=== PATIENT | male | born 1950 | race Caucasian/White ===

== ENCOUNTER 2025-01-17 07:38 | Outpatient (RCR) | payer OTHER, SELFPAY ==
[2025-01-17 07:50] VITALS: BP 145/84
[2025-01-17] MEDS: NSS 500 IV (08:06)
== END 2025-01-19 23:59 | disposition home or self-care (01) ==
LOC: OID 07:38
PROVIDERS: ATTENDING PHYSICIAN Nurse Practitioner Adult Health; FAMILY PHYSICIAN Family Medicine
DX: I35.0 Nonrheumatic aortic (valve) stenosis (principal); I48.21 Permanent atrial fibrillation; I25.10 Atherosclerotic heart disease of native coronary artery without angina pectoris; D64.9 Anemia, unspecified
CPT/HCPCS: 96360; 96361

== ENCOUNTER → 2025-01-17 08:32 | Outpatient (REF) | payer OTHER, SELFPAY ==
--- NOTE | 2025-01-02 13:29 | TAVREVAL ---
TAVR Evaluation
Frailty
MMSE ____/30: n/a
Physician Visits
Date of Visit Interventionalist:Simon/Vivi/Angus/Abraham: 01/01/25 (Jose Luis Bell)
Primary Collator Operator Name: Ruel Araujo
PCP Name: Munir Mcdaniel
Dentist Name: Dr. Boles- [phone]
Plan
Plan:
01/01/2025: Consult received from Dr. Bell for TAVR evaluation.
01/02/2025: Called and spoke to patient. He has CKD based on review of his BUN/Creat/GFR over past year. [place] safest option was to split CT TAVR and give IV hydration. Reviewed labs and plan with the patient. Agrees with plan. Will email all
instrcutions to patient.
1: CT TAVR chest only 01/17/2025, arrive at [facility] at 0745.
2: Follow up BMP on 01/23/2025, script emailed and transmitted to [employer].
3: Pending blood work on 01/23 will set up second part of CT scan and try and coordinate his CT surgery consult at same time.
Allowed for and answered all questions. Gets regular dental care- Dr. Boles [phone]. Office closed today, will try again tomorrow.
01/17/2025: Patient seen in outpatient infusion. Provided with with TAVR education booklet and prescription for follow up BMP on 01/23. Will call once results obtained to schedule CT scan Abd/Pelvis.
== END ==
LOC: RAD 08:32
PROVIDERS: ATTENDING PHYSICIAN Student in an Organized Health Care Education/Training Program
DX: I35.0 Nonrheumatic aortic (valve) stenosis (principal)
CPT/HCPCS: 75572; Q9967

== ENCOUNTER → 2025-02-13 09:07 | Outpatient (REF) | payer OTHER, SELFPAY | LOC: RAD 09:07 | PROVIDERS: ATTENDING PHYSICIAN Nurse Practitioner Adult Health; FAMILY PHYSICIAN Family Medicine | DX: I35.0 Nonrheumatic aortic (valve) stenosis (principal) | CPT/HCPCS: 74174; Q9967 ==

== ENCOUNTER 2025-03-05 05:12 | Inpatient (IN) | payer OTHER, SELFPAY ==
[2025-02-23 12:07] VITALS: BMI 32.8
[2025-02-23 12:56] LABS: % Basophils 1.2 % (0-2); % Eosinophils 6.7 % (0-6); % Immature Granulocytes 0.3 % (0-0.5); % Lymphocytes 20.3 % (20.5-51.1); % Monocytes 10.3 % (1.7-9.3); % Neutrophils 61.2 % (42.2-75.2); Absolute Basophils 0.1 10^3/uL (0-0.2); Absolute Eosinophils 0.5 10^3/uL (0-0.7); Absolute Lymphocytes 1.5 10^3/uL (1.2-3.4); Absolute Monocytes 0.8 10^3/uL (0.1-0.6); Absolute Neutrophils 4.6 10^3/uL (1.4-6.5); Hematocrit 34.4 % (39.0-52.0); Hemoglobin 11.1 g/dL (13.0-18.0); Mean Corp Hgb Conc. 32.3 g/dL (33.0-37.0); Mean Corpuscular Hgb 28.7 pg (27.0-31.0); Mean Corpuscular Volume 88.9 fL (80.0-94.0); Mean Platelet Volume 10.9 fL (7.4-10.4); Nucleated Red Blood Cells % 0 % (-); Platelet Count 141 10^3/uL (130-400); Red Blood Cell Count 3.87 10^6/uL (4.70-6.10); Red Cell Dist. Width 13.8 % (11.5-14.5); White Blood Cell Count 7.4 10^3/uL (4.8-10.8)
[2025-02-23 13:05] LABS: INR 1.96; PT 22.5 Sec (11.4-14.6)
[2025-02-23 13:06] LABS: APTT 46.5 Sec (23.4-35.0)
[2025-02-23 13:27] LABS: Urine Albumin 3+ (Neg - Trace); Urine Bilirubin Negative (Negative); Urine Character Clear (Clear); Urine Color Yellow; Urine Glucose 4+ (Negative); Urine Ketone Negative (Negative); Urine Leukocyte Negative (Negative); Urine Nitrite Negative (Negative); Urine Occult Blood Negative (Negative); Urine Specific Gravity 1.015 (<1.030); Urine Urobilinogen Negative (Neg - 1+)
[2025-02-23 13:30] LABS: ALT (SGPT) 20 U/L (0-50); AST (SGOT) 26 U/L (17-59); Alkaline Phosphatase 113 U/L (38-126); Blood Urea Nitrogen 29 mg/dl (9-20); Calcium 9.4 mg/dl (8.4-10.2); Carbon Dioxide 23 mmol/L (22-30); Chloride 108 mmol/L (98-107); Direct Bilirubin 0.3 mg/dl (0.0-0.4); Estimated Creatinine Clearance 50 ml/min; Glucose 75 mg/dl (70-99); Potassium 4.3 mmol/L (3.5-5.1); Sodium 143 mmol/L (135-145); Total Bilirubin 0.7 mg/dl (0.2-1.3); Total Protein 7.2 g/dl (6.3-8.2); eGFR 44.65
[2025-02-23 14:30] LABS: Urine Red Blood Cell 0-2 /HPF (0-2); Urine White Cell 0-2 /HPF (0-5)
--- NOTE | 2025-02-23 15:00 | CM ---
Met hans Whiteside and Mrs. Matthews in [facility]. He states prior to admission he resides with his spouse in a three story home with no steps to enter. He states he has two stair glides to get to each level. He states he has a full flight of steps to get
to bedroom/full bathroom. He has a powder room on the first floor. He states prior to admission he ambulates with a single point cane. He states he has single point cane. two stair glides, easy lift chair and semi electric bed. He states he does
not have a prescription plan and uses [facility] for his medications. He states he has been in [facility]. If he needs rehab he will consider [place] at [place] or [facility]. He will need pre-cert for SNF. If he can
go directly home his spouse will be home to assist in his carre if needed. If the Transitional Care Nurse is out of her catchment area , they have selected [facility]. He has had them in the past. Medical work-up in progress. The
discharge plan is to return home with his spouse and a home visit by Transitional Care Nurse verses some level of rehab. if indicated.
We reviewed pre-op and post-op routines. We reviewed the shower instructions. He has the soap, written instructions and the Cardiothoracic Surgery Educational Booklet. We reviewed restrictions including sternal precautions and driving
restrictions. We also discussed a home visit by the Transitional Care Nurse. He is agreeable to a home visit. The plan is for AVR on Wednesday03/05/25.
[2025-02-24 09:00] LABS: Glycohemoglobin (HgbA1c) 6.1 % (4.0-5.6)
[2025-03-05] VITALS (12 sets, daily range): BP systolic 88–147; BP diastolic 57–96; BMI 29.1
[2025-03-05] MEDS: PROTONIX 40 MG PO (06:08)
[2025-03-05] MEDS: MAGNESIUM OXIDE 500 MG PO (06:09)
[2025-03-05] MEDS: LOPRESSOR 25 MG PO (06:09)
[2025-03-05] MEDS: BACTROBAN 2% OINTMENT 1 APPLIC NASAL ×2 (06:16→20:54)
--- NOTE | 2025-03-05 06:18 | PTCARENOTE ---
admitted patient into 2265. pt admitted to 2 showers and NPO since midnight. pt clipped, prepped , washed with CHG. all questions answered. awaiting CVOR.
[2025-03-05 08:06] LABS: Urine Albumin 3+ (Neg - Trace); Urine Bilirubin Negative (Negative); Urine Character Clear (Clear); Urine Color Yellow; Urine Glucose 4+ (Negative); Urine Ketone Negative (Negative); Urine Leukocyte Negative (Negative); Urine Nitrite Negative (Negative); Urine Occult Blood 1+ (Negative); Urine Specific Gravity 1.015 (<1.030); Urine Urobilinogen Negative (Neg - 1+)
[2025-03-05 08:20] LABS: Urine Squamous Cell 0-2 /LPF (Few)
[2025-03-05 08:21] LABS: Urine Red Blood Cell 0-2 /HPF (0-2)
[2025-03-05 08:22] LABS: Urine Bacteria Few (Negative)
[2025-03-05 08:24] LABS: ACT+ - POC 118 Seconds (82-134)
[2025-03-05 09:55] LABS: ACT+ - POC 478 Seconds (82-134)
[2025-03-05 10:17] LABS: B.E. - POC -3.3 mmol/L; Glucose - POC 84 mg/dl (70-99); HCO3 - POC 21 mmol/L (21-28); Hematocrit - POC 31 % PCV (42-52); Hemodilution- POC No; Hemoglobin Calculated - POC 10.6; Ionized Calcium - POC 1.17 mmol/L (1.15-1.33); Lactate - POC 0.44 mmol/L (0.36-0.75); O2 Saturation %Calculated-POC 99.5 % (94-98); PCO2 - POC 35 mmHg (35-48); PO2 - POC 168 mmHg (83-108); Potassium - POC 3.2 mmol/L (3.5-5.1); Sodium - POC 147 mmol/L (136-145); Specimen Type - POC Arterial; pH - POC 7.39 (7.35-7.45)
[2025-03-05 10:28] LABS: ACT+ - POC 516 Seconds (82-134)
[2025-03-05 10:56] LABS: ACT+ - POC 551 Seconds (82-134)
[2025-03-05 11:14] LABS: B.E. - POC 1.4 mmol/L; Glucose - POC 150 mg/dl (70-99); HCO3 - POC 27 mmol/L (21-28); Hematocrit - POC 29 % PCV (42-52); Hemodilution- POC Yes; Hemoglobin Calculated - POC 9.8; Ionized Calcium - POC 1.17 mmol/L (1.15-1.33); Lactate - POC 0.33 mmol/L (0.36-0.75); O2 Saturation %Calculated-POC 99.9 % (94-98); PCO2 - POC 45 mmHg (35-48); PO2 - POC 276 mmHg (83-108); Potassium - POC 4.3 mmol/L (3.5-5.1); Sodium - POC 143 mmol/L (136-145); Specimen Type - POC Arterial; pH - POC 7.38 (7.35-7.45)
[2025-03-05 11:26] LABS: ACT+ - POC 507 Seconds (82-134)
[2025-03-05 11:55] LABS: ACT+ - POC 482 Seconds (82-134)
[2025-03-05 12:57] LABS: ACT+ - POC 145 Seconds (82-134)
[2025-03-05] MEDS: NOVOLOG FLEXPEN SC ×2 (13:09→19:39)
[2025-03-05 13:12] LABS: ACT+ - POC 131 Seconds (82-134)
--- NOTE | 2025-03-05 13:26 | W.CVOR.SURPR ---
CVOR Surgeon Immed Pre Op
-
I have examined this patient prior to performance of the scheduled procedure.
The patient's condition is unchanged from the time of the dictated/written History and
Physical and the patient is able to undergo the scheduled procedure.
--- NOTE | 2025-03-05 13:26 | W.IMMPOSTOP ---
Addendum entered and electronically signed by Alexis Boyer MD 03/05/25 14:55:
[id number]
Original Note:
Surgical Immed Post Op Note
-
CARDIAC SURGERY OPERATIVE NOTE:
Preoperative Dx:
Severe aortic stenosis w/ significant subvalvular calcifications onto aortomitral curtain precluding TAVR (P/M: 53.5/36.8, [place] > 4m/s)
Moderate MR and Moderate TR
Long-standing AF
Mild CAD
Postoperative Dx:
Same
Procedures:
1) Upper mini-'J-type'-hemisternotomy out R 3rd ICS
2) Open exposure of R CFV
3) ELAA (2 clips placed)
4) Extensive debridement of AV annulus and anterior leaflet of MV
5) AVR w/ placement of #27 Inspiris Resilia
Surgeon:
Alexis Boyer M.D.
Assistants:
Mireille Munoz P.A.-C.; open exposure of R CFV, optometric assistant throughout, closure of R CFV exposure
Shilpi Collins P.A.-C. - [id number]-[id number] mini-sternotomy closure
Anesthesia:
Lucio Mcmullen M.D. and Denise JonesR.N.A.
Perfusion:
Isabell Lima C.C.P.; CPB: 137min, XC: 102min
Findings:
R CFV was healthy appearing vessel, but was located almost directly under the R ACADEMIC INTERN
The R ACADEMIC INTERN was profoundly calcified
The AV was trileaflet w/ profound leaflet and annular calcifications, there was a pronounced bar of calcium extending from the aortic annulus onto the ventricular surface of the anterior MV leaflet
The RM and LM coronaries were healthy appearing and well removed from the aortic annulus
#27 Inspiris valve secured w/ 18 interrupted, pledgetted valve sutures and CorKnots
Pt w/ bradycardic AF/junction rhythm in 40s-50s requiring V-pacing @ 70; no profound change in hemodynamics with pacing
Post-LUIS FELIPE: LVEF 55-60%, no RWMA, well-seated AVR w/o PVL/AI, mean gradient 7mmHg, MV and TV function unchanged, BIBI no longer visible w/ abscence of flow confirmed w/ doppler
Implants:
Atriclip x 2 ([id number]; Lot [id number]; ACHV45; Lot [id number]
Epicardial bipolar V-wire x 1 - sutures to epicardium
CT x 2 (mediastinal, R-pleural)
Sternal wires x 3
Sternal 'square' plate w/ 2 - 16mm and 2 - 18mm screws
Sternal 'butterfly' plate w/ 4 - 16mm
Complications:
New bradycardic AF/junctional requiring pacing
Transfusions:
None
Condition:
70 V-paced; 104/57; 40/17; CVP 9, 100%, CO/CI: 4.7/2.0
GTTS: insulin 1, levophed 5, precedex 0.5
Stable/guarded to CVICU
--- NOTE | 2025-03-05 13:42 | CON.INTV ---
Consultation
Consultation Request
Date/Time Consultation Requested: 03/05/2025 - 130
Date/Time Consultation Performed: 03/05/2025 - 1333
Requesting Provider: Shilpi Collins PA-C
Performing Provider: Dr. Brandt
Reason for Consultation: SAVR + ELAA
Medical History
-
Chief Complaint: Elective AVR
History of Present Illness:
74-year-old male non-smoker with a past medical history of A-fib on Xarelto, severe aortic stenosis, valvular heart disease, hypertension, DM type II, hypercholesterolemia, CAD, CKD, anemia, prostate cancer s/p XRT (2004) and [place] who presents with
elective aortic valve replacement. Patient known to the cardiothoracic surgery service, with last visit on 02/13/[address] Boyer. His most recent echo in November 2024 showed moderate�severe aortic stenosis with peak/mean gradients of 54/37
mmHg, respectively. Also has moderate MR + moderate TR. LHC showed mild LAD disease with moderate pulmonary hypertension and moderately elevated right and left heart filling pressures with preserved CO/CI. He was consented for surgical
intervention which he agreed to. Today he underwent upper mini J type hemisternotomy with extensive debridement of AV annulus and anterior leaflet of the mitral valve with aortic valve replacement with placement of a #27 Inspiris Resilia with left
atrial appendage exclusion with 2 clips placed. Patient had a junctional rhythm/bradycardic A-fib into the 40s�50s requiring V pacing at 70. He was transferred to the CVICU with automotive parts counter person services consulted for additional
management/recommendations.
When I saw the patient, he was intubated, in no acute distress. Heart rate 62, SpO2 100%, BP via A-line: 112/53, PAP 25/10 and CO/CI: 3.75/1.64, respectively. Currently on insulin drip at 1.3 units/hr.
PMHx: Hypertension, DM type II, hypercholesterolemia, A-fib on Xarelto, severe aortic stenosis, valvular heart disease with MR + TR, CAD, CKD, anemia, neuropathy, colonic polyps, prostate cancer s/p XRT (2004), left shoulder arthritis, [place]
PShx: Bilateral knee replacement, lower back surgery, appendectomy, pilonidal analysis
Past Medical History
Past Medical History: Other (Above as per HPI)
Past Surgical History: Other (Above as per HPI)
Social History
Tobacco: Non-smoker
Alcohol: Occasional
Drug: None
Employment: Retired ([employer])
Family History
Family History: CAD (Father), Cancer (Mother: Bladder cancer) and Other (Father: Parkinson disease; brother: ALS; Sister: from alcohol/drugs at age 62)
Allergies / Home Medications
Allergies
Allergy/AdvReac Type Severity Reaction Status Date / Time
No Known Allergies Allergy Unverified 02/21/25 14:43
Home Medications
�Medication �Instructions �Recorded �Confirmed �Last Taken �Type
diltiazem HCl 240 mg 120 mg PO BID Heart 01/17/25 03/05/25 03/04/25 20:00 History
capsule,extended release 24 hr, Disease/Condition
controlled
empagliflozin 25 mg tablet 25 mg PO DAILY Heart 01/17/25 03/05/25 03/01/25 08:00 History
Disease/Condition
glipizide 10 mg tablet 10 mg PO BID Diabetes 01/17/25 03/05/25 03/04/25 08:00 History
metformin 500 mg tablet 50 mg PO DAILY Diabetes 01/17/25 03/05/25 03/04/25 08:00 History
rivaroxaban 20 mg tablet 20 mg PO DAILY Blood Clot 01/17/25 03/05/25 03/01/25 08:00 History
Prevention/Tx
rosuvastatin 40 mg tablet 40 mg PO DAILY High Cholesterol 01/17/25 03/05/25 03/04/25 08:00 History
ferrous sulfate 325 mg (65 mg 325 mg PO DAILY Supplement 02/21/25 03/05/25 02/20/25 08:00 History
iron) tablet
metoprolol tartrate 50 mg tablet 50 mg PO BID Heart 02/21/25 03/05/25 03/04/25 08:00 History
Disease/Condition
multivitamin 1 tab PO DAILY Supplement 02/21/25 03/05/25 03/01/25 08:00 History
Review of Systems
-
Unable to Obtain full review of systems at this time due to: Patient Intubation
Vitals / Labs / Diagnostic Testing
Vital Signs
Temp Pulse Resp BP Pulse Ox
98.8 F 51 16 109/78 98
03/05/25 16:51 03/05/25 17:05 03/05/25 17:05 03/05/25 16:17 03/05/25 17:05
Lab Data
03/05/25 13:59
Laboratory Results
03/05/25
13:59
PT 19.8 H
INR 1.65
APTT 34.5
pH 7.35
pCO2 40
pO2 130 H
HCO3 22.1
O2 Delivery Level
Diagnostic Testing:
Physical Exam
-
HEENT: Normocephalic, Anicteric and Other (ETT in place)
Cardiovascular: S1/S2 and Peripheral Edema (n)
Respiratory: Wheeze (n), Rales (n), Rhonchi (n), Non-Labored Respirations and Other (Mechanical breath sounds heard bilaterally)
GI: Soft, Non Distended and Non Tender
Neurology: Tremors (n) and Other (Sedated)
Skin: Warm and Dry
General: Respiratory Distress (n), Comfortable, Fever (n) and Chills (n)
Assessment
-
Assessment: 74-year-old male non-smoker with a past medical history of A-fib on Xarelto, severe aortic stenosis, valvular heart disease, hypertension, DM type II, hypercholesterolemia, CAD, CKD, anemia, prostate cancer s/p XRT (2004) and [place] who
presents with elective aortic valve replacement. Patient known to the cardiothoracic surgery service, with last visit on 02/13/[address] Boyer. His most recent echo in November 2024 showed moderate�severe aortic stenosis with peak/mean
gradients of 54/37 mmHg, respectively. Also has moderate MR + moderate TR. LHC showed mild LAD disease with moderate pulmonary hypertension and moderately elevated right and left heart filling pressures with preserved CO/CI. He was consented for
surgical intervention which he agreed to. On 03/05/2025, he underwent upper mini J type hemisternotomy with extensive debridement of AV annulus and anterior leaflet of the mitral valve with aortic valve replacement with placement of a #27 Inspiris
Resilia with left atrial appendage exclusion with 2 clips placed. Patient had a junctional rhythm/bradycardic A-fib into the 40s�50s requiring V pacing at 70. He was transferred to the CVICU with automotive parts counter person services consulted for additional
management/recommendations.
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
arthritis, [place]
Impression:
#Severe aortic stenosis with significant subvalvular calcification on 2 aorto mitral curtain precluding TAVR s/p SAVR with placement of #27 Inspiris Resilia (#0)
#Moderate MR + moderate TR with extensive debridement of AV annulus and anterior leaflet of MV (POD #0)
#Intraoperative cardiac A-fib/junctional rhythm in 40�50s requiring V pacing at 70, now s/p left atrial appendage exclusion with 2 clips placed (POD #0)
#Anemia
#Thrombocytopenia
#Hyperglycemia (mild)
#DM type II
#A-fib on Xarelto
#History of colonic polyps
#History of prostate cancer s/p XRT (2004)
Plan:
Ventilator settings reviewed
FiO2 will be weaned to maintain SpO2 >90-94%
Minute ventilation will be adjusted
Arterial blood gases will be monitored
Spontaneous breathing trial will be attempted with hopeful extubation after anesthesia/sedation wear off
prn nebulized bronchodilators - not currently bronchospastic
Pulmonary artery catheter parameters will be followed
Pressors/antihypertensive/inotropes/diuretics will be provided as needed
Maintain MAP>65
Replete electrolytes with K>4, Mg>2
Monitor chest tube output (mediastinal/right pleural chest tube)
Monitor hemoglobin
Monitor platelet count and coags
Transfuse blood products as needed to maintain Hb>7g/dL, plt>50k (given post-operative status)
CT surgery managing chest tubes
Monitor blood sugar to maintain euglycemia with goal BG 110-140
Insulin drip per protocol
Aspiration precautions
VAP prevention protocol
DVT prophylaxis
Early nutrition
Early mobilization
Critical care statement: A total of 46 minutes of critical care time was provided for this patient today. This includes management of ventilator, spontaneous breathing trial, arterial blood gases, pressors, of unstable vital signs, evaluation of the
patient at bedside, reviewing the patient's pertinent medical records including radiographs, microbiology, laboratory evaluations, and discussion with primary team and critical care nursing.
[2025-03-05 13:50] LABS: Glucose - POC 160 mg/dl (70-99); HCO3 - POC 24 mmol/L (21-28); Hematocrit - POC 30 % PCV (42-52); Hemodilution- POC Yes; Hemoglobin Calculated - POC 10.2; Ionized Calcium - POC 1.37 mmol/L (1.15-1.33); Lactate - POC 0.84 mmol/L (0.36-0.75); O2 Saturation %Calculated-POC 99.9 % (94-98); PCO2 - POC 46 mmHg (35-48); PO2 - POC 291 mmHg (83-108); POC Comment POST; Potassium - POC 4.1 mmol/L (3.5-5.1); Sodium - POC 144 mmol/L (136-145); Specimen Type - POC Arterial; pH - POC 7.33 (7.35-7.45)
[2025-03-05 13:59] LABS: Glucose - Point of Care 145 mg/dl (70-99)
[2025-03-05 14:14] LABS: Hematocrit 29.2 % (39.0-52.0); Hemoglobin 9.4 g/dL (13.0-18.0); Platelet Count 132 10^3/uL (130-400)
[2025-03-05 14:16] LABS: B.E. -3.3 mmol/L; HCO3 22.1 mmol/L (21-28); Ionized Calcium 1.27 mMOL/L (1.15-1.33); PCO2 40 mmHg (35-48); PO2 130 mmHg (83-108); Potassium 4.1 mMOL/L (3.5-5.1); Sodium 137 mMOL/L (136-145); pH 7.35 (7.35-7.45)
[2025-03-05 14:20] LABS: Mixed Venous O2 Saturation 70.7 %
[2025-03-05 14:25] LABS: INR 1.65; PT 19.8 Sec (11.4-14.6)
[2025-03-05 14:26] LABS: APTT 34.5 Sec (23.4-35.0)
[2025-03-05 14:41] LABS: B.E. - POC -0.2 mmol/L; Glucose - POC 161 mg/dl (70-99); HCO3 - POC 25 mmol/L (21-28); Hematocrit - POC 28 % PCV (42-52); Hemodilution- POC Yes; Hemoglobin Calculated - POC 9.7; Ionized Calcium - POC 1.17 mmol/L (1.15-1.33); Lactate - POC < 0.30 mmol/L (0.36-0.75); PCO2 - POC 42 mmHg (35-48); PO2 - POC 400 mmHg (83-108); Sodium - POC 143 mmol/L (136-145); Specimen Type - POC Arterial; pH - POC 7.39 (7.35-7.45)
[2025-03-05 14:41] LABS: B.E. - POC 0.3 mmol/L; Glucose - POC 167 mg/dl (70-99); HCO3 - POC 27 mmol/L (21-28); Hematocrit - POC 29 % PCV (42-52); Hemodilution- POC Yes; Hemoglobin Calculated - POC 9.9; Ionized Calcium - POC 1.19 mmol/L (1.15-1.33); Lactate - POC < 0.30 mmol/L (0.36-0.75); O2 Saturation %Calculated-POC 99.9 % (94-98); PCO2 - POC 49 mmHg (35-48); PO2 - POC 308 mmHg (83-108); Sodium - POC 143 mmol/L (136-145); Specimen Type - POC Arterial; pH - POC 7.34 (7.35-7.45)
[2025-03-05 14:41] LABS: B.E. - POC 0.4 mmol/L; Glucose - POC 136 mg/dl (70-99); HCO3 - POC 26 mmol/L (21-28); Hematocrit - POC 28 % PCV (42-52); Hemodilution- POC Yes; Hemoglobin Calculated - POC 9.6; Ionized Calcium - POC 1.16 mmol/L (1.15-1.33); Lactate - POC < 0.30 mmol/L (0.36-0.75); PCO2 - POC 42 mmHg (35-48); PO2 - POC 389 mmHg (83-108); Potassium - POC 3.7 mmol/L (3.5-5.1); Sodium - POC 143 mmol/L (136-145); Specimen Type - POC Arterial; pH - POC 7.39 (7.35-7.45)
[2025-03-05 14:49] LABS: Blood Urea Nitrogen 27 mg/dl (9-20); Estimated Creatinine Clearance 53 ml/min; Glucose 155 mg/dl (70-99); Magnesium 2.6 mg/dl (1.6-2.3)
--- NOTE | 2025-03-05 14:50 | W.PN.CD ---
Addendum entered and electronically signed by Troy Laurent MD 03/05/25 17:34:
I saw and examined the patient.
The UNDERWATER PHOTOGRAPHER's note was reviewed and I agree with the note.
Comment:
74-year-old man with aortic stenosis, atrial fibrillation, hypertension, diabetes, and CKD who underwent AVR/ELAA with placement of #[address] Boyer on 03/05/2025. At the time of my assessment he is still sedated but opens eyes to
voice and can nod in response to questions. He is off of all vasoactive infusions. Physical exam reveals regular rate and rhythm, no murmurs, trace lower extremity edema, and clear lungs anteriorly. Postop ECG sinus bradycardia with first-degree
AV block and PACs. Postoperative LUIS FELIPE with well-seated bioprosthetic aortic valve, mean gradient 7 mmHg and no paravalvular leak. Continue routine postoperative care per CT surgery. Resume anticoagulation when safe from a surgical standpoint.
Restart metoprolol and diltiazem as tolerated. We will continue to follow along.
Original Note:
Today's Communication / Plan
-
-close post-op monitoring and care with weaning of drips and vent as tolerated per CT surgery/CVICU protocol
Impression / Plan
-
74 y/o male (patient of Dr. Araujo, has seen Dr. Bell as OP) with aortic stenosis, permanent AFIB on Xarelto, hypertension, DM, CKD, NEFTALI is now s/p AVR.
Aortic stenosis:
-s/p AVR w/ placement of #27 Inspiris Fea, Dr. Boyer 03/05/25, also had ELAA
-bradycardia noted intra-op requiring pacing per op note
-intra-op LUIS FELIPE with EF 55-60%
-post-op EKG SB with 1st degree AVB, PAC's
-currently on Levophed
-CT's, Webb, pacer wire in place
AFIB:
-previously considered permanent per chart
-however, post-op SB as above
-follow tele
-Resume OAC when safe post-op
HTN:
-monitor post-op
CKD:
-follow renal function
Data:
TTE 12/18/2024 demonstrates severe aortic stenosis with reported valve area 0.7, peak gradient 53.5, mean gradient 36.8, DVI 0.209, normal LVEF, moderate MR, PASP 47.�
Physical Exam
Vital Signs/Labs
Vital Signs
Temp Pulse Resp BP Pulse Ox
97.2 F 50 16 92/63 99
03/05/25 14:45 03/05/25 14:40 03/05/25 14:45 03/05/25 14:05 03/05/25 14:40
03/04/25 03/05/25 03/06/25
06:59 06:59 06:59
Actual Weight 102.7 kg
03/05/25 13:59
PT 19.8 Sec (11.4-14.6) H 03/05/25 13:59
INR 1.65 03/05/25 13:59
APTT 34.5 Sec (23.4-35.0) 03/05/25 13:59
Magnesium 2.6 mg/dl (1.6-2.3) H 03/05/25 13:59
Physical Exam
Constitutional: No acute distress
Cardiovascular: Rhythm & rate is regular (SB) and Pedal edema is absent
Respiratory: Other (intubated/ventilated)
Neuro/Psych: Other (sedated)
Other: Skin (chest incision dressing CDI)
Data Reviewed
-
Date of Service: March 05, 2025
EKG: Tracing Personally Visualized and interpreted (SB with 1st degree AVB) and Other (SB)
Labs: Labs Reviewed by me
--- NOTE | 2025-03-05 14:54 | CM ---
Chart reviewed. Patient is in the OR today. Patient is independent of ADLS, lives with his in a 3 STH, 0 MARGARETH, ambulates with a SPC, and has 2 stair glides, easy lift chair, and a semi electric bed. Plan is for the patient to return home
with CT Transitional RN. CM to follow
--- NOTE | 2025-03-05 15:00 | PTCARENOTE ---
Pt received from CVOR 1255 ;Sedated and intubated; Pupils round, reactive, and equal; afib & NSR rhythm on monitor; VSS; Epicardial pacemaker present? with pacer settings VVI 30/18; DP and radial pulses present; Lungs clear/diminished/crackles; ETT
size 8 positioned and secured at ? cm right/left lip; Ventilator settings SIMV 16/550/5 FiO2 40; CTx2 to -20 cm wall suction draining bloody drainage - no air leak, tidaling, or crepitus noted; Hypoactive BS; Webb catheter in place draining yellow
clear urine; Groin incisions site CDI/Sternal Midline Incision CD A-line in left brachial artery line zeroed and level; Dav present in right Cordis; PIVx1; Levo/insulin/precedex infusing; See nursing flowsheets for further details.
[2025-03-05 15:08] LABS: Glucose - Point of Care 124 mg/dl (70-99)
[2025-03-05] MEDS: NSS 500 IV (15:51)
[2025-03-05 16:17] LABS: Glucose - Point of Care 109 mg/dl (70-99)
[2025-03-05 17:00] LABS: Glucose - Point of Care 101 mg/dl (70-99)
[2025-03-05 18:10] LABS: Glucose - Point of Care 110 mg/dl (70-99)
[2025-03-05 18:24] LABS: B.E. - POC -2.1 mmol/L; Blood Urea Nitrogen - POC 29 mg/dl (3-120); Chloride - POC 109 mmol/L (96-111); Creatinine - POC 1.69 mg/dl (0.3-1.0); Glucose - POC 115 mg/dl (70-99); HCO3 - POC 23 mmol/L (21-28); Hematocrit - POC 29 % PCV (42-52); Hemodilution- POC Yes; Hemoglobin Calculated - POC 9.9; Ionized Calcium - POC 1.26 mmol/L (1.15-1.33); Lactate - POC 0.77 mmol/L (0.36-0.75); O2 Saturation %Calculated-POC 98.5 % (94-98); PCO2 - POC 39 mmHg (35-48); PO2 - POC 118 mmHg (83-108); Potassium - POC 4.1 mmol/L (3.5-5.1); Sodium - POC 144 mmol/L (136-145); Specimen Type - POC Arterial; pH - POC 7.38 (7.35-7.45)
[2025-03-05 18:40] LABS: Hemoglobin 8.7 g/dL (13.0-18.0); Platelet Count 117 10^3/uL (130-400)
[2025-03-05] MEDS: PACERONE PO ×2 (19:38→22:10)
[2025-03-05] MEDS: NEURONTIN PO (19:38)
[2025-03-05] MEDS: TYLENOL PO ×2 (19:38→21:29)
[2025-03-05] MEDS: ANCEF 5 IV (19:39)
[2025-03-05] MEDS: SODIUM BICARBONATE 50 MEQ IV (19:39)
[2025-03-05] MEDS: OFIRMEV 100 IV (19:39)
--- NOTE | 2025-03-05 20:00 | PTCARENOTE ---
assumed care of pt from previous RN. pt A&Ox4, bedrest s/p CVOR. R IJ cordis w/ swan floated to 45cm. L brachial a-line. all lines leveled, zeroed, flushed. SR w/ 1st degree AVB on tele-monitor, occasional PACs. temp epicardial v-wires w/ back up
settings VVI 30/18/2. CTx2 (R pleural & mediastinal x1) to -20cm wall suction, draining sanguineous drainage. POX 100% on 6 L NC. abd s/n, hypoactive BS. tolerating sips of water w/ PO meds. parra catheter draining clear, yellow urine. all surgical
sites stable, CDI. PIV intact. see worklist for complete nursing assessment, interventions, VS, and I&Os.
[2025-03-05 20:01] LABS: Glucose - Point of Care 98 mg/dl (70-99)
[2025-03-05] MEDS: LOW STRENGTH ASPIRIN 81 MG PO (20:54)
[2025-03-05] MEDS: SENOKOT-S PO (20:54)
[2025-03-05 22:08] LABS: Glucose - Point of Care 95 mg/dl (70-99)
[2025-03-05] MEDS: NEURONTIN 100 MG PO (22:10)
[2025-03-05] MEDS: NSS 250 IV (22:13)
[2025-03-05] MEDS: ROXICODONE 5 MG PO (23:32)
[2025-03-06] VITALS (33 sets, daily range): BP systolic 78–130; BP diastolic 28–92; PULSE 69–71; O2SAT 96–100; BMI 29.8
--- NOTE | 2025-03-06 | PTCARENOTE ---
assessment remains unchanged. VSS. CT drainage WNL. U/O <0.5ml/kg/h, CT PA aware.
[2025-03-06 00:09] LABS: Glucose - Point of Care 102 mg/dl (70-99)
--- NOTE | 2025-03-06 00:48 | W.PN.CT ---
Today's Communication / Plan
-
Plan:
-No major issues overnight. Hemodynamically and neurologically intact
-Successfully extubated last night @ 1830
-Weaned off Levophed overnight, remains on insulin gtt per protocol
-Last CI 2.53, MVO2 73.5%, U/O since OR 650 mL
-Monitor chest tube output: Med + Rpl 70/160
-Amiodarone and BB on hold given postop bradycardia
-Currently NSR @ 66 bpm, did require intermittent pacing with pacer @ backup @ 40 bpm
-Cont. current meds (ASA, Crestor, Prozac; Amiodarone and BB on hold given postop bradycardia, eventual Xarelto for hx a-fib)
-Placed mag oxide on hold, mg 2.4
-D/C'd swan @ 0445
-Will D/C brachial a-line
-Will keep parra another day to avoid complications of urinary retention given hx of CKD
-Telemetry phase when off insulin gtt tomorrow
-Maintain cordis
-Will eventually cut temporary v-wire
-Encourage use of IS
-Wean off of O2 as tolerated
-OOB into chair/Ambulate
Assessment / Plan
-
Assessment:
-S/p Upper mini-'J-type'-hemisternotomy out R 3rd ICS/Open exposure of R CFV/AVR w/ placement of #27 Inspiris Resilia/Extensive debridement of AV annulus and anterior leaflet of MV/ELAA (2 clips placed), by Dr. Boyer, 03/05/25, pod#1
-Severe aortic stenosis w/ significant subvalvular calcifications onto aortomitral curtain precluding TAVR (P/M: 53.5/36.8, Brand Attendant > 4m/s)
-Moderate MR
-Mild to mod TR
-LVEF 55-60%
-Chronic A-Fib (on Xarelto)
-Mild CAD
-HTN
-HLD
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
-Class 1 obesity (BMI 30)
-Probable YOLANDA
-CKD3a/b (cr 1.4-1.6)
-KOOTENAI
-Arthritis/DJD
-Prostate ca S/p XRT
-S/P B/L knee replacement
-S/P Appendectomy
-Acute postop blood loss/Anemia (stable without blood transfusion)
-Acute postop thrombocytopenia (no active bleed)
-Acute postop atelectasis
-Acute postop hypovolemia with subsequent hypervolemia
-Acute postop bradycardia
Discussed patient care with: Cardiology, Nursing, Respiratory Therapy, Pharmacy and Care Team
Subjective
Procedure
S/p Upper mini-'J-type'-hemisternotomy out R 3rd ICS/Open exposure of R CFV/AVR w/ placement of #27 Inspiris Resilia/Extensive debridement of AV annulus and anterior leaflet of MV/ELAA (2 clips placed), by Dr. Boyer, 03/05/25
-
Date of Service: March 06, 2025
Pt c/o mild incisional pain, otherwise feels well
Objective Data
-
PT 19.8 Sec (11.4-14.6) H 03/05/25 13:59
INR 1.65 03/05/25 13:59
APTT 34.5 Sec (23.4-35.0) 03/05/25 13:59
Vital Signs
Vital Signs
Temp Pulse Resp BP Pulse Ox
97.5 F 62 10 114/65 100
03/06/25 00:00 03/06/25 00:15 03/06/25 00:15 03/06/25 00:00 03/06/25 00:15
CT Intake/Output/Weight
03/05/25 03/05/25 03/06/25
06:59 18:59 06:59
Intake Total 40 / 566.2 526.2 / 566.2
Output Total 415 / 600 185 / 600
Balance -375 / -33.8 341.2 / -33.8
SaO2: 100 (2L)
Physical Exam
-
General: Awake, Oriented and AOx3
Cardiovascular: Regular rate & rhythm, No Murmurs, No Rub and No Gallop
Respiratory: Decreased Breath Sounds (at bases, otherwise clear)
Sternum: Stable
Incision: Clean, Dry, Intact and Dressing Intact
Extremities: Other (+trace edema)
Data Reviewed
-
Lab Results: Results Reviewed
Medications: Active Meds Reviewed
Chest X-Ray: Report Reviewed and Image Reviewed
ECG: Report Reviewed and Image Reviewed
[2025-03-06 01:02] LABS: Glucose - Point of Care 112 mg/dl (70-99)
[2025-03-06 02:11] LABS: Glucose - Point of Care 107 mg/dl (70-99)
[2025-03-06] MEDS: DILAUDID 0.25 MG IV ×2 (02:16→10:38)
[2025-03-06 03:14] LABS: Glucose - Point of Care 103 mg/dl (70-99)
[2025-03-06 03:29] LABS: Mixed Venous O2 Saturation 73.5 %
[2025-03-06 03:38] LABS: Hematocrit 26.1 % (39.0-52.0); Hemoglobin 8.3 g/dL (13.0-18.0); Mean Corp Hgb Conc. 31.8 g/dL (33.0-37.0); Mean Corpuscular Hgb 27.9 pg (27.0-31.0); Mean Corpuscular Volume 87.6 fL (80.0-94.0); Platelet Count 113 10^3/uL (130-400); Red Blood Cell Count 2.98 10^6/uL (4.70-6.10); Red Cell Dist. Width 13.6 % (11.5-14.5); White Blood Cell Count 13.2 10^3/uL (4.8-10.8)
[2025-03-06 03:59] LABS: Blood Urea Nitrogen 33 mg/dl (9-20); Calcium 8.7 mg/dl (8.4-10.2); Carbon Dioxide 19 mmol/L (22-30); Chloride 110 mmol/L (98-107); Estimated Creatinine Clearance 44 ml/min; Glucose 102 mg/dl (70-99); Magnesium 2.4 mg/dl (1.6-2.3); Potassium 4.2 mmol/L (3.5-5.1); Sodium 142 mmol/L (135-145); eGFR 41.52
--- NOTE | 2025-03-06 04:00 | PTCARENOTE ---
no acute changes. VSS. CT drainage WNL. U/O <0.5ml/kg/h, CT PA aware. AM labs collected and sent. EKG completed.
[2025-03-06 04:12] LABS: Glucose - Point of Care 100 mg/dl (70-99)
[2025-03-06] MEDS: ANCEF 5 IV ×2 (04:12→12:31)
[2025-03-06] MEDS: FLEXERIL 5 MG PO (05:58)
[2025-03-06] MEDS: TYLENOL 1000 MG PO ×3 (05:58→20:56)
[2025-03-06 06:03] LABS: Glucose - Point of Care 110 mg/dl (70-99)
--- NOTE | 2025-03-06 08:00 | PTCARENOTE ---
pt received from previous RN, oriented, in bed. SR on the monitor, HR 60-70s. V wire in place, VVI 40/18. SBP 100-120s. palpable pulses, trace UE and +1 LE edema. pt on 2LNC, 100% POX. lungs diminished. IS encouraged. CTx2, no air leak or crepitus
noted. pt abdomen s/n, denies n/v. clears tolerated. Webb in place, clear yellow urine. sternal Aquacel intact. chest tube dressing c/d/i. R groin puncture LIVAN. RIJ cordis maintained. PIV. insulin gtt running per protocol. Clare Alicea dc'd by
KEILY Collins, dressing c/d/i. see worklist for VS, I&O, and assessment.
[2025-03-06 08:20] LABS: Glucose - Point of Care 87 mg/dl (70-99)
--- NOTE | 2025-03-06 08:26 | W.PN.INTV ---
Today's Communication / Plan
Recommendations
Up OOB as tolerated
Wean down insulin drip as per protocol with goal BG 110�140
Pain control
Encouraged incentive spirometer
Cardiac rehab consult
Cholesterol-lowering diet
Ways Operator services will continue to follow along while he remains in the CVICU. Once downgraded to CVICU�telemetry status, then we will sign off at that time. Please call back with any questions or concerns.
Assessment
-
Assessment: 74-year-old male non-smoker with a past medical history of A-fib on Xarelto, severe aortic stenosis, valvular heart disease, hypertension, DM type II, hypercholesterolemia, CAD, CKD, anemia, prostate cancer s/p XRT (2004) and MASHPEE who
presents with elective aortic valve replacement. Patient known to the cardiothoracic surgery service, with last visit on 02/13/[address] Boyer. His most recent echo in November 2024 showed moderate�severe aortic stenosis with peak/mean
gradients of 54/37 mmHg, respectively. Also has moderate MR + moderate TR. LHC showed mild LAD disease with moderate pulmonary hypertension and moderately elevated right and left heart filling pressures with preserved CO/CI. He was consented for
surgical intervention which he agreed to. On 03/05/2025, he underwent upper mini J type hemisternotomy with extensive debridement of AV annulus and anterior leaflet of the mitral valve with aortic valve replacement with placement of a #27 Inspiris
Resilia with left atrial appendage exclusion with 2 clips placed. Patient had a junctional rhythm/bradycardic A-fib into the 40s�50s requiring V pacing at 70. He was transferred to the CVICU with merchandising internship services consulted for additional
management/recommendations.
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
arthritis, MASHPEE
Impression:
#Severe aortic stenosis with significant subvalvular calcification on 2 aorto mitral curtain precluding TAVR s/p SAVR with placement of #27 Inspiris Resilia (#1)
#Moderate MR + moderate TR with extensive debridement of AV annulus and anterior leaflet of MV (POD #1)
#Intraoperative cardiac A-fib/junctional rhythm in 40�50s requiring V pacing at 70, now s/p left atrial appendage exclusion with 2 clips placed (POD #1)
#Anemia
#Thrombocytopenia
#Hyperglycemia (mild)
#DM type II
#A-fib on Xarelto
#History of colonic polyps
#History of prostate cancer s/p XRT (2004)
Plan:
Successfully extubated on 03/05/2025 to nasal cannula, and he is currently on room air breathing comfortably and saturating 98%
Maintain SpO2 >90-94%
prn nebulized bronchodilators - not currently bronchospastic
Encourage incentive spirometer q1hr while awake
Removal of R-IJ cordis per CT surgery team
Pressors/antihypertensive/inotropes/diuretics will be provided as needed
Maintain MAP>65
Replete electrolytes with K>4, Mg>2
Monitor chest tube output (mediastinal/right pleural chest tube)
Monitor hemoglobin
Monitor platelet count and coags
Transfuse blood products as needed to maintain Hb>7g/dL, plt>50k (given post-operative status)
CT surgery managing chest tubes
Monitor blood sugar to maintain euglycemia with goal BG 110-140
Insulin drip per protocol
Aspiration precautions
DVT prophylaxis
Early nutrition
Early mobilization
Ways Operator services will continue to follow along while he remains in the CVICU. Once weaned off insulin drip and downgraded to CVICU�telemetry status, then we will sign off at that time. Please call back with any questions or concerns.
Critical care statement: A total of 41 minutes of critical care time was provided for this patient today. This includes management of ventilator, spontaneous breathing trial, arterial blood gases, pressors, of unstable vital signs, evaluation of the
patient at bedside, reviewing the patient's pertinent medical records including radiographs, microbiology, laboratory evaluations, and discussion with primary team and critical care nursing.
Subjective Dataa
Subjective Data
Date of Service:
Date of Service: March 06, 2025
Chief Complaint: Ways Operator Follow Up
Subjective:
Patient seen and evaluated today at bedside. He feels well, sitting in chair no acute distress. Currently on insulin drip at 0.7 units/hr. On room air breathing comfortably, saturating 98% with heart rate 66 and BP 96/51. His , Gris, and
daughter, Nieves, both at bedside and all questions were answered.
Review of Systems
General: Other (Negative unless mentioned above)
Objective Data
Data Reviewed
Vital Signs / I&O / Oxygen:
Vital Signs
Temp Pulse Resp BP Pulse Ox
97.5 F 70 18 97/75 97
03/06/25 08:00 03/06/25 09:00 03/06/25 09:00 03/06/25 09:00 03/06/25 09:21
Intake and Output
03/05/25 03/06/25 03/07/25
06:59 06:59 06:59
Intake Total 671.7 / 682.9 32.7 / 32.7
Output Total 810 / 850 85 / 85
Balance -138.3 / -167.1 -52.3 / -52.3
SaO2 97
Nasal Cannula flow liters per 2
minute
Physical Exam
General: Respiratory Distress (negative), Comfortable, Chills (negative) and Sweats (negative)
HEENT: Normocephalic and Anicteric
Cardiovascular: S1-S2 and Peripheral Edema (negative)
Respiratory: Clear, Wheeze (negative), Crackles (negative), Rhonchi (negative) and Non-Labored Respirations
GI: Soft, Non Distended, Non Tender and Normal Bowel Sounds
Neurology: AO x 3 and Tremors (negative)
Skin: Warm, Dry, Cyanosis (negative) and Jaundice (negative)
Labs/Micro/Reports
Lab Data
03/06/25 03:09
03/06/25 03:09
Laboratory Results
03/05/25
13:59
PT 19.8 H
INR 1.65
APTT 34.5
pH 7.35
pCO2 40
pO2 130 H
HCO3 22.1
O2 Delivery Level
[2025-03-06] MEDS: NOVOLOG FLEXPEN SC (08:49)
[2025-03-06] MEDS: THERAGRAN 1 TABLET PO (08:56)
[2025-03-06] MEDS: LIDOCAINE 4% PATCH 1 PATCH TOPICAL (08:56)
[2025-03-06] MEDS: LOW STRENGTH ASPIRIN 81 MG PO (08:56)
[2025-03-06] MEDS: ROXICODONE 5 MG PO ×2 (08:57→21:30)
[2025-03-06] MEDS: FEOSOL 325 MG PO (08:57)
[2025-03-06] MEDS: PROTONIX 40 MG PO (08:57)
[2025-03-06] MEDS: CRESTOR 40 MG PO (08:57)
[2025-03-06] MEDS: SENOKOT-S 1 TABLET PO ×2 (08:58→20:56)
[2025-03-06] MEDS: BACTROBAN 2% OINTMENT 1 APPLIC NASAL ×2 (08:58→20:56)
[2025-03-06] MEDS: NEURONTIN 100 MG PO ×3 (08:58→20:56)
--- NOTE | 2025-03-06 09:15 | PTCARENOTE ---
pt OOB to chair x2 assist w/ 4-point cane, unsteady on feet. pt placed in chair. pt c/o lightheadedness, SBP 90s, improved to 120s when reclined in chair, MEDICAL SERVICES MANAGER aware. pt c/o incisional site pain, PRN Roxicodone 5mg PO given.
[2025-03-06 10:13] LABS: Glucose - Point of Care 101 mg/dl (70-99)
[2025-03-06] MEDS: NSS IV (11:59)
[2025-03-06 12:10] LABS: Glucose - Point of Care 139 mg/dl (70-99)
--- NOTE | 2025-03-06 12:30 | PTCARENOTE ---
pt VSS, no changes in assessment. pt OOB in chair for lunch. IS encouraged. COMMUNICATIONS ATTENDANT aware of UO.
[2025-03-06] MEDS: NOVOLOG FLEXPEN 2 UNITS SC ×2 (13:12→17:07)
[2025-03-06] MEDS: LR 250 ML IV ×2 (13:30→18:13)
[2025-03-06 14:17] LABS: Glucose - Point of Care 106 mg/dl (70-99)
[2025-03-06] MEDS: NSS 500 IV (14:17)
--- NOTE | 2025-03-06 15:49 | CM ---
Chart reviewed. Patient is independent of ADLS, lives with his in a 3 [address], 0 [address]AR[address], ambulates with a SPC, has a easy lift chair, semi electric bed. PT evaluation recommending Acute Rehab. Patient is interested in going to [facility] [place]
[place]. Referral sent. Physiatry consult requested. Plan is for the patient to go to Acute Rehab when medically stable. CM to follow
[2025-03-06 16:08] LABS: Glucose - Point of Care 156 mg/dl (70-99)
--- NOTE | 2025-03-06 16:30 | PTCARENOTE ---
pt VSS, resting between care. OOB to chair for dinner using LLE brace w/ RW and 2 person assist. GUARD MUSEUM aware of UO, LR bolus given per GUARD MUSEUM. RIJ cordis dressing and chest tube dressing changed.
--- NOTE | 2025-03-06 17:09 | W.PN.CD ---
Addendum entered and electronically signed by Peter Gunderson MD 03/06/25 17:24:
I saw and examined the patient.
The ROTATIONAL MOULDING OPERATOR's note was reviewed and I agree with the note.
s/p AVR w/ placement of #27 Dr. Merlin Lara 03/05/25
Awake alert comfortable. Hemodynamically stable. Creatinine trending up from 1.4-1.7.
Patient was with some lower blood pressures. Now improved. Optimize hemodynamics monitor renal function.
Original Note:
Today's Communication / Plan
-
Follow telemetry
Impression / Plan
-
I/P: 74M with aortic stenosis, permanent AFIB on Xarelto, hypertension, DM, CKD, NEFTALI is now s/p AVR
Primary outpatient jute bag clipper: Dr. Araujo
Severe aortic stenosis s/p AVR w/ placement of #27 Sumeet Collazo, Dr. Boyer 03/05/25, also had ELAA
- Bradycardia noted intra-op requiring pacing
- Intra-op LUIS FELIPE with EF 55-60%
- Prolonged QTc, follow
Sinus bradycardia, beta-peyton and amiodarone are on hold
Atrial fibrillation, paroxysmal
- Previously considered permanent per chart
- Oral anticoagulation: Rivaroxaban on hold, resumption per surgery
HTN, chronic and stable
CKD, stage III, slight increase of renal function but stable
Type 2 diabetes mellitus, HgbA1c 6.1%
Data:
TTE 12/18/2024:
Severe aortic stenosis with reported valve area 0.7, peak gradient 53.5, mean gradient 36.8, DVI 0.209, normal LVEF, moderate MR, PASP 47.�
Physical Exam
Vital Signs/Labs
Vital Signs
Temp Pulse Resp BP Pulse Ox
97.8 F 61 18 105/49 98
03/06/25 12:00 03/06/25 17:00 03/06/25 17:00 03/06/25 17:00 03/06/25 17:00
03/05/25 03/06/25 03/07/25
06:59 06:59 06:59
Actual Weight 102.7 kg 105.2 kg
03/06/25 03:09
03/06/25 03:09
PT 19.8 Sec (11.4-14.6) H 03/05/25 13:59
INR 1.65 03/05/25 13:59
APTT 34.5 Sec (23.4-35.0) 03/05/25 13:59
Magnesium 2.4 mg/dl (1.6-2.3) H 03/06/25 03:09
Physical Exam
Constitutional: No acute distress and Comfortable
EENT: Anicteric and Moist mucous membranes
Cardiovascular: Rhythm & rate is regular, Pedal edema is absent and S1S2 is normal
Respiratory: Respiratory effort normal and Lungs clear to auscul.
GI: Soft, Distention absent, Flat and Non tender
Neuro/Psych: AO x 3
Other: Skin (Warm and dry)
Data Reviewed
-
Date of Service: March 06, 2025
--- NOTE | 2025-03-06 17:56 | W.PN.ANS.POP ---
Anesthesia Post Operative
- Anesthesia Post Op Note
Vital Signs Stable-See Nursing Note: Yes
Airway Patent: Yes
Adequate Pain Control: Yes
Change in Mental Status: No
Current Postoperative Nausea & Vomiting: No
Anesthesia Complications: No
General Anesthetic Recall: No
Unplanned Admission: No
Post Op Hydration Adequate: Yes
[2025-03-06 18:17] LABS: Glucose - Point of Care 185 mg/dl (70-99)
--- NOTE | 2025-03-06 18:20 | PTCARENOTE ---
LR 250ml bolus given per [employer]TER [employer]ASS [employer] INSTRUMENTS.
[2025-03-06 19:23] LABS: Glucose - Point of Care 183 mg/dl (70-99)
--- NOTE | 2025-03-06 20:00 | PTCARENOTE ---
assumed care of pt from previous RN. pt A&Ox4, resting in chair at time of assessment. SR w/ 1st degree AVB, occasional PACs on tele-monitor. temp epicardial v-wires w/ backup settings 40/18/2. POX 96% on RA. CT x2 (R pleural and mediastinal x1) to
-20cm wall suction, draining serosanguineous drainage. abd s/n, +BS. parra catheter draining clear, yellow urine. U/O <0.5ml/kg/h, CT PA aware. all surgical sites stable, CDI. R IJ cordis w/ KVO. PIV intact. see worklist for complete nursing
assessment, interventions, VS, and I&Os.
[2025-03-06 21:27] LABS: Glucose - Point of Care 146 mg/dl (70-99)
[2025-03-06 22:52] LABS: Glucose - Point of Care 186 mg/dl (70-99)
[2025-03-07] VITALS (36 sets, daily range): BP systolic 65–136; BP diastolic 40–89; PULSE 99–150; O2SAT 97; BMI 30.1
--- NOTE | 2025-03-07 | PTCARENOTE ---
assessment remains unchanged. VSS. CT drainage WNL.
[2025-03-07 00:11] LABS: Glucose - Point of Care 147 mg/dl (70-99)
[2025-03-07 00:57] LABS: Glucose - Point of Care 145 mg/dl (70-99)
[2025-03-07 02:08] LABS: Glucose - Point of Care 147 mg/dl (70-99)
[2025-03-07 03:11] LABS: Glucose - Point of Care 121 mg/dl (70-99)
[2025-03-07] MEDS: NOVOLIN R INSULIN INFUSION 100 IV (03:18)
--- NOTE | 2025-03-07 03:30 | PTCARENOTE ---
no acute changes. VSS. AM labs collected and sent.
[2025-03-07 03:44] LABS: Blood Urea Nitrogen 52 mg/dl (9-20); Calcium 8.2 mg/dl (8.4-10.2); Carbon Dioxide 20 mmol/L (22-30); Chloride 105 mmol/L (98-107); Estimated Creatinine Clearance 32 ml/min; Glucose 115 mg/dl (70-99); Magnesium 2.5 mg/dl (1.6-2.3); Potassium 3.8 mmol/L (3.5-5.1); Sodium 137 mmol/L (135-145); eGFR 28.71
[2025-03-07 03:46] LABS: Hematocrit 24.9 % (39.0-52.0); Hemoglobin 8.1 g/dL (13.0-18.0); Mean Corp Hgb Conc. 32.5 g/dL (33.0-37.0); Mean Corpuscular Hgb 28.5 pg (27.0-31.0); Mean Corpuscular Volume 87.7 fL (80.0-94.0); Mean Platelet Volume 11.6 fL (7.4-10.4); Platelet Count 100 10^3/uL (130-400); Red Blood Cell Count 2.84 10^6/uL (4.70-6.10); Red Cell Dist. Width 13.6 % (11.5-14.5); White Blood Cell Count 13.7 10^3/uL (4.8-10.8)
[2025-03-07 04:15] LABS: Glucose - Point of Care 114 mg/dl (70-99)
[2025-03-07] MEDS: CALCIUM GLUCONATE 290 MG IV (04:58)
[2025-03-07] MEDS: TYLENOL 1000 MG PO ×3 (05:46→21:10)
[2025-03-07] MEDS: KCL 40 MEQ PO (05:46)
[2025-03-07 05:50] LABS: Glucose - Point of Care 102 mg/dl (70-99)
--- NOTE | 2025-03-07 06:50 | W.PN.CT ---
Today's Communication / Plan
-
Plan:
-No major issues overnight. Hemodynamically and neurologically intact
-Remains on insulin gtt per protocol
-D/C chest tubes: Med + Rpl 30/140
-Amiodarone and BB on hold given postop bradycardia
-Currently NSR @ 70 bpm, pacer @ backup @ 40 bpm
-Cont. current meds (ASA, Crestor, Prozac; Amiodarone and BB on hold given postop bradycardia, eventual Xarelto for hx a-fib)
-Placed mag oxide on hold, mg 2.5
-K is 3.8 will replete
-Monitor creatinine 2.3, up from 1.7 yesterday, baseline 1.4-1.7
-Will keep parra another day to avoid complications of urinary retention given hx of CKD
-Telemetry phase when off insulin
-Maintain cordis another day
-Will eventually cut temporary v-wire
-Encourage use of IS
-Wean off of O2 as tolerated
-OOB into chair/Ambulate
Assessment / Plan
-
Assessment:
-S/p Upper mini-'J-type'-hemisternotomy out R 3rd ICS/Open exposure of R CFV/AVR w/ placement of #27 Inspiris Resilia/Extensive debridement of AV annulus and anterior leaflet of MV/ELAA (2 clips placed), by Dr. Boyer, 03/05/25, pod#2
-Severe aortic stenosis w/ significant subvalvular calcifications onto aortomitral curtain precluding TAVR (P/M: 53.5/36.8, Form Setter [employer] Forms > 4m/s)
-Moderate MR
-Mild to mod TR
-LVEF 55-60%
-Chronic A-Fib (on Xarelto)
-Mild CAD
-HTN
-HLD
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
-Class 1 obesity (BMI 30)
-Probable YOLANDA
-CKD3a/b (cr 1.4-1.6)
-MENOMINEE
-Arthritis/DJD
-Prostate ca S/p XRT
-S/P B/L knee replacement
-S/P Appendectomy
-Acute postop blood loss/Anemia (stable without blood transfusion)
-Acute postop thrombocytopenia (no active bleed)
-Acute postop atelectasis
-Acute postop hypovolemia with subsequent hypervolemia
-Acute postop bradycardia
Discussed patient care with: Cardiology, Nursing, Respiratory Therapy, Pharmacy and Care Team
Subjective
Procedure
S/p Upper mini-'J-type'-hemisternotomy out R 3rd ICS/Open exposure of R CFV/AVR w/ placement of #27 Inspiris Resilia/Extensive debridement of AV annulus and anterior leaflet of MV/ELAA (2 clips placed), by Dr. Boyer, 03/05/25
-
Date of Service: March 07, 2025
Pt c/o incisional pain, otherwise feels well
Objective Data
-
Lab Results
03/07/25 03:09
03/07/25 03:09
PT 19.8 Sec (11.4-14.6) H 03/05/25 13:59
INR 1.65 03/05/25 13:59
APTT 34.5 Sec (23.4-35.0) 03/05/25 13:59
Vital Signs
Vital Signs
Temp Pulse Resp BP Pulse Ox
98.5 F 78 16 136/81 97
03/07/25 05:00 03/07/25 06:03 03/07/25 04:00 03/07/25 06:03 03/07/25 05:00
CT Intake/Output/Weight
03/06/25 03/06/25 03/07/25
06:59 18:59 06:59
Intake Total 631.7 / 682.9 632.8 / 783.9 151.1 / 783.9
Output Total 395 / 850 350 / 750 400 / 750
Balance 236.7 / -167.1 282.8 / 33.9 -248.9 / 33.9
SaO2: 97 (RA)
Physical Exam
-
General: Awake, Oriented and AOx3
Cardiovascular: Regular rate & rhythm, No Murmurs, No Rub and No Gallop
Respiratory: Decreased Breath Sounds (at bases, otherwise clear)
Sternum: Stable
Incision: Clean, Dry and Intact
Extremities: Other (+trace edema)
Data Reviewed
-
Lab Results: Results Reviewed
Medications: Active Meds Reviewed
Chest X-Ray: Report Reviewed and Image Reviewed
ECG: Report Reviewed and Image Reviewed
[2025-03-07 08:07] LABS: Glucose - Point of Care 94 mg/dl (70-99)
[2025-03-07] MEDS: ROXICODONE 5 MG PO (08:07)
--- NOTE | 2025-03-07 08:20 | W.PN.INTV ---
Today's Communication / Plan
Recommendations
Up OOB as tolerated
Goal BG 110�140
Continue amio gtt for rapid a-fib
Pain control
Encouraged incentive spirometer
Cardiac rehab consult
Cholesterol-lowering diet
Canvas Shrinker services will continue to follow along while he remains in the CVICU. Once downgraded to CVICU�telemetry status, then we will sign off at that time. Please call back with any questions or concerns.
Assessment
-
Assessment: 74-year-old male non-smoker with a past medical history of A-fib on Xarelto, severe aortic stenosis, valvular heart disease, hypertension, DM type II, hypercholesterolemia, CAD, CKD, anemia, prostate cancer s/p XRT (2004) and ALLAKAKET who
presents with elective aortic valve replacement. Patient known to the cardiothoracic surgery service, with last visit on 02/13/[address] Boyer. His most recent echo in November 2024 showed moderate�severe aortic stenosis with peak/mean
gradients of 54/37 mmHg, respectively. Also has moderate MR + moderate TR. LHC showed mild LAD disease with moderate pulmonary hypertension and moderately elevated right and left heart filling pressures with preserved CO/CI. He was consented for
surgical intervention which he agreed to. On 03/05/2025, he underwent upper mini J type hemisternotomy with extensive debridement of AV annulus and anterior leaflet of the mitral valve with aortic valve replacement with placement of a #27 Inspiris
Resilia with left atrial appendage exclusion with 2 clips placed. Patient had a junctional rhythm/bradycardic A-fib into the 40s�50s requiring V pacing at 70. He was transferred to the CVICU with manager valuation services consulted for additional
management/recommendations.
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
arthritis, ALLAKAKET
Impression:
#Severe aortic stenosis with significant subvalvular calcification on 2 aorto mitral curtain precluding TAVR s/p SAVR with placement of #27 Inspiris Resilia (#2)
#Moderate MR + moderate TR with extensive debridement of AV annulus and anterior leaflet of MV (POD #2)
#Intraoperative cardiac A-fib/junctional rhythm in 40�50s requiring V pacing at 70, now s/p left atrial appendage exclusion with 2 clips placed (POD #2)
#Anemia
#Thrombocytopenia
#Hyperglycemia (mild)
#DM type II
#A-fib on Xarelto --> now in rapid A-fib requiring amiodarone gtt as of 03/07/2025
#History of colonic polyps
#History of prostate cancer s/p XRT (2004)
Plan:
Successfully extubated on 03/05/2025 to nasal cannula, and he is currently on room air breathing comfortably and saturating 96-97%
Maintain SpO2 >90-94%
prn nebulized bronchodilators - not currently bronchospastic
Encourage incentive spirometer q1hr while awake
Removal of R-IJ cordis per CT surgery team
Pressors/antihypertensive/inotropes/diuretics will be provided as needed
Maintain MAP>65
HR control with goal <110 - continue amiodarone gtt; PO amio currently on hold
Replete electrolytes with K>4, Mg>2
Chest tubes removed today
Monitor hemoglobin
Monitor platelet count and coags
Transfuse blood products as needed to maintain Hb>7g/dL, plt>50k (given post-operative status)
Monitor blood sugar to maintain euglycemia with goal BG 110-140
Insulin drip now DC'd --> recommend to use ISS to maintain BG at goal as above
Aspiration precautions
DVT prophylaxis
Early nutrition
Early mobilization
Canvas Shrinker services will continue to follow along while he remains in the CVICU. Once downgraded to CVICU�telemetry status, we will sign off at that time. Please call back with any questions or concerns.
Critical care statement: A total of 37 minutes of critical care time was provided for this patient today. This includes management of ventilator, spontaneous breathing trial, arterial blood gases, pressors, of unstable vital signs, evaluation of the
patient at bedside, reviewing the patient's pertinent medical records including radiographs, microbiology, laboratory evaluations, and discussion with primary team and critical care nursing.
Subjective Dataa
Subjective Data
Date of Service:
Date of Service: March 07, 2025
Chief Complaint: Canvas Shrinker Follow Up
Subjective:
Patient seen and evaluated today at bedside. On room air breathing comfortably, saturating 96%. Went into rapid A-fib today, currently on amiodarone at 1 mg/min. Heart rate 117 and BP 94/70. Currently denies chest pain or shortness of breath.
Patient's and daughter both at bedside, all questions answered.
Review of Systems
General: Other (Negative unless mentioned above)
Objective Data
Data Reviewed
Vital Signs / I&O / Oxygen:
Vital Signs
Temp Pulse Resp BP Pulse Ox
98.5 F 66 16 108/89 97
03/07/25 05:00 03/07/25 07:00 03/07/25 04:00 03/07/25 07:00 03/07/25 07:00
Intake and Output
03/06/25 03/07/25 03/08/25
06:59 06:59 06:59
Intake Total 671.7 / 682.9 783.9 / 795.2 11.3 / 11.3
Output Total 810 / 850 750 / 800 50 / 50
Balance -138.3 / -167.1 33.9 / -4.8 -38.7 / -38.7
SaO2 97
Nasal Cannula flow liters per 2
minute
Physical Exam
General: Respiratory Distress (negative), Comfortable, Chills (negative) and Sweats (negative)
HEENT: Normocephalic and Anicteric
Cardiovascular: Irregular Rhythm (Irregularly irregular), Peripheral Edema (negative) and Other (Tachycardic)
Respiratory: Clear, Wheeze (negative), Crackles (negative), Rhonchi (negative) and Non-Labored Respirations
GI: Soft, Non Distended, Non Tender and Normal Bowel Sounds
Neurology: AO x 3 and Tremors (negative)
Skin: Warm, Dry, Cyanosis (negative) and Jaundice (negative)
Labs/Micro/Reports
Lab Data
03/07/25 03:09
03/07/25 03:09
[2025-03-07] MEDS: NOVOLOG FLEXPEN 4 UNITS SC (08:47)
--- NOTE | 2025-03-07 09:15 | PTCARENOTE ---
Assumed care of patient. Walking rounds completed with previous RN. Pt assessed while he was sitting in the chair. Pt alert and oriented x4. Rates sternal pain 1/10. Denies nausea and shortness of breath. Brace to left foot for foot drop. 2 assist
with rolling walker. NSR on tele with rates in the 60s-90s, frequent PACs. BP 94/61. Heart tones audible. Bilateral radial pulses palpable, bilateral DP pulses weakly palpable. Generalized +1 edema. Epicardial v-wire to back up, no pacing noted set
to 40/18/2. POX 96% on RA. Lungs diminished in the bases. No cough noted. IS encouraged-1500mL achieved. Mediastinal and Right pleural chest tube y-sited to 1 atrium to -20cm suction draining serosanguineous fluid. No air leaks, tidaling, crepitus.
Abdomen soft, nontender. Hypoactive BS. Tolerating diet. Webb draining adequate amounts of clear yellow urine. Sternal incision covered with Aquacel-CDI. CT dressing CDI. Right groin incision approximated and LIVAN. Right IJ cordis intact. Right AC
18g PIV intact infusing insulin gtt per Critical Care glycemic protocol. See MAR for medication administration. See worklist for complete nursing assessment. Plan of care reviewed and patient in agreement.
[2025-03-07] MEDS: BACTROBAN 2% OINTMENT 1 APPLIC NASAL ×2 (09:34→20:03)
[2025-03-07] MEDS: THERAGRAN 1 TABLET PO (09:34)
[2025-03-07] MEDS: NEURONTIN 100 MG PO ×3 (09:34→21:10)
[2025-03-07] MEDS: FEOSOL 325 MG PO (09:34)
[2025-03-07] MEDS: LOW STRENGTH ASPIRIN 81 MG PO (09:34)
[2025-03-07] MEDS: LIDOCAINE 4% PATCH 1 PATCH TOPICAL (09:34)
[2025-03-07] MEDS: PROTONIX 40 MG PO (09:34)
[2025-03-07] MEDS: SENOKOT-S 1 TABLET PO ×2 (09:35→20:03)
[2025-03-07] MEDS: CRESTOR 40 MG PO (09:35)
--- NOTE | 2025-03-07 09:41 | W.PN.CD ---
Today's Communication / Plan
-
Patient with creatinine up to 2.3. Webb remains in place. Continue to monitor closely and optimize hemodynamics.
Patient just went into A-fib today. He has a history of A-fib and was in A-fib preoperatively. Heart rate 100 to 107 bpm
Can reinitiate anticoagulation when safe from a postoperative standpoint. Note patient was previously on Xarelto but would not use Xarelto currently with CORNELIUS. Use of Eliquis could be considered.
Monitor postop anemia.
.
Of note is the patient's birthday today
Impression / Plan
-
I/P: 74M with aortic stenosis, permanent AFIB on Xarelto, hypertension, DM, CKD, NEFTALI is now s/p AVR
Primary outpatient payment specialist: Dr. Araujo
Severe aortic stenosis s/p AVR w/ placement of #27 Inspiris Resilia, Dr. Boyer 03/05/25, also had ELAA
- Intra-op LUIS FELIPE with EF 55-60%
Sinus bradycardia, beta-peyton and amiodarone are on hold
Atrial fibrillation, paroxysmal
- Previously considered permanent per chart. Patient was in sinus rhythm postoperatively and just went back into A-fib on 03/07/2025
- Oral anticoagulation: Resume anticoagulation when okay by CT surgery. Note patient was on Xarelto 20 mg a day. Currently has CORNELIUS which would limit use of Xarelto at this time. Could consider use of Eliquis.
.
CORNELIUS. Creatinine up to 2.3.
-Monitor closely.
-Optimize hemodynamics
- Patient with Webb in place
.
Post op anemia - monitor
HTN, chronic and stable
CKD, stage III, slight increase of renal function but stable
Type 2 diabetes mellitus, HgbA1c 6.1%
Data:
TTE 12/18/2024:
Severe aortic stenosis with reported valve area 0.7, peak gradient 53.5, mean gradient 36.8, DVI 0.209, normal LVEF, moderate MR, PASP 47.�
Physical Exam
Vital Signs/Labs
Vital Signs
Temp Pulse Resp BP Pulse Ox
98.5 F 66 16 108/89 97
03/07/25 05:00 03/07/25 07:00 03/07/25 04:00 03/07/25 07:00 03/07/25 07:00
03/06/25 03/07/25 03/08/25
06:59 06:59 06:59
Actual Weight 105.2 kg 106.4 kg
03/07/25 03:09
03/07/25 03:09
PT 19.8 Sec (11.4-14.6) H 03/05/25 13:59
INR 1.65 03/05/25 13:59
APTT 34.5 Sec (23.4-35.0) 03/05/25 13:59
Magnesium 2.5 mg/dl (1.6-2.3) H 03/07/25 03:09
Physical Exam
Constitutional: No acute distress
Cardiovascular: Rhythm & rate is regular
Respiratory: Wheeze Absent and Rhonchi Absent
GI: Soft
Neuro/Psych: Alert
Data Reviewed
-
Date of Service: March 07, 2025
Medical Decision Making: Reviewed Test Results
EKG: Report Reviewed by me
X-Ray/CT/US/MRI/NUC/PET: Report Reviewed by me
Medical Tests (PFT, Pathology etc): Image Personally Visualized and interpreted
Labs: Labs Reviewed by me
[2025-03-07 09:43] LABS: Glucose - Point of Care 140 mg/dl (70-99)
--- NOTE | 2025-03-07 10:00 | PTCARENOTE ---
Addendum entered by Melissa Glynn RN 03/07/25 11:37:
Right IJ cordis dressing changed.
Original Note:
Afib noted to be on tele, EKG obtained, confirmed Afib. CT WEB DEVELOPMENT INTERN notified. No orders at this time. Chest tubes x2 d/c per orders. Due to afib, v-wire remains connected to box and on back up. Insulin gtt d/c per orders.
[2025-03-07] MEDS: LASIX 40 MG IV (10:08)
[2025-03-07] MEDS: NSS IV (10:16)
--- NOTE | 2025-03-07 11:06 | CM ---
Chart reviewed. Patient is independent of ADLS, lives with his in a 3 STH, 0 MARGARTEH, ambulates with a RW and also uses a quad cane, L foot drop wear a AFO, also has a easy lift chair, 2 stair glides and an electric bed. PT evaluation
recommending Acute Rehab. Referral sent to [facility]. Patient prefers [facility], closer to his home. Physiatry consult placed. Plan is for the patient to go to Acute Rehab when medically stable. CM to follow
[2025-03-07] MEDS: CORDARONE 103 MG IV (11:52)
[2025-03-07] MEDS: CORDARONE 518 MG IV (11:58)
--- NOTE | 2025-03-07 12:00 | PTCARENOTE ---
Pt reassessed. Ambulated with rolling walker with PT in room. Assisted back to chair. Afib on tele with rates in the 100s. BP 94/70. POX 97% on RA. Surgical sites stable. Webb continues to drain adequate amounts of clear yellow urine. Family at
bedside.
[2025-03-07 13:19] LABS: Glucose - Point of Care 217 mg/dl (70-99)
[2025-03-07] MEDS: NOVOLOG FLEXPEN-MODERATE RESISTANCE 3 UNITS SC ×2 (13:31→17:49)
[2025-03-07] MEDS: LR 250 IV (14:25)
--- NOTE | 2025-03-07 15:59 | PTCARENOTE ---
Pt reassessed. Afib on tele with rates in the 90s-100s. Amio gtt infusing. BP 85/75. Denies lightheadedness/dizziness. POX 96% on RA. Surgical sites stable. Webb draining adequate amounts of clear yellow urine. Pt sitting up in the chair. Denies
pain at this time.
[2025-03-07 17:50] LABS: Glucose - Point of Care 224 mg/dl (70-99)
--- NOTE | 2025-03-07 20:00 | PTCARENOTE ---
report received from previous RN, walking rounds done, assumed care of pt. pt in chair, AAOx4. pt denies any pain. AFIB on monitor, HR 100s. epicardial V.wires set to back up VVI. Amio gtt infusing per protocol via RIJ cordis. POX 96% on room air.
IS encouraged. bowel sounds present. parra catheter intact, draining CYU, UO adequate. all surgical sites stable. see worklist for full assessment, VS, and interventions. pt resting comfortably w call light in reach.
[2025-03-08] VITALS (26 sets, daily range): BP systolic 85–144; BP diastolic 47–98; PULSE 87–135; O2SAT 97–98
--- NOTE | 2025-03-08 | PTCARENOTE ---
no acute changes, VSS. AFIB on monitor, HR 100s. Amio gtt maintained per protocol. POX 96% on room air. parra catheter maintained. pt sleeping between care.
[2025-03-08 03:19] LABS: Hematocrit 25.4 % (39.0-52.0); Hemoglobin 8.2 g/dL (13.0-18.0); Mean Corp Hgb Conc. 32.3 g/dL (33.0-37.0); Mean Corpuscular Hgb 28.1 pg (27.0-31.0); Mean Platelet Volume 11.5 fL (7.4-10.4); Platelet Count 102 10^3/uL (130-400); Red Blood Cell Count 2.92 10^6/uL (4.70-6.10); Red Cell Dist. Width 13.4 % (11.5-14.5); White Blood Cell Count 9.6 10^3/uL (4.8-10.8)
[2025-03-08 03:38] LABS: Blood Urea Nitrogen 50 mg/dl (9-20); Calcium 8.4 mg/dl (8.4-10.2); Carbon Dioxide 24 mmol/L (22-30); Chloride 104 mmol/L (98-107); Estimated Creatinine Clearance 35 ml/min; Glucose 246 mg/dl (70-99); Magnesium 2.2 mg/dl (1.6-2.3); Potassium 3.8 mmol/L (3.5-5.1); Sodium 135 mmol/L (135-145); eGFR 32.02
--- NOTE | 2025-03-08 04:00 | PTCARENOTE ---
no changes in assessment, VSS. AFIB 90s. Amio gtt maintained. POX 96% on room air. parra cather maintained, adequate UOP. all surgical sites stable. AM labs drawn and sent. pt sleeping between care.
--- NOTE | 2025-03-08 04:30 | PTCARENOTE ---
AM labs reviewed with REBECCA Quiroz, no new orders.
[2025-03-08] MEDS: TYLENOL 1000 MG PO ×3 (06:47→21:45)
[2025-03-08] MEDS: NOVOLOG FLEXPEN-MODERATE RESISTANCE 3 UNITS SC ×2 (07:37→12:11)
[2025-03-08 07:39] LABS: Glucose - Point of Care 230 mg/dl (70-99)
--- NOTE | 2025-03-08 07:42 | W.PN.CT ---
Today's Communication / Plan
-
-pod #3
-no issues overnight, no complaints
-drips: Amio 0.5
-remains in a-fib 90s-110s
-weaned off O2 - pOx 96% on RA
-diuresed with iv Lasix
-Cr improving - 2.1 today (2.3 on 03/07, 1.6 preop)
-encourage IS, OOB
Assessment / Plan
-
Assessment:
-S/p Upper mini-'J-type'-hemisternotomy out R 3rd ICS/Open exposure of R CFV/AVR w/ placement of #27 Inspiris Resilia/Extensive debridement of AV annulus and anterior leaflet of MV/ELAA (2 clips placed), by Dr. Boyer, 03/05/25, pod#3
-Severe aortic stenosis w/ significant subvalvular calcifications onto aortomitral curtain precluding TAVR (P/M: 53.5/36.8, Field Logistics Coordinator > 4m/s)
-Moderate MR
-Mild to mod TR
-LVEF 55-60%
-Chronic A-Fib (on Xarelto)
-Mild CAD
-HTN
-HLD
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
-Class 1 obesity (BMI 30)
-Probable YOLANDA
-CKD3a/b (cr 1.4-1.6)
-ELIM IRA
-Arthritis/DJD
-Prostate ca S/p XRT
-S/P B/L knee replacement
-S/P Appendectomy
-Acute postop blood loss/Anemia (stable without blood transfusion)
-Acute postop thrombocytopenia (no active bleed)
-Acute postop atelectasis
-Acute postop hypovolemia with subsequent hypervolemia
-Acute postop bradycardia
Discussed patient care with: Nursing and Care Team
Subjective
Procedure
S/p Upper mini-'J-type'-hemisternotomy out R 3rd ICS/Open exposure of R CFV/AVR w/ placement of #27 Inspiris Resilia/Extensive debridement of AV annulus and anterior leaflet of MV/ELAA (2 clips placed), by Dr. Boyer, 03/05/25
-
Date of Service: March 08, 2025
Objective Data
-
Lab Results
03/08/25 02:50
03/08/25 02:50
PT 19.8 Sec (11.4-14.6) H 03/05/25 13:59
INR 1.65 03/05/25 13:59
APTT 34.5 Sec (23.4-35.0) 03/05/25 13:59
Vital Signs
Vital Signs
Temp Pulse Resp BP Pulse Ox
97.9 F 94 16 112/93 96
03/08/25 04:00 03/08/25 06:00 03/08/25 04:00 03/08/25 06:00 03/08/25 04:00
CT Intake/Output/Weight
03/07/25 03/08/25 03/08/25
18:59 06:59 18:59
Intake Total 1152.3 / 1492.53 340.23 / 1492.53
Output Total 1145 / 2675 1530 / 2675
Balance 7.3 / -1182.47 -1189.77 / -1182.47
SaO2: 96
Physical Exam
-
General: Awake and AOx3
Cardiovascular: Irregular rate & rhythm, No Murmurs and No Rub
Respiratory: Decreased Breath Sounds
Sternum: Stable
Incision: Clean, Dry and Intact
Extremities: Edema +1
Abdomen: soft, nontender, nondistended, + bowel sounds
Data Reviewed
-
Lab Results: Results Reviewed
Medications: Active Meds Reviewed
Chest X-Ray: Report Reviewed and Image Reviewed
ECG: Report Reviewed and Image Reviewed
[2025-03-08] MEDS: BACTROBAN 2% OINTMENT 1 APPLIC NASAL ×2 (08:13→20:33)
[2025-03-08] MEDS: LIDOCAINE 4% PATCH 1 PATCH TOPICAL (08:13)
--- NOTE | 2025-03-08 08:13 | W.PN.INTV ---
Today's Communication / Plan
Recommendations
Up OOB as tolerated
Goal BG 110�140
Now off amio gtt and being TRX to PO amio for his a-fib
Pain control
Encouraged incentive spirometer
Cardiac rehab consult
Cholesterol-lowering diet
Patient is being downgraded to CVICU�telemetry status. No additional recommendations at this time. Chief Relay Tester/Pulmonary service will now sign off. Please reconsult if there are any additional questions/concerns, or if patient's respiratory
status deteriorates.
Assessment
-
Assessment: 74-year-old male non-smoker with a past medical history of A-fib on Xarelto, severe aortic stenosis, valvular heart disease, hypertension, DM type II, hypercholesterolemia, CAD, CKD, anemia, prostate cancer s/p XRT (2004) and UNALAKLEET who
presents with elective aortic valve replacement. Patient known to the cardiothoracic surgery service, with last visit on 02/13/[address] Boyer. His most recent echo in November 2024 showed moderate�severe aortic stenosis with peak/mean
gradients of 54/37 mmHg, respectively. Also has moderate MR + moderate TR. LHC showed mild LAD disease with moderate pulmonary hypertension and moderately elevated right and left heart filling pressures with preserved CO/CI. He was consented for
surgical intervention which he agreed to. On 03/05/2025, he underwent upper mini J type hemisternotomy with extensive debridement of AV annulus and anterior leaflet of the mitral valve with aortic valve replacement with placement of a #27 Inspiris
Resilia with left atrial appendage exclusion with 2 clips placed. Patient had a junctional rhythm/bradycardic A-fib into the 40s�50s requiring V pacing at 70. He was transferred to the CVICU with lockstitch tunnel elastic operator services consulted for additional
management/recommendations.
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
arthritis, UNALAKLEET
Impression:
#Severe aortic stenosis with significant subvalvular calcification on 2 aorto mitral curtain precluding TAVR s/p SAVR with placement of #27 Inspiris Resilia (#3)
#Moderate MR + moderate TR with extensive debridement of AV annulus and anterior leaflet of MV (POD #3)
#Intraoperative cardiac A-fib/junctional rhythm in 40�50s requiring V pacing at 70, now s/p left atrial appendage exclusion with 2 clips placed (POD #3)
#Anemia
#Thrombocytopenia
#DM type II c/b hyperglycemia (HbA1c: 6.1 on 02/23/2025)
#A-fib on Xarelto --> was in rapid A-fib requiring amiodarone gtt on 03/07/2025, now rate controlled and off amiodarone infusion
#History of colonic polyps
#History of prostate cancer s/p XRT (2004)
Plan:
Successfully extubated on 03/05/2025 to nasal cannula, and he is currently on room air breathing comfortably and saturating 96-97%
Maintain SpO2 >90-94%
prn nebulized bronchodilators - not currently bronchospastic
Encourage incentive spirometer q1hr while awake
Removal of R-IJ cordis per CT surgery team - to be removed later today
Pressors/antihypertensive/inotropes/diuretics will be provided as needed
Maintain MAP>65
HR control with goal <110 - amiodarone gtt stopped this AM; PO amio to be resumed this afternoon
Replete electrolytes with K>4, Mg>2
Chest tubes removed yesterday
Monitor hemoglobin
Monitor platelet count and coags
Transfuse blood products as needed to maintain Hb>7g/dL, plt>50k (given post-operative status)
Monitor blood sugar to maintain euglycemia with goal BG 110-140
Insulin drip now DC'd --> recommend to use ISS to maintain BG at goal as above
Aspiration precautions
DVT prophylaxis
Early nutrition
Early mobilization
Patient is being downgraded to CVICU�telemetry status. No additional recommendations at this time. Chief Relay Tester/Pulmonary service will now sign off. Thank you for allowing us to be involved in the care of this patient. Please reconsult if there
are any additional questions/concerns, or if patient's respiratory status deteriorates.
Total time spent today was 58 minutes for this encounter. Time includes reviewing laboratory test/imaging results, reviewing pertinent medical records, obtaining and reviewing medical history, performing an appropriate exam, ordering medications,
tests and procedures. Time also includes documentation of this encounter, coordinating patient care and communicating with other healthcare professionals. Total time does not include separately billed tests performed on this date of service.
Subjective Dataa
Subjective Data
Date of Service:
Date of Service: March 08, 2025
Chief Complaint: Chief Relay Tester Follow Up
Subjective:
Patient was seen and evaluated today at bedside. Currently on room air saturating 90% with heart rate 94 and BP 116/76. He has no complaints. Denies SNIDER, SOB, abdominal pain, nausea, fevers or chills.
Review of Systems
General: Other (Negative unless mentioned above)
Objective Data
Data Reviewed
Vital Signs / I&O / Oxygen:
Vital Signs
Temp Pulse Resp BP Pulse Ox
98.4 F 116 16 101/69 97
03/08/25 07:58 03/08/25 08:15 03/08/25 07:58 03/08/25 08:15 03/08/25 07:58
Intake and Output
03/07/25 03/08/25 03/09/25
06:59 06:59 06:59
Intake Total 783.9 / 795.2 1492.53 / 1519.23 53.4 / 53.4
Output Total 750 / 800 2675 / 2675 45 / 45
Balance 33.9 / -4.8 -1182.47 / -1155.77 8.4 / 8.4
SaO2 97
Nasal Cannula flow liters per 2
minute
Physical Exam
General: Respiratory Distress (negative), Comfortable, Chills (negative) and Sweats (negative)
HEENT: Normocephalic and Anicteric
Cardiovascular: Irregular Rhythm (Irregularly irregular), Peripheral Edema (negative) and Other (Tachycardic)
Respiratory: Clear, Wheeze (negative), Crackles (negative), Rhonchi (negative) and Non-Labored Respirations
GI: Soft, Non Distended, Non Tender and Normal Bowel Sounds
Neurology: AO x 3 and Tremors (negative)
Skin: Warm, Dry, Cyanosis (negative) and Jaundice (negative)
Labs/Micro/Reports
Lab Data
03/08/25 02:50
03/08/25 02:50
[2025-03-08] MEDS: FEOSOL 325 MG PO (08:14)
[2025-03-08] MEDS: LOW STRENGTH ASPIRIN 81 MG PO (08:14)
[2025-03-08] MEDS: PROTONIX 40 MG PO (08:14)
[2025-03-08] MEDS: THERAGRAN 1 TABLET PO (08:14)
[2025-03-08] MEDS: CRESTOR 40 MG PO (08:14)
[2025-03-08] MEDS: SENOKOT-S 1 TABLET PO ×2 (08:14→20:32)
[2025-03-08] MEDS: NEURONTIN 100 MG PO ×3 (08:14→21:45)
[2025-03-08] MEDS: LOPRESSOR 12.5 MG PO (08:17)
--- NOTE | 2025-03-08 08:30 | PTCARENOTE ---
Resumed care of patient. Walking rounds completed with previous RN. Pt denies pain, shortness of breath, and nausea. Left foot with foot drop, brace intact. Stands up with 2 assist and rolling walker. Alert and oriented x4. Afib on tele with rates
90s-100s. BP 101/69. Heart tones audible. Bilateral radial pulses palpable. Bilateral DP pulses weakly palpable. Generalized +1 edema. Epicardial v-wire to back up 40/18/2. No pacing noted. POX 97% on RA. Lungs diminished in the bases. No cough
noted. IS encouraged-2000mL achieved. Abdomen soft, nontender. +BS. Pt reports passing gas. Tolerating diet. Webb catheter draining clear yellow urine. Sternal incision covered with antibacterial dressing, CDI. Old chest tube sites covered, CDI.
Right groin incision approximated with skin glue, LIVAN. Right IJ cordis, new dressing applied. Right AC 18g PIV intact. See MAR for medication administration. See worklist for complete nursing assessment. Plan of care reviewed and patient in
agreement. Webb catheter d/c per orders.
[2025-03-08] MEDS: FARXIGA 10 MG PO (08:43)
[2025-03-08] MEDS: LASIX 40 MG IV (08:43)
--- NOTE | 2025-03-08 08:45 | W.PN.CD ---
Today's Communication / Plan
-
Resume anticoagulation when safe from a CT surgery standpoint
note patient was on Xarelto 20 mg a day. Creatinine still above his baseline although it is improving creatinine 2.1. If restarted on Xarelto would use 15 mg a day until creatinine clearance greater than 51. To avoid issues with fluctuating renal
function I would recommend changing to Eliquis 5 mg twice daily
Impression / Plan
-
I/P: 74M with aortic stenosis, permanent AFIB on Xarelto, hypertension, DM, CKD, NEFTALI is now s/p AVR
Primary outpatient dozer operator: Dr. Araujo
Severe aortic stenosis s/p AVR w/ placement of #27 Inspiris Resilia, Dr. Boyer 03/05/25, also had ELAA
- Intra-op LUIS FELIPE with EF 55-60%
Sinus bradycardia, beta-peyton and amiodarone are on hold
Atrial fibrillation, paroxysmal
- Previously considered permanent per chart. Patient was in sinus rhythm postoperatively and just went back into A-fib on 03/07/2025
- Low-dose beta-peyton rates reasonably controlled continue current therapy
- Oral anticoagulation: Resume anticoagulation when okay by CT surgery. Note patient was on Xarelto 20 mg a day. Creatinine still above his baseline although it is improving creatinine 2.1. If restarted on Xarelto would use 15 mg a day until
creatinine clearance greater than 51. To avoid issues with fluctuating renal function will change to Eliquis 5 mg twice daily
.
CORNELIUS. Creatinine up to 2.3. Now improving 2.1
-Monitor closely.
-Optimize hemodynamics
.
Post op anemia -
Stable
monitor
HTN, chronic and stable
Type 2 diabetes mellitus, HgbA1c 6.1%
Data:
TTE 12/18/2024:
Severe aortic stenosis with reported valve area 0.7, peak gradient 53.5, mean gradient 36.8, DVI 0.209, normal LVEF, moderate MR, PASP 47.�
Physical Exam
Vital Signs/Labs
Vital Signs
Temp Pulse Resp BP Pulse Ox
98.4 F 116 16 101/69 97
03/08/25 07:58 03/08/25 08:15 03/08/25 07:58 03/08/25 08:15 03/08/25 07:58
03/07/25 03/08/25 03/09/25
06:59 06:59 06:59
Actual Weight 106.4 kg 106 kg
03/08/25 02:50
03/08/25 02:50
PT 19.8 Sec (11.4-14.6) H 03/05/25 13:59
INR 1.65 03/05/25 13:59
APTT 34.5 Sec (23.4-35.0) 03/05/25 13:59
Magnesium 2.2 mg/dl (1.6-2.3) 03/08/25 02:50
Physical Exam
Constitutional: No acute distress
Cardiovascular: Rhythm/rate is irregular
Respiratory: Respiratory effort normal
GI: Soft and Non tender
Neuro/Psych: Alert and Oriented
Data Reviewed
-
Date of Service: March 08, 2025
Medical Decision Making: Reviewed Test Results
X-Ray/CT/US/MRI/NUC/PET: Report Reviewed by me
Medical Tests (PFT, Pathology etc): Report Reviewed by me
[2025-03-08] MEDS: NSS IV (10:38)
--- NOTE | 2025-03-08 12:00 | PTCARENOTE ---
Addendum entered by Melissa Glynn RN 03/08/25 12:07:
V-wire insulated as per CTNP
Original Note:
Pt reassessed. Afib on tele with rates in the 90s-100s. BP112/84. POX 97% on RA. Surgical sites stable. Due to void post parra removal. Assisted to commode, pt had small formed BM. No other acute changes from previous assessment.
[2025-03-08 12:11] LABS: Glucose - Point of Care 219 mg/dl (70-99)
--- NOTE | 2025-03-08 12:12 | CM ---
Chart reviewed. Patient is independent of ADLS, lives with his in a 3 STH, 0 MARGARETH, ambulates with RW and also has a SPC, easy lift chair, 2 stair glides, semi electric bed and L foot drop wears AFO. PT evaluation recommending Acute Rehab.
[facility]erral [facility]. Waiting on Physiatry consult and then will need insurance authorization. Plan is for the patient to go to Acute Rehab. CM to follow
[2025-03-08] MEDS: ROXICODONE 5 MG PO (14:19)
--- NOTE | 2025-03-08 15:00 | PTCARENOTE ---
Received from Melissa RN; AAOx3, responds to RN and follows commands; [place]; Lungs diminished at bases; VSS; Afib on monitor; Epicardial V wire present; +1 generalized anasarca; +1 DP and radial pulses; Patient unable to urinate. Bladder scanned for
>1099 ml and straight cathed for 1075 ml of clear, yellow urine - CVNP Shayla C. notified and aware and PO Flomax ordered; Surgical incisions intact; RIJ Cordis removed by RN - no complications noted and VSS throughout; PIV x1 - #18 RAC; See nursing
flowsheets for further information
[2025-03-08] MEDS: PACERONE 200 MG PO ×2 (15:25→21:45)
[2025-03-08] MEDS: FLOMAX 0.8 MG PO (15:25)
--- NOTE | 2025-03-08 15:41 | CON.MR ---
Consultation
Consultation Request
Date/Time Consultation Performed: 03/08/25 1500
Performing Provider: Dr. Perdue
Reason for Consultation: Weakness, deconditioning
Medical History
-
Chief Complaint: Chest pain
History of Present Illness:
I had the opportunity to see Rene Warren in rehabilitation consultation today. This is a 75 year old male with history of severe aortic stenosis and was planned for TAVR on 03/05/25. Was admitted for procedure, but converted to upper mini J
type hemisternotomy with extensive debridement of AV annulus and anterior leaflet of the mitral valve with aortic valve replacement with placement of a #27 Inspiris Resilia with left atrial appendage exclusion with 2 clips placed. Patient had a
junctional rhythm/bradycardic A-fib into the 40s�50s requiring V pacing at 70. He was transferred to the CVICU post-operatively. Post op course also notable for CORNELIUS with Cr recently 2.1. Was initially in sinus rhythm postoperatively but on 03/07
again noted in Atrial fibrillation. Was on Xarelto previously at home, and current recommendations with Eliquis 5mg BID. Has had some urinary retention - today needing straight catheterization.
Patient seen and examined this afternoon in room. Was requiring straight cath. Patient states he feels pretty good - and overall improving. Denies any dizziness or lightheadedness. Denies SOB when up ambulatory in his room. Mild
sternal/incisional pain only. Denies any radiation into the UE or an paresthesias. Denies any GI complaints.
Past medical history of A-fib on Xarelto, severe aortic stenosis, valvular heart disease, hypertension, chronic L foot drop with AFO, DM type II, hypercholesterolemia, CAD, CKD, anemia, prostate cancer s/p XRT (2004) and [place]
Family History
Family History: Reviewed & Not Pertinent
Social History
Functional Level Premorbidity:
Independent for all activities. Would use a quad cane most of the time prior - a walker when long distances. Has AFO in LLE.
Current Funct Level: Ambulation, Transfer, UE/LE Dressing:
Mod A transfers, Mod A ambulation 15'
Personal:
Living: With Spouse
Number of Floors: 3
# Steps to Second Floor: full flight to bedroom - has stair glide
Potential First Floor Set Up: No
Allergies / Home Medications
Allergy/AdvReac Type Severity Reaction Status Date / Time
No Known Allergies Allergy Unverified 02/21/25 14:43
�Medication �Instructions �Recorded �Confirmed �Last Taken �Type
diltiazem HCl 240 mg 120 mg PO BID Heart 01/17/25 03/05/25 03/04/25 20:00 History
capsule,extended release 24 hr, Disease/Condition
controlled
empagliflozin 25 mg tablet 25 mg PO DAILY Heart 01/17/25 03/05/25 03/01/25 08:00 History
Disease/Condition
glipizide 10 mg tablet 10 mg PO BID Diabetes 01/17/25 03/05/25 03/04/25 08:00 History
metformin 500 mg tablet 50 mg PO DAILY Diabetes 01/17/25 03/05/25 03/04/25 08:00 History
rivaroxaban 20 mg tablet 20 mg PO DAILY Blood Clot 01/17/25 03/05/25 03/01/25 08:00 History
Prevention/Tx
rosuvastatin 40 mg tablet 40 mg PO DAILY High Cholesterol 01/17/25 03/05/25 03/04/25 08:00 History
ferrous sulfate 325 mg (65 mg 325 mg PO DAILY Supplement 02/21/25 03/05/25 02/20/25 08:00 History
iron) tablet
metoprolol tartrate 50 mg tablet 50 mg PO BID Heart 02/21/25 03/05/25 03/04/25 08:00 History
Disease/Condition
multivitamin 1 tab PO DAILY Supplement 02/21/25 03/05/25 03/01/25 08:00 History
Review Of Systems
-
History Source: Patient
All other systems: Negative unless noted
Constitutional: Reports Fatigue
Eye: Reports No Symptoms
EENT: Reports No Symptoms
Respiratory: Reports No Symptoms
Cardiac: Reports Chest Pain
Abdomen/GI: Reports No Symptoms
: Reports Difficulty Voiding
Musculoskeletal: Reports No Symptoms
Integumentary: Reports No Symptoms
Neurological: Reports Weakness
Psych: Reports No Symptoms
Endocrine: Reports No Symptoms
Hematologic/Lymphatic: Reports No Symptoms
Immunology: Reports No Symptoms
Physical Exam
Active Medications
Generic Name Dose Route Start Last Admin
Trade Name Freq PRN Reason Stop Dose Admin
Acetaminophen 650 mg 03/05/25 13:09
Acetaminophen 325 Mg Tablet PO 04/02/25 13:08
Q4HPRN PRN
mild pain,headache,temp >101F
Acetaminophen 1,000 mg 03/05/25 14:00 03/08/25 14:19
Acetaminophen 500 Mg Tablet PO 04/02/25 13:59 1,000 mg
TID@0600,1400,2200 [place] Administration
Albuterol 2 puff 03/05/25 13:09
Albuterol Hfa [90 Mcg/Dose] Inhaler INH
R Q4HPRN PRN
wheezing/shortness of breath
Protocol
Albuterol Sulfate 2.5 mg 03/05/25 13:09
Albuterol Nebs 2.5 Mg/3 Ml Ampul INH
R Q4HPRN PRN
wheezing/shortness of breath
Protocol
Amiodarone HCl 200 mg 03/05/25 16:00 03/08/25 15:25
Amiodarone 200 Mg Tablet PO 04/02/25 15:59 200 mg
TID [place] Administration
Aspirin 300 mg 03/06/25 08:00
Aspirin 300 Mg Rectal Suppository RECTAL 04/03/25 07:59
DAILYPRN PRN
pt not taking PO aspirin
Aspirin 81 mg 03/06/25 08:00 03/08/25 08:14
Aspirin 81 Mg Chewable Tablet PO 04/03/25 07:59 81 mg
DAILY [place] Administration
Bisacodyl 10 mg 03/05/25 13:09
Bisacodyl 10 Mg Rectal Suppository RECTAL 04/02/25 13:08
DAILYPRN PRN
constipation
Cyclobenzaprine HCl 5 mg 03/05/25 13:09 03/06/25 05:58
Cyclobenzaprine 10 Mg Tablet PO 04/02/25 13:08 5 mg
Q8HPRN PRN Administration
muscle spasm
Dapagliflozin 10 mg 03/08/25 08:30 03/08/25 08:43
Dapagliflozin (Farxiga) 10 Mg Tablet PO 04/05/25 08:29 10 mg
DAILY [place] Administration
Dextrose 12.5 grams 03/07/25 09:31
Dextrose 50% (0.5 Grams/Ml) 50 Ml Syringe IV 04/04/25 09:30
[id number] PRN
hypoglycemia
Protocol
Ferrous Sulfate 325 mg 03/06/25 08:00 03/08/25 08:14
Ferrous Sulfate 325 Mg Tablet PO 04/03/25 07:59 325 mg
DAILY [place] Administration
Gabapentin 100 mg 03/05/25 16:00 03/08/25 15:25
Gabapentin 100 Mg Capsule PO 04/02/25 15:59 100 mg
TID [place] Administration
Glipizide 10 mg 03/07/25 17:00
Glipizide 10 Mg Regular Release Tablet PO 04/04/25 16:59
BID@0800,1700 [place]
Glucagon 1 mg 03/07/25 09:31
Glucagon 1 Mg Vial IM 04/04/25 09:30
PRN PRN
hypoglycemia
Protocol
Sodium Chloride 500 mls @ 10 mls/hr 03/05/25 13:09 03/08/25 10:38
Nss IV 04/02/25 08:25 Not Given
CORDIS [place]
Insulin Aspart 0 units 03/07/25 11:30 03/08/25 12:11
Insulin Aspart Moderate Resistance 300 Units/3 Ml Pen.Injctr SC 04/04/25 11:29 3 units
AC [place] Administration
Protocol
Lidocaine 1 patch 03/06/25 08:00 03/08/25 08:13
Lidocaine 4% Topical Patch TOPICAL 04/03/25 07:59 1 patch
DAILY [place] Administration
Protocol
Magnesium Hydroxide 30 ml 03/05/25 13:09
Milk Of Magnesia 30 Ml Cup PO 04/02/25 13:08
BIDPRN PRN
if no BM in three days
Magnesium Oxide 500 mg 03/06/25 08:00
Magnesium Oxide 500 Mg Tablet PO 04/03/25 07:59
BID [place]
Metformin HCl 500 mg 03/08/25 08:00
Metformin 500 Mg Regular Release Tablet PO 04/05/25 07:59
DAILY [place]
Metoprolol Tartrate 12.5 mg 03/06/25 08:00 03/08/25 08:17
Metoprolol 12.5 Mg Regular Release Dose (1/2 Of 25 Mg Tablet) PO 04/03/25 07:59 12.5 mg
Q12 [place] Administration
Multivitamins Therapeutic 1 tablet 03/06/25 08:00 03/08/25 08:14
Multivitamin Tablet PO 04/03/25 07:59 1 tablet
DAILY [place] Administration
Mupirocin 0 applic 03/05/25 20:00 03/08/25 08:13
Mupirocin 2% (Ointment) 22 Gram Tube NASAL 03/09/25 08:01 1 applic
Q12 [place] Administration
Ondansetron HCl 4 mg 03/05/25 13:09
Ondansetron 4 Mg/2 Ml Vial IV 04/02/25 13:08
Q8HPRN PRN
nausea/vomiting
Oxycodone HCl 5 mg 03/05/25 13:09 03/08/25 14:19
Oxycodone 5 Mg Regular Release Tablet PO 03/19/25 13:08 5 mg
Q4HPRN PRN Administration
moderate pain
Oxycodone HCl 2.5 mg 03/05/25 13:09
Oxycodone 5 Mg Regular Release Tablet PO 03/19/25 13:08
Q4HPRN PRN
mild pain
Pantoprazole Sodium 40 mg 03/06/25 08:00 03/08/25 08:14
Pantoprazole 40 Mg Delayed Release Tablet PO 04/03/25 07:59 40 mg
DAILY [place] Administration
Patch Removal 1 patch 03/06/25 20:00 03/07/25 20:03
Remove Lidocaine Patch REMOVE 04/03/25 19:59 1 patch
DAILY@2000 [place] Administration
Rosuvastatin Calcium 40 mg 03/06/25 08:00 03/08/25 08:14
Rosuvastatin (Crestor) 40 Mg Tablet PO 04/03/25 07:59 40 mg
DAILY [place] Administration
Senna/Docusate Sodium 1 tablet 03/05/25 20:00 03/08/25 08:14
Docusate W/Senna (Sally-Colace) Tablet PO 04/02/25 19:59 1 tablet
Q12 [place] Administration
Sodium Chloride 0 flush 03/05/25 14:00
Sodium Chloride 0.9% (Flush) Syringe IV 04/02/25 13:59
PER PROTOCOL [place]
Tamsulosin HCl 0.8 mg 03/08/25 15:00 03/08/25 15:25
Tamsulosin 0.4 Mg Capsule PO 04/05/25 14:59 0.8 mg
DAILY [place] Administration
Vital Signs
Temp Pulse Resp BP Pulse Ox
98.8 F 100 16 114/81 97
03/08/25 15:27 03/08/25 15:18 03/08/25 15:27 03/08/25 15:18 03/08/25 15:27
Height 6 ft 2 in
Actual Weight 106 kg
Body Mass Index (BMI) 30.0
Physical Exam
Physical Exam:
General Appearance/Observation: Well-developed, well-nourished individual in no apparent distress. in recliner chair at bedside.
Pain/Comfort Assessment: Denies currently
Mood/Affect: Appropriate
Eyes: Conjunctiva/Lids: normal Pupils: pupils equal round and reactive to light and Accommodation. normal tracking
Ears/Nose/Throat: oral mucosa moist, throat clear. Lips/Teeth/Gums: normal
Neck: No muscle spasm or tenderness
Cardiovascular: Heart: regular, no murmur
Pulses: dorsalis pedis 2+ bilaterally
Respiratory: Respiratory Effort/Chest Expansion: normal Auscultation: Clear to auscultation bilaterally
Gastrointestinal: abdomen not tender, no distension, normal abdominal bowel sounds
Genitourinary: No Webb
Extremities: Edema: None Cyanosis: None Trophic changes: None
Neurology Exam:
Orientation: Alert, Oriented to self, Time, Place
Speech: Intact
Comprehension: Intact
Cranial Nerves: - Intact and symmetric
Sensory:
Light touch: Intact in bilateral upper extremities denies any asymmtry. Stocking distribution loss in bilateral LE to mid leg.
Reflexes:
Patellar: absent bilaterally
Achilles: absent bilaterally
Arturo: Negative bilaterally
Cerebellar: Dysmetria/Ataxia: None
Musculoskeletal:
Motor: (Manual muscle scale 0-5)
Muscle SA EF WE EE FF FA HF KE DF EHL PF
Right 4 5 5 5 5 5 4 5 4 4 4
Left 4 5 5 5 5 5 4 5 3 3 4
Tone: Normal in all extremities
Range of Motion: Passively within normal limits in all extremities
Lab Results
03/08/25 02:50
03/08/25 02:50
WBC 9.6 10^3/uL (4.8-10.8) 03/08/25 02:50
Hgb 8.2 g/dL (13.0-18.0) L 03/08/25 02:50
Hct 25.4 % (39.0-52.0) L 03/08/25 02:50
MCV 87.0 fL (80.0-94.0) 03/08/25 02:50
Plt Count 102 10^3/uL (130-400) L 03/08/25 02:50
PT 19.8 Sec (11.4-14.6) H 03/05/25 13:59
INR 1.65 03/05/25 13:59
Sodium 135 mmol/L (135-145) 03/08/25 02:50
Potassium 3.8 mmol/L (3.5-5.1) 03/08/25 02:50
Chloride 104 mmol/L (98-107) 03/08/25 02:50
Carbon Dioxide 24 mmol/L (22-30) 03/08/25 02:50
BUN 50 mg/dl (9-20) H 03/08/25 02:50
Creatinine 2.1 mg/dL (0.7-1.3) H 03/08/25 02:50
eGFR 32.02 03/08/25 02:50
Glucose 246 mg/dl (70-99) H 03/08/25 02:50
Hemoglobin A1c 6.1 % (4.0-5.6) H 02/23/25 12:21
Calcium 8.4 mg/dl (8.4-10.2) 03/08/25 02:50
Magnesium 2.2 mg/dl (1.6-2.3) 03/08/25 02:50
Total Bilirubin 0.7 mg/dl (0.2-1.3) 02/23/25 12:21
Direct Bilirubin 0.3 mg/dl (0.0-0.4) 02/23/25 12:21
AST 26 U/L (17-59) 02/23/25 12:21
ALT 20 U/L (0-50) 02/23/25 12:21
Alkaline Phosphatase 113 U/L (38-126) 02/23/25 12:21
Total Protein 7.2 g/dl (6.3-8.2) 02/23/25 12:21
Albumin 4.0 g/dl (3.5-5.0) 02/23/25 12:21
Diagnostic Results
As per HPI.
Comorbidities / Impairment Group
Comorbidities:
Heart failure, renal failure, peripheral neuropathy, left foot drop
Impairment Group:
Cardiac
Assessment / Plan
Plan
Assessment:
75 year old male wtih symptomatic aortic stenosis, now s/p mini J type hemisternotomy with extensive debridement of AV annulus and anterior leaflet of the mitral valve with aortic valve replacement with placement of a #27 Inspiris Resilia with left
atrial appendage exclusion with 2 clips placed
PM&R PT/OT to increase independence with ADLs, improve balance, coordination, endurance, strength, mobility, community reintegration, decreased burden of care on others and family education.
Peripheral polyneuropathy: Patient with a stocking and glove polyneuropathy distribution pattern. And has left foot drop chronically requiring AFO, but also with some mild weakness in R foot too. Wonder if due to lumbar radiculopathy vs. peripheral
polyneuropathy.
-Gabapentin
HTN: Is on metoprolol 12.5mg, monitor closely
HLD: Statin
CHF: now s/p aortic valve replacement.
A-fib: Was on Xarelto previously at home - chart notes state plan to change to Eliquis 5mg BID.
- On amiodarone
DM II: Accu-Cheks, insulin sliding scale, Farxiga
Anemia: Likely multifactorial. Continue to monitor.
BPH: On tamsulosin
Skin: monitor for pressure sores/rashes/lesions.
Pain: acetaminophen or oxycodone as needed.
Bowel: Colace and Senna, PRN bisacodyl.
Bladder: Time void, PVRs, PRN straight cath. Patient required straight cath today. Continue to monitor voids.
GI Prophylaxis: Pantoprazole
DVT Prophylaxis: Planning for Eliquis 5mg BID
Pulmonary: Incentive spirometry
Safety: Continue to reinforce assistance with all transfers.
Code Status: Full code
Dispo (date/plan/equipment needs): Home with family care. Social history reviewed.
Functional and Medical Goals: Modified Independent with ADL�s, ambulation, transfers
Summary
-
Things that must be addressed in Hospital prior to discharge:
1. Please Continue bedside PT/OT.
2. Please give blood pressure parameters if needed for therapy participation
3. Please comment on ROM, or any other precautions post-operatively for therapy participation
Discharge Destination: to be determined after continue mobility trials with bedside PT. May be able to discharge to outpatient cardiac rehab if able to be supervision for mobility and ADLs in the next couple of days.
Summary of recommendations:
- Discharge Destination: Home with cardiac rehab, vs. inpatient rehab - will see how things progress with bedside therapies.
Will continue to follow patient.
Thank you for allowing me to care for your patient. Please contact me with any questions or concerns.
Data Reviewed
-
Labs: Labs Reviewed by me
Comments
-
This note was dictated using a voice recognition system. Please excuse any typographical errors from regional agronomist. If you believe there are any discrepancies, please notify our office.
[2025-03-08 17:16] LABS: Glucose - Point of Care 185 mg/dl (70-99)
[2025-03-08] MEDS: GLUCOTROL 10 MG PO (17:36)
[2025-03-08] MEDS: NOVOLOG FLEXPEN-MODERATE RESISTANCE 1 UNITS SC (17:36)
[2025-03-08] MEDS: DULCOLAX 10 MG PO (17:36)
[2025-03-08] MEDS: TOPROL XL 12.5 MG PO (17:38)
--- NOTE | 2025-03-08 17:59 | PTCARENOTE ---
Patient ambulating with RN in room; Afib with RVR on monitor, HR 130's-140's; Patient denies dizziness, lightheadedness, chest pain, or SOB; VSS; PO Metoprolol Xl ordered by REBECCA Walker; HR now 100's-110's
--- NOTE | 2025-03-08 20:10 | PTCARENOTE ---
Received pt at shift change OOB to chair; AAOx3, able to make needs known. Afib on the monitor, HR 100-110's. Temporary epicardial v-wires insulated. Lungs clear, diminished at the bases, +IS encouraged. +bowel sounds, abd soft/round/nontender. Pt
DTV ~ 2130. Pt requesting to return to bed, brace in place to LLE for L foot drop. Assisted x2 with RW to bedside commode for large, formed/hard BM, and back to bed. VSS. Surgical dressings C/D/I. Remainder of assessment as documented. Pt resting
comfortably in bed, call pa within reach.
[2025-03-08] MEDS: TOPROL XL 25 MG PO (20:32)
[2025-03-08 21:49] LABS: Glucose - Point of Care 234 mg/dl (70-99)
--- NOTE | 2025-03-08 23:33 | PTCARENOTE ---
Assessment unchanged, pt continues to deny pain. VSS, remains Afib on the monitor. Pt was DTV ~2130, denies the urge to void, has not urinated since last straight cath. Bladder scanned for 1186mL, straight cath successful after one attempt for
1150mL of yellow urine.
[2025-03-09] VITALS (8 sets, daily range): BP systolic 92–120; BP diastolic 61–84
[2025-03-09] MEDS: TYLENOL 1000 MG PO ×2 (05:21→13:18)
--- NOTE | 2025-03-09 05:37 | PTCARENOTE ---
Assessment unchanged, VSS, Afib on the monitor, pt offers no complaints. Pt was DTV ~ 0430, no urge to urinate and no output since last catheterization. Bladder scan revealed 557mL of urine. D/w covering provider Rafael MICHAUD, pt with two
intermittent catheterizations since d/c of parra catheter yesterday AM, failed voiding trial, new order obtained to place parra catheter for acute urinary retention. 16Fr parra catheter placed in one attempt, pt tolerated the procedure well, 375mL
of yellow urine with sediment immediately drained to bag. Pt offers no complaints, resting comfortably in bed with call pa within reach.
[2025-03-09 06:04] LABS: Blood Urea Nitrogen 52 mg/dl (9-20); Calcium 8.2 mg/dl (8.4-10.2); Carbon Dioxide 23 mmol/L (22-30); Chloride 104 mmol/L (98-107); Estimated Creatinine Clearance 35 ml/min; Glucose 123 mg/dl (70-99); Potassium 3.8 mmol/L (3.5-5.1); Sodium 136 mmol/L (135-145); eGFR 32.02
[2025-03-09 06:12] LABS: Hemoglobin 8.3 g/dL (13.0-18.0); Mean Corp Hgb Conc. 33.2 g/dL (33.0-37.0); Mean Corpuscular Hgb 28.2 pg (27.0-31.0); Mean Platelet Volume 10.8 fL (7.4-10.4); Platelet Count 125 10^3/uL (130-400); Red Blood Cell Count 2.94 10^6/uL (4.70-6.10); Red Cell Dist. Width 13.2 % (11.5-14.5); White Blood Cell Count 9.4 10^3/uL (4.8-10.8)
[2025-03-09 07:57] LABS: Glucose - Point of Care 109 mg/dl (70-99)
--- NOTE | 2025-03-09 08:00 | PTCARENOTE ---
Received from [place] rug setter RN; AAOx3, responds to RN and follows commands; LOWER BRULE; Lungs diminished at bases; IS 2000 ml; VSS; Afib on monitor; Epicardial V wire present; +1 generalized anasarca; +1 DP and radial pulses; Webb catheter draining clear,
yellow urine; Surgical incisions intact; PIV x1 - #18 RAC; See nursing flowsheets for further information
--- NOTE | 2025-03-09 08:18 | W.PN.CT ---
Today's Communication / Plan
-
-pod #4
-difficulty urinating, straight cathed x2 and Webb re-inserted on 03/09
-remains in a-fib 90s-110s
-weaned off O2 - pOx 96% on RA
-follow 2v-CXR
-Cr 2.1 today (2.3 on 03/07, 1.6 preop)
-encourage IS, OOB
Assessment / Plan
-
Assessment:
-S/p Upper mini-'J-type'-hemisternotomy out R 3rd ICS/Open exposure of R CFV/AVR w/ placement of #27 Inspiris Resilia/Extensive debridement of AV annulus and anterior leaflet of MV/ELAA (2 clips placed), by Dr. Boyer, 03/05/25, pod#4
-Severe aortic stenosis w/ significant subvalvular calcifications onto aortomitral curtain precluding TAVR (P/M: 53.5/36.8, Electromechanical Inspector > 4m/s)
-Moderate MR
-Mild to mod TR
-LVEF 55-60%
-Chronic A-Fib (on Xarelto)
-Mild CAD
-HTN
-HLD
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
-Class 1 obesity (BMI 30)
-Probable Y[place]ANDA
-CKD3a/b (cr 1.4-1.6)
-[place]
-Arthritis/DJD
-Prostate ca S/p XRT
-S/P B/L knee replacement
-S/P Appendectomy
-Acute postop blood loss/Anemia (stable without blood transfusion)
-Acute postop thrombocytopenia (no active bleed)
-Acute postop atelectasis
-Acute postop hypovolemia with subsequent hypervolemia
-Acute postop bradycardia
-Acute postop urinary retention- Webb re-inserted on 03/09
Discussed patient care with: Nursing and Care Team
Subjective
Procedure
S/p Upper mini-'J-type'-hemisternotomy out R 3rd ICS/Open exposure of R CFV/AVR w/ placement of #27 Inspiris Resilia/Extensive debridement of AV annulus and anterior leaflet of MV/ELAA (2 clips placed), by Dr. Boyer, 03/05/25
-
Date of Service: March 09, 2025
Objective Data
-
Lab Results
03/09/25 05:03
03/09/25 05:03
PT 19.8 Sec (11.4-14.6) H 03/05/25 13:59
INR 1.65 03/05/25 13:59
APTT 34.5 Sec (23.4-35.0) 03/05/25 13:59
Vital Signs
Vital Signs
Temp Pulse Resp BP Pulse Ox
97.6 F 76 16 95/68 96
03/09/25 07:57 03/09/25 08:00 03/09/25 07:57 03/09/25 08:00 03/09/25 07:57
CT Intake/Output/Weight
03/08/25 03/09/25 03/09/25
18:59 06:59 18:59
Intake Total 450.1 / 930.1 480 / 930.1
Output Total 45 / 1570 1525 / 1570
Balance 405.1 / -639.9 -1045 / -639.9
SaO2: 96
Physical Exam
-
General: Awake and AOx3
Cardiovascular: Irregular rate & rhythm, No Murmurs and No Rub
Respiratory: Decreased Breath Sounds
Sternum: Stable
Incision: Clean, Dry and Intact
Abdomen: soft, nontender, nondistended, + bowel sounds
Extremities: Edema +1
Data Reviewed
-
Lab Results: Results Reviewed
Medications: Active Meds Reviewed
Chest X-Ray: Report Reviewed and Image Reviewed
ECG: Report Reviewed and Image Reviewed
[2025-03-09] MEDS: SENOKOT-S 1 TABLET PO (09:00)
[2025-03-09] MEDS: GLUCOTROL 10 MG PO (09:00)
[2025-03-09] MEDS: FEOSOL 325 MG PO (09:00)
[2025-03-09] MEDS: LOW STRENGTH ASPIRIN 81 MG PO (09:00)
[2025-03-09] MEDS: CRESTOR 40 MG PO (09:00)
[2025-03-09] MEDS: FLOMAX 0.4 MG PO (09:00)
[2025-03-09] MEDS: LIDOCAINE 4% PATCH 1 PATCH TOPICAL (09:00)
[2025-03-09] MEDS: NEURONTIN 100 MG PO (09:00)
[2025-03-09] MEDS: THERAGRAN 1 TABLET PO (09:00)
[2025-03-09] MEDS: FARXIGA 10 MG PO (09:00)
[2025-03-09] MEDS: PROTONIX 40 MG PO (09:00)
[2025-03-09] MEDS: PACERONE 200 MG PO (09:00)
[2025-03-09] MEDS: NOVOLOG FLEXPEN-MODERATE RESISTANCE SC (09:00)
[2025-03-09] MEDS: GLUCOPHAGE 500 MG PO (09:00)
[2025-03-09] MEDS: BACTROBAN 2% OINTMENT 1 APPLIC NASAL (09:01)
[2025-03-09] MEDS: TOPROL XL PO (09:07)
[2025-03-09] MEDS: ELIQUIS 5 MG PO (11:04)
[2025-03-09 12:12] LABS: Glucose - Point of Care 225 mg/dl (70-99)
[2025-03-09] MEDS: NOVOLOG FLEXPEN-MODERATE RESISTANCE 3 UNITS SC (12:14)
--- NOTE | 2025-03-09 12:30 | PTCARENOTE ---
Epicardial V-wire cut at bedside by REBECCA Higuera VSS; No complications noted throughout
[2025-03-09] MEDS: NSS IV (12:33)
--- NOTE | 2025-03-09 14:12 | PTCARENOTE ---
Patient discharged to [facility] - report given to Jess MARQUEZ and has no further questions at this time; Taken by ambulance stretcher - report given to Maurisio; IV and telemetry pack removed; Webb remains in place; Patient belongings taken with
patient
--- NOTE | 2025-03-09 15:02 | CM ---
Acute Rehab Auth # [id number] approved 7 days 03/09-03/15, call clinicals to [phone] #[phone].
== END 2025-03-09 14:15 | DRG 220 ==
LOC: CVICU 05:12
PROVIDERS: Anesthesiology; Physician Assistant Medical; ADMITTING PHYSICIAN Thoracic Surgery (Cardiothoracic Vascular Surgery); CONSULT PHYSICIAN Student in an Organized Health Care Education/Training Program; FAMILY PHYSICIAN Family Medicine; OTHER PHYSICIAN Internal Medicine Critical Care Medicine; OTHER PHYSICIAN Physical Medicine & Rehabilitation
PROC: 02RF08Z Replacement of Aortic Valve with Zooplastic Tissue, Open Approach (ICD-10-PCS; 2025-03-05)
PROC: B24BZZ4 Ultrasonography of Heart with Aorta, Transesophageal (ICD-10-PCS; 2025-03-05)
PROC: 5A1221Z Performance of Cardiac Output, Continuous (ICD-10-PCS; 2025-03-05)
PROC: 02BG0ZZ Excision of Mitral Valve, Open Approach (ICD-10-PCS; 2025-03-05)
PROC: 02L70CK Occlusion of Left Atrial Appendage with Extraluminal Device, Open Approach (ICD-10-PCS; 2025-03-05)
DX: I35.0 Nonrheumatic aortic (valve) stenosis (principal); D62 Acute posthemorrhagic anemia; N17.9 Acute kidney failure, unspecified; J98.11 Atelectasis; R00.1 Bradycardia, unspecified; D69.59 Other secondary thrombocytopenia; R33.8 Other retention of urine; E86.1 Hypovolemia; E87.70 Fluid overload, unspecified; I34.0 Nonrheumatic mitral (valve) insufficiency; I07.1 Rheumatic tricuspid insufficiency; I48.0 Paroxysmal atrial fibrillation; I25.10 Atherosclerotic heart disease of native coronary artery without angina pectoris; I12.9 Hypertensive chronic kidney disease with stage 1 through stage 4 chronic kidney disease, or unspecified chronic kidney disease; N18.32 Chronic kidney disease, stage 3b; E11.65 Type 2 diabetes mellitus with hyperglycemia; E11.22 Type 2 diabetes mellitus with diabetic chronic kidney disease; E11.40 Type 2 diabetes mellitus with diabetic neuropathy, unspecified; E78.00 Pure hypercholesterolemia, unspecified; D63.1 Anemia in chronic kidney disease; N40.1 Benign prostatic hyperplasia with lower urinary tract symptoms; E66.811 Obesity, class 1; G47.33 Obstructive sleep apnea (adult) (pediatric); I27.20 Pulmonary hypertension, unspecified; M21.372 Foot drop, left foot; Z68.30 Body mass index [BMI] 30.0-30.9, adult; Z85.46 Personal history of malignant neoplasm of prostate; Z92.3 Personal history of irradiation; Z82.49 Family history of ischemic heart disease and other diseases of the circulatory system; Z79.84 Long term (current) use of oral hypoglycemic drugs; Z79.01 Long term (current) use of anticoagulants
CPT/HCPCS: 88305; 88311; 36415; 71045; 71046; 80048; 80053; 81003; 81015; 82248; 82330; 82565; 82805; 82810; 82947; 82962; 83036; 83735; 84132; 84302; 84520; 85014; 85018; 85025; 85027; 85049; 85610; 85730; 86850; 86900; 86901; 86920; 87070; 93005; 93312; 93320; 93325; 93880; 97110; 97116; 97163; 97167; 97530; 97535; P9047

== ENCOUNTER 2025-04-22 19:30 | Inpatient (IN) | payer OTHER, SELFPAY ==
[2025-04-22 15:11] VITALS: BP 100/57
[2025-04-22 15:51] LABS: % Basophils 0.3 % (0-2); % Eosinophils 0.1 % (0-6); % Immature Granulocytes 1.1 % (0-0.5); % Lymphocytes 8.4 % (20.5-51.1); % Monocytes 7.8 % (1.7-9.3); % Neutrophils 82.3 % (42.2-75.2); Absolute Basophils 0.1 10^3/uL (0-0.2); Absolute Immature Granulocytes 0.2 10^3/uL (0-0.05); Absolute Lymphocytes 1.6 10^3/uL (1.2-3.4); Absolute Monocytes 1.4 10^3/uL (0.1-0.6); Absolute Neutrophils 15.1 10^3/uL (1.4-6.5); Hematocrit 28.4 % (39.0-52.0); Hemoglobin 8.9 g/dL (13.0-18.0); Mean Corp Hgb Conc. 31.3 g/dL (33.0-37.0); Mean Corpuscular Hgb 26.1 pg (27.0-31.0); Mean Corpuscular Volume 83.3 fL (80.0-94.0); Mean Platelet Volume 10.1 fL (7.4-10.4); Nucleated Red Blood Cells % 0 % (-); Platelet Count 163 10^3/uL (130-400); Red Blood Cell Count 3.41 10^6/uL (4.70-6.10); Red Cell Dist. Width 14.2 % (11.5-14.5); White Blood Cell Count 18.4 10^3/uL (4.8-10.8)
[2025-04-22 15:55] LABS: Lactic Acid 0.9 mmol/L (0.7-2.0)
[2025-04-22 15:56] LABS: ALT (SGPT) 18 U/L (0-50); AST (SGOT) 27 U/L (17-59); Albumin 3.4 g/dl (3.5-5.0); Alkaline Phosphatase 113 U/L (38-126); Blood Urea Nitrogen 51 mg/dl (9-20); Calcium 8.6 mg/dl (8.4-10.2); Carbon Dioxide 22 mmol/L (22-30); Chloride 105 mmol/L (98-107); Glucose 79 mg/dl (70-99); Potassium 3.8 mmol/L (3.5-5.1); Sodium 133 mmol/L (135-145); Total Bilirubin 0.8 mg/dl (0.2-1.3); Total Protein 7.1 g/dl (6.3-8.2); eGFR 24.78
[2025-04-22 17:11] VITALS: BP 104/65
--- NOTE | 2025-04-22 17:19 | ED.GENMED ---
History of Present Illness
General
Chief Complaint: Skin Problem
Source: patient, records and family
Exam Limitations: none
Time Seen by Provider: 04/22/25 17:07
Nursing documentation reviewed up to this point in time: agreed with
History of Present Illness
History of Present Illness:
75-year-old male with a past medical history of hypertension, hyperlipidemia, atrial fibrillation on Eliquis, aortic stenosis status post TAVR, diabetes who presents to the emergency department with his daughters for evaluation of draining left foot
wound. Patient had TAVR with Dr. Boyer on 03/05/2025; he was discharged to rehab and was at SNF for rehab until the beginning of March. He has been home with home physical therapy and visiting nurse since then. Daughter reports that when he left
rehab there was no wound on his foot and he has not had any trauma to the foot. Over the past few days patient began to experience fever/chills and malaise and when daughter visited him she noted foul odor and checked his feet and noted significant
wound on the left foot with swelling and redness, drainage. Brought to the emergency room for evaluation.
Review of Systems
Review of Systems
All Other Systems: ROS reviewed and negative except as documented in HPI and ROS
Constitutional: Reports fever, fatigue and chills
Respiratory: Denies trouble breathing
Cardiac: Denies chest pain
ABD/GI: Denies abdominal pain
: Denies flank pain
Skin: Reports other (Draining wound on the left foot)
Neurological: Denies headache
Phy Exam
Physical Exam
Physical Exam:
General: Awake, alert, oriented x3; no acute distress
Head: Normocephalic, atraumatic
Eyes: Conjunctiva normal
Throat: Airway intact, handling secretions
Neck: Trachea midline, no JVD
Lungs: Clear to auscultation bilaterally, no wheezing, rales, rhonchi
Heart: Regular rate and rhythm, systolic murmur
Abd: Soft, non distended, nontender
Skin: Patient has a necrotic wound begins between the 1st and 2nd toes on the left foot with extension to the plantar surface of foot just beneath the first toe; purulent drainage noted between the toes; patient has erythema of the dorsum of the
foot and plantar aspect of the foot with some slight streaking up the lower leg
Extremities: Patient has +1 edema in the left lower extremity with wound as described above; palpable pulse in the left lower extremity DP
Scores
Heart Failure Risk
Heart Failure Risk Score: Not Applicable
Heart Score for Chest Pain Patients
STEMI patient?: Not applicable
Withdrawal Assessment of Alcohol
Withdrawal Assessment Completed?: Not applicable
Course
Orders/Labs/Results
Orders:
Orders
04/22/25 15:28
Complete Blood Count/With Diff Urgent
Comprehensive Metabolic Panel Urgent
Lactic Acid Urgent
04/22/25 17:09
Lactate Level [Lactic Acid] Urgent
04/22/25 17:15
Blood Culture Q30M
SHANTE Source: Blood/Venous
Specimen Description:
04/22/25 17:19
*Vancomycin 2,000 mg Loading Dose (consider for >/= 70 kg) Vancomycin [Vancocin] 2,000 mg 0.9% Sodium Chloride 500 ml [Nss] 500 ml IV NOW
Zosyn 3.375 grams IVPB NOW Piperacillin/Tazo 3.375 Gram [Zosyn] 3.375 gram in 50 ml IV NOW
CR Foot - Left Min 3 Views Urgent
Comment:
Reason For Exam: foot wound infection
04/22/25 17:20
Wound Culture [Wound/Abscess/Other Culture] Urgent
SHANTE Source: Foot
Specimen Description: Left
04/22/25 17:45
Blood Culture Q30M
SHANTE Source: Blood/Venous
Specimen Description:
Abnormal Lab Results
04/22/25
15:28
WBC 18.4 H 10^3/uL
(4.8-10.8)
RBC 3.41 L 10^6/uL
(4.70-6.10)
Hgb 8.9 L g/dL
(13.0-18.0)
Hct 28.4 L %
(39.0-52.0)
MCH 26.1 L pg
(27.0-31.0)
MCHC 31.3 L g/dL
(33.0-37.0)
Abs Immat Gran (auto) 0.2 H 10^3/uL
(0-0.05)
Absolute Neuts (auto) 15.1 H 10^3/uL
(1.4-6.5)
Absolute Monos (auto) 1.4 H 10^3/uL
(0.1-0.6)
Immature Gran % 1.1 H %
(0-0.5)
Neutrophils % 82.3 H %
(42.2-75.2)
Lymphocytes % 8.4 L %
(20.5-51.1)
Sodium 133 L mmol/L
(135-145)
BUN 51 H mg/dl
(9-20)
Creatinine 2.6 H mg/dL
(0.7-1.3)
Albumin 3.4 L g/dl
(3.5-5.0)
04/22/25 15:28
04/22/25 15:28
Vital Signs
Initial and Last Documented VS:
Initial Vital Signs
Temp Pulse Resp BP Pulse Ox
36.9 C 79 16 100/57 96
04/22/25 15:11 04/22/25 15:11 04/22/25 15:11 04/22/25 15:11 04/22/25 15:11
Last Documented Vital Signs
Temp Pulse Resp BP Pulse Ox
36.9 C 79 16 104/65 96
04/22/25 15:11 04/22/25 15:11 04/22/25 15:11 04/22/25 17:11 04/22/25 15:11
MDM/Problems Addressed
Differential Diagnosis Includes:
Infected foot wound/cellulitis
MDM/Problems Addressed:
75-year-old male presents for evaluation of redness and drainage around a new wound on his left foot�wound developed at some point over the past month but patient did not notice it until daughter examined his foot today. Vitals and exam as above.
Labs were sent off including a CBC which shows a leukocytosis to 18.4. He has stable anemia with a hemoglobin of 8.9. His CMP shows essentially stable CKD with a creatinine of 2.6. Glucose 79. Lactate less than 2. Blood culture sent off. Wound
culture sent off. Check x-ray of the foot. Will cover with antibiotics and admit for continued management of infected diabetic foot wound and cellulitis. Although there is some asymmetric swelling of the leg I suspect this is due to acute
infection; he is maintained on Eliquis and compliant very low suspicion for DVT, hold off on emergent ultrasound at this point. Case was discussed with the hospitalist for admission.
Chronic conditions affecting care:
Diabetes
*Radiology
Radiology exam reviewed: radiology read reviewed
*Pulse Oximetry
Patient hypoxic: no
*Critical Care Note
Total Time (30-74mins, 75-104mins- exclusive of procedures): Not Applicable
Data Reviewed
Review of Other/Old Records Reveals: Labs, Records and Discharge Summary
Source: patient, records and family
Further Testing Considered But Not Given:
Considered venous ultrasound of the left leg
Patient Management
Discussion with other providers: Hospitalist (Discussed with hospitalist)
Escalation/DeEscalation of care consider admission/obs:
Admission indicated
ED Attending Note
-
Portions of this chart may have been created with voice recognition software.� Occasional wrong word or��sound alike� substitutions may have occurred due to the inherent limitations of voice recognition software.
Discharge Plan
Departure
Patient Disposition: Admit
Date of Disposition: 04/22/25
Time of Disposition: 17:21
Admit to doctor: Elli
Presentation/result/management discussed w/ accepting MD/DO: Hospitalist
Discharge Problem:
Cellulitis of left foot, Open wound of left foot
Prescriptions:
No Action
metformin 500 mg Tablet
50 mg PO DAILY
glipizide 10 mg Tablet
10 mg PO BID
rosuvastatin 40 mg Tablet
40 mg PO DAILY
empagliflozin 25 mg Tablet
25 mg PO DAILY
ferrous sulfate 325 mg (65 mg iron) Tablet
325 mg PO DAILY
multivitamin Tablet
1 tab PO DAILY
acetaminophen 325 mg Tablet
650 mg PO Q4HPRN PRN (Reason: mild pain,headache,temp >101F ) Qty: 0 0RF
metoprolol succinate 25 mg Tablet Extended Release 24 Hr
25 mg PO DAILY Qty: 0 0RF
aspirin 81 mg Tablet,Chewable
81 mg PO DAILY Qty: 0 0RF
pantoprazole 40 mg Tablet,Delayed Release (Dr/Ec)
40 mg PO DAILY Qty: 0 0RF
midodrine 5 mg Tablet
5 mg PO Q4HPRN PRN (Reason: SBp <100) Qty: 0 0RF
tamsulosin 0.4 mg Capsule
0.4 mg PO DAILY Qty: 0 0RF
Eliquis 5 mg Tablet
5 mg PO BID Qty: 0 0RF
gabapentin 100 mg Capsule
100 mg PO TID Qty: 0 0RF
oxycodone 5 mg Tablet
5 mg PO Q4HPRN PRN (Reason: severe pain) Qty: 0 0RF
Interventions
Interventions:
*Risk Screen - Suicide Last Done: 04/22/25 15:11
*General Assessment Last Done: 04/22/25 17:17
*Neglect/Abuse Screening Last Done: 04/22/25 15:11
Discharge Date and Time
Print Language: JAPANESE
[2025-04-22 17:25] VITALS: BMI 29.4
[2025-04-22] MEDS: ZOSYN 50 IV ×2 (17:34→23:33)
[2025-04-22 17:56] LABS: Lactic Acid 1.4 mmol/L (0.7-2.0)
--- NOTE | 2025-04-22 18:36 | HPS.HSE ---
Family Physician
-
Family Physician: Munir Mcdaniel
Chief Complaint
-
L plantar wound
History of Present Illness
75yo M with PMHx of b/l TKA, Afib, prostate CA, HTN, HLD, s/p transthoracic valve replacement with bioprosthetic janey fraire on brought by daughters after they found LLE swelling mith malodorous wound. Patient started not to feel
well 3 days ago, then had a travel to [place] with his daughters but upon return started to experience sweats and weakness to the point that he could not raise from the toilet. Also experienced some thirst today
No chest pain or sternal wound discharge reported.
Medical History
Past Medical History
Past Medical History: Reports Other
Additional Past Medical History:
See above
Past Surgical History: Reports Other
Additional Past Surgical History:
see above
Social History
Alcohol: None
Drug: None
Family History
Family History: Not pertinent
Allergies / Home Medications
Allergies reflects when Allergies were last updated in [employer].
Home Medications with original date entered in [employer]
Allergy/Medication List:
Allergies
Allergy/AdvReac Type Severity Reaction Status Date / Time
No Known Allergies Allergy Verified 04/22/25 15:17
Home Medications
empagliflozin 25 mg tablet 25 mg PO DAILY Heart Disease/Condition 01/17/25
glipizide 10 mg tablet 10 mg PO BID Diabetes 01/17/25
metformin 500 mg tablet 50 mg PO DAILY Diabetes 01/17/25
rosuvastatin 40 mg tablet 40 mg PO DAILY High Cholesterol 01/17/25
ferrous sulfate 325 mg (65 mg iron) tablet 325 mg PO DAILY Supplement 02/21/25
multivitamin 1 tab PO DAILY Supplement 02/21/25
acetaminophen 325 mg tablet 650 mg (2 x 325 mg) PO Q4HPRN PRN mild pain,headache,temp >101F #0 tabs 03/09/25
apixaban 5 mg tablet (Eliquis) 5 mg PO BID Blood clot prevention/tx #0 tabs 03/09/25
aspirin 81 mg chewable tablet 81 mg PO DAILY Blood clot prevention/tx #0 tabs 03/09/25
gabapentin 100 mg capsule 100 mg PO TID post-op nerve pain x 10 days #0 caps 03/09/25
metoprolol succinate 25 mg tablet,extended release 24 hr 25 mg PO DAILY Heart disease/condition #0 tabs 03/09/25
midodrine 5 mg tablet 5 mg PO Q4HPRN PRN SBp <100 #0 tabs 03/09/25
oxycodone 5 mg tablet 5 mg PO Q4HPRN PRN severe pain #0 tabs 03/09/25
pantoprazole 40 mg tablet,delayed release 40 mg PO DAILY GI prophylaxis while on AC #0 tabs 03/09/25
tamsulosin 0.4 mg capsule 0.4 mg PO DAILY Urinary issue #0 [facility] 03/09/25
Review of Systems
-
A 12 point ROS was completed and negative except as noted: Yes
Constitutional: Reports See HPI
Physical Exam
Vital Signs
Vital Signs
Temp Pulse Resp BP Pulse Ox
98.5 F 79 16 104/65 96
04/22/25 15:11 04/22/25 15:11 04/22/25 15:11 04/22/25 17:11 04/22/25 15:11
Physical Exam
General: Well Nourished, No Apparent Distress and Comfortable
HEENT: NormoCephalic, Anicteric and Moist mucous membranes
Respiratory: Clear; No Wheezes or Rhonchi
Cardiac: S1/S2 and Regular Rhythm; No Tachycardia
GI: Soft, Non Tender and Non Distended
Rectal: Brown
Musculoskeletal: No Clubbing, No Cyanosis and Edema, Left Lower Extremity
Skin: Other (Black eschar on plantar area of LLE, redness over the calf)
Neuro: Awake, Alert, Oriented and AO x 3
Psych: Calm
Laboratory Results
-
04/22/25 15:28
04/22/25 15:28
Laboratory Results
Lactic Acid 1.4 mmol/L (0.7-2.0) 04/22/25 17:30
Total Bilirubin 0.8 mg/dl (0.2-1.3) 04/22/25 15:28
AST 27 U/L (17-59) 04/22/25 15:28
ALT 18 U/L (0-50) 04/22/25 15:
Alkaline Phosphatase 113 U/L (38-126) 04/22/25 15:28
Data Reviewed
-
Lab Data: Labs Reviewed by me
Impression/Plan
-
A/P:
#LLE diabetic wound with cellulitis and sepsis on admission (CORNELIUS, infection,leukocytosis)
Vanco/Zosyn
Bcx
XR L foot
Podiatry consult for I&D
ESR/CRP
US to exclude DVT
#CORNELIUS on CKD stage 3
#BPH
serial bladder scan and watch for retention
IVF
follow Cr
Urine studies including UA (patient reported dirty urine)
#NEFTALI
chronic
follow CBC
might need anemia w/u
# s/p bioprosthetic valve
well healing wound
#Afib, unspecified
Heparin while in [facility]
cont rate control
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
Insulin SS, accuchecks, DM diet
#Essential HTN
#HLD
#GERD
cont home meds
DVT ppx Heparin drip
Full code
I have spent at least 77min reviewing chart, test results, communication with consultants, family and providing direct patient care
[2025-04-22] MEDS: TYLENOL 650 MG PO (18:41)
[2025-04-22] MEDS: VANCOCIN 540 MG IV (19:38)
[2025-04-22 20:00] LABS: INR 2.24; PT 24.8 Sec (11.4-14.6)
[2025-04-22 20:34] VITALS: BP 99/61; BMI 28.1
--- NOTE | 2025-04-22 21:00 | PTCARENOTE ---
Addendum entered by Atiya Heredia RN 04/23/25 04:12:
2116 PTT 47.4 heparin gtt started at 10ml/hr per MD order. Next PTT entered 399.
Original Note:
Pt received from ED via stretcher w/ daughters at bedside; pt unable to ambulate d/t DFU/pain. Telemetry orders- afib on the monitor (strip placed in chart) VSS, c/o pain 05/01 left foot. AAOx3 confused and forgetful at times-bed/chair alarm placed.
YUHAAVIATAM. IV Vanco infusing through RFA IV. IV team TT to place 2nd line; Heparin gtt ordered. CBC and baseline PTT drawn.
Skin assessment
LEFT FOOT:
GT TOE wound extended to planter aspect of FIRST MTP> odor present, necrotic and open, draining small sanguinous drainage. warm, red, boggy.
BETWEEN GT TOE AND 2nd TOE> black/hinojosa necrotic wound bed w/depth.
2ND TOE> purple bruise. Between remainder toes> wet and macerated.
LATERAL FOOT> w/ small intact scab.
RIGHT FOOT> Great toe w/ intact scab.
SACRUM> Stage 2 cluster, foam applied.
B/L heels intact, protective heel foams applied.
GROIN- MASD, Antifungal powder.
SCROTUM (right side)> soft palpable area that opened after hygiene, draining scant sanguinous drainage, ABD applied for protection.
CHEST- x2 scabs/pink small wound bed to old incision from 02/2025 TAVR (per pt) cleansed w/nss and foams applied.
Both feet cleansed and dressings applied. Feet offloaded w/pillows. Air overlay applied.
PLAN of care discussed by this RN and patient. call pa within reach.
[2025-04-22 21:29] LABS: Hematocrit 26.5 % (39.0-52.0); Hemoglobin 8.4 g/dL (13.0-18.0); Mean Corp Hgb Conc. 31.7 g/dL (33.0-37.0); Mean Corpuscular Hgb 26.6 pg (27.0-31.0); Mean Corpuscular Volume 83.9 fL (80.0-94.0); Mean Platelet Volume 10.4 fL (7.4-10.4); Platelet Count 146 10^3/uL (130-400); Red Blood Cell Count 3.16 10^6/uL (4.70-6.10); White Blood Cell Count 19.3 10^3/uL (4.8-10.8)
[2025-04-22 21:35] LABS: APTT 47.4 Sec (23.4-35.0)
[2025-04-22 21:42] VITALS: BMI 28.1
[2025-04-22 21:54] LABS: Erythrocyte Sed Rate 84 mm/hour (0-20)
[2025-04-22] MEDS: HEPARIN 25000 UNITS/250 ML IV (21:56)
[2025-04-22] MEDS: NSS 1000 IV (22:01)
[2025-04-22 22:06] LABS: Glucose - Point of Care 57 mg/dl (70-99)
[2025-04-22 22:24] LABS: Glucose - Point of Care 72 mg/dl (70-99)
[2025-04-22] MEDS: NEURONTIN 100 MG PO (22:29)
--- NOTE | 2025-04-22 23:02 | PHA.VAN.IN ---
Assessment
- Assessment
Renal Function: Appears elevated from baseline (Scr 1.4-2.1 during admission in February 2025)
Concomitant Antimicrobials: Piperacillin/tazobactam
Plan
- Plan
Initial / Loading Dose: Vancomycin 2000mg given 04/22 at 1938
Will dose by level due to CORNELIUS.
Random vancomycin level for 04/23 with AM labs.
Pharmacokinetics Vancomycin I
- -
Patient Age: 75
Patient Sex: Male
Vancomycin Day #: 1
Indication: Skin And Soft Tissue
Requesting Provider: Dr. Walker
Pertinent Antimicrobial Allergies:
NKA
Height / Weight:
Height 6 ft 2 in
Actual Weight 99.155 kg
Pertinent Past Medical History: CKD stage 3, DM
- Vital Signs / Lab Results
Temp Pulse Resp BP Pulse Ox
99.8 F 76 18 99/61 97
04/22/25 20:34 04/22/25 20:34 04/22/25 20:34 04/22/25 20:34 04/22/25 20:34
Lab Results - Hematology
04/22/25 04/22/25
15:28 21:17
WBC 18.4 H 19.3 H
Lab Results - Chemistry
04/22/25
15:28
BUN 51 H
Creatinine 2.6 H
Albumin 3.4 L
04/22/25 04/22/25
15:28 17:30
Lactic Acid 0.9 1.4
[2025-04-22 23:08] VITALS: BP 120/68
[2025-04-22 23:27] LABS: Urine Albumin 3+ (Neg - Trace); Urine Bilirubin Negative (Negative); Urine Color Yellow; Urine Glucose 4+ (Negative); Urine Ketone Negative (Negative); Urine Leukocyte 3+ (Negative); Urine Nitrite Negative (Negative); Urine Occult Blood 3+ (Negative); Urine Urobilinogen Negative (Neg - 1+)
[2025-04-22 23:33] LABS: Urine Character Cloudy (Clear)
[2025-04-22 23:36] LABS: Osmolality Urine 476 mOsm/kg (300-900)
[2025-04-23] VITALS (7 sets, daily range): BP systolic 99–135; BP diastolic 57–71
[2025-04-23 00:22] LABS: Glucose - Point of Care 68 mg/dl (70-99)
[2025-04-23 00:23] LABS: Urine Sodium 25 mmol/L (30-90)
[2025-04-23 00:47] LABS: Glucose - Point of Care 82 mg/dl (70-99)
[2025-04-23 01:47] LABS: Urine Squamous Cell SEEN /LPF (Few)
[2025-04-23 01:48] LABS: Urine Amorphous Seen; Urine Bacteria Many (Negative); Urine White Cell >100 /HPF (0-5)
[2025-04-23 02:56] LABS: Glucose - Point of Care 72 mg/dl (70-99)
[2025-04-23] MEDS: TYLENOL 650 MG PO ×3 (03:17→20:30)
[2025-04-23] MEDS: ROXICODONE 5 MG PO ×2 (04:37→15:01)
[2025-04-23 04:55] LABS: APTT 49.4 Sec (23.4-35.0)
[2025-04-23] MEDS: ZOSYN 50 IV ×5 (06:03→23:27)
[2025-04-23 06:23] LABS: % Basophils 0.3 % (0-2); % Eosinophils 0.3 % (0-6); % Immature Granulocytes 0.9 % (0-0.5); % Monocytes 7.8 % (1.7-9.3); % Neutrophils 78.7 % (42.2-75.2); Absolute Eosinophils 0.1 10^3/uL (0-0.7); Absolute Immature Granulocytes 0.1 10^3/uL (0-0.05); Absolute Lymphocytes 1.7 10^3/uL (1.2-3.4); Absolute Monocytes 1.1 10^3/uL (0.1-0.6); Absolute Neutrophils 11.5 10^3/uL (1.4-6.5); Hemoglobin 8.1 g/dL (13.0-18.0); Mean Corp Hgb Conc. 31.2 g/dL (33.0-37.0); Mean Corpuscular Hgb 25.9 pg (27.0-31.0); Mean Corpuscular Volume 83.1 fL (80.0-94.0); Mean Platelet Volume 10.2 fL (7.4-10.4); Nucleated Red Blood Cells % 0 % (-); Platelet Count 142 10^3/uL (130-400); Red Blood Cell Count 3.13 10^6/uL (4.70-6.10); Red Cell Dist. Width 14.3 % (11.5-14.5); White Blood Cell Count 14.6 10^3/uL (4.8-10.8)
[2025-04-23 06:26] LABS: Glucose - Point of Care 54 mg/dl (70-99)
--- NOTE | 2025-04-23 06:32 | PTCARENOTE ---
Addendum entered by Atiya Heredia RN 04/23/25 06:34:
IVFs switched to D5/9NSS
Original Note:
[employer]IL[employer] INS[employer]OR notified of patient's hypoglycemia
[2025-04-23 06:38] LABS: Vancomycin Random 13.6 ug/ml
[2025-04-23 06:46] LABS: Glucose - Point of Care 74 mg/dl (70-99)
[2025-04-23 07:18] LABS: ALT (SGPT) 18 U/L (0-50); AST (SGOT) 37 U/L (17-59); Alkaline Phosphatase 133 U/L (38-126); Blood Urea Nitrogen 46 mg/dl (9-20); Calcium 8.1 mg/dl (8.4-10.2); Carbon Dioxide 21 mmol/L (22-30); Chloride 107 mmol/L (98-107); Estimated Creatinine Clearance 32 ml/min; Glucose 42 mg/dl (70-99); Potassium 3.7 mmol/L (3.5-5.1); Sodium 134 mmol/L (135-145); Total Bilirubin 0.7 mg/dl (0.2-1.3); Total Protein 6.2 g/dl (6.3-8.2); eGFR 28.71
--- NOTE | 2025-04-23 07:50 | PHA.VAN.FU ---
Vancomycin Assessment / Plan
- Assessment
Renal Function: SCR Decreasing
WBC's are: Trending Down
In the past 24 hrs, patient has been: Febrile (Max temp of 102.1 (62 at 3:30 AM))
Concomitant Antimicrobials: Zosyn 2.25 gram IV q6h
- Assessment - Therapeutic Drug Monitoring
Random Level: 13.6 - 6/2 at 5:49 (~11 hour level)
- Dosing Plan
Adjust Regimen to: Dose by level (CORNELIUS)
Dosing by Level: Re-dose today
Dosing Comments: Vancomycin 1000 mg (~10 mg/kg) x 1 dose
- Monitoring Plan
Random Level: Vancomycin random level for 6/3 AM labs
- Follow Up
Pharmacy will continue to follow.
Vancomycin Follow UP
- -
Patient Age: 75
Patient Sex: Male
Vancomycin Day #: 2
Indication: Skin And Soft Tissue
Requesting Provider: Dr. Walker
Pertinent Antimicrobial Allergies:
NKA
Height / Weight:
Height 6 ft 2 in
Actual Weight 99.155 kg
Pertinent Past Medical History: CKD stage 3, DM
- Vital Signs / Lab Results
Temp Pulse Resp BP Pulse Ox
98.2 F 90 17 118/64 99
04/23/25 06:23 04/23/25 03:30 04/23/25 03:30 04/23/25 03:30 04/23/25 03:30
Lab Results - Hematology
04/22/25 04/22/25 04/23/25
15:28 21:17 05:49
WBC 18.4 H 19.3 H 14.6 H
Lab Results - Chemistry
04/22/25 04/23/25
15:28 05:49
BUN 51 H 46 H
Creatinine 2.6 H 2.3 H
Estimated Creat Clear 32
Albumin 3.4 L 3.0 L
04/22/25 04/22/25
15:28 17:30
Lactic Acid 0.9 1.4
Lab Results - Urine
04/22/25
23:15
Urine Nitrite (Reflex) Negative
Leukocyte Esterase Rfl 3+ A
Ur Squamous Epith Cells Seen
Therapeutic Drug Monitoring
Random Vancomycin 13.6 ug/ml 04/23/25 05:49
[2025-04-23] MEDS: CRESTOR 40 MG PO (08:04)
[2025-04-23] MEDS: FEOSOL 325 MG PO (08:04)
[2025-04-23] MEDS: FLOMAX 0.4 MG PO (08:04)
[2025-04-23] MEDS: NEURONTIN 100 MG PO ×3 (08:04→20:11)
[2025-04-23] MEDS: PROTONIX 40 MG PO (08:04)
[2025-04-23] MEDS: TOPROL XL 25 MG PO ×2 (08:05→20:11)
[2025-04-23] MEDS: D5/0.9% SODIUM CHLORIDE 1000 IV ×2 (08:06→23:27)
[2025-04-23 08:27] LABS: Glucose - Point of Care 62 mg/dl (70-99)
[2025-04-23] MEDS: NOVOLOG FLEXPEN-MODERATE RESISTANCE SC ×3 (08:35→17:09)
[2025-04-23 08:55] LABS: Glucose - Point of Care 82 mg/dl (70-99)
[2025-04-23 11:06] LABS: Glucose - Point of Care 98 mg/dl (70-99)
[2025-04-23 11:17] LABS: APTT 56.6 Sec (23.4-35.0)
[2025-04-23 11:21] LABS: Glycohemoglobin (HgbA1c) 6.3 % (4.0-5.6)
--- NOTE | 2025-04-23 12:11 | CM ---
CM following re: discharge planning.
Reviewed pt's chart, met with pt and pt's spouse at bedside.
Pt is a 75 year old male, admitted with primary dx of LLE diabetic wound with cellulitis and sepsis on admission (CORNELIUS, infection,leukocytosis). PMH includes: b/l TKA, Afib, prostate CA, HTN, HLD, s/p transthoracic valve replacement with
bioprosthetic janey fraire on
Pt reports prior to admission he resides with his spouse in a three story home with no steps to enter. He states he has two stair glides to get to each level. He states he has a full flight of steps to get to bedroom/full bathroom. He has a
powder room on the first floor. He states prior to admission he ambulates with a single point cane. He states he has single point cane. two stair glides, easy lift chair and semi electric bed. He states he does not have a prescription plan and
uses [facility] for his medications. He states he has been in [facility]. If he needs rehab he will consider [facility] or [facility]. He will need pre-cert for SNF. If he can go directly home then Khang
Gabriel GOMES and his spouse will be home to assist in his care if needed. Pt reports he was at [facility] acute rehab last month and he understood he might not be eligible for an acute rehab.
Pt reports he is [place] , enrolled with [facility] for services, mostly medication coverage.
PT and OT will evaluate the pt to determine a level of care at discharge.
PCP: Munir Mcdaniel
Pharmacy: [facility] covers pt's medication.
D/C plan: uncertain at this time: [facility] vs home with [facility] GOMES.
CM will follow with discharge plan updates as hospitalization progresses
--- NOTE | 2025-04-23 12:35 | W.PN.HOSP.TC ---
Today's Communication/Plan
-
await MRI
cont w/abx for now
await culture data
podiatry recs
hep gtt for now
Assessment / Plan
Assessment / Plan
General: Well Nourished, No Apparent Distress and Comfortable
HEENT: NormoCephalic, Anicteric and Moist mucous membranes
Respiratory: Clear; No Wheezes or Rhonchi
Cardiac: S1/S2 and Regular Rhythm; No Tachycardia
GI: Soft, Non Tender and Non Distended
Rectal: Brown
Musculoskeletal: No Clubbing, No Cyanosis and Edema, Left Lower Extremity
Skin: Other (Black eschar on plantar area of LLE, redness over the calf)
Neuro: Awake, Alert, Oriented and AO x 3
Psych: Calm
#LLE diabetic wound with cellulitis and sepsis on admission (CORNELIUS, infection,leukocytosis)
Vanco/Zosyn
Bcx in lab
XR L foot noted
Podiatry consult for I&D
MRI of Left foot ordered/pending
ESR/CRP severely elevated
US LLE negative DVT
#CORNELIUS on CKD stage 3
#BPH
serial bladder scan and watch for retention
IVF
follow Cr
Cr improving
FENA w/pre-renal. Could be from sepsis, recent surgery, hypotension etc.
#NEFTALI
chronic
follow CBC
might need anemia w/u
# Severe aortic stenosis status post aortic valve replacement on 03/05/[address] Elam
well healing wound
#Afib Paroxysmal
Heparin while in [facility] and while awaiting plan from podiatry if intervention required or not.
cont rate control
Taken off amiodarone due to bradycardia
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
Insulin SS, accuchecks, DM diet
#Essential HTN
#HLD
#GERD
cont home meds
DVT ppx Heparin drip
Full code
Anticipated Discharge: > 48 hours
Subjective/Interval History
-
Date of Service: April 23, 2025
eating breakfast
states of intermittent L foot pain
spiked fever earlier today
Objective Data
-
Labs:
Laboratory Results
04/23/25 04/23/25 04/23/25
04:30 05:49 10:55
WBC 14.6 H
Hgb 8.1 L
Hct 26.0 L
Plt Count 142
APTT 49.4 H 56.6 H
Sodium 134 L
Potassium 3.7
Chloride 107
Carbon Dioxide 21 L
BUN 46 H
Creatinine 2.3 H
Glucose 42 L*
Calcium 8.1 L
Total Bilirubin 0.7
AST 37
ALT 18
Alkaline Phosphatase 133 H
04/23/25
17:00
WBC
Hgb
Hct
Plt Count
APTT Pending
Sodium
Potassium
Chloride
Carbon Dioxide
BUN
Creatinine
Glucose
Calcium
Total Bilirubin
AST
ALT
Alkaline Phosphatase
Vital Signs:
Vital Signs
Temp Pulse Resp BP Pulse Ox
100.4 F H 98 18 114/68 97
04/23/25 11:27 04/23/25 11:27 04/23/25 11:27 04/23/25 11:27 04/23/25 12:11
I&O
04/22/25 04/23/25 04/24/25
06:59 06:59 06:59
Intake Total 2170 / 2170 0 / 0
Output Total 1400 / 1400 30 / 30
Balance 770 / 770 -30 / -30
Data Reviewed
-
Total Time Spent with Patient (in minutes): 58
Diagnostic Radiology: Report Reviewed by me and Discussed with Patient
Labs: Labs Reviewed by me and Discussed with Patient
Old Records: Reviewed (prior hospitalization)
[2025-04-23 14:03] LABS: Glucose - Point of Care 59 mg/dl (70-99)
[2025-04-23] MEDS: DEXTROSE 50% SYRINGE 12.5 GRAMS IV (14:21)
[2025-04-23] MEDS: VANCOCIN 200 IV (14:23)
[2025-04-23 15:15] LABS: Glucose - Point of Care 141 mg/dl (70-99)
--- NOTE | 2025-04-23 15:38 | WOUNDNOTE ---
R MEDIAL GREAT TOE
--- NOTE | 2025-04-23 15:38 | WOUNDNOTE ---
BTW GREAT TOE AND 2ND ON L
--- NOTE | 2025-04-23 15:39 | WOUNDNOTE ---
BTW 2ND AND 3RD TOE ON L
--- NOTE | 2025-04-23 15:40 | WOUNDNOTE ---
SACRUM AND LOWER BACK
--- NOTE | 2025-04-23 15:44 | WOUNDNOTE ---
[facility] RN note: Patient admitted with Cellulitis and wound of L foot.
See H&P for complete history.
PMH: 75-year-old male with a past medical history of hypertension, hyperlipidemia, atrial fibrillation on Eliquis, aortic stenosis status post TAVR, diabetes who presents to the emergency department with his daughters for evaluation of draining left
foot wound.
Wound Location and type/assessment: Patient admitted with: L diabetic foot ulcer. L plantar foot with black eschar, oliver peeling blister proximal that extends to great toe. Moist open shallow appearing ulcer btw great toe and 2nd toe web. Moderate
amt of purulent drainage mixed with serosanguineous of foul odor. Bruising and redness of toes, edema to foot. Patient states he is having pain to L foot despite neuropathy. Patient reports L foot drop. ultrasound of legs negative for DVT. L foot x
ray and then MRI both negative for osteomyelitis and abscess. Wound culture pending. at bedside reports they were visiting family in [place] when he tripped on [place] to and fell into the hamper, abraded R flank and lower back near
sacrum. states she smelled an odor but didn't know it was coming from his foot. Mild linear opening at Sacrum, suspect MASD vs stage 2 PI. Lateral groins with mild redness from MASD. R great medial toe with old dry scabbed abrasion, heels
intact. + palpable pedal pulses both feet. Upper chest old surgical sites from TAVR with scant drainage, small silicone foam dressings in use.
Appetite: Good.
Pressure redistribution devices in place: On Air overlay, can turn self.
Plan: Local wound care done. Plan Nurse on consult and pending. Sacral silicone foam dressing changed. Applied protective foam to R heel. Recommend Dakin's moist gauze to dry dressing if patient not going to OR for I&D.
Will confirm orders with hospitalist, follow along peripherally with Podiatry and assist as needed.
Updated care plan and nurse Mags.
Note to case management of equipment requested for discharge: TBD.
Recommend follow up with Plan Nurse.
--- NOTE | 2025-04-23 16:11 | PTCARENOTE ---
Pt hypoglycemic multiple times today, juice given each time, pt eating full meals, IV D5W/0.9NSS at 75mL/hr. MD made aware, IV dextrose bolus administered. See hypoglycemic intervention for documentation. No new orders at this time.
--- NOTE | 2025-04-23 16:36 | CON.SURG ---
Surgical Consultation
-
Chief Complaint
-
L plantar wound
History of Present Illness
75yo M with PMHx of b/l TKA, Afib, prostate CA, HTN, HLD, s/p transthoracic valve replacement with bioprosthetic janey fraire on brought by daughters after they found LLE swelling with malodorous wound. Has a addictions recovery specialist at [facility]
but has not been evaluated for this wound. Patient started not to feel well 3 days ago, then had a travel to [place] with his daughters but upon return started to experience sweats and weakness to the point that he could not raise from the
toilet. Also experienced some thirst today
No chest pain or sternal wound discharge reported.
Medical History
Past Medical History
Past Medical History: Reports Other
Additional Past Medical History:
See above
Past Surgical History: Reports Other
Additional Past Surgical History:
see above
Social History
Alcohol: None
Drug: None
Family History
Family History: Not pertinent
Allergies / Home Medications
Allergies reflects when Allergies were last updated in [facility].
Home Medications with original date entered in [facility]
Allergy/Medication List:
Allergies
Allergy/AdvReac Type Severity Reaction Status Date / Time
No Known Allergies Allergy Verified 04/22/25 15:17
Home Medications
empagliflozin 25 mg tablet 25 mg PO DAILY Heart Disease/Condition 01/17/25
glipizide 10 mg tablet 10 mg PO BID Diabetes 01/17/25
metformin 500 mg tablet 50 mg PO DAILY Diabetes 01/17/25
rosuvastatin 40 mg tablet 40 mg PO DAILY High Cholesterol 01/17/25
ferrous sulfate 325 mg (65 mg iron) tablet 325 mg PO DAILY Supplement 02/21/25
multivitamin 1 tab PO DAILY Supplement 02/21/25
acetaminophen 325 mg tablet 650 mg (2 x 325 mg) PO Q4HPRN PRN mild pain,headache,temp >101F #0 tabs 03/09/25
apixaban 5 mg tablet (Eliquis) 5 mg PO BID Blood clot prevention/tx #0 tabs 03/09/25
aspirin 81 mg chewable tablet 81 mg PO DAILY Blood clot prevention/tx #0 tabs 03/09/25
gabapentin 100 mg capsule 100 mg PO TID post-op nerve pain x 10 days #0 caps 03/09/25
metoprolol succinate 25 mg tablet,extended release 24 hr 25 mg PO DAILY Heart disease/condition #0 tabs 03/09/25
midodrine 5 mg tablet 5 mg PO Q4HPRN PRN SBp <100 #0 tabs 03/09/25
oxycodone 5 mg tablet 5 mg PO Q4HPRN PRN severe pain #0 tabs 03/09/25
pantoprazole 40 mg tablet,delayed release 40 mg PO DAILY GI prophylaxis while on AC #0 tabs 03/09/25
tamsulosin 0.4 mg capsule 0.4 mg PO DAILY Urinary issue #0 caps 03/09/25
Review of Systems
-
A 12 point ROS was completed and negative except as noted: Yes
Constitutional: Reports See HPI
Physical Exam
Vital Signs
Vital Signs
Temp Pulse Resp BP Pulse Ox
98.5 F 79 16 104/65 96
04/22/25 15:11 04/22/25 15:11 04/22/25 15:11 04/22/25 17:11 04/22/25 15:11
Physical Exam
General: Well Nourished, No Apparent Distress and Comfortable
HEENT: NormoCephalic, Anicteric and Moist mucous membranes
Respiratory: Clear; No Wheezes or Rhonchi
Cardiac: S1/S2 and Regular Rhythm; No Tachycardia
GI: Soft, Non Tender and Non Distended
Rectal: Brown
Musculoskeletal: No Clubbing, No Cyanosis and Edema, Left Lower Extremity
Skin: Other (Black eschar on plantar area of LLE, redness over the calf)
Neuro: Awake, Alert, Oriented and AO x 3
Psych: Calm
Left lower extremity exam
DP/PT pulses are weakly palpable, sluggish capillary refill
-1st MTPJ plantar eschar, 1st interspace fibronecrotic wound with purulence drainage and positive probe to bone
-Erythema extending to forefoot with pregangrenous changes to toes 2,4
Laboratory Results
-
04/22/25 15:28
04/22/25 15:28
Laboratory Results
Lactic Acid 1.4 mmol/L (0.7-2.0) 04/22/25 17:30
Total Bilirubin 0.8 mg/dl (0.2-1.3) 04/22/25 15:28
AST 27 U/L (17-59) 04/22/25 15:28
ALT 18 U/L (0-50) 04/22/25 15:28
Alkaline Phosphatase 113 U/L (38-126) 04/22/25 15:28
Data Reviewed
-
Lab Data: Labs Reviewed by me
Impression/Plan
-
Patient is a 75yo M with PMHx of b/l TKA, Afib, prostate CA, HTN, HLD, s/p transthoracic valve replacement with bioprosthetic inspiris resilia presenting for a left foot wound and infection
-Patient seen and evaluated at bedside
-Despite MRI findings showing no evidence of abscess or osteomyelitis, 1st interspace wound is purulence and probes directly to bone
-Patient is at high risk of limb loss and aggressive infection management is warranted
-Discussed surgical and wound management of left foot wound, will tentatively plan for partial 1st ray amputation 04/24. Patient is at high risk of requiring transmetatarsal amputation
-Continue antibiotics per ID recs
-NWB to LLE in meantime
[2025-04-23 16:51] LABS: Glucose - Point of Care 118 mg/dl (70-99)
[2025-04-23] MEDS: HEPARIN 25000 UNITS/250 ML IV (17:39)
[2025-04-23 18:08] LABS: APTT 59.8 Sec (23.4-35.0)
[2025-04-23] MEDS: LOPRESSOR 5 MG IV (18:26)
[2025-04-23 19:06] LABS: Glucose - Point of Care 65 mg/dl (70-99)
--- NOTE | 2025-04-23 19:30 | PTCARENOTE ---
Pt with HR consistently in the 110s-130s, made aware, 5mg lopressor administered. HR still in 150s, pt with increasing agitation and confusion of new origin, made aware, additional toprol ordered with cardio consult. Accucheck 65, juice given.
Pt adamant about getting onto bedside commode, educated on inability to get OOB at this time due to HR and mobility status. Pt assisted onto bed parrish, HR now in low 100s, no new orders at this time.
[2025-04-23 19:35] LABS: Glucose - Point of Care 62 mg/dl (70-99)
[2025-04-23 19:50] LABS: Glucose - Point of Care 70 mg/dl (70-99)
[2025-04-23 20:19] LABS: Glucose - Point of Care 98 mg/dl (70-99)
[2025-04-23] MEDS: DESENEX/MITRAZOL/ZEASORB 1 APPLIC TOPICAL (20:25)
[2025-04-23 21:57] LABS: Glucose - Point of Care 168 mg/dl (70-99)
[2025-04-23 23:18] LABS: Glucose - Point of Care 160 mg/dl (70-99)
[2025-04-24] VITALS (12 sets, daily range): BP systolic 92–123; BP diastolic 58–82; BMI 29.2
[2025-04-24] LABS: APTT 60.1 Sec (23.4-35.0)
[2025-04-24 01:32] LABS: Glucose - Point of Care 125 mg/dl (70-99)
[2025-04-24 03:39] LABS: Glucose - Point of Care 135 mg/dl (70-99)
[2025-04-24 06:45] LABS: Hematocrit 27.5 % (39.0-52.0); Hemoglobin 8.6 g/dL (13.0-18.0); Mean Corp Hgb Conc. 31.3 g/dL (33.0-37.0); Mean Corpuscular Hgb 26.4 pg (27.0-31.0); Mean Corpuscular Volume 84.4 fL (80.0-94.0); Mean Platelet Volume 10.9 fL (7.4-10.4); Platelet Count 168 10^3/uL (130-400); Red Blood Cell Count 3.26 10^6/uL (4.70-6.10); Red Cell Dist. Width 14.3 % (11.5-14.5); White Blood Cell Count 14.8 10^3/uL (4.8-10.8)
[2025-04-24 06:48] LABS: APTT 84.7 Sec (23.4-35.0)
[2025-04-24 06:57] LABS: Vancomycin Random 13.6 ug/ml
[2025-04-24 07:10] LABS: Blood Urea Nitrogen 40 mg/dl (9-20); Calcium 8.1 mg/dl (8.4-10.2); Carbon Dioxide 22 mmol/L (22-30); Chloride 107 mmol/L (98-107); Estimated Creatinine Clearance 38 ml/min; Glucose 105 mg/dl (70-99); Potassium 4.2 mmol/L (3.5-5.1); Sodium 135 mmol/L (135-145); eGFR 36.11
[2025-04-24 07:15] LABS: Glucose - Point of Care 137 mg/dl (70-99)
--- NOTE | 2025-04-24 07:38 | PHA.VAN.FU ---
Vancomycin Assessment / Plan
- Assessment
Renal Function: SCR Decreasing
WBC's are: Trending Up
In the past 24 hrs, patient has been: Afebrile (Max temp of 101.9 (04/23 at 23:26 PM))
Concomitant Antimicrobials: Zosyn 2.25 gram IV q6h
- Assessment - Therapeutic Drug Monitoring
Random Level: 13.6 - 04/24 at 6:20 AM (~16 hour level)
- Dosing Plan
Continue: Dose by level (CORNELIUS on CKD)
Dosing by Level: Re-dose today
Dosing Comments: Vancomycin 1000 mg (10 mg/kg) x 1 dose
- Monitoring Plan
Random Level: Vancomycin random level for 6/4 AM labs
- Follow Up
Pharmacy will continue to follow.
Vancomycin Follow UP
- -
Patient Age: 75
Patient Sex: Male
Vancomycin Day #: 3
Indication: Skin And Soft Tissue
Requesting Provider: Dr. Walker
Pertinent Antimicrobial Allergies:
NKA
Height / Weight:
Height 6 ft 2 in
Actual Weight 103.238 kg
Pertinent Past Medical History: CKD stage 3, DM
- Vital Signs / Lab Results
Temp Pulse Resp BP Pulse Ox
98.6 F 96 18 112/75 98
04/24/25 03:07 04/24/25 03:07 04/24/25 03:07 04/24/25 03:07 04/24/25 03:07
Lab Results - Hematology
04/22/25 04/22/25 04/23/25
15:28 21:17 05:49
WBC 18.4 H 19.3 H 14.6 H
04/24/25
06:20
WBC 14.8 H
Lab Results - Chemistry
04/22/25 04/23/25 04/24/25
15:28 05:49 06:20
BUN 51 H 46 H 40 H
Creatinine 2.6 H 2.3 H 1.9 H
Estimated Creat Clear 32 38
Albumin 3.4 L 3.0 L
04/22/25 04/22/25
15:28 17:30
Lactic Acid 0.9 1.4
Microbiology Results
04/22/25 17:30 Blood Culture - Preliminary
Blood/Venous No Growth in 24 hours- Final report to follow
04/22/25 17:30 Blood Culture - Preliminary
Blood/Venous No Growth in 24 hours- Final report to follow
04/22/25 17:31 Gram Stain - Preliminary
Foot - Left
Therapeutic Drug Monitoring
Random Vancomycin 13.6 ug/ml 04/24/25 06:20
[2025-04-24] MEDS: NOVOLOG FLEXPEN-MODERATE RESISTANCE SC ×3 (07:40→17:45)
[2025-04-24] MEDS: NEURONTIN 100 MG PO ×3 (08:28→21:52)
[2025-04-24] MEDS: CRESTOR 40 MG PO (08:28)
[2025-04-24] MEDS: DESENEX/MITRAZOL/ZEASORB 1 APPLIC TOPICAL ×2 (08:29→23:56)
[2025-04-24] MEDS: FEOSOL 325 MG PO (08:29)
[2025-04-24] MEDS: PROTONIX 40 MG PO (08:29)
[2025-04-24] MEDS: FLOMAX 0.4 MG PO (08:29)
[2025-04-24] MEDS: TOPROL XL 50 MG PO (08:29)
[2025-04-24] MEDS: ROXICODONE 5 MG PO ×2 (09:20→17:49)
--- NOTE | 2025-04-24 10:52 | PN.CDI ---
CDI
- -
CDI:
Physician Documentation Request
Admit Date: 04/22/25 19:30
Dear Doctor Alie,
Patient admitted with sepsis.
04/23 Nursing skin assessment, 'Stage 2 sacral pressure injury, POA.'
Physician documentation of the type and location of wounds is required for compliant documentation. Based on the above clinical findings and your assessment, please provide the following in your progress note:
Type (etiology) of ulcer/wound:
- Pressure (decubitus) ulcer
- Other
- Unable to determine
For a pressure ulcer, please also include the stage* of the ulcer:
- Stage 1 - Skin intact, non-blanchable redness
- Stage 2 - Partial thickness loss of dermis, includes intact or open blister
- Stage 3 - Full thickness tissue not including bone, tendon or muscle
- Stage 4 - Full thickness tissue loss, including exposed bone, tendon or muscle
- Unstageable - Full thickness loss in which the base of the ulcer is covered by slough (yellow, oliver, hinojosa, green or brown) and/or eschar (oliver, brown or black) in the wound bed.
- Unable to determine
Use of terms such as suspected, likely, concern for, or probable (associated with a specific diagnosis that is being evaluated, monitored, or treated as if it exists) are acceptable and can be coded in the inpatient setting, when documented at the
time of discharge.
Thank you,
Jennifer LOPEZ,RN, CCDS
CDI Specialist
Available via [place] text
Please use your independent medical judgment in providing your response.
*Source: National Pressure Ulcer Advisory Panel (NPUAP)
[2025-04-24 11:36] LABS: Glucose - Point of Care 99 mg/dl (70-99)
[2025-04-24] MEDS: ZOSYN 50 IV ×2 (11:43→18:00)
[2025-04-24] MEDS: TYLENOL 650 MG PO ×2 (12:12→17:46)
[2025-04-24] MEDS: VANCOCIN 200 IV (12:13)
--- NOTE | 2025-04-24 12:26 | PTCARENOTE ---
Heparin gtt stopped at [address] Leung for 1225 surgery time.
--- NOTE | 2025-04-24 12:26 | W.PN.HOSP.TC ---
Today's Communication/Plan
-
Continue broad-spectrum antibiotic
Plan for OR today
Heparin on hold for surgery
Monitor heart rate
Assessment / Plan
Assessment / Plan
General: Well Nourished, No Apparent Distress and Comfortable
HEENT: NormoCephalic, Anicteric and Moist mucous membranes
Respiratory: Clear; No Wheezes or Rhonchi
Cardiac: S1/S2 and Regular Rhythm; No Tachycardia
GI: Soft, Non Tender and Non Distended
Rectal: Brown
Musculoskeletal: No Clubbing, No Cyanosis and Edema, Left Lower Extremity
Skin: Other (Black eschar on plantar area of LLE, redness over the calf)
Neuro: Awake, Alert, Oriented and AO x 3
Psych: Calm
#LLE diabetic wound with cellulitis and sepsis on admission (CORNELIUS, infection,leukocytosis)
Blood cultures remains negative so far
XR L foot noted
MRI of Left foot with no convincing evidence for osteomyelitis. Deformity of the proximal phalanx of left great toe which is morphological appearance suggesting deformity from old fracture. No evidence for soft tissue abscess.
Wound however severely looks infected
Podiatry evaluated patient recommending for amputation. High risk for limb loss.
Wound cultures noted
Will ask ID for input as with recent valve surgery
JUNG also ordered per podiatry
ESR/CRP severely elevated
US LLE negative DVT
In pelvis diabetic. Continue with Zosyn. Will await further ID input
Bump in WBC noted
#CORNELIUS on CKD stage 3
#BPH
serial bladder scan and watch for retention
IVF
follow Cr
Cr improving
FENA w/pre-renal. Could be from sepsis, recent surgery, hypotension etc.
Creatinine continues to improve
# Severe aortic stenosis status post aortic valve replacement on 03/05/[address] Elam
well healing wound
# Proteus urinary tract infection
# Urinary retention
Already on Zosyn
Await for final susceptibility results
Webb catheter placement due to severe retention. Continue with Flomax.
#Afib Paroxysmal
Heparin as plan for intervention surgery today
cont rate control and Toprol dose increased to 50 mg. Heart rate control
Taken off amiodarone due to bradycardia
#NEFTALI
chronic
follow CBC
might need anemia w/u
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
Insulin SS, accuchecks, DM diet
#Essential HTN
#HLD
#GERD
cont home meds
# Stage II sacral pressure injury, POA
Wound care and offloading
DVT ppx Heparin drip
Full code
Anticipated Discharge: > 48 hours
Subjective/Interval History
-
Date of Service: April 24, 2025
States of intermittent left foot pain
Underwent JUNG earlier today
Objective Data
-
Labs:
Laboratory Results
04/24/25 04/24/25
06:20 12:20
WBC 14.8 H
Hgb 8.6 L
Hct 27.5 L
Plt Count 168
APTT 84.7 H Cancelled
Sodium 135
Potassium 4.2
Chloride 107
Carbon Dioxide 22
BUN 40 H
Creatinine 1.9 H
Glucose 105 H
Calcium 8.1 L
Vital Signs:
Vital Signs
Temp Pulse Resp BP Pulse Ox
98.6 F 90 16 115/71 98
04/24/25 11:22 04/24/25 11:22 04/24/25 11:22 04/24/25 11:22 04/24/25 11:22
I&O
04/23/25 04/24/25 04/25/25
06:59 06:59 06:59
Intake Total 2170 / 2170 2218 / 2218
Output Total 1400 / 1400 1730 / 1730
Balance 770 / 770 488 / 488
Data Reviewed
-
Total Time Spent with Patient (in minutes): 55
--- NOTE | 2025-04-24 12:39 | PTCARENOTE ---
OR taking patient around [address] Leung keep heparin gtt off.
[2025-04-24] MEDS: D5/0.9% SODIUM CHLORIDE 1000 IV (14:48)
--- NOTE | 2025-04-24 15:00 | CON.ID ---
Consultation
-
Date/Time Consultation Requested: 04/24/2025 1228
Date/Time Consultation Performed: 04/24/2025 1420
Requesting Provider: Dr. Strange
Performing Provider: Dr. Menjivar
Reason for Consultation: Left foot wound
Chief Complaint / Past History
History of Present Illness
Rene Olson is a 75-year-old man being evaluated at the request Dr. Strange in regards to a left foot wound. History is obtained from chart review, along with patient interview.
The patient presented to [facility] [address] on 04/22 for evaluation of a draining left wound. According to reviewed history the patient recently underwent a TAVR procedure (03/05/2025) and was ultimately discharged to rehab. He subsequently was
discharged to home and has had visiting nurses since then. Since returning home he has developed a foot wound, and over the past several days has experienced fevers and chills, along with generalized malaise and lethargy. Patient's daughters had
visited and noted a foul odor from the foot with noted swelling, redness and drainage.
Workup in the emergency room revealed a leukocytosis. [place] imaging was performed which showed soft tissue changes of the first MTP joint. An MRI was subsequently performed which also did not reveal any evidence of osteomyelitis. The patient
was started on empiric antibiotics, and Infectious Diseases asked to comment upon further antimicrobial therapy.
Past History
Additional Past Medical History:
HTN
HLD
A-fib (Eliquis)
Aortic stenosis
DM
CAD
CKD stage III
Hx prostate CA
Additional Past Surgical History:
AVR (03/05/2025)
Appendectomy
Bilateral knee replacement
Allergy History:
No Known Allergies Allergy (Verified 04/22/25 15:17)
Current Antibiotics:
Zosyn 3.25 g IV every 6 hours
Social History
Tobacco: Non-Smoker
Alcohol: None
Drug: None
Personal:
Living: With Family
Employment: Retired
Family History
Family History: Not Pertinent
Review of Systems
Vital Signs
Temp Pulse Resp BP Pulse Ox
98.6 F 90 16 115/71 98
04/24/25 11:22 04/24/25 11:22 04/24/25 11:22 04/24/25 11:22 04/24/25 11:22
Physical Exam
Physical Exam
Constitutional: No Acute Distress, Comfortable and Non-toxic
Eyes: Pupils Equal, Pupils Round, No Conjunctival Hemorrhage and Sclera Anicteric
Oral: No Thrush and No Ulcers
Cardiovascular: Regular Rate and S1/S2; Negative S3/S4
Pulmonary: Clear; Negative Wheezes, Rales or Rhonchi
Gastrointestinal: Soft, Non Tender, Non Distended, Normal Bowel Sounds, No Rebound and No Guarding
Genito-Urinary: Webb and Clear Urine; Negative Turbid Urine or Hematuria
Extremities: Edema (Left lower extremity), Cyanosis (Left several toes) and Erythema (Left foot)
Skin: Warm and Dry; Negative Rash or Jaundice
Wound: Other (Left subfirst met head area with dry crust/eschar (unstageable). Significant malodor from the foot.)
Neurological: Awake and Alert
Psychological: Calm
Lab / Diagnostic Study Results
04/24/25 06:20
04/24/25 06:20
Abs Immat Gran (auto) 0.1 10^3/uL (0-0.05) H 04/23/25 05:49
Absolute Neuts (auto) 11.5 10^3/uL (1.4-6.5) H 04/23/25 05:49
Absolute Lymphs (auto) 1.7 10^3/uL (1.2-3.4) 04/23/25 05:49
Absolute Monos (auto) 1.1 10^3/uL (0.1-0.6) H 04/23/25 05:49
Absolute Basos (auto) 0.0 10^3/uL (0-0.2) 04/23/25 05:49
Immature Gran % 0.9 % (0-0.5) H 04/23/25 05:49
Neutrophils % 78.7 % (42.2-75.2) H 04/23/25 05:49
Lymphocytes % 12.0 % (20.5-51.1) L 04/23/25 05:49
Monocytes % 7.8 % (1.7-9.3) 04/23/25 05:49
Eosinophils % 0.3 % (0-6) 04/23/25 05:49
Basophils % 0.3 % (0-2) 04/23/25 05:49
ESR 84 mm/hour (0-20) H 04/22/25 21:17
PT 24.8 Sec (11.4-14.6) H 04/22/25 19:44
INR 2.24 04/22/25 19:44
Lactic Acid 1.4 mmol/L (0.7-2.0) 04/22/25 17:30
C-Reactive Protein 227.00 mg/L (0.0-10.00) H 04/22/25 15:28
Ur Squamous Epith Cells Seen /LPF (Few) 04/22/25 23:15
Microbiology Results
Micro:
04/22/25 17:31 Wound Culture - Preliminary
Foot - Left Gram negative bacilli
Gram Stain - Preliminary
04/22/25 23:15 Urine Culture - Preliminary
Urine Proteus species
04/22/25 23:15 MRSA Screen - Final
Nose No Methicillin Resistant Staphylococcus aureus isolated.
04/22/25 17:30 Blood Culture - Preliminary
Blood/Venous No Growth in 24 hours- Final report to follow
04/22/25 17:30 Blood Culture - Preliminary
Blood/Venous No Growth in 24 hours- Final report to follow
Imaging:
04/24/2025 Lower extremity arterial ultrasound with JUNG: 1. Right lower extremity: JUNG not obtainable secondary to noncompressibility of the vessels. TBI, which is more reliable in this setting, is within normal limits. Multiphasic waveforms from
common femoral through popliteal artery with no velocity elevation to suggest any significant stenosis. Continuous Doppler waveforms at the dorsalis pedis and posterior tibial arteries are also multiphasic.
2. Left lower extremity: JUNG not obtainable secondary to noncompressible vessels. TBI, which is more reliable in this setting, is severely reduced 0.22. Multiphasic waveforms in the common femoral and profunda with transition to monophasic waveforms
throughout the superficial femoral and popliteal arteries. However, no discrete stenosis is identified. Continuous Doppler waveforms at the dorsalis pedis and posterior tibial arteries are monophasic.
3. Right groin small seromatous appearing collection measuring 1.1 x 1.4 cm.
04/23/2025 MRI left lower extremity without contrast: No evidence of osteomyelitis. Small foci of decreased signal intensity within the soft tissues likely representing soft tissue air from plantar wound and superior extension. Please see full
dictation for additional detail.
04/22/2025 Left foot x-ray: There are 2 soft tissue lucencies about the base of the great toe. The larger is located laterally and is teardrop in shape. It measures 7 mm. This is 6 mm from the closest osseous structure of the great toe. The second is
smaller and located medially just below the dermis at the level of the first MTP joint. It measures 2 mm.
Assessment / Plan
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
Leukocytosis
Elevated CRP / ESR
DM type II
HTN
HLD
A-fib (Eliquis)
Aortic stenosis
Recommendations:
Continue with empiric Zosyn for the present.
Patient for OR at this time. Please check intraoperative cultures.
Follow white count and temperature curve.
Await further culture data to guide further antimicrobial selection and potential de-escalation.
Glucose control to facilitate leukocyte function
Further recommendations as additional data is returned.
[2025-04-24 16:40] LABS: Glucose - Point of Care 97 mg/dl (70-99)
--- NOTE | 2025-04-24 16:50 | W.PN.SURGUPD ---
Surgical Update
Surgical Update
75 yo M s/p left open partial 1st ray amputation
-Aggressive infection noted tracking laterally
-Packed open with betadine
-Will ultimately need left transmetatarsal amputation
-Continue antibiotics per ID recs
-Strict NWB to LLE
-Tentatively plan for left foot TMA on 04/26
--- NOTE | 2025-04-24 17:18 | PTCARENOTE ---
Patient transferred to [address] [place] [address] post op for left partial first toe amputation secondary to necrosis.The patient denies any pain he said it just feels 'cold'.The toes that are exposed are dusky looking as well which is baseline.Per the [facility] nurses he
will need further intervention for the left foot in the future.Popliteal pulse is normal.The left foot dressing is intact without drainage.The patient is in his bed with the call pa intact.
[2025-04-24] MEDS: HEPARIN 25000 UNITS/250 ML IV (17:49)
[2025-04-24 21:20] LABS: Glucose - Point of Care 194 mg/dl (70-99)
[2025-04-25] MEDS: ZOSYN 50 IV ×4 (00:05→17:40)
[2025-04-25] MEDS: ROXICODONE 5 MG PO ×5 (00:15→21:50)
[2025-04-25 00:39] LABS: APTT 91.5 Sec (23.4-35.0)
[2025-04-25 03:00] VITALS: BP 106/70
[2025-04-25] MEDS: D5/0.9% SODIUM CHLORIDE 1000 IV (04:44)
[2025-04-25 06:34] LABS: APTT 76.5 Sec (23.4-35.0)
[2025-04-25 07:10] LABS: Blood Urea Nitrogen 32 mg/dl (9-20); Carbon Dioxide 20 mmol/L (22-30); Chloride 108 mmol/L (98-107); Estimated Creatinine Clearance 41 ml/min; Glucose 150 mg/dl (70-99); Potassium 4.2 mmol/L (3.5-5.1); Sodium 136 mmol/L (135-145); eGFR 38.53
--- NOTE | 2025-04-25 07:42 | W.PN.ID1 ---
Date of Service
Date of Service: April 25, 2025
Today's Communication
Continue current antibiotics.
Assessment / Plan
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
- s/p left hallux and partial first ray amp (04/24/2025)
Leukocytosis
Elevated CRP / ESR
DM type II
HTN
HLD
A-fib (Eliquis)
Aortic stenosis
Recommendations:
Continue with empiric Zosyn for the present.
Surgery notes reviewed, and patient likely to return to the OR for transmetatarsal amputation in the next 24 to 48 hours given degree of infection
Follow white count and temperature curve.
Await further culture data to guide further antimicrobial selection and potential de-escalation.
Glucose control to facilitate leukocyte function.
Given underlying diabetes and rapidity of infection progression, patient remains at high risk for limb loss.
����������������������������������������������������������
Chief Complaint
-: Other (Left foot gangrene.)
Subjective / Review of Systems
Patient seen and examined. Patient underwent left hallux amputation and partial first ray amputation yesterday afternoon.
Vital Signs / Physical Exam
Vital Signs
Vital Signs
Temp Pulse Resp BP Pulse Ox
98.7 F 102 18 106/70 96
04/25/25 03:00 04/25/25 03:00 04/25/25 03:00 04/25/25 03:00 04/25/25 03:00
Physical Exam
Constitutional: No Acute Distress, Comfortable and Non-toxic
Cardiovascular: S1/S2; Negative S3/S4
Pulmonary: Clear and Non Labored
Gastrointestinal: Soft, Non Distended and Normal Bowel Sounds
Extremities: Edema (Left lower extremity) and Erythema (Distal left lower extremity)
Wound: Other (Left foot dressed in Juan wrap.)
Psychological: Calm
Objective Data
Lab Data
Lab Results
04/24/25 06:20
04/25/25 05:38
ESR 84 mm/hour (0-20) H 04/22/25 21:17
PT 24.8 Sec (11.4-14.6) H 04/22/25 19:44
INR 2.24 04/22/25 19:44
APTT 76.5 Sec (23.4-35.0) H 04/25/25 05:38
Estimated Creat Clear 41 ml/min 04/25/25 05:38
Lactic Acid 1.4 mmol/L (0.7-2.0) 04/22/25 17:30
Total Bilirubin 0.7 mg/dl (0.2-1.3) 04/23/25 05:49
AST 37 U/L (17-59) 04/23/25 05:49
ALT 18 U/L (0-50) 04/23/25 05:49
Alkaline Phosphatase 133 U/L (38-126) H 04/23/25 05:49
C-Reactive Protein 227.00 mg/L (0.0-10.00) H 04/22/25 15:28
Most recent labs reviewed.
Micro Results:
04/22/25 23:15 Urine Culture - Preliminary
Urine Proteus species
04/22/25 17:31 Wound Culture - Preliminary
Foot - Left Gram negative bacilli
Gram Stain - Preliminary
04/24/25 16:34 Wound Culture - Pending
Foot - Left Gram Stain - Preliminary
04/22/25 17:30 Blood Culture - Preliminary
Blood/Venous No Growth in 48 hours- Final report to follow
04/22/25 17:30 Blood Culture - Preliminary
Blood/Venous No Growth in 48 hours- Final report to follow
04/24/25 16:34 Anaerobic Culture - Pending
Foot - Left
04/22/25 23:15 MRSA Screen - Final
Nose No Methicillin Resistant Staphylococcus aureus isolated.
Imaging:
04/24/2025 Lower extremity arterial ultrasound with JUNG: 1. Right lower extremity: JUNG not obtainable secondary to noncompressibility of the vessels. TBI, which is more reliable in this setting, is within normal limits. Multiphasic waveforms from
common femoral through popliteal artery with no velocity elevation to suggest any significant stenosis. Continuous Doppler waveforms at the dorsalis pedis and posterior tibial arteries are also multiphasic.
2. Left lower extremity: JUNG not obtainable secondary to noncompressible vessels. TBI, which is more reliable in this setting, is severely reduced 0.22. Multiphasic waveforms in the common femoral and profunda with transition to monophasic waveforms
throughout the superficial femoral and popliteal arteries. However, no discrete stenosis is identified. Continuous Doppler waveforms at the dorsalis pedis and posterior tibial arteries are monophasic.
3. Right groin small seromatous appearing collection measuring 1.1 x 1.4 cm.
04/23/2025 MRI left lower extremity without contrast: No evidence of osteomyelitis. Small foci of decreased signal intensity within the soft tissues likely representing soft tissue air from plantar wound and superior extension. Please see full
dictation for additional detail.
04/22/2025 Left foot x-ray: There are 2 soft tissue lucencies about the base of the great toe. The larger is located laterally and is teardrop in shape. It measures 7 mm. This is 6 mm from the closest osseous structure of the great toe. The second is
smaller and located medially just below the dermis at the level of the first MTP joint. It measures 2 mm.
[2025-04-25 07:45] VITALS: BP 101/69
[2025-04-25 07:48] LABS: Glucose - Point of Care 158 mg/dl (70-99)
[2025-04-25] MEDS: PROTONIX 40 MG PO (08:57)
[2025-04-25] MEDS: TOPROL XL 50 MG PO (08:57)
[2025-04-25] MEDS: FLOMAX 0.4 MG PO (08:57)
[2025-04-25] MEDS: FEOSOL 325 MG PO (08:57)
[2025-04-25] MEDS: DESENEX/MITRAZOL/ZEASORB 1 APPLIC TOPICAL ×2 (08:58→21:13)
[2025-04-25] MEDS: CRESTOR 40 MG PO (08:58)
[2025-04-25] MEDS: NEURONTIN 100 MG PO ×3 (08:58→21:50)
[2025-04-25] MEDS: NOVOLOG FLEXPEN-MODERATE RESISTANCE 1 UNITS SC ×2 (08:58→12:44)
[2025-04-25] MEDS: TYLENOL 650 MG PO ×3 (09:03→17:40)
[2025-04-25] MEDS: HEPARIN 25000 UNITS/250 ML IV (09:04)
--- NOTE | 2025-04-25 11:06 | W.PN.HOSP.TC ---
Today's Communication/Plan
-
Await vascular input
Continue with heparin infusion
Continue with antibiotics
Assessment / Plan
Assessment / Plan
General: Well Nourished, No Apparent Distress and Comfortable
HEENT: NormoCephalic, Anicteric and Moist mucous membranes
Respiratory: Clear; No Wheezes or Rhonchi
Cardiac: S1/S2 and Regular Rhythm; No Tachycardia
GI: Soft, Non Tender and Non Distended
Rectal: Brown
Musculoskeletal: No Clubbing, No Cyanosis and Edema, Left Lower Extremity
Skin: Other (Black eschar on plantar area of LLE,)
Neuro: Awake, Alert, Oriented and AO x 3
Psych: Calm
#LLE diabetic wound with cellulitis and sepsis on admission (CORNELIUS, infection,leukocytosis)
# Peripheral arterial disease
Blood cultures remains negative so far
XR L foot noted
MRI of Left foot with no convincing evidence for osteomyelitis. Deformity of the proximal phalanx of left great toe which is morphological appearance suggesting deformity from old fracture. No evidence for soft tissue abscess.
Wound however severely looks infected
Podiatry evaluated patient recommending for amputation. High risk for limb loss.
Wound cultures noted
JUNG noted
ESR/CRP severely elevated
US LLE negative DVT
Continue with IV Zosyn
Status post partial first ray amputation and per podiatry may require left transmetatarsal amputation. Strict nonweightbearing to left lower extremity. Podiatry also requested vascular input.
Appreciate bridal stylist sales consultant input
#CORNELIUS on CKD stage 3
#BPH
serial bladder scan and watch for retention
IVF
follow Cr
Cr improving to 1.8
FENA w/pre-renal. Could be from sepsis, recent surgery, hypotension etc.
Creatinine continues to improve
# Severe aortic stenosis status post aortic valve replacement on 03/05/[address] Elam
well healing wound
# Proteus urinary tract infection
# Urinary retention
Already on Zosyn
Webb catheter placement due to severe retention. Continue with Flomax.
#Afib Paroxysmal
Continue with heparin infusion and plan for further intervention later in the week
cont rate control and Toprol dose increased to 50 mg. Heart rate control
Taken off amiodarone due to bradycardia
#NEFTALI
chronic
follow CBC
might need anemia w/u
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
Insulin SS, accuchecks, DM diet
POC 158
#Essential HTN
#HLD
#GERD
cont home meds
# Stage II sacral pressure injury, POA
Wound care and offloading
DVT ppx Heparin drip
Full code
Anticipated Discharge: > 48 hours
Subjective/Interval History
-
Date of Service: April 25, 2025
States of intermittent left foot pain
Objective Data
-
Labs:
Laboratory Results
04/25/25 04/25/25
00:12 05:38
APTT 91.5 H 76.5 H
Sodium 136
Potassium 4.2
Chloride 108 H
Carbon Dioxide 20 L
BUN 32 H
Creatinine 1.8 H
Glucose 150 H
Calcium 8.0 L
Vital Signs:
Vital Signs
Temp Pulse Resp BP Pulse Ox
97.7 F 84 18 101/69 96
04/25/25 07:45 04/25/25 08:57 04/25/25 07:45 04/25/25 08:57 04/25/25 07:45
I&O
04/24/25 04/25/25 04/26/25
06:59 06:59 06:59
Intake Total 2218 / 2218 1480 / 1480
Output Total 1730 / 1730 1150 / 1150
Balance 488 / 488 330 / 330
Data Reviewed
-
Total Time Spent with Patient (in minutes): 55
--- NOTE | 2025-04-25 11:43 | WOUNDNOTE ---
PRACHI RN NOTE: S/P 1ST RAY AMPUTATION 04/24 by Podiatry, for further I&D and possible TMA on 04/26 per Podiatry note. Vascular also consulted. Will sign off unless needed.
[2025-04-25 11:50] LABS: Glucose - Point of Care 186 mg/dl (70-99)
--- NOTE | 2025-04-25 12:20 | PTCARENOTE ---
Per podiatry lobo Davenport for RN to change dressing. With removal of dressing, active oozing/large amount of sanguinous drainage. Re-dressed, refer to worklist documentation in [facility].
--- NOTE | 2025-04-25 12:55 | CON.VAS ---
Consultation
Consultation Request
Date/Time Consultation Performed: 04/25/25 1330
Requesting Provider: Hospitalist
Performing Provider: Jenifer Alegre, NESHA-C for Ethan Rendon M.D.
Reason for Consultation: Left lower extremity nonhealing wound
Medical History
-
Chief Complaint: Left lower extremity foot wound
History of Present Illness:
This is a 75-year-old male with significant past medical history for atrial fibrillation, CAD, hypertension, aortic stenosis s/p aortic valve replacement, diabetes, and hyperlipidemia who presented to [place] ED on 04/22/2025 with left foot wound
concerning for infectious process. Patient underwent partial first ray amputation on 04/24/2025 with podiatry and following procedure arterial ultrasound with JUNG/TBI was obtained. Noninvasive studies reviewed and demonstrated significantly
diminished left sided toe pressure and monophasic transition in the SFA, prompting vascular surgical consultation. Patient endorses that he is not sure how wound occurred or for how long it has been present. He does note that he had a valve repair
in February of this year and prior to surgery he fell at home, and he thinks this possibly could have contributed to his wound but he is not sure because at that time he did not visualize an injury to the left foot. He recently traveled to [place] [facility] with his family and when they returned he experienced symptoms of fever/chills, which prompted his daughters to evaluate him, one daughter noted the left foot was infected and they immediately brought him to the emergency room to be evaluated.
He denies past medical history of surgical intervention to peripheral arteries or prior evaluation by a vascular surgeon.
Past Medical History
Past Medical History: Arrhythmias (Atrial fibrillation), CAD, HTN, NIDDM, Valvular Disease (Aortic stenosis) and Other (Hyperlipidemia)
Past Surgical History: Appendectomy, Cardiac (Aortic valve replacement (03/05/2025)) and Orthopedic (Bilateral knee replacement)
Social History
Tobacco: Non-Smoker
Alcohol: None
Drug: None
Personal:
Living: With Family
Allergies / Home Medications
Allergy/AdvReac Type Severity Reaction Status Date / Time
No Known Allergies Allergy Verified 04/22/25 15:17
�Medication �Instructions �Recorded �Confirmed �Type
metformin 500 mg tablet 500 mg PO BID Diabetes 01/17/25 04/22/25 History
rosuvastatin 40 mg tablet 40 mg PO HS High Cholesterol 01/17/25 04/22/25 History
ferrous sulfate 325 mg (65 mg 325 mg PO DAILY Supplement 02/21/25 04/22/25 History
iron) tablet
multivitamin 1 tab PO DAILY Supplement 02/21/25 04/22/25 History
apixaban 5 mg tablet (Eliquis) 5 mg PO BID Blood clot 03/09/25 04/22/25 Rx
prevention/tx #0 tabs
metoprolol succinate 25 mg 25 mg PO DAILY Heart 03/09/25 04/22/25 Rx
tablet,extended release 24 hr disease/condition #0 tabs
acetaminophen 325 mg tablet 650 mg PO Q4HPRN PRN mild pain 04/22/25 04/22/25 History
empagliflozin 25 mg tablet 12.5 mg PO DAILY Diabetes 04/22/25 04/22/25 History
(Jardiance)
gabapentin 100 mg capsule 100 mg PO TID@0800,1200,2000 04/22/25 04/22/25 History
neuropathic pain
glipizide 2.5 mg tablet 2.5 mg PO DAILY Diabetes 04/22/25 04/22/25 History
midodrine 5 mg tablet 5 mg PO DAILYPRN PRN low bp 04/22/25 04/22/25 History
pantoprazole 40 mg tablet,delayed 40 mg PO DAILY gerd 04/22/25 04/22/25 History
release
tamsulosin 0.4 mg capsule 0.4 mg PO HS Urinary issue 04/22/25 04/22/25 History
Review of Systems
-
History Source: Patient
Constitutional: Reports Fever and Chills
EENT: Reports No Symptoms
Respiratory: Reports No Symptoms
Cardiac: Reports No Symptoms
Abdomen/GI: Reports No Symptoms
: Reports No Symptoms
Musculoskeletal: Reports No Symptoms
Skin: Reports Other (Left foot wound)
Neurological: Reports No Symptoms
Endocrine: Reports No Symptoms
Physical Exam
Vital Signs
Temp Pulse Resp BP Pulse Ox
97.7 F 84 18 101/69 96
04/25/25 07:45 04/25/25 08:57 04/25/25 07:45 04/25/25 08:57 04/25/25 07:45
Lab Results
04/24/25 06:20
04/25/25 05:38
Physical Exam
General: No Apparent Distress
HEENT: Normocephalic, Anicteric and Atraumatic
Respiratory: Non Labored Respirations
Cardiac: Negative JVD
GI: Soft, Non Tender and Non Distended
Musculoskeletal: Edema (Trace edema bilateral lower extremities)
Skin: Other (difficult to palpate PT distally (otherwise foot is wrapped and cannot assess))
Neuro: Awake and Alert
Pulses: Bilateral Femoral: +2, Left Popliteal: +2, Right Popliteal: +1 and Right Dorsalis Pedis: +1
Assessment / Plan
-
Assessment: 75-year-old male who presents to [place] ED with reports of left foot wound suspect chronic limb threatening ischemia contributing to nonhealing status.
Plan:
Patient was assessed with Dr. Ethan Rendon who discussed in length with patient his recommendation for angiography for limb salvage. Dr. Rendon discussed procedure at length with anticipated outcomes/recovery and risks of the procedure including without
limited to bleeding, arterial injury/worsened or acute limb ischemia, renal failure (especially in the setting of his chronic renal insufficiency). Also reviewed potential scenarios of angiography to be: #1 no significant peripheral arterial
disease, #2 peripheral arterial disease amenable to endovascular therapy with angioplasty/stenting, #3 peripheral arterial disease requiring staged surgical bypass, #4 nonreconstructable distal disease placing patient at continued risk for limb
loss. Discussed risk of limb loss without revascularization. Patient understands all these things and wishes to proceed with left lower extremity arteriogram, possible angioplasty/stent. Plan OR tomorrow for angiography. If patient requires
staged bypass our team will have to discuss timing with him.
Would hold off on definitive toe/foot procedure until revascularization is complete. (Unless additional source control is required).
--- NOTE | 2025-04-25 13:05 | W.PN.SURGUPD ---
Surgical Update
Surgical Update
75 yo M s/p left partial 1st ray amputation
-Dressings change with no evidence of residual purulence
-Strict NWB and elevation to LLE
-Abx per ID recs
-Plan for TMA tomorrow 04/26
--- NOTE | 2025-04-25 13:57 | W.PN.UPDATE ---
Update Note
Progress Note Update
75-year-old diabetic male with left foot infection/tissue loss. No prior such history. Not exactly clear how it happened but he had valve repair in February 2 months ago. He noted during his recovery while he was at home he fell once. He thinks
this is possibly could have contributed but he is not sure as he saw no lesions in his left foot after that. He more recently went to [place] with his family and while there and coming home he had fever/chills. His daughter noted when he got
home that his left foot was infected. Therefore brought to emergency room. Underwent source control debridement by podiatry yesterday. No prior history of revascularizations. No tobacco use history.
On exam/he is awake and alert. Breathing is unlabored. Abdomen is soft. 2+ palpable femoral pulses bilaterally. Right side with 1+/2+ popliteal and DP pulse palpable. On the left side 2+ popliteal pulse palpable but difficult to palpate PT
distally (otherwise foot is wrapped and cannot assess).
Noninvasive studies reviewed. Significantly diminished left sided toe pressure. In addition monophasic transition in the SFA.
Plan/ Likely chronic limb threatening ischemia. Discussed with him my recommendation for angiography for limb salvage. Discussed procedure at length with anticipated outcomes/recovery. Discussed risks of the procedure including without limited to
bleeding, arterial injury/worsened or acute limb ischemia, renal failure (especially in the setting of his chronic renal insufficiency). Discussed potential scenarios of angiography to be: #1 no significant peripheral arterial disease, #2
peripheral arterial disease amenable to endovascular therapy with angioplasty/stenting, #3 peripheral arterial disease requiring staged surgical bypass, #4 nonreconstructable distal disease placing patient at continued risk for limb loss. Discussed
risk of limb loss without revascularization. He understands all these things and wishes to proceed with left lower extremity arteriogram, possible angioplasty/stent. Plan OR tomorrow for angiography. If need staged bypass we will have to discuss
timing with him. Would hold off on definitive toe/foot procedure until revascularization is complete. (Unless additional source control is required).
--- NOTE | 2025-04-25 14:25 | CM ---
CM following re: discharge planning.
Reviewed pt's chart, met with pt.
Per chart review, plan for TMA tomorrow 04/26, strict NWB and elevation to LLE, continue wound care, continue supportive care.
PT and OT will evaluate the pt to determine a level of care at discharge.
Pt states he has been in [facility]. If he needs rehab he will consider [facility] [place] or [facility]. He will need pre-cert for SNF. If he can go directly home then Khang GOMES and his spouse will be
home to assist in his care if needed. Pt reports he was at [facility] acute rehab last month and he understood he might not be eligible for an acute rehab.
D/C plan: uncertain at this time: [facility] vs home with [facility] GOM[facility].
CM will follow with discharge plan updates as hospitalization progresses
[2025-04-25 14:55] VITALS: BP 116/65
[2025-04-25 15:41] LABS: % Basophils 0.6 % (0-2); % Eosinophils 2.3 % (0-6); % Immature Granulocytes 0.6 % (0-0.5); % Lymphocytes 11.4 % (20.5-51.1); % Monocytes 9.1 % (1.7-9.3); Absolute Basophils 0.1 10^3/uL (0-0.2); Absolute Eosinophils 0.2 10^3/uL (0-0.7); Absolute Immature Granulocytes 0.1 10^3/uL (0-0.05); Absolute Lymphocytes 1.2 10^3/uL (1.2-3.4); Absolute Monocytes 0.9 10^3/uL (0.1-0.6); Absolute Neutrophils 7.7 10^3/uL (1.4-6.5); Hematocrit 25.5 % (39.0-52.0); Mean Corp Hgb Conc. 31.4 g/dL (33.0-37.0); Mean Corpuscular Hgb 26.6 pg (27.0-31.0); Mean Corpuscular Volume 84.7 fL (80.0-94.0); Mean Platelet Volume 10.1 fL (7.4-10.4); Nucleated Red Blood Cells % 0 % (-); Platelet Count 144 10^3/uL (130-400); Red Blood Cell Count 3.01 10^6/uL (4.70-6.10); Red Cell Dist. Width 14.4 % (11.5-14.5); White Blood Cell Count 10.2 10^3/uL (4.8-10.8)
[2025-04-25 17:28] LABS: Glucose - Point of Care 266 mg/dl (70-99)
[2025-04-25] MEDS: NOVOLOG FLEXPEN-MODERATE RESISTANCE 5 UNITS SC (17:41)
[2025-04-25 21:35] LABS: Glucose - Point of Care 214 mg/dl (70-99)
[2025-04-25 23:50] VITALS: BP 103/80
[2025-04-26] VITALS (16 sets, daily range): BP systolic 13–137; BP diastolic 64–86
[2025-04-26] MEDS: ZOSYN 50 IV ×5 (00:15→21:03)
[2025-04-26] MEDS: HEPARIN 25000 UNITS/250 ML IV ×2 (02:36→21:06)
[2025-04-26] MEDS: ROXICODONE 5 MG PO ×3 (04:11→20:38)
[2025-04-26 05:54] LABS: Glucose - Point of Care 133 mg/dl (70-99)
[2025-04-26 06:41] LABS: INR 1.22; PT 15.9 Sec (11.4-14.6)
[2025-04-26 06:51] LABS: % Basophils 0.6 % (0-2); % Eosinophils 3.4 % (0-6); % Immature Granulocytes 0.6 % (0-0.5); % Lymphocytes 13.9 % (20.5-51.1); % Monocytes 8.1 % (1.7-9.3); % Neutrophils 73.4 % (42.2-75.2); Absolute Basophils 0.1 10^3/uL (0-0.2); Absolute Eosinophils 0.3 10^3/uL (0-0.7); Absolute Immature Granulocytes 0.1 10^3/uL (0-0.05); Absolute Lymphocytes 1.3 10^3/uL (1.2-3.4); Absolute Monocytes 0.8 10^3/uL (0.1-0.6); Hemoglobin 8.1 g/dL (13.0-18.0); Mean Corp Hgb Conc. 31.2 g/dL (33.0-37.0); Mean Corpuscular Hgb 26.1 pg (27.0-31.0); Mean Corpuscular Volume 83.9 fL (80.0-94.0); Mean Platelet Volume 10.1 fL (7.4-10.4); Nucleated Red Blood Cells % 0 % (-); Platelet Count 192 10^3/uL (130-400); Red Cell Dist. Width 14.3 % (11.5-14.5); White Blood Cell Count 9.5 10^3/uL (4.8-10.8)
[2025-04-26 07:09] LABS: Blood Urea Nitrogen 30 mg/dl (9-20); Calcium 8.3 mg/dl (8.4-10.2); Carbon Dioxide 21 mmol/L (22-30); Chloride 107 mmol/L (98-107); Estimated Creatinine Clearance 41 ml/min; Glucose 151 mg/dl (70-99); Potassium 3.9 mmol/L (3.5-5.1); Sodium 137 mmol/L (135-145); eGFR 38.53
[2025-04-26] MEDS: FEOSOL 325 MG PO (09:01)
[2025-04-26] MEDS: CRESTOR 40 MG PO (09:01)
[2025-04-26] MEDS: FLOMAX 0.4 MG PO (09:01)
[2025-04-26] MEDS: NOVOLOG FLEXPEN-MODERATE RESISTANCE SC ×3 (09:01→20:50)
[2025-04-26] MEDS: TOPROL XL 50 MG PO (09:01)
[2025-04-26] MEDS: LR 1000 IV ×2 (09:02→21:05)
[2025-04-26] MEDS: NEURONTIN 100 MG PO ×2 (09:02→20:36)
[2025-04-26] MEDS: PROTONIX 40 MG PO (09:02)
[2025-04-26] MEDS: DESENEX/MITRAZOL/ZEASORB 1 APPLIC TOPICAL ×2 (09:03→21:03)
--- NOTE | 2025-04-26 10:51 | W.PN.HOSP.TC ---
Today's Communication/Plan
-
Plan for vascular intervention with arteriogram today
Continue with antibiotic
Continue with heparin drip
Strict Glycemic control
Assessment / Plan
Assessment / Plan
General: Well Nourished, No Apparent Distress and Comfortable
HEENT: NormoCephalic, Anicteric and Moist mucous membranes
Respiratory: Clear; No Wheezes or Rhonchi
Cardiac: S1/S2 and Regular Rhythm; No Tachycardia
GI: Soft, Non Tender and Non Distended
Rectal: Brown
Musculoskeletal: No Clubbing, No Cyanosis and Edema, Left Lower Extremity
Skin: Other (Black eschar on plantar area of LLE,)
Neuro: Awake, Alert, Oriented and AO x 3
Psych: Calm
#LLE diabetic wound with cellulitis and sepsis on admission (CORNELIUS, infection,leukocytosis)
# Peripheral arterial disease
Blood cultures remains negative so far
XR L foot noted
MRI of Left foot with no convincing evidence for osteomyelitis. Deformity of the proximal phalanx of left great toe which is morphological appearance suggesting deformity from old fracture. No evidence for soft tissue abscess.
Wound however severely looks infected
Podiatry evaluated patient recommending for amputation. High risk for limb loss.
Wound cultures noted
JUNG noted
ESR/CRP severely elevated
US LLE negative DVT
Continue with IV Zosyn
Status post partial first ray amputation and per podiatry may require left transmetatarsal amputation. Strict nonweightbearing to left lower extremity. Podiatry also requested vascular input.
Peripheral arterial disease plan for left lower extremity arteriogram.
NPO. IV fluids started.
#CORNELIUS on CKD stage 3
#BPH
serial bladder scan and watch for retention
IVF
follow Cr
Cr improving to 1.8
FENA w/pre-renal. Could be from sepsis, recent surgery, hypotension etc.
Creatinine continues to improve
# Severe aortic stenosis status post aortic valve replacement on 03/05/[address] Elam
well healing wound
# Proteus urinary tract infection
# Urinary retention
Already on Zosyn
Webb catheter placement due to severe retention. Continue with Flomax.
#Afib Paroxysmal
Continue with heparin infusion and plan for further intervention later in the week
cont rate control and Toprol dose increased to 50 mg. Heart rate control
Taken off amiodarone due to bradycardia
#NEFTALI
chronic
follow CBC
might need anemia w/u
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
Insulin SS, accuchecks, DM diet
POC 133
#Essential HTN
#HLD
#GERD
cont home meds
# Stage II sacral pressure injury, POA
Wound care and offloading
DVT ppx Heparin drip
Full code
Anticipated Discharge: > 48 hours
Subjective/Interval History
-
Date of Service: April 26, 2025
states of intermittent left foot pain
Objective Data
-
Labs:
Laboratory Results
04/26/25
06:12
WBC 9.5
Hgb 8.1 L
Hct 26.0 L
Plt Count 192 D
PT 15.9 H
INR 1.22
APTT 129.0 H
Sodium 137
Potassium 3.9
Chloride 107
Carbon Dioxide 21 L
BUN 30 H
Creatinine 1.8 H
Glucose 151 H
Calcium 8.3 L
Vital Signs:
Vital Signs
Temp Pulse Resp BP Pulse Ox
98.9 F 102 18 110/76 95
04/26/25 07:03 04/26/25 07:03 04/26/25 07:03 04/26/25 07:03 04/26/25 07:03
I&O
04/25/25 04/26/2504/27/25
06:59 06:59 06:59
Intake Total 1480 / 1480 1280 / 1280
Output Total 1150 / 1150 1575 / 1575
Balance 330 / 330 -295 / -295
[2025-04-26 12:26] LABS: Glucose - Point of Care 126 mg/dl (70-99)
--- NOTE | 2025-04-26 13:24 | W.PN.ID1 ---
Date of Service
Date of Service: April 26, 2025
Today's Communication
Continue antibiotics.
Assessment / Plan
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
- s/p left hallux and partial first ray amp (04/24/2025)
Leukocytosis
Elevated CRP / ESR
DM type II
HTN
HLD
A-fib (Eliquis)
Aortic stenosis
Recommendations:
Continue with Zosyn for the present.
Patient for lower extremity angiography, and eventual TMA.
Follow white count and temperature curve.
Glucose control to facilitate leukocyte function.
Given underlying diabetes and rapidity of infection progression, patient remains at high risk for limb loss.
����������������������������������������������������������
Chief Complaint
-: Other (Left foot gangrene.)
Subjective / Review of Systems
Patient seen and examined. Denies pain at present. No fevers or chills. No difficulty with antibiotics.
Vital Signs / Physical Exam
Vital Signs
Vital Signs
Temp Pulse Resp BP Pulse Ox
98.9 F 102 18 110/76 95
04/26/25 07:03 04/26/25 07:03 04/26/25 07:03 04/26/25 07:03 04/26/25 07:03
Physical Exam
Constitutional: No Acute Distress, Comfortable and Non-toxic
Eyes: No Conjunctival Hemorrhage and Sclera Anicteric
Cardiovascular: Regular Rate and S1/S2; Negative S3/S4
Pulmonary: Clear; Negative Wheezes or Rales
Gastrointestinal: Soft and Non Tender
Extremities: Other (Left foot dressed. S/p hallux amputation. 3rd, 4th and 5th toes appear dusky. Decreased malodor.)
Neurological: Awake and Alert
Psychological: Calm
Objective Data
Lab Data
Lab Results
04/26/25 06:12
04/26/25 06:12
ESR 84 mm/hour (0-20) H 04/22/25 21:17
PT 15.9 Sec (11.4-14.6) H 04/26/25 06:12
INR 1.22 04/26/25 06:12
APTT 129.0 Sec (23.4-35.0) H 04/26/25 06:12
Estimated Creat Clear 41 ml/min 04/26/25 06:12
Lactic Acid 1.4 mmol/L (0.7-2.0) 04/22/25 17:30
Total Bilirubin 0.7 mg/dl (0.2-1.3) 04/23/25 05:49
AST 37 U/L (17-59) 04/23/25 05:49
ALT 18 U/L (0-50) 04/23/25 05:49
Alkaline Phosphatase 133 U/L (38-126) H 04/23/25 05:49
C-Reactive Protein 227.00 mg/L (0.0-10.00) H 04/22/25 15:28
Most recent labs reviewed.
Micro Results:
04/24/25 16:34 Wound Culture - Preliminary
Foot - Left Proteus mirabilis
Enterococcus species
Streptococcus species
Gram Stain - Preliminary
04/22/25 17:31 Wound Culture - Preliminary
Foot - Left Proteus mirabilis
Enterococcus species
Gram Stain - Preliminary
04/22/25 17:30 Blood Culture - Preliminary
Blood/Venous No Growth in 72 hours- Final report to follow
04/22/25 17:30 Blood Culture - Preliminary
Blood/Venous No Growth in 72 hours- Final report to follow
04/24/25 16:34 Anaerobic Culture - Preliminary
Foot - Left Culture pending. Anaerobic cultures are examined after 3
days incubation. Additional information to follow.
04/22/25 23:15 Urine Culture - Final
Urine Proteus mirabilis
04/22/25 23:15 MRSA Screen - Final
Nose No Methicillin Resistant Staphylococcus aureus isolated.
Imaging:
04/24/2025 Lower extremity arterial ultrasound with JUNG: 1. Right lower extremity: JUNG not obtainable secondary to noncompressibility of the vessels. TBI, which is more reliable in this setting, is within normal limits. Multiphasic waveforms from
common femoral through popliteal artery with no velocity elevation to suggest any significant stenosis. Continuous Doppler waveforms at the dorsalis pedis and posterior tibial arteries are also multiphasic.
2. Left lower extremity: JUNG not obtainable secondary to noncompressible vessels. TBI, which is more reliable in this setting, is severely reduced 0.22. Multiphasic waveforms in the common femoral and profunda with transition to monophasic waveforms
throughout the superficial femoral and popliteal arteries. However, no discrete stenosis is identified. Continuous Doppler waveforms at the dorsalis pedis and posterior tibial arteries are monophasic.
3. Right groin small seromatous appearing collection measuring 1.1 x 1.4 cm.
04/23/2025 MRI left lower extremity without contrast: No evidence of osteomyelitis. Small foci of decreased signal intensity within the soft tissues likely representing soft tissue air from plantar wound and superior extension. Please see full
dictation for additional detail.
04/22/2025 Left foot x-ray: There are 2 soft tissue lucencies about the base of the great toe. The larger is located laterally and is teardrop in shape. It measures 7 mm. This is 6 mm from the closest osseous structure of the great toe. The second is
smaller and located medially just below the dermis at the level of the first MTP joint. It measures 2 mm.
--- NOTE | 2025-04-26 16:44 | W.PN.SURGUPD ---
Surgical Update
Surgical Update
75 yo M s/p left open partial 1st ray
-Dressings changed today, C/D/I
-For LLE angiogram with Dr. Rendon today
-WBC downtrending, no evidence of ongoing infection to left foot
-Plan for left foot TMA pending vascular intervention, timing TBD
-Continue IV antibiotics per ID recs
--- NOTE | 2025-04-26 17:36 | OR.RPT ---
Operative Report
Operative Report
PROCEDURE DATE: 04/26/2025
Preoperative diagnosis: Chronic limb threatening ischemia left lower extremity/foot infection status post extensive debridement and open partial first ray amputation.
Postoperative diagnosis: Same
Procedure:
1. Duplex assisted right common femoral artery cannulation.
2. Aortogram and pelvic angiogram.
3. Left lower extremity arteriogram with selective catheterization of left superficial femoral artery via right common femoral artery puncture.
4. Supervision and interpretation.
Surgeon: Justice
Senior Executive Compensation Analyst: None
Complications: None
Anesthesia: Local, sedation
Fluoroscopy:
4.6 min
45 mGy
14.70 gy.cm2
Indications for procedure:
As above concern for chronic limb threatening ischemia with severely depressed toe pressure on noninvasive imaging. Status post partial first ray amputation and foot debridement. Brought for angiography. Risk/benefit/alternatives all fully
discussed. Patient understood all wished to proceed.
Description of procedure:
Patient was identified, brought to the operating room. Placed on the table in the supine position. After the adequate administration of anesthesia, the patient was prepped and draped in the standard surgical fashion. A standard preoperative
timeout was undertaken and everybody was in agreement with the plan.
The right common femoral artery was accessed with a micropuncture kit under direct duplex ultrasound guidance. A 5 Chinese sheath was then advanced over a 0.035 inch wire, and a mendenhall's hook catheter was advanced into the abdominal aorta.
Aortogram and pelvic angiogram was obtained. Findings as follows:
Infrarenal aorta: Patent distal infrarenal aorta that was imaged, severely angulated and severely angulated bifurcation. But both common and external iliac arteries were widely patent with no evidence of stenosis. Eccentric plaque noted throughout.
Using a floppy angled hydrophilic wire, the left common femoral artery was cannulated and the catheter was advanced. Left lower extremity arteriogram was obtained. Findings as follows:
Common femoral artery: Severe eccentric plaque, but no significant stenosis.
Profunda femoris artery: Severe eccentric plaque, but no significant stenosis.
Superficial femoral artery: Severe eccentric plaque, but no significant stenosis.
Popliteal artery: Severe eccentric plaque, but no significant stenosis.
Anterior tibial artery: Severe eccentric plaque, but no significant stenosis. Crossed the ankle to become the dorsalis pedis. Patent flow through the dorsalis pedis into the midfoot and then poor collateralizations to the digital level. No
complete arch noted.
Tibial peroneal trunk: Severe eccentric plaque, but no significant stenosis.
Peroneal artery: Severe eccentric plaque, but no significant stenosis. Became somewhat smaller/diminutive in size around the ankle but did give some collateralization.
Posterior tibial artery: Severe eccentric plaque, but no significant stenosis. Continued on across the ankle and gave rise to plantar branches. However again as with the dorsalis pedis, very poor/minimal filling to the digital level. Incomplete
arch.
At this point I felt that there was nothing further to render from a revascularization standpoint. All small vessel digital level occlusive disease. Wires and catheters were all withdrawn. Sheath was withdrawn and manual pressure was applied to
the puncture site. Hemostasis was fully achieved.
=The patient tolerated procedure well. He was transported to recovery room in stable condition.
[2025-04-26 17:39] LABS: Glucose - Point of Care 116 mg/dl (70-99)
[2025-04-26] MEDS: NEURONTIN PO (20:36)
[2025-04-26 20:43] LABS: Glucose - Point of Care 106 mg/dl (70-99)
[2025-04-26 21:19] LABS: APTT 27.4 Sec (23.4-35.0)
[2025-04-27 03:13] VITALS: BP 115/73
[2025-04-27] MEDS: ZOSYN 50 IV ×3 (05:35→17:01)
[2025-04-27 06:00] LABS: APTT 103.5 Sec (23.4-35.0)
[2025-04-27 06:52] LABS: Blood Urea Nitrogen 26 mg/dl (9-20); Calcium 8.3 mg/dl (8.4-10.2); Carbon Dioxide 22 mmol/L (22-30); Chloride 108 mmol/L (98-107); Estimated Creatinine Clearance 43 ml/min; Glucose 86 mg/dl (70-99); Sodium 138 mmol/L (135-145); eGFR 41.26
[2025-04-27 07:05] VITALS: BP 134/82
[2025-04-27 07:21] LABS: Glucose - Point of Care 87 mg/dl (70-99)
[2025-04-27 08:30] LABS: Glucose - Point of Care 113 mg/dl (70-99)
[2025-04-27] MEDS: NOVOLOG FLEXPEN-MODERATE RESISTANCE SC (08:36)
--- NOTE | 2025-04-27 08:40 | W.PN.VS ---
Today's Communication / Plan
-
Discussed with Dr Rendon
Assessment/Plan
-
POD 1 Diagnostic arteriogram
Plan:
-Groin site stable, ok for TMA from vascular standpoint, should hopefully have enough blood flow to heal amputation
Subjective Data
-
Date of Service: April 27, 2025
Pt seen at bedside this am. Pt offers no complaints at this time. No events overnight.
Objective Data
-
Vital Signs
Temp Pulse Resp BP Pulse Ox
98.9 F 99 16 134/82 96
04/27/25 07:05 04/27/25 07:05 04/27/25 07:05 04/27/25 07:05 04/27/25 07:05
Intake and Output
04/26/25 04/27/25 04/28/25
06:59 06:59 06:59
Intake Total 1280 / 1280 530 / 530
Output Total 1575 / 1575 1300 / 1300
Balance -295 / -295 -770 / -770
Intake:
Oral fluids 1180 / 1180 480 / 480
IV piggybacks 100 / 100 50 / 50
Output:
Urine, Webb 1575 / 1575
Urine, Voided 1300 / 1300
Other:
How many times incontinent 1
MODERATE amount urine
How many times incontinent 3
SATURATED amount urine
Lab Results
04/26/25 06:12
04/27/25 05:33
Calcium 8.3 mg/dl (8.4-10.2) L 04/27/25 05:33
Total Bilirubin 0.7 mg/dl (0.2-1.3) 04/23/25 05:49
AST 37 U/L (17-59) 04/23/25 05:49
ALT 18 U/L (0-50) 04/23/25 05:49
Alkaline Phosphatase 133 U/L (38-126) H 04/23/25 05:49
Total Protein 6.2 g/dl (6.3-8.2) L 04/23/25 05:49
Albumin 3.0 g/dl (3.5-5.0) L 04/23/25 05:49
Physical Exam
-
AAOx3
No Tachycardia
No tachypnea
Abd soft, NT, ND
Groin site c/d/i, soft, flat
BL feet unchanged
[2025-04-27] MEDS: FLOMAX 0.4 MG PO (08:55)
[2025-04-27] MEDS: PROTONIX 40 MG PO (08:55)
[2025-04-27] MEDS: TOPROL XL 50 MG PO (08:55)
[2025-04-27] MEDS: CRESTOR 40 MG PO (08:55)
[2025-04-27] MEDS: NEURONTIN 100 MG PO ×3 (08:56→21:32)
[2025-04-27] MEDS: FEOSOL 325 MG PO (08:56)
[2025-04-27] MEDS: DESENEX/MITRAZOL/ZEASORB 1 APPLIC TOPICAL ×2 (08:56→19:49)
--- NOTE | 2025-04-27 09:38 | W.PN.ID1 ---
Date of Service
Date of Service: April 27, 2025
Today's Communication
Continue Zosyn. Await TMA.
Assessment / Plan
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
- s/p left hallux and partial first ray amp (04/24/2025)
Leukocytosis
Elevated CRP / ESR
DM type II
HTN
HLD
A-fib (Eliquis)
Aortic stenosis
Recommendations:
Continue with Zosyn.
Patient for eventual TMA.
Follow white count and temperature curve.
Glucose control to facilitate leukocyte function.
Given underlying diabetes and rapidity of infection progression, patient remains at high risk for limb loss.
����������������������������������������������������������
Chief Complaint
-: Other (Left foot gangrene.)
Subjective / Review of Systems
Patient seen and examined. Denies foot pain.
Review of Systems: No Fever and No Chills
Vital Signs / Physical Exam
Vital Signs
Vital Signs
Temp Pulse Resp BP Pulse Ox
98.9 F 99 16 134/82 96
04/27/25 07:05 04/27/25 07:05 04/27/25 07:05 04/27/25 07:05 04/27/25 07:05
Physical Exam
Constitutional: No Acute Distress, Comfortable and Non-toxic
Eyes: No Conjunctival Hemorrhage and Sclera Anicteric
Cardiovascular: Regular Rate and S1/S2; Negative S3/S4
Pulmonary: Clear and Non Labored
Gastrointestinal: Soft, Non Tender and Non Distended
Extremities: Other (Left foot dressed. S/p hallux amputation. 3rd, 4th and 5th toes appear dusky. No malodor.)
Neurological: Awake and Alert
Psychological: Calm
Objective Data
Lab Data
Lab Results
04/26/25 06:12
04/27/25 05:33
ESR 84 mm/hour (0-20) H 04/22/25 21:17
PT 15.9 Sec (11.4-14.6) H 04/26/25 06:12
INR 1.22 04/26/25 06:12
APTT 103.5 Sec (23.4-35.0) H 04/27/25 05:32
Estimated Creat Clear 43 ml/min 04/27/25 05:33
Lactic Acid 1.4 mmol/L (0.7-2.0) 04/22/25 17:30
Total Bilirubin 0.7 mg/dl (0.2-1.3) 04/23/25 05:49
AST 37 U/L (17-59) 04/23/25 05:49
ALT 18 U/L (0-50) 04/23/25 05:49
Alkaline Phosphatase 133 U/L (38-126) H 04/23/25 05:49
C-Reactive Protein 227.00 mg/L (0.0-10.00) H 04/22/25 15:28
Most recent labs reviewed.
Micro Results:
04/22/25 17:30 Blood Culture - Preliminary
Blood/Venous No Growth in 4 days- Final report to follow
04/22/25 17:30 Blood Culture - Preliminary
Blood/Venous No Growth in 4 days- Final report to follow
04/24/25 16:34 Wound Culture - Preliminary
Foot - Left Proteus mirabilis
Enterococcus species
Streptococcus species
Gram Stain - Preliminary
04/22/25 17:31 Wound Culture - Preliminary
Foot - Left Proteus mirabilis
Enterococcus species
Gram Stain - Preliminary
04/24/25 16:34 Anaerobic Culture - Preliminary
Foot - Left Culture pending. Anaerobic cultures are examined after 3
days incubation. Additional information to follow.
04/22/25 23:15 Urine Culture - Final
Urine Proteus mirabilis
04/22/25 23:15 MRSA Screen - Final
Nose No Methicillin Resistant Staphylococcus aureus isolated.
Imaging:
04/24/2025 Lower extremity arterial ultrasound with JUNG: 1. Right lower extremity: JUNG not obtainable secondary to noncompressibility of the vessels. TBI, which is more reliable in this setting, is within normal limits. Multiphasic waveforms from
common femoral through popliteal artery with no velocity elevation to suggest any significant stenosis. Continuous Doppler waveforms at the dorsalis pedis and posterior tibial arteries are also multiphasic.
2. Left lower extremity: JUNG not obtainable secondary to noncompressible vessels. TBI, which is more reliable in this setting, is severely reduced 0.22. Multiphasic waveforms in the common femoral and profunda with transition to monophasic waveforms
throughout the superficial femoral and popliteal arteries. However, no discrete stenosis is identified. Continuous Doppler waveforms at the dorsalis pedis and posterior tibial arteries are monophasic.
3. Right groin small seromatous appearing collection measuring 1.1 x 1.4 cm.
04/23/2025 MRI left lower extremity without contrast: No evidence of osteomyelitis. Small foci of decreased signal intensity within the soft tissues likely representing soft tissue air from plantar wound and superior extension. Please see full
dictation for additional detail.
04/22/2025 Left foot x-ray: There are 2 soft tissue lucencies about the base of the great toe. The larger is located laterally and is teardrop in shape. It measures 7 mm. This is 6 mm from the closest osseous structure of the great toe. The second is
smaller and located medially just below the dermis at the level of the first MTP joint. It measures 2 mm.
--- NOTE | 2025-04-27 11:19 | W.PN.HOSP.TC ---
Today's Communication/Plan
-
Await TMA -Tbd
cont w/Hep gtt
cont IV ABX
Assessment / Plan
Assessment / Plan
General: Well Nourished, No Apparent Distress and Comfortable
HEENT: NormoCephalic, Anicteric and Moist mucous membranes
Respiratory: Clear; No Wheezes or Rhonchi
Cardiac: S1/S2 and Regular Rhythm; No Tachycardia
GI: Soft, Non Tender and Non Distended
Rectal: Brown
Musculoskeletal: No Clubbing, No Cyanosis and Edema, Left Lower Extremity
Skin: left foot covered in dressing-no breakthrough bleeding noted on dressing
Neuro: Awake, Alert, Oriented and AO x 3
Psych: Calm
#LLE diabetic wound with cellulitis and sepsis on admission (CORNELIUS, infection,leukocytosis)
#Peripheral arterial disease
Blood cultures remains negative so far
XR L foot noted
MRI of Left foot with no convincing evidence for osteomyelitis. Deformity of the proximal phalanx of left great toe which is morphological appearance suggesting deformity from old fracture. No evidence for soft tissue abscess.
Wound however severely looks infected
Podiatry evaluated patient recommending for amputation. High risk for limb loss.
Wound cultures noted
JUNG noted
ESR/CRP severely elevated
US LLE negative DVT
Continue with IV Zosyn
Status post partial first ray amputation and per podiatry may require left transmetatarsal amputation. Strict nonweightbearing to left lower extremity. Podiatry also requested vascular input.
Peripheral arterial disease s/p LLE arteriogram with atherosclerosis-no intervention performed. Per vascular, okay to proceed for TMA. Await surgery input-TBD.
#CORNELIUS on CKD stage 3
#BPH
serial bladder scan and watch for retention
IVF
follow Cr
Cr at 1.7. Monitor Cr post contrast exposure.
FENA w/pre-renal. Could be from sepsis, recent surgery, hypotension etc.
Creatinine continues to improve
# Severe aortic stenosis status post aortic valve replacement on 03/05/[address] Elam
well healing wound
# Proteus urinary tract infection
# Urinary retention
Already on Zosyn
Webb catheter placement due to severe retention. Continue with Flomax.
#Afib Paroxysmal
Continue with heparin infusion and plan for further intervention later in the week
cont rate control and Toprol dose increased to 50 mg. Heart rate control
Taken off amiodarone due to bradycardia
#NEFTALI
chronic
follow CBC
might need anemia w/u
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
Insulin SS, accuchecks, DM diet
POC 87
#Essential HTN
#HLD
#GERD
cont home meds
# Stage II sacral pressure injury, POA
Wound care and offloading
DVT ppx Heparin drip
Full code
Anticipated Discharge: > 48 hours
Subjective/Interval History
-
Date of Service: April 27, 2025
states of intermittent of left foot pain
Objective Data
-
Labs:
Laboratory Results
04/27/25 04/27/25 04/27/25
05:32 05:33 11:30
APTT 103.5 H Pending
Sodium 138
Potassium 4.0
Chloride 108 H
Carbon Dioxide 22
BUN 26 H
Creatinine 1.7 H
Glucose 86
Calcium 8.3 L
Vital Signs:
Vital Signs
Temp Pulse Resp BP Pulse Ox
98.9 F 99 16 134/82 96
04/27/25 07:05 04/27/25 07:05 04/27/25 07:05 04/27/25 07:05 04/27/25 07:05
I&O
04/26/25 04/27/25 04/28/25
06:59 06:59 06:59
Intake Total 1280 / 1280 530 / 530
Output Total 1575 / 1575 1300 / 1300
Balance -295 / -295 -770 / -770
[2025-04-27 11:20] VITALS: BP 116/69
[2025-04-27 11:46] LABS: Glucose - Point of Care 160 mg/dl (70-99)
[2025-04-27 11:58] LABS: APTT 83.7 Sec (23.4-35.0)
[2025-04-27] MEDS: NOVOLOG FLEXPEN-MODERATE RESISTANCE 1 UNITS SC (13:02)
[2025-04-27] MEDS: TYLENOL 650 MG PO (13:49)
--- NOTE | 2025-04-27 14:06 | CM ---
CM following re: discharge planning.
Reviewed pt's chart, met with pt.
Pt is POD 1 Diagnostic arteriogram, strict NWB and elevation to LLE, continue wound care, continue supportive care.
PT and OT will evaluate the pt to determine a level of care at discharge. PT/OT evaluations pending.
Pt states he has been in [facility]. If he needs rehab he will consider [facility] [place] or [facility]. He will need pre-cert for SNF. If he can go directly home then [facility] GOMES and his spouse will be
home to assist in his care if needed. Pt reports he was at [facility] acute [facility] last month and he understood he might not be eligible for an acute rehab.
D/C plan: uncertain at this time: [facility] vs home with [facility]. Awaiting for PT/OT evaluations and recommendations.
CM will follow with discharge plan updates as hospitalization progresses
[2025-04-27 15:30] VITALS: BP 117/75
[2025-04-27 16:43] LABS: Glucose - Point of Care 304 mg/dl (70-99)
[2025-04-27] MEDS: NOVOLOG FLEXPEN-MODERATE RESISTANCE 7 UNITS SC (17:02)
[2025-04-27 21:34] LABS: Glucose - Point of Care 240 mg/dl (70-99)
[2025-04-27 23:15] VITALS: BP 149/91
[2025-04-28] MEDS: ZOSYN 50 IV ×3 (00:10→11:22)
[2025-04-28 06:13] LABS: Hematocrit 26.5 % (39.0-52.0); Hemoglobin 8.3 g/dL (13.0-18.0); Mean Corp Hgb Conc. 31.3 g/dL (33.0-37.0); Mean Corpuscular Hgb 25.9 pg (27.0-31.0); Mean Corpuscular Volume 82.6 fL (80.0-94.0); Mean Platelet Volume 9.2 fL (7.4-10.4); Platelet Count 213 10^3/uL (130-400); Red Blood Cell Count 3.21 10^6/uL (4.70-6.10); Red Cell Dist. Width 14.4 % (11.5-14.5); White Blood Cell Count 7.5 10^3/uL (4.8-10.8)
[2025-04-28 06:26] LABS: APTT 146.3 Sec (23.4-35.0)
[2025-04-28 06:40] LABS: Blood Urea Nitrogen 24 mg/dl (9-20); Calcium 8.3 mg/dl (8.4-10.2); Carbon Dioxide 21 mmol/L (22-30); Chloride 109 mmol/L (98-107); Estimated Creatinine Clearance 46 ml/min; Glucose 155 mg/dl (70-99); Potassium 3.7 mmol/L (3.5-5.1); Sodium 137 mmol/L (135-145); eGFR 44.38
[2025-04-28 07:10] VITALS: BP 141/84
[2025-04-28 07:12] LABS: Glucose - Point of Care 156 mg/dl (70-99)
[2025-04-28] MEDS: TOPROL XL 50 MG PO (08:07)
[2025-04-28] MEDS: CRESTOR 40 MG PO (08:07)
[2025-04-28] MEDS: PROTONIX 40 MG PO (08:07)
[2025-04-28] MEDS: NOVOLOG FLEXPEN-MODERATE RESISTANCE 1 UNITS SC ×2 (08:07→11:50)
[2025-04-28] MEDS: FEOSOL 325 MG PO (08:08)
[2025-04-28] MEDS: NEURONTIN 100 MG PO ×3 (08:08→22:03)
[2025-04-28] MEDS: FLOMAX 0.4 MG PO (08:08)
[2025-04-28] MEDS: DESENEX/MITRAZOL/ZEASORB 1 APPLIC TOPICAL ×2 (08:30→22:03)
[2025-04-28] MEDS: HEPARIN 25000 UNITS/250 ML IV (11:19)
[2025-04-28] MEDS: ROXICODONE 5 MG PO ×2 (11:22→18:43)
[2025-04-28 11:45] LABS: Glucose - Point of Care 198 mg/dl (70-99)
--- NOTE | 2025-04-28 11:48 | W.PN.HOSP.TC ---
Today's Communication/Plan
-
Await surgery input
Timing to be decided
Continue with the IV antibiotic
Continue with heparin
Pain control
Assessment / Plan
Assessment / Plan
General: Well Nourished, No Apparent Distress and Comfortable
HEENT: NormoCephalic, Anicteric and Moist mucous membranes
Respiratory: Clear; No Wheezes or Rhonchi
Cardiac: S1/S2 and Regular Rhythm; No Tachycardia
GI: Soft, Non Tender and Non Distended
Rectal: Brown
Musculoskeletal: No Clubbing, No Cyanosis and Edema, Left Lower Extremity
Skin: left foot covered in dressing-no breakthrough bleeding noted on dressing
Neuro: Awake, Alert, Oriented and AO x 3
Psych: Calm
#LLE diabetic wound with cellulitis and sepsis on admission (CORNELIUS, infection,leukocytosis)
#Peripheral arterial disease
Blood cultures remains negative so far
XR L foot noted
MRI of Left foot with no convincing evidence for osteomyelitis. Deformity of the proximal phalanx of left great toe which is morphological appearance suggesting deformity from old fracture. No evidence for soft tissue abscess.
Wound however severely looks infected
Podiatry evaluated patient recommending for amputation. High risk for limb loss.
Wound cultures noted
JUNG noted
ESR/CRP severely elevated
US LLE negative DVT
Continue with IV Zosyn
Status post partial first ray amputation and per podiatry may require left transmetatarsal amputation. Strict nonweightbearing to left lower extremity. Podiatry also requested vascular input.
Peripheral arterial disease s/p LLE arteriogram with atherosclerosis-no intervention performed. Per vascular, okay to proceed for TMA. Await surgery input-TBD.
#CORNELIUS on CKD stage 3
#BPH
serial bladder scan and watch for retention
IVF
follow Cr
Cr at 1.6. Monitor Cr post contrast exposure.
FENA w/pre-renal. Could be from sepsis, recent surgery, hypotension etc.
Creatinine continues to improve
# Severe aortic stenosis status post aortic valve replacement on 03/05/[address] Elam
well healing wound
# Proteus urinary tract infection
# Urinary retention
Already on Zosyn
Webb catheter placement due to severe retention. Continue with Flomax.
#Afib Paroxysmal
Continue with heparin infusion and plan for further intervention later in the week
cont rate control and Toprol dose increased to 50 mg. Heart rate control
Taken off amiodarone due to bradycardia
#NEFTALI
chronic
follow CBC
might need anemia w/u
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
Insulin SS, accuchecks, DM diet
POC 198
#Essential HTN
#HLD
#GERD
cont home meds
# Stage II sacral pressure injury, POA
Wound care and offloading
DVT ppx Heparin drip
Full code
Anticipated Discharge: > 48 hours
Subjective/Interval History
-
Date of Service: April 28, 2025
States of intermittent left foot pain
Tolerating diet. Having bowel movements.
Objective Data
-
Labs:
Laboratory Results
04/28/25 04/28/25
05:27 14:30
WBC 7.5
Hgb 8.3 L
Hct 26.5 L
Plt Count 213
APTT 146.3 H Pending
Sodium 137
Potassium 3.7
Chloride 109 H
Carbon Dioxide 21 L
BUN 24 H
Creatinine 1.6 H
Glucose 155 H
Calcium 8.3 L
Vital Signs:
Vital Signs
Temp Pulse Resp BP Pulse Ox
98.9 F 94 18 141/84 97
04/28/25 07:10 04/28/25 07:10 04/28/25 07:10 04/28/25 07:10 04/28/25 07:10
I&O
04/27/25 04/28/25 04/29/25
06:59 06:59 06:59
Intake Total 530 / 530 2660 / 2660 240 / 240
Output Total 1300 / 1300 800 / 800 500 / 500
Balance -770 / -770 1860 / 1860 -260 / -260
--- NOTE | 2025-04-28 11:52 | W.PN.ID1 ---
Date of Service
Date of Service: April 28, 2025
Today's Communication
Narrow to Unasyn. Await eventual TMA
Assessment / Plan
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
- s/p left hallux and partial first ray amp (04/24/2025)
Leukocytosis
Elevated CRP / ESR
DM type II
HTN
HLD
A-fib (Eliquis)
Aortic stenosis
Recommendations:
Cultures with Enterococcus, strep species and Proteus susceptible to ampicillin.
Narrow to Unasyn alone.
Patient for eventual TMA.
Follow white count and temperature curve.
Glucose control to facilitate leukocyte function.
Given underlying diabetes and rapidity of infection progression, patient remains at high risk for limb loss.
����������������������������������������������������������
Chief Complaint
-: Other (Left foot gangrene.)
Subjective / Review of Systems
Patient seen and examined. Reports some foot discomfort, but any pain is well-controlled.
Review of Systems: No Fever and No Chills
Vital Signs / Physical Exam
Vital Signs
Vital Signs
Temp Pulse Resp BP Pulse Ox
98.9 F 94 18 141/84 97
04/28/25 07:10 04/28/25 07:10 04/28/25 07:10 04/28/25 07:10 04/28/25 07:10
Physical Exam
Constitutional: No Acute Distress, Comfortable and Non-toxic
Eyes: No Conjunctival Hemorrhage and Sclera Anicteric
Pulmonary: Clear and Non Labored
Gastrointestinal: Soft, Non Tender and Non Distended
Extremities: Other (Left foot dressed. S/p hallux amputation. 3rd, 4th and 5th toes appear dusky. No malodor.)
Neurological: Awake and Alert
Psychological: Calm
Objective Data
Lab Data
Lab Results
04/28/25 05:27
04/28/25 05:27
ESR 84 mm/hour (0-20) H 04/22/25 21:17
PT 15.9 Sec (11.4-14.6) H 04/26/25 06:12
INR 1.22 04/26/25 06:12
APTT 146.3 Sec (23.4-35.0) H 04/28/25 05:27
Estimated Creat Clear 46 ml/min 04/28/25 05:27
Lactic Acid 1.4 mmol/L (0.7-2.0) 04/22/25 17:30
Total Bilirubin 0.7 mg/dl (0.2-1.3) 04/23/25 05:49
AST 37 U/L (17-59) 04/23/25 05:49
ALT 18 U/L (0-50) 04/23/25 05:49
Alkaline Phosphatase 133 U/L (38-126) H 04/23/25 05:49
C-Reactive Protein 227.00 mg/L (0.0-10.00) H 04/22/25 15:28
Most recent labs reviewed.
Micro Results:
04/22/25 17:30 Blood Culture - Final
Blood/Venous No Growth - Final Report
04/22/25 17:30 Blood Culture - Final
Blood/Venous No Growth - Final Report
04/24/25 16:34 Anaerobic Culture - Preliminary
Foot - Left Culture pending. Anaerobic cultures are examined after 3
days incubation. Additional information to follow.
04/24/25 16:34 Wound Culture - Preliminary
Foot - Left Proteus mirabilis
Enterococcus faecalis
Streptococcus species
Gram Stain - Preliminary
04/22/25 17:31 Wound Culture - Final
Foot - Left Proteus mirabilis
Enterococcus faecalis
Gram Stain - Final
04/22/25 23:15 Urine Culture - Final
Urine Proteus mirabilis
04/22/25 23:15 MRSA Screen - Final
Nose No Methicillin Resistant Staphylococcus aureus isolated.
Wound/abscess/other Cult Final 04/22/25
Moderate Proteus mirabilis
Many Enterococcus faecalis
Few Mixed skin susan
Organism 1 Proteus mirabilis
Organism 2 Enterococcus faecalis
P.MIRABILI ENTFCL
M.I.C. RX M.I.C. RX
--------- --- --------- ---
Amoxicillin/Potas. Clavulanate <=8/4 S
Ampicillin <=8 S <=2 S
Ampicillin/Sulbactam <=4/2 S
Aztreonam <=4 S
Cefazolin <=2 S
Ertapenem <=0.5 S
Ciprofloxacin <=0.25 S
Gentamicin <=2 S
Gentamicin Synergy Screen <=500 S
Meropenem <=1 S
Piperacillin/Tazobactam <=8 S
Tetracycline >8 R
Tobramycin <=2 S
Trimethoprim/Sulfamethoxazole <=2/38 S
Vancomycin 1 S
Imaging:
04/24/2025 Lower extremity arterial ultrasound with JUNG: 1. Right lower extremity: JUNG not obtainable secondary to noncompressibility of the vessels. TBI, which is more reliable in this setting, is within normal limits. Multiphasic waveforms from
common femoral through popliteal artery with no velocity elevation to suggest any significant stenosis. Continuous Doppler waveforms at the dorsalis pedis and posterior tibial arteries are also multiphasic.
2. Left lower extremity: JUNG not obtainable secondary to noncompressible vessels. TBI, which is more reliable in this setting, is severely reduced 0.22. Multiphasic waveforms in the common femoral and profunda with transition to monophasic waveforms
throughout the superficial femoral and popliteal arteries. However, no discrete stenosis is identified. Continuous Doppler waveforms at the dorsalis pedis and posterior tibial arteries are monophasic.
3. Right groin small seromatous appearing collection measuring 1.1 x 1.4 cm.
04/23/2025 MRI left lower extremity without contrast: No evidence of osteomyelitis. Small foci of decreased signal intensity within the soft tissues likely representing soft tissue air from plantar wound and superior extension. Please see full
dictation for additional detail.
04/22/2025 Left foot x-ray: There are 2 soft tissue lucencies about the base of the great toe. The larger is located laterally and is teardrop in shape. It measures 7 mm. This is 6 mm from the closest osseous structure of the great toe. The second is
smaller and located medially just below the dermis at the level of the first MTP joint. It measures 2 mm.
[2025-04-28 13:10] LABS: APTT 82.9 Sec (23.4-35.0)
[2025-04-28 15:10] VITALS: BP 128/73
[2025-04-28] MEDS: UNASYN IV ×2 (17:09→23:25)
[2025-04-28 17:11] LABS: Glucose - Point of Care 219 mg/dl (70-99)
[2025-04-28] MEDS: NOVOLOG FLEXPEN-MODERATE RESISTANCE 3 UNITS SC (17:11)
[2025-04-28 20:18] LABS: APTT 87.5 Sec (23.4-35.0)
[2025-04-28 21:47] LABS: Glucose - Point of Care 233 mg/dl (70-99)
[2025-04-28] MEDS: TYLENOL 650 MG PO (23:25)
[2025-04-28 23:58] VITALS: BP 124/76
[2025-04-29] MEDS: UNASYN IV ×3 (05:31→16:41)
[2025-04-29] MEDS: HEPARIN 25000 UNITS/250 ML IV (06:25)
[2025-04-29 06:57] VITALS: BP 131/86
[2025-04-29 07:14] LABS: Blood Urea Nitrogen 23 mg/dl (9-20); Calcium 8.3 mg/dl (8.4-10.2); Carbon Dioxide 23 mmol/L (22-30); Chloride 108 mmol/L (98-107); Estimated Creatinine Clearance 49 ml/min; Glucose 156 mg/dl (70-99); Potassium 3.9 mmol/L (3.5-5.1); Sodium 137 mmol/L (135-145); eGFR 47.95
[2025-04-29] MEDS: CRESTOR 40 MG PO (07:30)
[2025-04-29] MEDS: PROTONIX 40 MG PO (07:30)
[2025-04-29] MEDS: FLOMAX 0.4 MG PO (07:31)
[2025-04-29] MEDS: TOPROL XL 50 MG PO (07:31)
[2025-04-29] MEDS: FEOSOL 325 MG PO (07:31)
[2025-04-29] MEDS: NEURONTIN 100 MG PO ×3 (07:31→21:33)
[2025-04-29] MEDS: TYLENOL 650 MG PO (07:32)
[2025-04-29 07:59] LABS: Glucose - Point of Care 157 mg/dl (70-99)
[2025-04-29] MEDS: NOVOLOG FLEXPEN-MODERATE RESISTANCE 1 UNITS SC (08:00)
[2025-04-29] MEDS: DESENEX/MITRAZOL/ZEASORB 1 APPLIC TOPICAL ×2 (08:55→21:29)
--- NOTE | 2025-04-29 10:19 | W.PN.ID1 ---
Date of Service
Date of Service: April 29, 2025
Today's Communication
Continue antibiotics.
Assessment / Plan
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
- s/p left hallux and partial first ray amp (04/24/2025)
Leukocytosis
Elevated CRP / ESR
DM type II
HTN
HLD
A-fib (Eliquis)
Aortic stenosis
Recommendations:
Cultures with Enterococcus, Strep. species and Proteus susceptible to ampicillin.
Continue Unasyn.
Patient for eventual TMA. Await further input from Podiatry.
Follow white count and temperature curve.
Glucose control to facilitate leukocyte function.
Given underlying diabetes and rapidity of infection progression, patient remains at high risk for limb loss.
����������������������������������������������������������
Chief Complaint
-: Other (Left foot gangrene.)
Subjective / Review of Systems
Patient seen and examined. No specific complaints today. Denies foot pain. No fevers or chills. No difficulty with antibiotics.
Review of Systems: No Fever and No Chills
Vital Signs / Physical Exam
Vital Signs
Vital Signs
Temp Pulse Resp BP Pulse Ox
98.2 F 88 17 131/86 100
04/29/25 06:57 04/29/25 06:57 04/29/25 06:57 04/29/25 07:31 04/29/25 06:57
Physical Exam
Constitutional: No Acute Distress, Comfortable and Non-toxic
Eyes: No Conjunctival Hemorrhage and Sclera Anicteric
Pulmonary: Clear and Non Labored
Gastrointestinal: Soft, Non Tender and Non Distended
Extremities: Other (Left foot dressed. S/p hallux amputation. 3rd, 4th and 5th toes appear dusky. No malodor.)
Neurological: Awake and Alert
Psychological: Calm
Objective Data
Lab Data
Lab Results
04/28/25 05:27
04/29/25 05:49
ESR 84 mm/hour (0-20) H 04/22/25 21:17
PT 15.9 Sec (11.4-14.6) H 04/26/25 06:12
INR 1.22 04/26/25 06:12
APTT 102.0 Sec (23.4-35.0) H 04/29/25 05:49
Estimated Creat Clear 49 ml/min 04/29/25 05:49
Lactic Acid 1.4 mmol/L (0.7-2.0) 04/22/25 17:30
Total Bilirubin 0.7 mg/dl (0.2-1.3) 04/23/25 05:49
AST 37 U/L (17-59) 04/23/25 05:49
ALT 18 U/L (0-50) 04/23/25 05:49
Alkaline Phosphatase 133 U/L (38-126) H 04/23/25 05:49
C-Reactive Protein 227.00 mg/L (0.0-10.00) H 04/22/25 15:28
Most recent labs reviewed.
Micro Results:
04/24/25 16:34 Anaerobic Culture - Preliminary
Foot - Left Culture pending. Anaerobic cultures are examined after 3
days incubation. Additional information to follow.
04/22/25 17:30 Blood Culture - Final
Blood/Venous No Growth - Final Report
04/22/25 17:30 Blood Culture - Final
Blood/Venous No Growth - Final Report
04/24/25 16:34 Wound Culture - Preliminary
Foot - Left Proteus mirabilis
Enterococcus faecalis
Streptococcus species
Gram Stain - Preliminary
04/22/25 17:31 Wound Culture - Final
Foot - Left Proteus mirabilis
Enterococcus faecalis
Gram Stain - Final
04/22/25 23:15 Urine Culture - Final
Urine Proteus mirabilis
04/22/25 23:15 MRSA Screen - Final
Nose No Methicillin Resistant Staphylococcus aureus isolated.
Wound/abscess/other Cult Final 04/22/25
Moderate Proteus mirabilis
Many Enterococcus faecalis
Few Mixed skin susan
Organism 1 Proteus mirabilis
Organism 2 Enterococcus faecalis
P.MIRABILI ENTFCL
M.I.C. RX M.I.C. RX
--------- --- --------- ---
Amoxicillin/Potas. Clavulanate <=8/4 S
Ampicillin <=8 S <=2 S
Ampicillin/Sulbactam <=4/2 S
Aztreonam <=4 S
Cefazolin <=2 S
Ertapenem <=0.5 S
Ciprofloxacin <=0.25 S
Gentamicin <=2 S
Gentamicin Synergy Screen <=500 S
Meropenem <=1 S
Piperacillin/Tazobactam <=8 S
Tetracycline >8 R
Tobramycin <=2 S
Trimethoprim/Sulfamethoxazole <=2/38 S
Vancomycin 1 S
Imaging:
04/24/2025 Lower extremity arterial ultrasound with JUNG: 1. Right lower extremity: JUNG not obtainable secondary to noncompressibility of the vessels. TBI, which is more reliable in this setting, is within normal limits. Multiphasic waveforms from
common femoral through popliteal artery with no velocity elevation to suggest any significant stenosis. Continuous Doppler waveforms at the dorsalis pedis and posterior tibial arteries are also multiphasic.
2. Left lower extremity: JUNG not obtainable secondary to noncompressible vessels. TBI, which is more reliable in this setting, is severely reduced 0.22. Multiphasic waveforms in the common femoral and profunda with transition to monophasic waveforms
throughout the superficial femoral and popliteal arteries. However, no discrete stenosis is identified. Continuous Doppler waveforms at the dorsalis pedis and posterior tibial arteries are monophasic.
3. Right groin small seromatous appearing collection measuring 1.1 x 1.4 cm.
04/23/2025 MRI left lower extremity without contrast: No evidence of osteomyelitis. Small foci of decreased signal intensity within the soft tissues likely representing soft tissue air from plantar wound and superior extension. Please see full
dictation for additional detail.
04/22/2025 Left foot x-ray: There are 2 soft tissue lucencies about the base of the great toe. The larger is located laterally and is teardrop in shape. It measures 7 mm. This is 6 mm from the closest osseous structure of the great toe. The second is
smaller and located medially just below the dermis at the level of the first MTP joint. It measures 2 mm.
[2025-04-29 11:34] LABS: Glucose - Point of Care 216 mg/dl (70-99)
[2025-04-29] MEDS: NOVOLOG FLEXPEN-MODERATE RESISTANCE 3 UNITS SC (11:36)
--- NOTE | 2025-04-29 11:44 | W.PN.HOSP.TC ---
Today's Communication/Plan
-
NPO PMN
OR tomm
Hep gtt
IV abx
pain control
Assessment / Plan
Assessment / Plan
General: Well Nourished, No Apparent Distress and Comfortable
HEENT: NormoCephalic, Anicteric and Moist mucous membranes
Respiratory: Clear; No Wheezes or Rhonchi
Cardiac: S1/S2 and Regular Rhythm; No Tachycardia
GI: Soft, Non Tender and Non Distended
Rectal: Brown
Musculoskeletal: No Clubbing, No Cyanosis and Edema, Left Lower Extremity
Skin: left foot covered in dressing-no breakthrough bleeding noted on dressing
Neuro: Awake, Alert, Oriented and AO x 3
Psych: Calm
#LLE diabetic wound with cellulitis and sepsis on admission (CORNELIUS, infection,leukocytosis)
#Peripheral arterial disease
Blood cultures remains negative so far
XR L foot noted
MRI of Left foot with no convincing evidence for osteomyelitis. Deformity of the proximal phalanx of left great toe which is morphological appearance suggesting deformity from old fracture. No evidence for soft tissue abscess.
Wound however severely looks infected
Podiatry evaluated patient recommending for amputation. High risk for limb loss.
Wound cultures noted
JUNG noted
ESR/CRP severely elevated
US LLE negative DVT
Continue with IV Zosyn
Status post partial first ray amputation and per podiatry may require left transmetatarsal amputation. Strict nonweightbearing to left lower extremity. Podiatry also requested vascular input.
Peripheral arterial disease s/p LLE arteriogram with atherosclerosis-no intervention performed. Per vascular, okay to proceed for TMA. Plan for OR tomm afternoon.
#CORNELIUS on CKD stage 3
#BPH
serial bladder scan and watch for retention
IVF
follow Cr
Cr at 1.5 Monitor Cr post contrast exposure.
FENA w/pre-renal. Could be from sepsis, recent surgery, hypotension etc.
Creatinine continues to improve
# Severe aortic stenosis status post aortic valve replacement on 03/05/[address] Elam
well healing wound
# Proteus urinary tract infection
# Urinary retention
Already on unasyn
Webb catheter placement due to severe retention s/p removal. Voiding without difficulty
Continue with Flomax.
#Afib Paroxysmal
Continue with heparin infusion and plan for further intervention later in the week
cont rate control and Toprol dose increased to 50 mg. Heart rate control
Taken off amiodarone due to bradycardia in the past
#NEFTALI
chronic
follow CBC
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
Insulin SS, accuchecks, DM diet
POC 157
#Essential HTN
#HLD
#GERD
cont home meds
# Stage II sacral pressure injury, POA
Wound care and offloading
DVT ppx Heparin drip
Full code
Anticipated Discharge: > 48 hours
Subjective/Interval History
-
Date of Service: April 29, 2025
states of intermittent L foot pain
Objective Data
-
Labs:
Laboratory Results
04/29/25
05:49
APTT 102.0 H
Sodium 137
Potassium 3.9
Chloride 108 H
Carbon Dioxide 23
BUN 23 H
Creatinine 1.5 H
Glucose 156 H
Calcium 8.3 L
Vital Signs:
Vital Signs
Temp Pulse Resp BP Pulse Ox
98.2 F 88 17 131/86 100
04/29/25 06:57 04/29/25 06:57 04/29/25 06:57 04/29/25 07:31 04/29/25 06:57
I&O
04/28/25 04/29/25 04/30/25
06:59 06:59 06:59
Intake Total 2660 / 2660 1440 / 1440
Output Total 800 / 800 825 / 825
Balance 186 / 1859 615 / 615
[2025-04-29] MEDS: ROXICODONE 5 MG PO ×2 (12:53→20:18)
[2025-04-29 15:00] VITALS: BP 94/57
[2025-04-29] MEDS: NOVOLOG FLEXPEN-MODERATE RESISTANCE 5 UNITS SC (16:40)
[2025-04-29 16:49] LABS: Glucose - Point of Care 272 mg/dl (70-99)
[2025-04-29 21:21] LABS: Glucose - Point of Care 258 mg/dl (70-99)
--- NOTE | 2025-04-29 22:00 | PTCARENOTE ---
Pt's left foot dressing changed d/t large amounts of sanguinous drainage. Dressing changed as per orders. Pt's BP 87/56 HR: 115, pox 98% on RA. House STRICKLER ATTENDANT notified. 500ml NSS bolus and H&H ordered. Labs drawn and sent. Pt's Hgb: 5.8. House STRICKLER ATTENDANT made
aware. 2 units PRBCs ordered. Placed on tele, HR:130 -140s, Afib on monitor. [place] STRICKLER ATTENDANT aware, instructed to keep Pt laying flat in bed and administer prn lopressor. Pt c/o feeling 'hot and sweaty'. Provided Pt with fan, repositioned in bed,
reassurance provided. TT sent to Dr. Carver, vascular surgey, no response. Call pa within reach.
[2025-04-29 22:01] VITALS: BP 87/56
[2025-04-29 22:48] LABS: Hematocrit 18.7 % (39.0-52.0); Hemoglobin 5.8 g/dL (13.0-18.0)
--- NOTE | 2025-04-29 23:01 | W.PN.UPDATE ---
Update Note
Progress Note Update
RN reports BP 80's/50's HR 114
RN noted dressing saturated in blood on Left toe, Dressing changed, continuos to bleed. Patient is asymptomatic, restless. Will bolus 500 cc
H&h stat showed hgb 5.8/18.7, Explained to patient, patient asymptomatic.
Blood consent explained and signed,Type and cross, Will transfuse 2 U PRBC's.
hold Heparin drip
telemetry
HR 130's BP 83/58
patient seen and evaluated. HR irregular 120's-140s's, BP 108/57 18 99% RA Denies chest pain, shortness of breath, states feels 'crappy' likely due to hypovolemia. Denies dizziness, lightheadedness.
HR 140's, Will give metoprolol 5mg IV x1 receiving fluids, awaiting PRBC's.
s/p 1 u PRBC 108/64 HR 120's
RN made Vascular team aware
[2025-04-29] MEDS: NSS 500 IV (23:02)
[2025-04-29 23:54] VITALS: BP 83/58
[2025-04-30] VITALS (20 sets, daily range): BP systolic 15–120; BP diastolic 52–81
[2025-04-30] MEDS: LOPRESSOR 5 MG IV (00:18)
[2025-04-30] MEDS: UNASYN IV ×4 (00:48→20:43)
[2025-04-30 01:48] LABS: Blood Urea Nitrogen 25 mg/dl (9-20); Calcium 8.1 mg/dl (8.4-10.2); Carbon Dioxide 21 mmol/L (22-30); Chloride 108 mmol/L (98-107); Estimated Creatinine Clearance 38 ml/min; Glucose 236 mg/dl (70-99); Magnesium 1.6 mg/dl (1.6-2.3); Potassium 4.3 mmol/L (3.5-5.1); Sodium 136 mmol/L (135-145); eGFR 36.11
[2025-04-30 06:24] LABS: Glucose - Point of Care 262 mg/dl (70-99)
[2025-04-30] MEDS: NOVOLOG FLEXPEN-MODERATE RESISTANCE 300 UNITS SC (06:25)
[2025-04-30] MEDS: TYLENOL 650 MG PO ×3 (06:32→20:43)
[2025-04-30 07:07] LABS: APTT 38.7 Sec (23.4-35.0)
[2025-04-30 07:22] LABS: Blood Urea Nitrogen 27 mg/dl (9-20); Calcium 8.1 mg/dl (8.4-10.2); Carbon Dioxide 20 mmol/L (22-30); Chloride 107 mmol/L (98-107); Estimated Creatinine Clearance 30 ml/min; Glucose 277 mg/dl (70-99); Potassium 4.6 mmol/L (3.5-5.1); Sodium 136 mmol/L (135-145); eGFR 27.28
[2025-04-30 07:26] LABS: Glucose - Point of Care 275 mg/dl (70-99)
[2025-04-30 07:27] LABS: Hematocrit 22.5 % (39.0-52.0); Hemoglobin 7.1 g/dL (13.0-18.0); Mean Corp Hgb Conc. 31.6 g/dL (33.0-37.0); Mean Corpuscular Hgb 26.6 pg (27.0-31.0); Mean Corpuscular Volume 84.3 fL (80.0-94.0); Mean Platelet Volume 9.7 fL (7.4-10.4); Platelet Count 251 10^3/uL (130-400); Red Blood Cell Count 2.67 10^6/uL (4.70-6.10); Red Cell Dist. Width 14.6 % (11.5-14.5); White Blood Cell Count 14.4 10^3/uL (4.8-10.8)
[2025-04-30] MEDS: NEURONTIN 100 MG PO ×3 (08:17→21:50)
[2025-04-30] MEDS: PROTONIX 40 MG PO (08:17)
[2025-04-30] MEDS: DESENEX/MITRAZOL/ZEASORB 1 APPLIC TOPICAL ×2 (08:17→20:43)
[2025-04-30] MEDS: FLOMAX 0.4 MG PO (08:17)
[2025-04-30] MEDS: FEOSOL 325 MG PO (08:17)
[2025-04-30] MEDS: CRESTOR 40 MG PO (08:17)
--- NOTE | 2025-04-30 09:00 | W.PN.HOSP.TC ---
Today's Communication/Plan
-
Transfuse to keep hemoglobin above 8.
Hold heparin given bleeding from the wound
Replace Webb given rising creatinine.
Tentatively for TMA later today
Continue antibiotics.
N.p.o.
Insulin basal bolus protocol with serial Accu-Cheks
Assessment / Plan
Assessment / Plan
#LLE diabetic wound with cellulitis and sepsis on admission (CORNELIUS, infection,leukocytosis)
#Peripheral arterial disease
Blood cultures remains negative so far
XR L foot noted
MRI of Left foot with no convincing evidence for osteomyelitis. Deformity of the proximal phalanx of left great toe which is morphological appearance suggesting deformity from old fracture. No evidence for soft tissue abscess.
Wound however severely looks infected
Podiatry evaluated patient recommending for amputation. High risk for limb loss.
Wound cultures noted
JUNG noted
ESR/CRP severely elevated
US LLE negative DVT
Antibiotics: Initially on Zosyn narrowed to Unasyn
Status post partial first ray amputation and per podiatry may require left transmetatarsal amputation. Strict nonweightbearing to left lower extremity. Podiatry also requested vascular input.
Peripheral arterial disease s/p LLE arteriogram with atherosclerosis-no intervention performed. Per vascular, okay to proceed for TMA. Plan for OR tom afternoon.
Acute on chronic blood loss anemia
Underlying anemia of iron deficiency
Hemoglobin dipped down to 5
Transfused 2 units of packed red blood cells on 04/29 with hemoglobin improved at 7, although remains tachycardic and hypotensive.
Transfuse additional 2 units of packed red blood cells
Follow CBC
#CORNELIUS on CKD stage 3. Likely multifactorial in the settings of acute retention as well as prerenal stimuli with anemia.
#BPH
serial bladder scan and watch for retention
FENA w/pre-renal. Could be from sepsis, recent surgery, hypotension etc.
Maintain Webb catheter
Transfuse to keep hemoglobin above 8
Avoid hypotension
# Severe aortic stenosis status post aortic valve replacement on 03/05/[address] Elam
well healing wound
Inspiris Resilia bioprosthetic aortic valve.
#Afib Paroxysmal
Continue with heparin infusion and plan for further intervention later in the week
cont rate control and Toprol dose increased to 50 mg. Heart rate control
Taken off amiodarone due to bradycardia in the past
# Proteus urinary tract infection
# Urinary retention
Already on unasyn
Webb catheter placement due to severe retention s/p removal. Voiding without difficulty
Webb catheter to be replaced on 04/30 given rising creatinine and hypotension.
Continue with Flomax.
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
Insulin SS, accuchecks, DM diet
POC 157
#Essential HTN
#HLD
#GERD
cont home meds
# Stage II sacral pressure injury, POA
Wound care and offloading
DVT ppx mechanical. Heparin drip to Eliquis when able.
Full code
Anticipated Discharge: > 48 hours
Subjective/Interval History
-
Date of Service: April 30, 2025
Objective Data
-
Labs:
Laboratory Results
04/29/25 04/30/25 04/30/25
22:30 00:42 01:23
WBC
Hgb 5.8 L* D
Hct 18.7 L*
Plt Count
APTT
Sodium Cancelled 136
Potassium Cancelled 4.3
Chloride Cancelled 108 H
Carbon Dioxide Cancelled 21 L
BUN Cancelled 25 H
Creatinine Cancelled 1.9 H
Glucose Cancelled 236 H
Calcium Cancelled 8.1 L
04/30/25
06:27
WBC 14.4 H
Hgb 7.1 L D
Hct 22.5 L
Plt Count 251
APTT 38.7 H
Sodium 136
Potassium 4.6
Chloride 107
Carbon Dioxide 20 L
BUN 27 H
Creatinine 2.4 H
Glucose 277 H
Calcium 8.1 L
Vital Signs:
Vital Signs
Temp Pulse Resp BP Pulse Ox
97.9 F 120 18 88/55 95
04/30/25 07:20 04/30/25 07:20 04/30/25 07:20 04/30/25 07:20 04/30/25 07:20
I&O
04/29/25 04/30/25 05/01/25
06:59 06:59 06:59
Intake Total 1440 / 1440 2150 / 2150
Output Total 825 / 825
Balance 615 / 615 0 / 2150
Physical Exam
-
General: Well Developed and No Apparent Distress
HEENT: Normocephalic, Atraumatic and Moist Mucous Membranes
Respiratory: Clear to Auscultation
Cardiac: Regular Rhythm and S1/S2; Negative Murmur, Rub or Gallop
GI: Soft, Nontender, Nondistended and Normal Bowel Sounds; Negative Organomegaly
Rectal: Deferred by Provider
Musculoskeletal: No Clubbing, No Cyanosis and No Edema
Skin: Negative Rash
Neuro: Nonfocal/Grossly Intact
[2025-04-30] MEDS: TOPROL XL PO (09:09)
--- NOTE | 2025-04-30 10:46 | PTCARENOTE ---
bp 88 systolic. hr 120's. pt pale. Dr. mayo aware. 2units prbc ordered. 14f parra placed per order.report given to or nurse. pt transported to or without issue.
--- NOTE | 2025-04-30 10:47 | W.PN.ID1 ---
Date of Service
Date of Service: April 30, 2025
Today's Communication
Continue antibiotics.
Assessment / Plan
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
- s/p left hallux and partial first ray amp (04/24/2025)
Ischemic toes
Leukocytosis
Elevated CRP / ESR
DM type II
HTN
HLD
A-fib (Eliquis)
Aortic stenosis
Recommendations:
Cultures with Enterococcus, Strep. species and Proteus susceptible to ampicillin.
Continue Unasyn.
Patient for TMA today.
Follow white count and temperature curve.
Glucose control to facilitate leukocyte function.
Given underlying diabetes and rapidity of infection progression, patient remains at high risk for limb loss.
����������������������������������������������������������
Chief Complaint
-: Other (Left foot gangrene.)
Subjective / Review of Systems
Review of Systems: No Fever and No Chills
Vital Signs / Physical Exam
Vital Signs
Vital Signs
Temp Pulse Resp BP Pulse Ox
97.8 F 123 18 83/52 95
04/30/25 10:28 04/30/25 10:28 04/30/25 10:28 04/30/25 10:28 04/30/25 07:20
Physical Exam
Constitutional: No Acute Distress, Comfortable and Non-toxic
Eyes: No Conjunctival Hemorrhage and Sclera Anicteric
Pulmonary: Clear and Non Labored
Gastrointestinal: Soft, Non Tender and Non Distended
Extremities: Other (Left foot dressed. S/p hallux amputation. 3rd, 4th and 5th toes appear dusky. No malodor.)
Neurological: Awake and Alert
Psychological: Calm
Objective Data
Lab Data
Lab Results
04/30/25 06:27
04/30/25 06:27
ESR 84 mm/hour (0-20) H 04/22/25 21:17
PT 15.9 Sec (11.4-14.6) H 04/26/25 06:12
INR 1.22 04/26/25 06:12
APTT 38.7 Sec (23.4-35.0) H 04/30/25 06:27
Estimated Creat Clear 30 ml/min 04/30/25 06:27
Lactic Acid 1.4 mmol/L (0.7-2.0) 04/22/25 17:30
Total Bilirubin 0.7 mg/dl (0.2-1.3) 04/23/25 05:49
AST 37 U/L (17-59) 04/23/25 05:49
ALT 18 U/L (0-50) 04/23/25 05:49
Alkaline Phosphatase 133 U/L (38-126) H 04/23/25 05:49
C-Reactive Protein 227.00 mg/L (0.0-10.00) H 04/22/25 15:28
Most recent labs reviewed.
Micro Results:
04/24/25 16:34 Wound Culture - Final
Foot - Left Proteus mirabilis
Enterococcus faecalis
Streptococcus species
Gram Stain - Final
04/24/25 16:34 Anaerobic Culture - Final
Foot - Left Peptostreptococcus prevotii
04/22/25 17:30 Blood Culture - Final
Blood/Venous No Growth - Final Report
04/22/25 17:30 Blood Culture - Final
Blood/Venous No Growth - Final Report
04/22/25 17:31 Wound Culture - Final
Foot - Left Proteus mirabilis
Enterococcus faecalis
Gram Stain - Final
04/22/25 23:15 Urine Culture - Final
Urine Proteus mirabilis
04/22/25 23:15 MRSA Screen - Final
Nose No Methicillin Resistant Staphylococcus aureus isolated.
Wound/abscess/other Cult Final 04/22/25
Moderate Proteus mirabilis
Many Enterococcus faecalis
Few Mixed skin susan
Organism 1 Proteus mirabilis
Organism 2 Enterococcus faecalis
P.MIRABILI ENTFCL
M.I.C. RX M.I.C. RX
--------- --- --------- ---
Amoxicillin/Potas. Clavulanate <=8/4 S
Ampicillin <=8 S <=2 S
Ampicillin/Sulbactam <=4/2 S
Aztreonam <=4 S
Cefazolin <=2 S
Ertapenem <=0.5 S
Ciprofloxacin <=0.25 S
Gentamicin <=2 S
Gentamicin Synergy Screen <=500 S
Meropenem <=1 S
Piperacillin/Tazobactam <=8 S
Tetracycline >8 R
Tobramycin <=2 S
Trimethoprim/Sulfamethoxazole <=2/38 S
Vancomycin 1 S
Imaging:
04/24/2025 Lower extremity arterial ultrasound with JUNG: 1. Right lower extremity: JUNG not obtainable secondary to noncompressibility of the vessels. TBI, which is more reliable in this setting, is within normal limits. Multiphasic waveforms from
common femoral through popliteal artery with no velocity elevation to suggest any significant stenosis. Continuous Doppler waveforms at the dorsalis pedis and posterior tibial arteries are also multiphasic.
2. Left lower extremity: JUNG not obtainable secondary to noncompressible vessels. TBI, which is more reliable in this setting, is severely reduced 0.22. Multiphasic waveforms in the common femoral and profunda with transition to monophasic waveforms
throughout the superficial femoral and popliteal arteries. However, no discrete stenosis is identified. Continuous Doppler waveforms at the dorsalis pedis and posterior tibial arteries are monophasic.
3. Right groin small seromatous appearing collection measuring 1.1 x 1.4 cm.
04/23/2025 MRI left lower extremity without contrast: No evidence of osteomyelitis. Small foci of decreased signal intensity within the soft tissues likely representing soft tissue air from plantar wound and superior extension. Please see full
dictation for additional detail.
04/22/2025 Left foot x-ray: There are 2 soft tissue lucencies about the base of the great toe. The larger is located laterally and is teardrop in shape. It measures 7 mm. This is 6 mm from the closest osseous structure of the great toe. The second is
smaller and located medially just below the dermis at the level of the first MTP joint. It measures 2 mm.
Care Review
Plan reviewed with: Physician (Podiatry)
--- NOTE | 2025-04-30 12:15 | CM ---
CM reviewed medical records. Plan for OR today. CM will remain available as needed.
[2025-04-30 13:00] LABS: Glucose - Point of Care 253 mg/dl (70-99)
[2025-04-30] MEDS: NOVOLOG vial 4 UNITS SC (13:15)
[2025-04-30] MEDS: NOVOLOG FLEXPEN-MODERATE RESISTANCE SC (13:39)
--- NOTE | 2025-04-30 13:55 | W.PN.SURGUPD ---
Surgical Update
Surgical Update
75 yo M s/p L TMA
-L TMA primarily closed, no further signs of infection noted
-Excellent hemostasis achieved
-Recommend 10-14 days additional abx for soft tissue coverage
-NWB to LLE
-PT/OT, anticipate need for DC to SNF
-Dressings to remain C/D/I
--- NOTE | 2025-04-30 14:22 | PTCARENOTE ---
two units prbc transfused while pt was in or. no pink sheet used for first unit of blood. cbc drawn per order. will monitor.
[2025-04-30 14:28] LABS: % Basophils 0.3 % (0-2); % Monocytes 6.5 % (1.7-9.3); % Neutrophils 80.2 % (42.2-75.2); Absolute Immature Granulocytes 0.3 10^3/uL (0-0.05); Absolute Lymphocytes 1.5 10^3/uL (1.2-3.4); Absolute Monocytes 0.9 10^3/uL (0.1-0.6); Absolute Neutrophils 11.1 10^3/uL (1.4-6.5); Hematocrit 23.6 % (39.0-52.0); Hemoglobin 7.8 g/dL (13.0-18.0); Mean Corp Hgb Conc. 33.1 g/dL (33.0-37.0); Mean Corpuscular Hgb 27.6 pg (27.0-31.0); Mean Corpuscular Volume 83.4 fL (80.0-94.0); Mean Platelet Volume 9.9 fL (7.4-10.4); Nucleated Red Blood Cells % 0 % (-); Platelet Count 188 10^3/uL (130-400); Red Blood Cell Count 2.83 10^6/uL (4.70-6.10); White Blood Cell Count 13.8 10^3/uL (4.8-10.8)
[2025-04-30 15:08] LABS: Glucose - Point of Care 219 mg/dl (70-99)
[2025-04-30] MEDS: NOVOLOG FLEXPEN-MODERATE RESISTANCE 3 UNITS SC (15:17)
[2025-04-30 17:19] LABS: Glucose - Point of Care 254 mg/dl (70-99)
[2025-04-30 21:49] LABS: Glucose - Point of Care 306 mg/dl (70-99)
[2025-04-30] MEDS: ROXICODONE 5 MG PO (23:15)
[2025-05-01] VITALS (13 sets, daily range): BP systolic 94–138; BP diastolic 62–83
[2025-05-01] MEDS: UNASYN IV ×3 (02:43→19:36)
--- NOTE | 2025-05-01 03:41 | PTCARENOTE ---
Pt voided 125ml of yellow urine through parra since 1900. Pt sleeping intermittently, drank approx 240ml of water. Bladder scan for 0ml. House DISTRICT OR DISTRICT OFFICE DIRECTOR notified, no new orders at this time.
[2025-05-01] MEDS: TYLENOL 650 MG PO (05:52)
[2025-05-01 06:31] LABS: Blood Urea Nitrogen 36 mg/dl (9-20); Calcium 7.8 mg/dl (8.4-10.2); Carbon Dioxide 22 mmol/L (22-30); Chloride 105 mmol/L (98-107); Estimated Creatinine Clearance 26 ml/min; Glucose 235 mg/dl (70-99); Potassium 4.2 mmol/L (3.5-5.1); Sodium 136 mmol/L (135-145); eGFR 22.67
[2025-05-01 07:45] LABS: Glucose - Point of Care 251 mg/dl (70-99)
[2025-05-01] MEDS: PROTONIX 40 MG PO (08:54)
[2025-05-01] MEDS: CRESTOR 40 MG PO (08:54)
[2025-05-01] MEDS: FEOSOL 325 MG PO (08:55)
[2025-05-01] MEDS: NEURONTIN 100 MG PO ×3 (08:55→22:20)
[2025-05-01] MEDS: FLOMAX 0.4 MG PO (08:55)
[2025-05-01 08:57] LABS: % Basophils 0.2 % (0-2); % Eosinophils 0.4 % (0-6); % Immature Granulocytes 1.9 % (0-0.5); % Lymphocytes 11.4 % (20.5-51.1); % Monocytes 8.6 % (1.7-9.3); % Neutrophils 77.5 % (42.2-75.2); Absolute Eosinophils 0.1 10^3/uL (0-0.7); Absolute Immature Granulocytes 0.3 10^3/uL (0-0.05); Absolute Lymphocytes 1.6 10^3/uL (1.2-3.4); Absolute Monocytes 1.2 10^3/uL (0.1-0.6); Absolute Neutrophils 10.7 10^3/uL (1.4-6.5); Hematocrit 19.9 % (39.0-52.0); Hemoglobin 6.7 g/dL (13.0-18.0); Mean Corp Hgb Conc. 33.7 g/dL (33.0-37.0); Mean Corpuscular Hgb 27.9 pg (27.0-31.0); Mean Corpuscular Volume 82.9 fL (80.0-94.0); Nucleated Red Blood Cells % 0.1 % (-); Platelet Count 182 10^3/uL (130-400); Red Cell Dist. Width 14.7 % (11.5-14.5); White Blood Cell Count 13.7 10^3/uL (4.8-10.8)
[2025-05-01] MEDS: NOVOLOG FLEXPEN-MODERATE RESISTANCE 5 UNITS SC (09:00)
[2025-05-01] MEDS: DESENEX/MITRAZOL/ZEASORB 1 APPLIC TOPICAL ×2 (09:03→19:35)
[2025-05-01] MEDS: TOPROL XL PO (09:09)
[2025-05-01] MEDS: ROXICODONE 5 MG PO ×3 (09:14→22:20)
--- NOTE | 2025-05-01 09:17 | W.PN.HOSP.TC ---
Today's Communication/Plan
-
Coags
CT scan rule out retroperitoneal hemorrhage
Transfuse to keep hemoglobin above 8
Holding parameters on metoprolol
Midodrine
Maintain Webb catheter
Continue antibiotics
Assessment / Plan
Assessment / Plan
#LLE diabetic wound with cellulitis and sepsis on admission (CORNELIUS, infection,leukocytosis)
#Peripheral arterial disease
Blood cultures remains negative so far
XR L foot noted
MRI of Left foot with no convincing evidence for osteomyelitis. Deformity of the proximal phalanx of left great toe which is morphological appearance suggesting deformity from old fracture. No evidence for soft tissue abscess.
Wound however severely looks infected
Podiatry evaluated patient recommending for amputation. High risk for limb loss.
Wound cultures noted
JUNG noted
ESR/CRP severely elevated
US LLE negative DVT
Antibiotics: Initially on Zosyn narrowed to Unasyn. Plan is to continue antibiotics for another 10 to 14 days after left TMA on 04/30.
Status post partial first ray amputation and per podiatry may require left transmetatarsal amputation. Strict nonweightbearing to left lower extremity. Podiatry also requested vascular input.
Peripheral arterial disease s/p LLE arteriogram with atherosclerosis-no intervention performed. Per vascular, okay to proceed for TMA.
Status post left TMA primarily closed, no further signs of infection. Excellent hemostasis achieved at the time of procedure.
Physical therapy evaluation. Continue nonweightbearing to left lower extremity.
Continue wound care as per podiatry.
Acute on chronic blood loss anemia
Underlying anemia of iron deficiency
Hemoglobin dipped down to 5
Transfused 2 units of packed red blood cells on 04/29 with hemoglobin improved at 7.
Transfused total of 3 units of packed red blood cells including 1 intraoperatively on 04/30
Follow-up hemoglobin 6/10 6.7.
No bleeding at the surgical site.
Has been off anticoagulation
Patient complains of left-sided back pain.
Repeat PTT/PTT/INR.
CT scan of the abdomen pelvis with concern for retroperitoneal hemorrhage.
Transfuse additional 2 units of packed red blood cells to keep hemoglobin above 8
Follow CBC
#CORNELIUS on CKD stage 3. Likely multifactorial in the settings of acute retention as well as prerenal stimuli with anemia.
#BPH
serial bladder scan and watch for retention
FENA w/pre-renal. Could be from sepsis, recent surgery, hypotension etc.
Maintain Webb catheter
Transfuse to keep hemoglobin above 8
Avoid hypotension
Initiate midodrine 5 mg p.o. 3 times daily
# Severe aortic stenosis status post aortic valve replacement on 03/05/[address] Elam
well healing wound
Inspiris Resilia bioprosthetic aortic valve.
#Afib Paroxysmal
Anticoagulated with Eliquis prior to presentation. AC currently on hold given severe anemia requiring multiple rounds of transfusions.
cont rate control and Toprol dose increased to 50 mg. Heart rate control
Taken off amiodarone due to bradycardia in the past
# Proteus urinary tract infection
# Urinary retention
Already on unasyn
Webb catheter placement due to severe retention s/p removal. Voiding without difficulty
Webb catheter to be replaced on 04/30 given rising creatinine and hypotension.
Continue with Flomax.
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
Update hemoglobin A1c
Has been off glipizide, metformin and Jardiance since admission
Remains hyperglycemic.
Start Lantus 10 units at bedtime
Continue basal bolus protocol with serial
Continue DM diet
#Essential HTN
#HLD
#GERD
# Stage II sacral pressure injury, POA
Wound care and offloading
DVT ppx mechanical. Heparin drip to Eliquis when able.
Full code
Anticipated Discharge: > 48 hours
Subjective/Interval History
-
Date of Service: May 01, 2025
Objective Data
-
Labs:
Laboratory Results
05/01/25 05/01/25
05:32 09:14
WBC 13.7 H
Hgb 6.7 L*
Hct 19.9 L*
Plt Count 182
PT Pending
INR Pending
APTT Pending
Sodium 136
Potassium 4.2
Chloride 105
Carbon Dioxide 22
BUN 36 H
Creatinine 2.8 H
Glucose 235 H
Calcium 7.8 L
Vital Signs:
Vital Signs
Temp Pulse Resp BP Pulse Ox
97.8 F 101 16 99/62 96
05/01/25 07:03 05/01/25 09:09 05/01/25 07:03 05/01/25 09:09 05/01/25 07:03
I&O
04/30/25 05/01/25 05/02/25
06:59 06:59 06:59
Intake Total 2150 / 2150 1230 / 1230
Output Total 575 / 575
Balance 2150 / 2150 655 / 655
Physical Exam
-
General: Well Developed and No Apparent Distress
HEENT: Normocephalic, Atraumatic and Moist Mucous Membranes
Respiratory: Clear to Auscultation
Cardiac: Regular Rhythm and S1/S2; Negative Murmur, Rub or Gallop
GI: Soft, Nontender, Nondistended and Normal Bowel Sounds; Negative Organomegaly
Rectal: Deferred by Provider
Musculoskeletal: No Clubbing, No Cyanosis and No Edema
Skin: Negative Rash
Neuro: Nonfocal/Grossly Intact
[2025-05-01 09:40] LABS: INR 1.29; PT 16.4 Sec (11.4-14.6)
[2025-05-01 09:41] LABS: APTT 37.4 Sec (23.4-35.0)
[2025-05-01 12:47] LABS: Glucose - Point of Care 224 mg/dl (70-99)
[2025-05-01] MEDS: ProAmatine 5 MG PO ×2 (13:10→17:49)
[2025-05-01] MEDS: NOVOLOG FLEXPEN-MODERATE RESISTANCE 3 UNITS SC ×2 (13:12→17:54)
[2025-05-01 13:58] LABS: Body Fluid for Eosinophils 1% Eosinophils seen
--- NOTE | 2025-05-01 14:07 | CM ---
CM following re: discharge planning.
Reviewed pt's chart, met with pt.
Left transmetatarsal amputation with delayed primary closure procedure performed yesterday, continue wound care, IV, continue supportive care.
PT and OT will evaluate the pt to determine a level of care at discharge. PT/OT evaluations pending.
Pt states he has been in [facility]. If he needs rehab he will consider [facility] [place] or [facility]. He will need pre-cert for SNF. If he can go directly home then Khang GOMES and his spouse will be
home to assist in his care if needed. Pt reports he was at [facility] acute rehab last month and he understood he might not be eligible for an acute rehab.
D/C plan: uncertain at this time: [facility] vs home with [facility] G[facility]. Awaiting for PT/OT evaluations and recommendations.
CM will follow with discharge plan updates as hospitalization progresses
--- NOTE | 2025-05-01 15:14 | W.PN.ID1 ---
Date of Service
Date of Service: May 01, 2025
Today's Communication
Continue antibiotics.
Assessment / Plan
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
- s/p left hallux and partial first ray amp (04/24/2025)
- s/p (L) TMA (04/30/25)
Retroperitoneal hematoma
CORNELIUS
Leukocytosis
Elevated CRP / ESR
DM type II
HTN
HLD
A-fib (Eliquis)
Aortic stenosis
Recommendations:
Cultures with Enterococcus, Strep. species and Proteus susceptible to ampicillin.
Continue Unasyn; dose adjusted for renal insufficiency
Follow white count and temperature curve.
Glucose control to facilitate leukocyte function.
Given underlying diabetes and rapidity of infection progression, patient remains at high risk for limb loss.
����������������������������������������������������������
Chief Complaint
-: Other (Left foot gangrene.)
Subjective / Review of Systems
Patient seen and examined. Reports feeling well. Underwent successful left TMA yesterday.
Review of Systems: No Fever and No Chills
Vital Signs / Physical Exam
Vital Signs
Vital Signs
Temp Pulse Resp BP Pulse Ox
98.7 F 104 16 118/73 95
05/01/25 14:39 05/01/25 14:39 05/01/25 14:39 05/01/25 14:39 05/01/25 14:39
Physical Exam
Constitutional: No Acute Distress, Comfortable and Non-toxic
Eyes: No Conjunctival Hemorrhage and Sclera Anicteric
Pulmonary: Clear and Non Labored
Gastrointestinal: Soft, Non Tender and Non Distended
Extremities: Edema (Left lower extremity) and Other (Left foot dressed. S/p TMA.); Negative Erythema
Neurological: Awake and Alert
Psychological: Calm
Objective Data
Lab Data
Lab Results
05/01/25 05:32
05/01/25 05:32
ESR 84 mm/hour (0-20) H 04/22/25 21:17
PT 16.4 Sec (11.4-14.6) H 05/01/25 09:14
INR 1.29 05/01/25 09:14
APTT 37.4 Sec (23.4-35.0) H 05/01/25 09:14
Estimated Creat Clear 26 ml/min 05/01/25 05:32
Lactic Acid 1.4 mmol/L (0.7-2.0) 04/22/25 17:30
Total Bilirubin 0.7 mg/dl (0.2-1.3) 04/23/25 05:49
AST 37 U/L (17-59) 04/23/25 05:49
ALT 18 U/L (0-50) 04/23/25 05:49
Alkaline Phosphatase 133 U/L (38-126) H 04/23/25 05:49
C-Reactive Protein 227.00 mg/L (0.0-10.00) H 04/22/25 15:28
Most recent labs reviewed.
Micro Results:
04/24/25 16:34 Wound Culture - Final
Foot - Left Proteus mirabilis
Enterococcus faecalis
Streptococcus species
Gram Stain - Final
04/24/25 16:34 Anaerobic Culture - Final
Foot - Left Peptostreptococcus prevotii
04/22/25 17:30 Blood Culture - Final
Blood/Venous No Growth - Final Report
04/22/25 17:30 Blood Culture - Final
Blood/Venous No Growth - Final Report
04/22/25 17:31 Wound Culture - Final
Foot - Left Proteus mirabilis
Enterococcus faecalis
Gram Stain - Final
04/22/25 23:15 Urine Culture - Final
Urine Proteus mirabilis
04/22/25 23:15 MRSA Screen - Final
Nose No Methicillin Resistant Staphylococcus aureus isolated.
Wound/abscess/other Cult Final 04/22/25
Moderate Proteus mirabilis
Many Enterococcus faecalis
Few Mixed skin susan
Organism 1 Proteus mirabilis
Organism 2 Enterococcus faecalis
P.MIRABILI ENTFCL
M.I.C. RX M.I.C. RX
--------- --- --------- ---
Amoxicillin/Potas. Clavulanate <=8/4 S
Ampicillin <=8 S <=2 S
Ampicillin/Sulbactam <=4/2 S
Aztreonam <=4 S
Cefazolin <=2 S
Ertapenem <=0.5 S
Ciprofloxacin <=0.25 S
Gentamicin <=2 S
Gentamicin Synergy Screen <=500 S
Meropenem <=1 S
Piperacillin/Tazobactam <=8 S
Tetracycline >8 R
Tobramycin <=2 S
Trimethoprim/Sulfamethoxazole <=2/38 S
Vancomycin 1 S
Imaging:
05/01/2025 CT abdomen pelvis: Unenhanced liver, spleen and pancreas are unremarkable. Left kidney is displaced anteriorly due to a large left retroperitoneal hematoma. No evidence of active bleeding. Please see full dictation for additional detail.
04/24/2025 Lower extremity arterial ultrasound with JUNG: 1. Right lower extremity: JUNG not obtainable secondary to noncompressibility of the vessels. TBI, which is more reliable in this setting, is within normal limits. Multiphasic waveforms from
common femoral through popliteal artery with no velocity elevation to suggest any significant stenosis. Continuous Doppler waveforms at the dorsalis pedis and posterior tibial arteries are also multiphasic.
2. Left lower extremity: JUNG not obtainable secondary to noncompressible vessels. TBI, which is more reliable in this setting, is severely reduced 0.22. Multiphasic waveforms in the common femoral and profunda with transition to monophasic waveforms
throughout the superficial femoral and popliteal arteries. However, no discrete stenosis is identified. Continuous Doppler waveforms at the dorsalis pedis and posterior tibial arteries are monophasic.
3. Right groin small seromatous appearing collection measuring 1.1 x 1.4 cm.
04/23/2025 MRI left lower extremity without contrast: No evidence of osteomyelitis. Small foci of decreased signal intensity within the soft tissues likely representing soft tissue air from plantar wound and superior extension. Please see full
dictation for additional detail.
04/22/2025 Left foot x-ray: There are 2 soft tissue lucencies about the base of the great toe. The larger is located laterally and is teardrop in shape. It measures 7 mm. This is 6 mm from the closest osseous structure of the great toe. The second is
smaller and located medially just below the dermis at the level of the first MTP joint. It measures 2 mm.
[2025-05-01] MEDS: MIRALAX 17 GRAMS PO (16:28)
--- NOTE | 2025-05-01 16:33 | W.PN.SURGUPD ---
Surgical Update
Surgical Update
75 yo M s/p L TMA 04/30
-Patient seen and evaluated at bedside, dressings C/D/I
-Hb continues to downtrend, foot unlikely to be source
-10-14 days of antibiotics per ID
-NWB to LLE
-Will changes dressings 05/02
[2025-05-01 17:49] LABS: Glucose - Point of Care 229 mg/dl (70-99)
[2025-05-01 21:41] LABS: Glucose - Point of Care 243 mg/dl (70-99)
[2025-05-01] MEDS: LANTUS 0.1 UNITS SC (22:19)
[2025-05-01 22:37] LABS: Hematocrit 23.9 % (39.0-52.0); Hemoglobin 8.2 g/dL (13.0-18.0)
[2025-05-02] VITALS (8 sets, daily range): BP systolic 114–128; BP diastolic 66–81; PULSE 97; O2SAT 98
[2025-05-02 07:19] LABS: % Basophils 0.3 % (0-2); % Immature Granulocytes 2.7 % (0-0.5); % Lymphocytes 14.2 % (20.5-51.1); % Monocytes 9.1 % (1.7-9.3); % Neutrophils 71.7 % (42.2-75.2); Absolute Eosinophils 0.2 10^3/uL (0-0.7); Absolute Immature Granulocytes 0.3 10^3/uL (0-0.05); Absolute Lymphocytes 1.5 10^3/uL (1.2-3.4); Absolute Neutrophils 7.8 10^3/uL (1.4-6.5); Hematocrit 24.4 % (39.0-52.0); Hemoglobin 8.3 g/dL (13.0-18.0); Mean Corpuscular Hgb 28.8 pg (27.0-31.0); Mean Corpuscular Volume 84.7 fL (80.0-94.0); Mean Platelet Volume 10.1 fL (7.4-10.4); Nucleated Red Blood Cells % 0 % (-); Platelet Count 193 10^3/uL (130-400); Red Blood Cell Count 2.88 10^6/uL (4.70-6.10); Red Cell Dist. Width 14.6 % (11.5-14.5); White Blood Cell Count 10.9 10^3/uL (4.8-10.8)
[2025-05-02 07:50] LABS: Glucose - Point of Care 163 mg/dl (70-99)
[2025-05-02 07:55] LABS: Blood Urea Nitrogen 38 mg/dl (9-20); Calcium 7.9 mg/dl (8.4-10.2); Carbon Dioxide 24 mmol/L (22-30); Chloride 104 mmol/L (98-107); Estimated Creatinine Clearance 24 ml/min; Glucose 163 mg/dl (70-99); Potassium 4.4 mmol/L (3.5-5.1); Sodium 135 mmol/L (135-145); eGFR 20.87
[2025-05-02] MEDS: UNASYN IV (08:49)
[2025-05-02] MEDS: ProAmatine 5 MG PO ×3 (08:51→18:00)
[2025-05-02] MEDS: FEOSOL 325 MG PO (08:52)
[2025-05-02] MEDS: FLOMAX 0.4 MG PO (08:52)
[2025-05-02] MEDS: DESENEX/MITRAZOL/ZEASORB 1 APPLIC TOPICAL ×2 (08:52→19:40)
[2025-05-02] MEDS: PROTONIX 40 MG PO (08:52)
[2025-05-02] MEDS: CRESTOR 40 MG PO (08:52)
[2025-05-02] MEDS: NEURONTIN 100 MG PO ×3 (08:52→21:48)
[2025-05-02] MEDS: TOPROL XL 50 MG PO (08:52)
[2025-05-02] MEDS: NOVOLOG FLEXPEN-MODERATE RESISTANCE 1 UNITS SC ×2 (08:53→11:43)
[2025-05-02] MEDS: ROXICODONE 5 MG PO ×2 (08:57→21:48)
[2025-05-02 11:31] LABS: Glucose - Point of Care 179 mg/dl (70-99)
--- NOTE | 2025-05-02 12:00 | W.PN.ID1 ---
Date of Service
Date of Service: May 02, 2025
Today's Communication
Continue antibiotics. Change to meropenem. See below�
Assessment / Plan
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
- s/p left hallux and partial first ray amp (04/24/2025)
- s/p (L) TMA (04/30/25)
Retroperitoneal hematoma
CORNELIUS
Leukocytosis
Elevated CRP / ESR
DM type II
HTN
HLD
A-fib (Eliquis)
Aortic stenosis
Recommendations:
Cultures with Enterococcus, Strep. species and Proteus susceptible to ampicillin.
Creatinine slightly up from baseline, but may be multifactorial. Patient found to have urinary eosinophils, though which raises the specter of some component of AIN.
Discontinue further Unasyn and begin meropenem.
Follow white count and temperature curve.
Monitor creatinine
Glucose control to facilitate leukocyte function.
����������������������������������������������������������
Chief Complaint
-: Other (Left foot gangrene.)
Subjective / Review of Systems
Patient seen and examined. Reports left foot feeling well. No significant pain.
Review of Systems: No Fever and No Chills
Vital Signs / Physical Exam
Vital Signs
Vital Signs
Temp Pulse Resp BP Pulse Ox
98.4 F 107 18 116/81 96
05/02/25 11:20 05/02/25 11:20 05/02/25 11:20 05/02/25 11:20 05/02/25 11:20
Physical Exam
Constitutional: No Acute Distress, Comfortable and Non-toxic
Eyes: No Conjunctival Hemorrhage and Sclera Anicteric
Pulmonary: Clear and Non Labored
Gastrointestinal: Soft, Non Tender and Non Distended
Extremities: Edema (Left lower extremity) and Other (Left foot dressed. S/p TMA.); Negative Erythema
Neurological: Awake and Alert
Psychological: Calm
Objective Data
Lab Data
Lab Results
05/02/25 06:40
05/02/25 06:40
ESR 84 mm/hour (0-20) H 04/22/25 21:17
PT 16.4 Sec (11.4-14.6) H 05/01/25 09:14
INR 1.29 05/01/25 09:14
APTT 37.4 Sec (23.4-35.0) H 05/01/25 09:14
Estimated Creat Clear 24 ml/min 05/02/25 06:40
Lactic Acid 1.4 mmol/L (0.7-2.0) 04/22/25 17:30
Total Bilirubin 0.7 mg/dl (0.2-1.3) 04/23/25 05:49
AST 37 U/L (17-59) 04/23/25 05:49
ALT 18 U/L (0-50) 04/23/25 05:49
Alkaline Phosphatase 133 U/L (38-126) H 04/23/25 05:49
C-Reactive Protein 227.00 mg/L (0.0-10.00) H 04/22/25 15:28
Most recent labs reviewed.
Micro Results:
04/24/25 16:34 Wound Culture - Final
Foot - Left Proteus mirabilis
Enterococcus faecalis
Streptococcus species
Gram Stain - Final
04/24/25 16:34 Anaerobic Culture - Final
Foot - Left Peptostreptococcus prevotii
04/22/25 17:30 Blood Culture - Final
Blood/Venous No Growth - Final Report
04/22/25 17:30 Blood Culture - Final
Blood/Venous No Growth - Final Report
04/22/25 17:31 Wound Culture - Final
Foot - Left Proteus mirabilis
Enterococcus faecalis
Gram Stain - Final
04/22/25 23:15 Urine Culture - Final
Urine Proteus mirabilis
04/22/25 23:15 MRSA Screen - Final
Nose No Methicillin Resistant Staphylococcus aureus isolated.
Wound/abscess/other Cult Final 04/22/25
Moderate Proteus mirabilis
Many Enterococcus faecalis
Few Mixed skin susan
Organism 1 Proteus mirabilis
Organism 2 Enterococcus faecalis
P.MIRABILI ENTFCL
M.I.C. RX M.I.C. RX
--------- --- --------- ---
Amoxicillin/Potas. Clavulanate <=8/4 S
Ampicillin <=8 S <=2 S
Ampicillin/Sulbactam <=4/2 S
Aztreonam <=4 S
Cefazolin <=2 S
Ertapenem <=0.5 S
Ciprofloxacin <=0.25 S
Gentamicin <=2 S
Gentamicin Synergy Screen <=500 S
Meropenem <=1 S
Piperacillin/Tazobactam <=8 S
Tetracycline >8 R
Tobramycin <=2 S
Trimethoprim/Sulfamethoxazole <=2/38 S
Vancomycin 1 S
Imaging:
05/01/2025 CT abdomen pelvis: Unenhanced liver, spleen and pancreas are unremarkable. Left kidney is displaced anteriorly due to a large left retroperitoneal hematoma. No evidence of active bleeding. Please see full dictation for additional detail.
04/24/2025 Lower extremity arterial ultrasound with JUNG: 1. Right lower extremity: JUNG not obtainable secondary to noncompressibility of the vessels. TBI, which is more reliable in this setting, is within normal limits. Multiphasic waveforms from
common femoral through popliteal artery with no velocity elevation to suggest any significant stenosis. Continuous Doppler waveforms at the dorsalis pedis and posterior tibial arteries are also multiphasic.
2. Left lower extremity: JUNG not obtainable secondary to noncompressible vessels. TBI, which is more reliable in this setting, is severely reduced 0.22. Multiphasic waveforms in the common femoral and profunda with transition to monophasic waveforms
throughout the superficial femoral and popliteal arteries. However, no discrete stenosis is identified. Continuous Doppler waveforms at the dorsalis pedis and posterior tibial arteries are monophasic.
3. Right groin small seromatous appearing collection measuring 1.1 x 1.4 cm.
04/23/2025 MRI left lower extremity without contrast: No evidence of osteomyelitis. Small foci of decreased signal intensity within the soft tissues likely representing soft tissue air from plantar wound and superior extension. Please see full
dictation for additional detail.
04/22/2025 Left foot x-ray: There are 2 soft tissue lucencies about the base of the great toe. The larger is located laterally and is teardrop in shape. It measures 7 mm. This is 6 mm from the closest osseous structure of the great toe. The second is
smaller and located medially just below the dermis at the level of the first MTP joint. It measures 2 mm.
[2025-05-02 14:00] LABS: Urine Albumin 3+ (Neg - Trace); Urine Bilirubin Negative (Negative); Urine Character Cloudy (Clear); Urine Color Yellow; Urine Glucose 3+ (Negative); Urine Ketone Negative (Negative); Urine Leukocyte 3+ (Negative); Urine Nitrite Negative (Negative); Urine Occult Blood 3+ (Negative); Urine Urobilinogen Negative (Neg - 1+)
[2025-05-02 14:15] LABS: Urine Bacteria Moderate (Negative); Urine Red Blood Cell 0-2 /HPF (0-2); Urine Sperm Seen; Urine Squamous Cell 0-2 /LPF (Few); Urine White Cell 50-60 /HPF (0-5)
--- NOTE | 2025-05-02 14:52 | W.PN.HOSP.TC ---
Today's Communication/Plan
-
Continue IV antibiotics.
Monitor hemoglobin. Transfuse if falls below 8.
Continue Webb catheter.
Follow creatinine.
Repeat urine studies.
If worsening renal function with stable hemoglobin and Webb in place, consider nephrology/urology evaluation. CT scan with large left retroperitoneal hematoma compressing left kidney.
Continue PT
Assessment / Plan
Assessment / Plan
#LLE diabetic wound with cellulitis and sepsis on admission (CORNELIUS, infection,leukocytosis)
#Peripheral arterial disease
Blood cultures remains negative so far
XR L foot noted
MRI of Left foot with no convincing evidence for osteomyelitis. Deformity of the proximal phalanx of left great toe which is morphological appearance suggesting deformity from old fracture. No evidence for soft tissue abscess.
Wound however severely looks infected
Podiatry evaluated patient recommending for amputation. High risk for limb loss.
Wound cultures noted
JUNG noted
ESR/CRP severely elevated
US LLE negative DVT
Antibiotics: Initially on Zosyn narrowed to Unasyn. Plan is to continue antibiotics for another 10 to 14 days after left TMA on 04/30.
Status post partial first ray amputation and per podiatry may require left transmetatarsal amputation. Strict nonweightbearing to left lower extremity. Podiatry also requested vascular input.
Peripheral arterial disease s/p LLE arteriogram with atherosclerosis-no intervention performed. Per vascular, okay to proceed for TMA.
Status post left TMA primarily closed, no further signs of infection. Excellent hemostasis achieved at the time of procedure.
Physical therapy evaluation. Continue nonweightbearing to left lower extremity.
Continue wound care as per podiatry.
Acute on chronic blood loss anemia
Underlying anemia of iron deficiency
CT scan confirms large left-sided retroperitoneal hematoma
Anticoagulation with heparin had been discontinued.
Status post multiple transfusions with hopefully at this point hemoglobin plateau at 8.
Monitor closely
#CORNELIUS on CKD stage 3. Likely multifactorial in the settings of acute retention as well as prerenal stimuli with anemia.
#BPH
serial bladder scan and watch for retention
FENA w/pre-renal. Could be from sepsis, recent surgery, hypotension etc.
Maintain Webb catheter
Transfuse to keep hemoglobin above 8
Avoid hypotension
Initiate midodrine 5 mg p.o. 3 times daily
Hemoglobin 2.8�3 Hope plateau
Repeat urinalysis for sediment and urine sodium
# Severe aortic stenosis status post aortic valve replacement on 03/05/[address] Elam
well healing wound
Inspiris Resilia bioprosthetic aortic valve.
#Afib Paroxysmal
Anticoagulated with Eliquis prior to presentation. AC currently on hold given severe anemia requiring multiple rounds of transfusions.
cont rate control and Toprol dose increased to 50 mg. Heart rate control
Taken off amiodarone due to bradycardia in the past
# Proteus urinary tract infection
# Urinary retention
Already on unasyn
Webb catheter placement due to severe retention s/p removal. Voiding without difficulty
Webb catheter to be replaced on 04/30 given rising creatinine and hypotension.
Continue with Flomax.
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
Update hemoglobin A1c
Has been off glipizide, metformin and Jardiance since admission
Remains hyperglycemic.
Start Lantus 10 units at bedtime
Continue basal bolus protocol with serial
Continue DM diet
#Essential HTN
#HLD
#GERD
# Stage II sacral pressure injury, POA
Wound care and offloading
DVT ppx mechanical. Heparin drip to Eliquis when able.
Full code
Anticipated Discharge: 24 - 48 hours
Subjective/Interval History
-
Date of Service: May 02, 2025
Objective Data
-
Labs:
Laboratory Results
05/02/25
06:40
WBC 10.9 H
Hgb 8.3 L
Hct 24.4 L
Plt Count 193
Sodium 135
Potassium 4.4
Chloride 104
Carbon Dioxide 24
BUN 38 H
Creatinine 3.0 H
Glucose 163 H
Calcium 7.9 L
Vital Signs:
Vital Signs
Temp Pulse Resp BP Pulse Ox
98.4 F 107 18 116/81 96
05/02/25 11:20 05/02/25 11:20 05/02/25 11:20 05/02/25 11:20 05/02/25 11:20
I&O
05/01/25 05/02/25 05/03/25
06:59 06:59 06:59
Intake Total 1230 / 1230 1940 / 1940 520 / 520
Output Total 575 / 575 300 / 300 350 / 350
Balance 655 / 655 1640 / 1640 170 / 170
Physical Exam
-
General: Well Developed and No Apparent Distress
HEENT: Normocephalic, Atraumatic and Moist Mucous Membranes
Respiratory: Clear to Auscultation
Cardiac: Regular Rhythm and S1/S2; Negative Murmur, Rub or Gallop
GI: Soft, Nontender, Nondistended and Normal Bowel Sounds; Negative Organomegaly
Rectal: Deferred by Provider
Musculoskeletal: No Clubbing, No Cyanosis and No Edema
Skin: Negative Rash
Neuro: Nonfocal/Grossly Intact
[2025-05-02 15:14] LABS: Urine Sodium 48 mmol/L (30-90)
[2025-05-02] MEDS: TYLENOL 650 MG PO (15:19)
--- NOTE | 2025-05-02 16:44 | W.PN.SURGUPD ---
Surgical Update
Surgical Update
75 yo M s/p L TMA 04/30
-Patient seen and evaluated at bedside. Dressings removed and wound inspected
-Continue antibiotics for 10-14 days post operatively per ID recs
-NWB to LLE
-Dressings to be changes 2-3x weekly by nursing per orders
-No further surgical plans for LLE
-To follow up with myself at [facility] in 2 weeks
[2025-05-02 17:16] LABS: Glucose - Point of Care 203 mg/dl (70-99)
[2025-05-02] MEDS: MERREM 500 MG IV (17:25)
[2025-05-02] MEDS: STERILE WATER FOR INJECTION 10 ML IV (17:25)
[2025-05-02] MEDS: NOVOLOG FLEXPEN-MODERATE RESISTANCE 3 UNITS SC (17:43)
[2025-05-02] MEDS: LANTUS 0.1 UNITS SC (21:53)
[2025-05-02 21:54] LABS: Glucose - Point of Care 208 mg/dl (70-99)
[2025-05-03] VITALS (9 sets, daily range): BP systolic 120–140; BP diastolic 68–87; PULSE 84; O2SAT 96; BMI 30.4
[2025-05-03] MEDS: MERREM 500 MG IV ×2 (05:10→17:30)
[2025-05-03] MEDS: STERILE WATER FOR INJECTION 10 ML IV ×2 (05:11→17:31)
[2025-05-03 06:41] LABS: % Basophils 0.6 % (0-2); % Eosinophils 2.2 % (0-6); % Immature Granulocytes 2.4 % (0-0.5); % Lymphocytes 13.7 % (20.5-51.1); % Monocytes 9.6 % (1.7-9.3); % Neutrophils 71.5 % (42.2-75.2); Absolute Basophils 0.1 10^3/uL (0-0.2); Absolute Eosinophils 0.2 10^3/uL (0-0.7); Absolute Immature Granulocytes 0.3 10^3/uL (0-0.05); Absolute Lymphocytes 1.4 10^3/uL (1.2-3.4); Absolute Neutrophils 7.4 10^3/uL (1.4-6.5); Hematocrit 25.9 % (39.0-52.0); Hemoglobin 8.6 g/dL (13.0-18.0); Mean Corp Hgb Conc. 33.2 g/dL (33.0-37.0); Mean Corpuscular Hgb 28.6 pg (27.0-31.0); Mean Platelet Volume 9.9 fL (7.4-10.4); Nucleated Red Blood Cells % 0 % (-); Platelet Count 196 10^3/uL (130-400); Red Blood Cell Count 3.01 10^6/uL (4.70-6.10); Red Cell Dist. Width 15.1 % (11.5-14.5); White Blood Cell Count 10.4 10^3/uL (4.8-10.8)
[2025-05-03 06:58] LABS: Blood Urea Nitrogen 39 mg/dl (9-20); Calcium 8.2 mg/dl (8.4-10.2); Carbon Dioxide 23 mmol/L (22-30); Chloride 105 mmol/L (98-107); Estimated Creatinine Clearance 30 ml/min; Glucose 162 mg/dl (70-99); Potassium 4.4 mmol/L (3.5-5.1); Sodium 136 mmol/L (135-145); eGFR 23.68
[2025-05-03 07:18] LABS: Glucose - Point of Care 160 mg/dl (70-99)
[2025-05-03] MEDS: NOVOLOG FLEXPEN-MODERATE RESISTANCE 1 UNITS SC ×2 (08:51→13:07)
[2025-05-03] MEDS: PROTONIX 40 MG PO (08:51)
[2025-05-03] MEDS: FLOMAX 0.4 MG PO (08:54)
[2025-05-03] MEDS: TOPROL XL 50 MG PO (08:54)
[2025-05-03] MEDS: ProAmatine 5 MG PO ×3 (08:54→17:30)
[2025-05-03] MEDS: DESENEX/MITRAZOL/ZEASORB 1 APPLIC TOPICAL ×2 (08:55→19:51)
[2025-05-03] MEDS: FEOSOL 325 MG PO (09:04)
[2025-05-03] MEDS: CRESTOR 40 MG PO (09:04)
[2025-05-03] MEDS: NEURONTIN 100 MG PO ×3 (09:04→21:48)
--- NOTE | 2025-05-03 09:40 | CM ---
Addendum entered by Sakshi Erazo RN 05/03/25 15:00:
CM spoke with son. Son stated that he and his siblings would be researching SNF facilities. CM will remain available as needed.
Addendum entered by Sakshi Erazo RN 05/03/25 14:45:
CM updated with [facility] not accepting and encouraged patient's family to come up with SNF choices.
Patient's son phone number is [phone]
Addendum entered by Sakshi Erazo RN 05/03/25 14:36:
[facility] cannot accept. They are recommending SNF.
Addendum entered by Sakshi Erazo RN 05/03/25 14:15:
CM met with patient, and son in room. Patient's son and would like a referral sent to [facility] for admission consideration. CM sent referral via [facility] and updated [facility] community liaison. CM will await feedback.
CM explained that if [facility] does note accept, family would have to consider SNF. CM directed patient's son to [employer]. go[employer] to research SNF facilities.
Original Note:
Cm reviewed medical records. Patient remains acutely ill. CM will continue to follow for discharge planning
PLAN: SNF vs Acute Rehab.
[2025-05-03 12:17] LABS: Glucose - Point of Care 164 mg/dl (70-99)
--- NOTE | 2025-05-03 14:22 | W.PN.HOSP.TC ---
Today's Communication/Plan
-
Continue antibiotics and wound care.
Hemoglobin finally plateau at 8. Monitor closely
Hold anticoagulation for another 24 to 48 hours.
Physical therapy.
Maintain Webb with plan for TOV with positive creatinine trend over the next 24 to 48 hours
Assessment / Plan
Assessment / Plan
#LLE diabetic wound with cellulitis and sepsis on admission (CORNELIUS, infection,leukocytosis)
#Peripheral arterial disease
Blood cultures remains negative so far
XR L foot noted
MRI of Left foot with no convincing evidence for osteomyelitis. Deformity of the proximal phalanx of left great toe which is morphological appearance suggesting deformity from old fracture. No evidence for soft tissue abscess.
Wound however severely looks infected
Podiatry evaluated patient recommending for amputation. High risk for limb loss.
Wound cultures noted
JUNG noted
ESR/CRP severely elevated
US LLE negative DVT
Antibiotics: Initially on Zosyn narrowed to Unasyn. Plan is to continue antibiotics for another 10 to 14 days after left TMA on 04/30.
Status post partial first ray amputation and per podiatry may require left transmetatarsal amputation. Strict nonweightbearing to left lower extremity. Podiatry also requested vascular input.
Peripheral arterial disease s/p LLE arteriogram with atherosclerosis-no intervention performed. Per vascular, okay to proceed for TMA.
Status post left TMA primarily closed, no further signs of infection. Excellent hemostasis achieved at the time of procedure.
Physical therapy evaluation. Continue nonweightbearing to left lower extremity.
Continue wound care as per podiatry.
Acute on chronic blood loss anemia
Underlying anemia of iron deficiency
CT scan confirms large left-sided retroperitoneal hematoma
Anticoagulation with heparin had been discontinued.
Status post multiple transfusions with hopefully at this point hemoglobin plateau at 8.
Monitor closely
#CORNELIUS on CKD stage 3. Likely multifactorial in the settings of acute retention as well as prerenal stimuli with anemia.
#BPH
serial bladder scan and watch for retention
FENA w/pre-renal. Could be from sepsis, recent surgery, hypotension etc.
Maintain Webb catheter
Transfuse to keep hemoglobin above 8
Avoid hypotension
Initiate midodrine 5 mg p.o. 3 times daily
Hemoglobin 2.8�3 Hope plateau
Repeat urinalysis for sediment and urine sodium
# Severe aortic stenosis status post aortic valve replacement on 03/05/[address] Elam
well healing wound
Inspiris Resilia bioprosthetic aortic valve.
#Afib Paroxysmal
Anticoagulated with Eliquis prior to presentation. AC currently on hold given severe anemia requiring multiple rounds of transfusions.
cont rate control and Toprol dose increased to 50 mg. Heart rate control
Taken off amiodarone due to bradycardia in the past
# Proteus urinary tract infection
# Urinary retention
Already on unasyn
Webb catheter placement due to severe retention s/p removal. Voiding without difficulty
Webb catheter to be replaced on 04/30 given rising creatinine and hypotension.
Continue with Flomax.
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
Update hemoglobin A1c
Has been off glipizide, metformin and Jardiance since admission
Remains hyperglycemic.
Start Lantus 10 units at bedtime
Continue basal bolus protocol with serial
Continue DM diet
#Essential HTN
#HLD
#GERD
# Stage II sacral pressure injury, POA
Wound care and offloading
DVT ppx mechanical. Heparin drip to Eliquis when able.
Full code
Anticipated Discharge: > 48 hours
Subjective/Interval History
-
Date of Service: May 03, 2025
Objective Data
-
Labs:
Laboratory Results
05/03/25
05:17
WBC 10.4
Hgb 8.6 L
Hct 25.9 L
Plt Count 196
Sodium 136
Potassium 4.4
Chloride 105
Carbon Dioxide 23
BUN 39 H
Creatinine 2.7 H
Glucose 162 H
Calcium 8.2 L
Vital Signs:
Vital Signs
Temp Pulse Resp BP Pulse Ox
98.5 F 82 18 139/83 99
05/03/25 11:05 05/03/25 11:05 05/03/25 11:05 05/03/25 11:05 05/03/25 11:05
I&O
05/02/25 05/03/25 05/04/25
06:59 06:59 06:59
Intake Total 1940 / 1940 1360 / 1360 360 / 360
Output Total 300 / 300 2825 / 2825 800 / 800
Balance 1640 / 1640 -1465 / -1465 -440 / -440
Physical Exam
-
General: Well Developed and No Apparent Distress
HEENT: Normocephalic, Atraumatic and Moist Mucous Membranes
Respiratory: Clear to Auscultation
Cardiac: Regular Rhythm and S1/S2; Negative Murmur, Rub or Gallop
GI: Soft, Nontender, Nondistended and Normal Bowel Sounds; Negative Organomegaly
Rectal: Deferred by Provider
Musculoskeletal: No Clubbing, No Cyanosis and No Edema
Skin: Negative Rash
Neuro: Nonfocal/Grossly Intact
--- NOTE | 2025-05-03 14:51 | W.PN.ID1 ---
Date of Service
Date of Service: May 03, 2025
Today's Communication
Continue antibiotics.
Assessment / Plan
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
- s/p left hallux and partial first ray amp (04/24/2025)
- s/p (L) TMA (04/30/25)
Retroperitoneal hematoma
CORNELIUS
Leukocytosis
Elevated CRP / ESR
DM type II
HTN
HLD
A-fib (Eliquis)
Aortic stenosis
Recommendations:
Cultures with Enterococcus, Strep. species and Proteus susceptible to ampicillin.
Creatinine slightly up from baseline, but may be multifactorial. Patient found to have urinary eosinophils, though, which raises the specter of some component of AIN.
Unasyn transitioned to meropenem.
Follow white count and temperature curve.
Monitor creatinine
����������������������������������������������������������
Chief Complaint
-: Other (Left foot gangrene.)
Subjective / Review of Systems
Review of Systems: No Fever and No Chills
Vital Signs / Physical Exam
Vital Signs
Vital Signs
Temp Pulse Resp BP Pulse Ox
98.5 F 82 18 139/83 99
05/03/25 11:05 05/03/25 11:05 05/03/25 11:05 05/03/25 11:05 05/03/25 11:05
Physical Exam
Constitutional: No Acute Distress, Comfortable and Non-toxic
Eyes: No Conjunctival Hemorrhage and Sclera Anicteric
Pulmonary: Clear and Non Labored
Gastrointestinal: Soft, Non Tender and Non Distended
Extremities: Edema (Left lower extremity) and Other (Left foot dressed. S/p TMA.); Negative Erythema
Neurological: Awake and Alert
Psychological: Calm
Objective Data
Lab Data
Lab Results
05/03/25 05:17
05/03/25 05:17
ESR 84 mm/hour (0-20) H 04/22/25 21:17
PT 16.4 Sec (11.4-14.6) H 05/01/25 09:14
INR 1.29 05/01/25 09:14
APTT 37.4 Sec (23.4-35.0) H 05/01/25 09:14
Estimated Creat Clear 30 ml/min 05/03/25 05:17
Lactic Acid 1.4 mmol/L (0.7-2.0) 04/22/25 17:30
Total Bilirubin 0.7 mg/dl (0.2-1.3) 04/23/25 05:49
AST 37 U/L (17-59) 04/23/25 05:49
ALT 18 U/L (0-50) 04/23/25 05:49
Alkaline Phosphatase 133 U/L (38-126) H 04/23/25 05:49
C-Reactive Protein 227.00 mg/L (0.0-10.00) H 04/22/25 15:28
Most recent labs reviewed.
Micro Results:
04/24/25 16:34 Wound Culture - Final
Foot - Left Proteus mirabilis
Enterococcus faecalis
Streptococcus species
Gram Stain - Final
04/24/25 16:34 Anaerobic Culture - Final
Foot - Left Peptostreptococcus prevotii
04/22/25 17:30 Blood Culture - Final
Blood/Venous No Growth - Final Report
04/22/25 17:30 Blood Culture - Final
Blood/Venous No Growth - Final Report
04/22/25 17:31 Wound Culture - Final
Foot - Left Proteus mirabilis
Enterococcus faecalis
Gram Stain - Final
04/22/25 23:15 Urine Culture - Final
Urine Proteus mirabilis
04/22/25 23:15 MRSA Screen - Final
Nose No Methicillin Resistant Staphylococcus aureus isolated.
Wound/abscess/other Cult Final 04/22/25
Moderate Proteus mirabilis
Many Enterococcus faecalis
Few Mixed skin susan
Organism 1 Proteus mirabilis
Organism 2 Enterococcus faecalis
P.MIRABILI ENTFCL
M.I.C. RX M.I.C. RX
--------- --- --------- ---
Amoxicillin/Potas. Clavulanate <=8/4 S
Ampicillin <=8 S <=2 S
Ampicillin/Sulbactam <=4/2 S
Aztreonam <=4 S
Cefazolin <=2 S
Ertapenem <=0.5 S
Ciprofloxacin <=0.25 S
Gentamicin <=2 S
Gentamicin Synergy Screen <=500 S
Meropenem <=1 S
Piperacillin/Tazobactam <=8 S
Tetracycline >8 R
Tobramycin <=2 S
Trimethoprim/Sulfamethoxazole <=2/38 S
Vancomycin 1 S
Imaging:
05/01/2025 CT abdomen pelvis: Unenhanced liver, spleen and pancreas are unremarkable. Left kidney is displaced anteriorly due to a large left retroperitoneal hematoma. No evidence of active bleeding. Please see full dictation for additional detail.
04/24/2025 Lower extremity arterial ultrasound with JUNG: 1. Right lower extremity: JUNG not obtainable secondary to noncompressibility of the vessels. TBI, which is more reliable in this setting, is within normal limits. Multiphasic waveforms from
common femoral through popliteal artery with no velocity elevation to suggest any significant stenosis. Continuous Doppler waveforms at the dorsalis pedis and posterior tibial arteries are also multiphasic.
2. Left lower extremity: JUNG not obtainable secondary to noncompressible vessels. TBI, which is more reliable in this setting, is severely reduced 0.22. Multiphasic waveforms in the common femoral and profunda with transition to monophasic waveforms
throughout the superficial femoral and popliteal arteries. However, no discrete stenosis is identified. Continuous Doppler waveforms at the dorsalis pedis and posterior tibial arteries are monophasic.
3. Right groin small seromatous appearing collection measuring 1.1 x 1.4 cm.
04/23/2025 MRI left lower extremity without contrast: No evidence of osteomyelitis. Small foci of decreased signal intensity within the soft tissues likely representing soft tissue air from plantar wound and superior extension. Please see full
dictation for additional detail.
04/22/2025 Left foot x-ray: There are 2 soft tissue lucencies about the base of the great toe. The larger is located laterally and is teardrop in shape. It measures 7 mm. This is 6 mm from the closest osseous structure of the great toe. The second is
smaller and located medially just below the dermis at the level of the first MTP joint. It measures 2 mm.
[2025-05-03 16:51] LABS: Glucose - Point of Care 236 mg/dl (70-99)
[2025-05-03] MEDS: NOVOLOG FLEXPEN-MODERATE RESISTANCE 3 UNITS SC (16:51)
[2025-05-03 21:48] LABS: Glucose - Point of Care 255 mg/dl (70-99)
[2025-05-03] MEDS: LANTUS 0.1 UNITS SC (21:48)
[2025-05-04 03:29] VITALS: BP 130/71
[2025-05-04] MEDS: MERREM 500 MG IV ×2 (06:22→17:10)
[2025-05-04] MEDS: STERILE WATER FOR INJECTION 10 ML IV ×2 (06:23→17:10)
[2025-05-04 07:21] LABS: Glucose - Point of Care 157 mg/dl (70-99)
[2025-05-04 07:22] VITALS: BMI 29.9
[2025-05-04 07:50] VITALS: BP 132/83
[2025-05-04 08:08] LABS: % Basophils 0.8 % (0-2); % Eosinophils 2.7 % (0-6); % Immature Granulocytes 2.4 % (0-0.5); % Lymphocytes 16.4 % (20.5-51.1); % Neutrophils 65.7 % (42.2-75.2); Absolute Basophils 0.1 10^3/uL (0-0.2); Absolute Eosinophils 0.3 10^3/uL (0-0.7); Absolute Immature Granulocytes 0.2 10^3/uL (0-0.05); Absolute Lymphocytes 1.5 10^3/uL (1.2-3.4); Absolute Monocytes 1.1 10^3/uL (0.1-0.6); Absolute Neutrophils 6.1 10^3/uL (1.4-6.5); Hematocrit 26.7 % (39.0-52.0); Hemoglobin 8.7 g/dL (13.0-18.0); Mean Corp Hgb Conc. 32.6 g/dL (33.0-37.0); Mean Corpuscular Hgb 28.2 pg (27.0-31.0); Mean Corpuscular Volume 86.7 fL (80.0-94.0); Mean Platelet Volume 10.1 fL (7.4-10.4); Nucleated Red Blood Cells % 0 % (-); Platelet Count 211 10^3/uL (130-400); Red Blood Cell Count 3.08 10^6/uL (4.70-6.10); Red Cell Dist. Width 15.8 % (11.5-14.5); White Blood Cell Count 9.3 10^3/uL (4.8-10.8)
[2025-05-04] MEDS: NOVOLOG FLEXPEN-MODERATE RESISTANCE 1 UNITS SC (08:36)
[2025-05-04] MEDS: PROTONIX 40 MG PO (08:38)
[2025-05-04] MEDS: CRESTOR 40 MG PO (08:38)
[2025-05-04] MEDS: TOPROL XL 50 MG PO (08:38)
[2025-05-04] MEDS: FEOSOL 325 MG PO (08:38)
[2025-05-04] MEDS: FLOMAX 0.4 MG PO (08:39)
[2025-05-04] MEDS: ProAmatine 5 MG PO ×3 (08:39→20:05)
[2025-05-04] MEDS: DESENEX/MITRAZOL/ZEASORB 1 APPLIC TOPICAL ×2 (08:39→20:05)
[2025-05-04] MEDS: NEURONTIN 100 MG PO ×3 (08:40→22:03)
[2025-05-04 09:00] LABS: Blood Urea Nitrogen 32 mg/dl (9-20); Calcium 8.2 mg/dl (8.4-10.2); Carbon Dioxide 23 mmol/L (22-30); Chloride 106 mmol/L (98-107); Estimated Creatinine Clearance 32 ml/min; Glucose 149 mg/dl (70-99); Sodium 136 mmol/L (135-145); eGFR 28.71
[2025-05-04 11:26] VITALS: BP 138/76
[2025-05-04 11:50] LABS: Glucose - Point of Care 222 mg/dl (70-99)
[2025-05-04] MEDS: NOVOLOG FLEXPEN-MODERATE RESISTANCE 3 UNITS SC ×2 (11:54→17:09)
[2025-05-04] MEDS: TYLENOL 650 MG PO ×2 (12:27→17:12)
--- NOTE | 2025-05-04 14:04 | W.PN.ID1 ---
Date of Service
Date of Service: May 04, 2025
Today's Communication
Continue antibiotics. See below�
Assessment / Plan
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
- s/p left hallux and partial first ray amp (04/24/2025)
- s/p (L) TMA (04/30/25)
Retroperitoneal hematoma
CORNELIUS
Leukocytosis
Elevated CRP / ESR
DM type II
HTN
HLD
A-fib (Eliquis)
Aortic stenosis
Recommendations:
Cultures with Enterococcus, Strep. species and Proteus susceptible to ampicillin.
Creatinine slightly up from baseline, but may be multifactorial. Patient found to have urinary eosinophils, though, which raises the specter of some component of AIN.
Unasyn transitioned to meropenem.
Given severity of infection, continue with antibiotics through 05/14/2025.
Follow white count and temperature curve.
Monitor creatinine
����������������������������������������������������������
Chief Complaint
-: Other (Left foot gangrene.)
Subjective / Review of Systems
Review of Systems: No Fever and No Chills
Vital Signs / Physical Exam
Vital Signs
Vital Signs
Temp Pulse Resp BP Pulse Ox
99.2 F 77 16 138/76 97
05/04/25 11:26 05/04/25 11:26 05/04/25 11:26 05/04/25 11:26 05/04/25 11:26
Physical Exam
Constitutional: No Acute Distress, Comfortable and Non-toxic
Eyes: No Conjunctival Hemorrhage and Sclera Anicteric
Pulmonary: Clear and Non Labored
Gastrointestinal: Soft, Non Tender and Non Distended
Extremities: Edema (Left lower extremity) and Other (Left foot dressed. S/p TMA.); Negative Erythema
Neurological: Awake and Alert
Psychological: Calm
Objective Data
Lab Data
Lab Results
05/04/25 07:33
05/04/25 07:33
ESR 84 mm/hour (0-20) H 04/22/25 21:17
PT 16.4 Sec (11.4-14.6) H 05/01/25 09:14
INR 1.29 05/01/25 09:14
APTT 37.4 Sec (23.4-35.0) H 05/01/25 09:14
Estimated Creat Clear 32 ml/min 05/04/25 07:33
Lactic Acid 1.4 mmol/L (0.7-2.0) 04/22/25 17:30
Total Bilirubin 0.7 mg/dl (0.2-1.3) 04/23/25 05:49
AST 37 U/L (17-59) 04/23/25 05:49
ALT 18 U/L (0-50) 04/23/25 05:49
Alkaline Phosphatase 133 U/L (38-126) H 04/23/25 05:49
C-Reactive Protein 227.00 mg/L (0.0-10.00) H 04/22/25 15:28
Most recent labs reviewed.
Micro Results:
04/24/25 16:34 Wound Culture - Final
Foot - Left Proteus mirabilis
Enterococcus faecalis
Streptococcus species
Gram Stain - Final
04/24/25 16:34 Anaerobic Culture - Final
Foot - Left Peptostreptococcus prevotii
04/22/25 17:30 Blood Culture - Final
Blood/Venous No Growth - Final Report
04/22/25 17:30 Blood Culture - Final
Blood/Venous No Growth - Final Report
04/22/25 17:31 Wound Culture - Final
Foot - Left Proteus mirabilis
Enterococcus faecalis
Gram Stain - Final
04/22/25 23:15 Urine Culture - Final
Urine Proteus mirabilis
04/22/25 23:15 MRSA Screen - Final
Nose No Methicillin Resistant Staphylococcus aureus isolated.
Wound/abscess/other Cult Final 04/22/25
Moderate Proteus mirabilis
Many Enterococcus faecalis
Few Mixed skin susan
Organism 1 Proteus mirabilis
Organism 2 Enterococcus faecalis
P.MIRABILI ENTFCL
M.I.C. RX M.I.C. RX
--------- --- --------- ---
Amoxicillin/Potas. Clavulanate <=8/4 S
Ampicillin <=8 S <=2 S
Ampicillin/Sulbactam <=4/2 S
Aztreonam <=4 S
Cefazolin <=2 S
Ertapenem <=0.5 S
Ciprofloxacin <=0.25 S
Gentamicin <=2 S
Gentamicin Synergy Screen <=500 S
Meropenem <=1 S
Piperacillin/Tazobactam <=8 S
Tetracycline >8 R
Tobramycin <=2 S
Trimethoprim/Sulfamethoxazole <=2/38 S
Vancomycin 1 S
Imaging:
05/01/2025 CT abdomen pelvis: Unenhanced liver, spleen and pancreas are unremarkable. Left kidney is displaced anteriorly due to a large left retroperitoneal hematoma. No evidence of active bleeding. Please see full dictation for additional detail.
04/24/2025 Lower extremity arterial ultrasound with JUNG: 1. Right lower extremity: JUNG not obtainable secondary to noncompressibility of the vessels. TBI, which is more reliable in this setting, is within normal limits. Multiphasic waveforms from
common femoral through popliteal artery with no velocity elevation to suggest any significant stenosis. Continuous Doppler waveforms at the dorsalis pedis and posterior tibial arteries are also multiphasic.
2. Left lower extremity: JUNG not obtainable secondary to noncompressible vessels. TBI, which is more reliable in this setting, is severely reduced 0.22. Multiphasic waveforms in the common femoral and profunda with transition to monophasic waveforms
throughout the superficial femoral and popliteal arteries. However, no discrete stenosis is identified. Continuous Doppler waveforms at the dorsalis pedis and posterior tibial arteries are monophasic.
3. Right groin small seromatous appearing collection measuring 1.1 x 1.4 cm.
04/23/2025 MRI left lower extremity without contrast: No evidence of osteomyelitis. Small foci of decreased signal intensity within the soft tissues likely representing soft tissue air from plantar wound and superior extension. Please see full
dictation for additional detail.
04/22/2025 Left foot x-ray: There are 2 soft tissue lucencies about the base of the great toe. The larger is located laterally and is teardrop in shape. It measures 7 mm. This is 6 mm from the closest osseous structure of the great toe. The second is
smaller and located medially just below the dermis at the level of the first MTP joint. It measures 2 mm.
Care Review
Plan reviewed with: Physician (Hospitalist)
[2025-05-04 14:43] VITALS: BP 102/71
--- NOTE | 2025-05-04 14:48 | W.PN.HOSP.TC ---
Today's Communication/Plan
-
Hemoglobin stable with transfusions.
Plan is to reinstate anticoagulation with Eliquis on 05/05 and monitor closely.
Creatinine improving at 2.3.
Start voiding trial. Webb catheter to be removed.
If BP stable, wean off midodrine.
Continue IV antibiotics
Continue wound care
Physical therapy
Disposition is for rehab next week early�midweek
Assessment / Plan
Assessment / Plan
#LLE diabetic wound with cellulitis and sepsis on admission (CORNELIUS, infection,leukocytosis)
#Peripheral arterial disease
Blood cultures remains negative so far
XR L foot noted
MRI of Left foot with no convincing evidence for osteomyelitis. Deformity of the proximal phalanx of left great toe which is morphological appearance suggesting deformity from old fracture. No evidence for soft tissue abscess.
Wound however severely looks infected
Podiatry evaluated patient recommending for amputation. High risk for limb loss.
Wound cultures noted
JUNG noted
ESR/CRP severely elevated
US LLE negative DVT
Wound culture multi bacterial pathogens including Proteus Enterococcus and Streptococcus species
Antibiotics: Initially on Zosyn narrowed to Unasyn. With concern for AIN transition to meropenem on 05/03. Plan is to continue antibiotics for another 10 to 14 days after left TMA on 04/30.
Status post partial first ray amputation and per podiatry may require left transmetatarsal amputation. Strict nonweightbearing to left lower extremity. Podiatry also requested vascular input.
Peripheral arterial disease s/p LLE arteriogram with atherosclerosis-no intervention performed. Cleared by vascular surgery for TMA.
Status post left TMA primarily closed, no further signs of infection. Excellent hemostasis achieved at the time of procedure.
Physical therapy evaluation. Continue nonweightbearing to left lower extremity.
Continue wound care as per podiatry.
Acute on chronic blood loss anemia
Underlying anemia of iron deficiency
CT scan confirms large left-sided retroperitoneal hematoma
Anticoagulation with heparin had been discontinued.
Status post multiple transfusions with hopefully at this point hemoglobin plateau at 8.
Monitor closely
#CORNELIUS on CKD stage 3.
Likely multifactorial in the settings of acute retention as well as prerenal stimuli with anemia, IV contrast exposure.
Urine eosinophils 1% with no peripheral eosinophilia. Initially reasonable concern for AIN secondary to antibiotics.
Initial urine sodium consistent with prerenal stimuli
Renal function improving with hemodynamic stabilization and treatment of anemia.
Voiding trial to be initiated on 05/04
Consider weaning off midodrine if not hypotensive
# Severe aortic stenosis status post aortic valve replacement on 03/05/[address] Elam
well healing wound
Inspiris Resilia bioprosthetic aortic valve.
#Afib Paroxysmal
Anticoagulated with Eliquis prior to presentation. AC currently on hold given severe anemia requiring multiple rounds of transfusions.
cont rate control and Toprol dose increased to 50 mg. Heart rate control
Taken off amiodarone due to bradycardia in the past
# Proteus urinary tract infection
# Urinary retention
Treated with Unasyn
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
Hemoglobin A1c 6.3
Has been off glipizide, metformin and Jardiance since admission
Remains hyperglycemic.
Initiated and continue with Lantus 10 units at bedtime
Continue basal bolus protocol with serial
Continue DM diet
#Essential HTN
#HLD
#GERD
# Stage II sacral pressure injury, POA
Wound care and offloading
DVT ppx mechanical. Heparin drip to Eliquis when able.
Full code
Anticipated Discharge: > 48 hours
Subjective/Interval History
-
Date of Service: May 04, 2025
Objective Data
-
Labs:
Laboratory Results
05/04/25
07:33
WBC 9.3
Hgb 8.7 L
Hct 26.7 L
Plt Count 211
Sodium 136
Potassium 4.0
Chloride 106
Carbon Dioxide 23
BUN 32 H
Creatinine 2.3 H
Glucose 149 H
Calcium 8.2 L
Vital Signs:
Vital Signs
Temp Pulse Resp BP Pulse Ox
98.5 F 108 18 102/71 96
05/04/25 14:43 05/04/25 14:43 05/04/25 14:43 05/04/25 14:43 05/04/25 14:43
I&O
05/03/25 05/04/25 05/05/25
06:59 06:59 06:59
Intake Total 1360 / 1360 360 / 360 500 / 500
Output Total 2825 / 2825 1600 / 1600 2600 / 2600
Balance -1465 / -1465 -1240 / -1240 -2100 / -2100
Physical Exam
-
General: Well Developed and No Apparent Distress
HEENT: Normocephalic, Atraumatic and Moist Mucous Membranes
Respiratory: Clear to Auscultation
Cardiac: Regular Rhythm and S1/S2; Negative Murmur, Rub or Gallop
GI: Soft, Nontender, Nondistended and Normal Bowel Sounds; Negative Organomegaly
Rectal: Deferred by Provider
Musculoskeletal: No Clubbing, No Cyanosis and No Edema
Skin: Negative Rash
Neuro: Nonfocal/Grossly Intact
[2025-05-04 16:32] LABS: Glucose - Point of Care 246 mg/dl (70-99)
[2025-05-04 19:51] VITALS: BP 95/64
[2025-05-04 21:55] LABS: Glucose - Point of Care 232 mg/dl (70-99)
[2025-05-04] MEDS: LANTUS 0.1 UNITS SC (22:06)
[2025-05-04 23:08] VITALS: BP 125/80
[2025-05-05] MEDS: MERREM 500 MG IV ×3 (01:04→17:44)
[2025-05-05] MEDS: STERILE WATER FOR INJECTION 10 ML IV ×3 (01:04→17:44)
[2025-05-05 06:00] VITALS: BMI 29.8
[2025-05-05 06:12] LABS: % Basophils 0.6 % (0-2); % Immature Granulocytes 1.8 % (0-0.5); % Lymphocytes 16.4 % (20.5-51.1); % Monocytes 12.1 % (1.7-9.3); % Neutrophils 66.1 % (42.2-75.2); Absolute Basophils 0.1 10^3/uL (0-0.2); Absolute Eosinophils 0.3 10^3/uL (0-0.7); Absolute Immature Granulocytes 0.2 10^3/uL (0-0.05); Absolute Lymphocytes 1.6 10^3/uL (1.2-3.4); Absolute Monocytes 1.2 10^3/uL (0.1-0.6); Absolute Neutrophils 6.5 10^3/uL (1.4-6.5); Hematocrit 26.8 % (39.0-52.0); Hemoglobin 8.9 g/dL (13.0-18.0); Mean Corp Hgb Conc. 33.2 g/dL (33.0-37.0); Mean Corpuscular Hgb 28.8 pg (27.0-31.0); Mean Corpuscular Volume 86.7 fL (80.0-94.0); Mean Platelet Volume 9.7 fL (7.4-10.4); Nucleated Red Blood Cells % 0 % (-); Platelet Count 210 10^3/uL (130-400); Red Blood Cell Count 3.09 10^6/uL (4.70-6.10); Red Cell Dist. Width 15.5 % (11.5-14.5); White Blood Cell Count 9.9 10^3/uL (4.8-10.8)
[2025-05-05 06:32] LABS: Blood Urea Nitrogen 30 mg/dl (9-20); Calcium 8.3 mg/dl (8.4-10.2); Carbon Dioxide 22 mmol/L (22-30); Chloride 108 mmol/L (98-107); Estimated Creatinine Clearance 35 ml/min; Glucose 142 mg/dl (70-99); Sodium 136 mmol/L (135-145); eGFR 32.02
[2025-05-05 07:35] VITALS: BP 136/86
[2025-05-05 07:40] VITALS: BP 136/86
--- NOTE | 2025-05-05 07:56 | W.PN.HOSP.TC ---
Today's Communication/Plan
-
Consult cardiology for management of uncontrolled A fib and decision about AC
Increase Lantus
Assessment / Plan
Assessment / Plan
Physical Exam
General: Well Developed and Well Nourished. Not in distress.
HEENT: Moist Mucous Membranes, Anicteric and PERRLA
Respiratory: Clear to Auscultation and Non-Labored Respirations; Negative Wheezes, Rales or Rhonchi
Cardiac: Regular Rhythm and S1/S2;
GI: Soft, Nontender, Nondistended and Normal Bowel Sounds
Musculoskeletal: No joint swelling. �Negative Edema, Left Lower Extrem
Skin: Warm, Dry and no rash
Neuro: Awake and AO x 3, non-focal exam.
Psych: Calm
#LLE diabetic wound with cellulitis and sepsis on admission (CORNELIUS, infection,leukocytosis)
#Peripheral arterial disease
Blood cultures remains negative so far
XR L foot noted
MRI of Left foot with no convincing evidence for osteomyelitis. Deformity of the proximal phalanx of left great toe which is morphological appearance suggesting deformity from old fracture. No evidence for soft tissue abscess.
Wound however severely looks infected
Podiatry evaluated patient recommending for amputation. High risk for limb loss.
Wound cultures noted
JUNG noted
ESR/CRP severely elevated
US LLE negative DVT
Wound culture multi bacterial pathogens including Proteus Enterococcus and Streptococcus species
Antibiotics: Initially on Zosyn narrowed to Unasyn. With concern for AIN transition to meropenem on 05/03. Plan is to continue antibiotics for another 10 to 14 days after left TMA on 04/30.
Status post partial first ray amputation and per podiatry may require left transmetatarsal amputation. Strict nonweightbearing to left lower extremity. Podiatry also requested vascular input.
Peripheral arterial disease s/p LLE arteriogram with atherosclerosis-no intervention performed. Cleared by vascular surgery for TMA.
Status post left TMA primarily closed, no further signs of infection. Excellent hemostasis achieved at the time of procedure.
Physical therapy evaluation. Continue nonweightbearing to left lower extremity.
Continue wound care as per podiatry.
Acute on chronic blood loss anemia
Underlying anemia of iron deficiency
CT scan confirms large left-sided retroperitoneal hematoma
Anticoagulation with heparin had been discontinued.
Status post multiple transfusions with hopefully at this point hemoglobin plateau at 8.
Monitor closely
#CORNELIUS on CKD stage 3.
Likely multifactorial in the settings of acute retention as well as prerenal stimuli with anemia, IV contrast exposure.
Urine eosinophils 1% with no peripheral eosinophilia. Initially reasonable concern for AIN secondary to antibiotics.
Initial urine sodium consistent with prerenal stimuli
Renal function improving with hemodynamic stabilization and treatment of anemia.
Voiding trial to be initiated on 05/04
Consider weaning off midodrine if not hypotensive
# Severe aortic stenosis status post aortic valve replacement on 03/05/[address] Elam
well healing wound
Inspiris Resilia bioprosthetic aortic valve.
#Afib Paroxysmal
Anticoagulated with Eliquis prior to presentation. AC currently on hold given severe anemia requiring multiple rounds of transfusions.
Rate uncontrolled
On Toprol dose increased to 50 mg.
Taken off amiodarone due to bradycardia in the past
Will consult cardiology, pt has hypotension and on amiodarone, might need amiodarone back?
# Proteus urinary tract infection
# Urinary retention
Treated with Unasyn
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
Hemoglobin A1c 6.3
Has been off glipizide, metformin and Jardiance since admission
Remains hyperglycemic.
Initiated and continue with Lantus 10 units at bedtime, increase to 15 units
Continue basal bolus protocol with serial
Continue DM diet
#Essential HTN
#HLD
#GERD
# Stage II sacral pressure injury, POA
Wound care and offloading
DVT ppx mechanical.
Full code
Total time spent to see the patient, examine the patient, review data and lab result, discuss treatment plan with patient, nursing staff around 55 minutes
Anticipated Discharge: > 48 hours
Subjective/Interval History
-
Date of Service: May 05, 2025
He denies chest pain or sob
he reports pain in foot at times but medication sis helping
Objective Data
-
Labs:
Laboratory Results
05/05/25
05:47
WBC 9.9
Hgb 8.9 L
Hct 26.8 L
Plt Count 210
Sodium 136
Potassium 4.0
Chloride 108 H
Carbon Dioxide 22
BUN 30 H
Creatinine 2.1 H
Glucose 142 H
Calcium 8.3 L
Vital Signs:
Vital Signs
Temp Pulse Resp BP Pulse Ox
98.7 F 75 16 125/80 97
05/04/25 23:08 05/04/25 23:08 05/04/25 23:08 05/04/25 23:08 05/04/25 23:08
I&O
05/04/25 05/05/25 05/06/25
06:59 06:59 06:59
Intake Total 360 / 360 940 / 940
Output Total 1600 / 1600 3675 / 3675
Balance -1240 / -1240 -2735 / -2735
[2025-05-05 08:03] LABS: Glucose - Point of Care 142 mg/dl (70-99)
[2025-05-05] MEDS: NOVOLOG FLEXPEN-MODERATE RESISTANCE SC (08:10)
[2025-05-05] MEDS: FEOSOL 325 MG PO (08:59)
[2025-05-05] MEDS: PROTONIX 40 MG PO (08:59)
[2025-05-05] MEDS: CRESTOR 40 MG PO (08:59)
[2025-05-05] MEDS: FLOMAX 0.4 MG PO (08:59)
[2025-05-05] MEDS: NEURONTIN 100 MG PO ×3 (08:59→21:26)
[2025-05-05] MEDS: TOPROL XL 50 MG PO (09:00)
[2025-05-05] MEDS: DESENEX/MITRAZOL/ZEASORB 1 APPLIC TOPICAL ×2 (09:01→19:43)
[2025-05-05] MEDS: ProAmatine 5 MG PO ×3 (09:01→17:44)
--- NOTE | 2025-05-05 09:43 | CON.CAR ---
Addendum entered and electronically signed by Troy Laurent MD 05/05/25 16:39:
I saw and examined the patient.
The CULINARY DIRECTOR's note was reviewed and I agree with the note.
Comment:
75 y/o pt with severe s/p AVR 03/05/25, permanent AF, HTN, hyperlipidemia, type II DM who presented to on 04/22/25 with a L foot wound. Diagnosed with severe left foot SSTI with gas gangrene, s/p L TMA (04/30/25) with course complicated by
postoperative anemia requiring transfusion, found to have large retroperitoneal hematoma (15 x 12 x 12 cm) on CTAP. Cardiology is consulted for management of A-fib with RVR and anticoagulation in the setting of retroperitoneal hematoma. Patient
denies retroperitoneal pain, palpitations, or other CV symptoms.
Physical exam notable for L TMA, irregular rate and rhythm, no murmurs, minimal lower extremity edema, and clear lungs.
For his atrial fibrillation with RVR, heart rates have been in the 100s�110s. He is already on metoprolol 50 mg daily and we will add 25 mg at night. We will need to monitor blood pressures given that he has hypotension on midodrine. If he cannot
tolerate up titration of beta-peyton, we will start amiodarone. In terms of anticoagulation, [id number] score is 4 and he was on Eliquis 5 mg twice daily prior to admission. Based on CBC trend, his RP hematoma likely occurred on 04/29 evening.
He last required transfusion on 05/01. We will resume Eliquis tonight and closely monitor for pain, hypotension, or drop in hemoglobin.
Original Note:
Consultation
Consultation Request
Date/Time Consultation Requested: 05/05/2025 0800
Date/Time Consultation Performed: 05/05/2025 0900
Requesting Provider: Dr. Babcock
Performing Provider: Dr. Laurent
Reason for Consultation: AF RVR
Medical History
-
Chief Complaint: AF RVR
History of Present Illness:
Primary outpatient divemaster: Dr. Araujo
75 y/o pt with severe s/p AVR w/ placement of #27 Sumeet Collazo, Dr. Boyer 03/05/25, also had ELAA, permanent AF, HTN, hyperlipidemia, type II DM who presented to on 04/22/25 with a L foot wound. Diagnosed with severe left foot SSTI with
gas gangrene
s/p left hallux and partial first ray amp (04/24/2025) s/p (L) TMA (04/30/25). Cultures with Enterococcus, Strep. species and Proteus. On antibiotics. He was noted to be anemic. 05/01/25 CT abdomen and pelvis noted large left retroperitoneal hematoma
15 cm length by 12 x 12 cm. Pt. did not recall any trauma. Anticoagulation was held and he was transfused. AF rates are noted to be elevated and cardiology is being consulted for assistance with rate control.
Past Medical History
Past Medical History: Other ( s/p AVR 03/05/25, HTN, type II DM, anemia, prior CORNELIUS,permanent AF,GERD,)
Past Surgical History: Other (AVR 02/2025, L foot TMA 04/30)
Social History
Tobacco: Non-Smoker
Alcohol: None
Living: With Family
Family History
Family History: Reviewed & Not Pertinent
Allergies / Home Medications
Allergy/AdvReac Type Severity Reaction Status Date / Time
No Known Allergies Allergy Verified 04/22/25 15:17
�Medication �Instructions �Recorded �Confirmed �Type
metformin 500 mg tablet 500 mg PO BID Diabetes 01/17/25 04/22/25 History
rosuvastatin 40 mg tablet 40 mg PO HS High Cholesterol 01/17/25 04/22/25 History
ferrous sulfate 325 mg (65 mg 325 mg PO DAILY Supplement 02/21/25 04/22/25 History
iron) tablet
multivitamin 1 tab PO DAILY Supplement 02/21/25 04/22/25 History
apixaban 5 mg tablet (Eliquis) 5 mg PO BID Blood clot 03/09/25 04/22/25 Rx
prevention/tx #0 tabs
metoprolol succinate 25 mg 25 mg PO DAILY Heart 03/09/25 04/22/25 Rx
tablet,extended release 24 hr disease/condition #0 tabs
acetaminophen 325 mg tablet 650 mg PO Q4HPRN PRN mild pain 04/22/25 04/22/25 History
empagliflozin 25 mg tablet 12.5 mg PO DAILY Diabetes 04/22/25 04/22/25 History
(Jardiance)
gabapentin 100 mg capsule 100 mg PO TID@0800,1200,2000 04/22/25 04/22/25 History
neuropathic pain
glipizide 2.5 mg tablet 2.5 mg PO DAILY Diabetes 04/22/25 04/22/25 History
midodrine 5 mg tablet 5 mg PO DAILYPRN PRN low bp 04/22/25 04/22/25 History
pantoprazole 40 mg tablet,delayed 40 mg PO DAILY gerd 04/22/25 04/22/25 History
release
tamsulosin 0.4 mg capsule 0.4 mg PO HS Urinary issue 04/22/25 04/22/25 History
Review of Systems
-
History Source: Patient
Constitutional: No Symptoms
EENT: No Symptoms
Respiratory: No Symptoms
Cardiac: No Symptoms
Abdomen/GI: No Symptoms
: No Symptoms
Musculoskeletal: Other (unable to ambulate with L foot s/p sugery )
Skin: No Symptoms
Physical Exam
Vital Signs
Temp Pulse Resp BP Pulse Ox
98.6 F 93 16 136/86 97
05/05/25 07:40 05/05/25 09:01 05/05/25 07:40 05/05/25 09:01 05/05/25 07:40
Lab Results
05/05/25 05:47
05/05/25 05:47
Physical Exam
General: Well Developed and Well Nourished
HEENT: Normocephalic and Moist Mucous Membranes
Respiratory: Clear
Cardiac: S1/S2 and Irregular Rhythm
Breast: Deferred by me
GI: Soft, Non Distended and Normal Bowel Sounds
Musculoskeletal: No Edema
Skin: Warm and Dry
Neuro: AO x 3
Psych: Calm
Impression / Plan
-
Severe L foor SSTI with gas gangrene:
-ID following
-cultures with enterococcus, strep species and proteus
-IV antibiotics.
-s/p L hallux and partial first amp 04/24/25, L TMA 04/30/25. Podiatry following
AF RVR:
-permanent AF, pt asymptomatic
-metoprolol increased this admit. will titrate and monitor.
-Pt with active infection, anemia this admit.
-pt currently on midodrine for low BP.
-CHADSVASC 4 ( age, DM,prior HTN history noted) -andrei held this admit with anemia requiring transfusion and L retroperitoneal hematoma
s/p AVR 02/2025:
-Pt has not been able to follow up with DR. Araujo since AVR.
-Has not had a follow up echo since surgery, update echo
-antibiotics per ID for current infection.
CORNELIUS on CKD3:
-admit creat 04/22 2.6, 05/05 2.1
Data Reviewed
-
EKG: Tracing Personally Visualized and interpreted (EKG 04/23/25 AF 119 bpm)
Medical Tests (Nuc Med, Echo etc): Report Reviewed by me (Intra- op LUIS FELIPE 03/05/25Mildly dilated left ventricle with concentric hypertrophy. Normal systolic function with LVEF of 55-60%. No regional wall motion abnormalities seen. Normal right
systolic ventricular function. Dilated left and right atria. Large left atrial appendage free of clot. Modera)
Labs: Labs Reviewed by me and Discussed with Physician
[2025-05-05 11:30] VITALS: BP 139/91
[2025-05-05 12:02] LABS: Glucose - Point of Care 228 mg/dl (70-99)
[2025-05-05] MEDS: NOVOLOG FLEXPEN-MODERATE RESISTANCE 3 UNITS SC (12:34)
[2025-05-05 15:50] VITALS: BP 126/81
[2025-05-05 16:29] LABS: Glucose - Point of Care 269 mg/dl (70-99)
[2025-05-05] MEDS: NOVOLOG FLEXPEN-MODERATE RESISTANCE 5 UNITS SC (16:29)
[2025-05-05 19:20] VITALS: BP 123/71
[2025-05-05] MEDS: ELIQUIS 5 MG PO (19:43)
[2025-05-05] MEDS: TOPROL XL 25 MG PO (21:26)
[2025-05-05] MEDS: ROXICODONE 5 MG PO (21:26)
[2025-05-05] MEDS: LANTUS 0.15 UNITS SC (21:27)
[2025-05-05 21:54] LABS: Glucose - Point of Care 214 mg/dl (70-99)
[2025-05-05 23:08] VITALS: BP 140/83
[2025-05-06] MEDS: STERILE WATER FOR INJECTION 10 ML IV ×3 (02:02→17:31)
[2025-05-06] MEDS: MERREM 500 MG IV ×3 (02:02→17:31)
[2025-05-06 03:10] VITALS: BP 129/80
[2025-05-06 06:00] VITALS: BMI 29.6
[2025-05-06 07:18] LABS: Glucose - Point of Care 230 mg/dl (70-99)
[2025-05-06 07:20] VITALS: BP 148/75
[2025-05-06] MEDS: NOVOLOG FLEXPEN-MODERATE RESISTANCE 3 UNITS SC (08:31)
[2025-05-06] MEDS: ELIQUIS 5 MG PO ×2 (08:32→20:32)
[2025-05-06] MEDS: FLOMAX 0.4 MG PO (08:32)
[2025-05-06] MEDS: ProAmatine 5 MG PO ×3 (08:32→17:31)
[2025-05-06] MEDS: NEURONTIN 100 MG PO ×3 (08:33→21:42)
[2025-05-06] MEDS: DESENEX/MITRAZOL/ZEASORB 1 APPLIC TOPICAL ×2 (08:33→20:33)
[2025-05-06] MEDS: FEOSOL 325 MG PO (08:33)
[2025-05-06] MEDS: PROTONIX 40 MG PO (08:33)
[2025-05-06] MEDS: TOPROL XL 50 MG PO (08:33)
[2025-05-06] MEDS: CRESTOR 40 MG PO (08:33)
--- NOTE | 2025-05-06 08:51 | W.PN.HOSP.TC ---
Today's Communication/Plan
-
Increase Lantus
c/w higher dose BB
Resumed Eliquis, HGB today and in AM
Assessment / Plan
Assessment / Plan
Physical Exam
General: Well Developed and Well Nourished. Not in distress.
HEENT: Moist Mucous Membranes, Anicteric and PERRLA
Respiratory: Clear to Auscultation and Non-Labored Respirations; Negative Wheezes, Rales or Rhonchi
Cardiac: Regular Rhythm and S1/S2;
GI: Soft, Nontender, Nondistended and Normal Bowel Sounds
Musculoskeletal: No joint swelling. �Negative Edema, Left Lower Extrem
Skin: Warm, Dry and no rash
Neuro: Awake and AO x 3, non-focal exam.
Psych: Calm
#LLE diabetic wound with cellulitis and sepsis on admission (CORNELIUS, infection,leukocytosis)
#Peripheral arterial disease
Blood cultures remains negative so far
XR L foot noted
MRI of Left foot with no convincing evidence for osteomyelitis. Deformity of the proximal phalanx of left great toe which is morphological appearance suggesting deformity from old fracture. No evidence for soft tissue abscess.
Wound however severely looks infected
Podiatry evaluated patient recommending for amputation. High risk for limb loss.
Wound cultures noted
JUNG noted
ESR/CRP severely elevated
US LLE negative DVT
Wound culture multi bacterial pathogens including Proteus Enterococcus and Streptococcus species
Antibiotics: Initially on Zosyn narrowed to Unasyn. With concern for AIN transition to meropenem on 05/03. Plan is to continue antibiotics for another 10 to 14 days after left TMA on 04/30.
Status post partial first ray amputation and per podiatry may require left transmetatarsal amputation. Strict nonweightbearing to left lower extremity. Podiatry also requested vascular input.
Peripheral arterial disease s/p LLE arteriogram with atherosclerosis-no intervention performed. Cleared by vascular surgery for TMA.
Status post left TMA primarily closed, no further signs of infection. Excellent hemostasis achieved at the time of procedure.
Physical therapy evaluation. Continue nonweightbearing to left lower extremity.
Continue wound care as per podiatry.
Acute on chronic blood loss anemia
Stable HGB, resumed Eliquis
Underlying anemia of iron deficiency
CT scan confirms large left-sided retroperitoneal hematoma, no abdominal pain.
Status post multiple transfusions.
Monitor closely
#CORNELIUS on CKD stage 3.
Likely multifactorial in the settings of acute retention as well as prerenal stimuli with anemia, IV contrast exposure.
Urine eosinophils 1% with no peripheral eosinophilia. Initially reasonable concern for AIN secondary to antibiotics.
Initial urine sodium consistent with prerenal stimuli
Renal function improving with hemodynamic stabilization and treatment of anemia.
Voiding trial to be initiated on 05/04
Consider weaning off midodrine if not hypotensive
# Severe aortic stenosis status post aortic valve replacement on 03/05/[address] Elam
well healing wound
Inspiris Resilia bioprosthetic aortic valve.
#Afib Paroxysmal
Anticoagulated with Eliquis prior to presentation. AC currently on hold given severe anemia requiring multiple rounds of transfusions.
Rate uncontrolled
On Toprol dose increased to 50 mg. Added another Toprol at night time
Taken off amiodarone due to bradycardia in the past
d/w cardiology, Resume Eliquis.
# Proteus urinary tract infection
# Urinary retention
Treated with Unasyn
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
Hemoglobin A1c 6.3
Has been off glipizide, metformin and Jardiance since admission
Remains hyperglycemic.
Initiated and continue with Lantus 10 units at bedtime, increased to 15, still high BS, increase to 20 units
Continue basal bolus protocol with serial
Continue DM diet
#Essential HTN
#HLD
#GERD
# Stage II sacral pressure injury, POA
Wound care and offloading
DVT ppx mechanical.
Full code
Total time spent to see the patient, examine the patient, review data and lab result, discuss treatment plan with patient, nursing staff around 55 minutes
Anticipated Discharge: > 48 hours
Subjective/Interval History
-
Date of Service: May 06, 2025
No chest pain
No sob
Objective Data
-
Vital Signs:
Vital Signs
Temp Pulse Resp BP Pulse Ox
98.5 F 83 16 148/75 98
05/06/25 07:20 05/06/25 08:33 05/06/25 07:20 05/06/25 08:33 05/06/25 07:20
I&O
05/05/25 05/06/25 05/07/25
06:59 06:59 06:59
Intake Total 940 / 940 1616 / 1616
Output Total 3675 / 3675 1625 / 1625
Balance -2735 / -2735 -9 / -9
[2025-05-06 10:11] LABS: Hemoglobin 9.5 g/dL (13.0-18.0); Mean Corp Hgb Conc. 32.8 g/dL (33.0-37.0); Mean Corpuscular Hgb 28.4 pg (27.0-31.0); Mean Corpuscular Volume 86.6 fL (80.0-94.0); Mean Platelet Volume 9.4 fL (7.4-10.4); Platelet Count 205 10^3/uL (130-400); Red Blood Cell Count 3.35 10^6/uL (4.70-6.10); Red Cell Dist. Width 15.1 % (11.5-14.5); White Blood Cell Count 9.2 10^3/uL (4.8-10.8)
[2025-05-06] MEDS: FLUSH (NSS) 2 FLUSH IV ×2 (10:38→17:30)
[2025-05-06 10:40] LABS: Blood Urea Nitrogen 27 mg/dl (9-20); Calcium 8.5 mg/dl (8.4-10.2); Carbon Dioxide 25 mmol/L (22-30); Chloride 106 mmol/L (98-107); Estimated Creatinine Clearance 43 ml/min; Glucose 224 mg/dl (70-99); Potassium 4.6 mmol/L (3.5-5.1); Sodium 135 mmol/L (135-145); eGFR 41.26
[2025-05-06 11:20] VITALS: BP 122/80
[2025-05-06 11:26] LABS: Glucose - Point of Care 192 mg/dl (70-99)
[2025-05-06] MEDS: NOVOLOG FLEXPEN-MODERATE RESISTANCE 1 UNITS SC (13:13)
--- NOTE | 2025-05-06 14:00 | W.PN.CD ---
Today's Communication / Plan
-
Continue metoprolol 50 mg every morning and 25 mg every evening
Continue Eliquis and trend CBC
Impression / Plan
-
AF RVR:
-permanent AF, pt asymptomatic
-metoprolol increased this admit. will titrate and monitor.
-Pt with active infection, anemia this admit.
-pt currently on midodrine for low BP.
-CHADSVASC 4 ( age, DM,prior HTN history noted)
-eliquis held this admit with anemia requiring transfusion and L retroperitoneal hematoma. Resumed 05/05. Monitor hgb
Retroperitoneal hematoma:
-Likely occurred on 04/29 evening based on CBC trend. Last transfusion on 05/01.
-CTAP 05/01: Large retroperitoneal hematoma (15 x 12 x 12 cm)
-Eliquis resumed 05/05 PM. Hemoglobin stable. Continue to monitor.
Severe L foor SSTI with gas gangrene:
-ID following
-cultures with enterococcus, strep species and proteus
-IV antibiotics.
-s/p L hallux and partial first amp 04/24/25, L TMA 04/30/25. Podiatry following
s/p AVR 02/2025:
-Pt has not been able to follow up with DR. Araujo since AVR.
-Has not had a follow up echo since surgery, update echo
-antibiotics per ID for current infection.
CORNELIUS on CKD3:
-admit creat 04/22 2.6, 05/05 2.1
Subjective: No palpitations. No back pain.
Physical Exam
Vital Signs/Labs
Vital Signs
Temp Pulse Resp BP Pulse Ox
99.0 F 88 16 122/80 98
05/06/25 11:20 05/06/25 11:20 05/06/25 11:20 05/06/25 11:20 05/06/25 11:20
05/05/25 05/06/25 05/07/25
06:59 06:59 06:59
Actual Weight 232 lb 3.2 oz 230 lb 4.8 oz
05/06/25 10:05
05/06/25 10:05
PT 16.4 Sec (11.4-14.6) H 05/01/25 09:14
INR 1.29 05/01/25 09:14
APTT 37.4 Sec (23.4-35.0) H 05/01/25 09:14
Magnesium 1.6 mg/dl (1.6-2.3) 04/30/25 01:23
Physical Exam
Constitutional: No acute distress and Comfortable
Cardiovascular: Pedal edema is absent, Rhythm/rate is irregular, S1S2 is normal and Murmur/rub/gallop absent
Respiratory: Respiratory effort normal and Lungs clear to auscul.
Neuro/Psych: AO x 3
Data Reviewed
-
Date of Service: May 06, 2025
Medical Decision Making: Reviewed Test Results, Independent Historian Assessment, Test Interpretation and Review of Case with other Provider
EKG: Tracing Personally Visualized and interpreted
Echo: Report Reviewed by me
Labs: Labs Reviewed by me
[2025-05-06 15:20] VITALS: BP 120/63
[2025-05-06 16:48] LABS: Glucose - Point of Care 268 mg/dl (70-99)
[2025-05-06] MEDS: NOVOLOG FLEXPEN-MODERATE RESISTANCE 5 UNITS SC (16:56)
[2025-05-06 19:00] VITALS: BP 113/69
[2025-05-06] MEDS: ROXICODONE 5 MG PO (20:35)
[2025-05-06 21:15] LABS: Glucose - Point of Care 261 mg/dl (70-99)
[2025-05-06] MEDS: LANTUS 0.15 UNITS SC (21:41)
[2025-05-06] MEDS: TOPROL XL 25 MG PO (21:42)
[2025-05-06 23:00] VITALS: BP 124/80
[2025-05-07] VITALS (7 sets, daily range): BP systolic 102–132; BP diastolic 66–80; PULSE 105; BMI 29.3
[2025-05-07] MEDS: STERILE WATER FOR INJECTION 10 ML IV ×3 (02:22→17:01)
[2025-05-07] MEDS: MERREM 500 MG IV ×3 (02:22→17:00)
--- NOTE | 2025-05-07 04:29 | PTCARENOTE ---
Pt bladder scanned (bs) for 666ml urine, voided 50ml, bs 562ml and straight cath 600ml.
--- NOTE | 2025-05-07 07:48 | W.PN.CD ---
Today's Communication / Plan
-
Monitor Hgb; down today at 9.1 yesterday 9.5, if continues to decrease likely would need to hold and resume as outpt
Cont meds Metop 50 in AM and 25 in PM
We will sign off please call with questions/concerns.
Impression / Plan
-
AF RVR:
-permanent AF, pt asymptomatic
-metoprolol increased this admit. will titrate and monitor.
-Pt with active infection, anemia this admit.
-pt currently on midodrine for low BP.
-CHADSVASC 4 ( age, DM,prior HTN history noted)
-eliquis held this admit with anemia requiring transfusion and L retroperitoneal hematoma. Resumed 05/05. Monitor hgb --> 9.5 on May 06.1 today cont to monitor
Retroperitoneal hematoma:
-Likely occurred on 04/29 evening based on CBC trend. Last transfusion on 05/01.
-CTAP 05/01: Large retroperitoneal hematoma (15 x 12 x 12 cm)
-Eliquis resumed 05/05 PM. Hemoglobin stable. Continue to monitor.
Severe L foot SSTI with gas gangrene:
-ID following
-cultures with enterococcus, strep species and proteus
-IV antibiotics.
-s/p L hallux and partial first amp 04/24/25, L TMA 04/30/25. Podiatry following
s/p AVR 02/2025:
-Pt has not been able to follow up with DR. Araujo since AVR.
-Has not had a follow up echo since surgery, update echo
-antibiotics per ID for current infection.
CORNELIUS on CKD3:
-admit creat 04/22 2.6, 05/05 2.1
Subjective: Stable no new CV complaitns
Physical Exam
Vital Signs/Labs
Vital Signs
Temp Pulse Resp BP Pulse Ox
98.6 F 86 16 132/80 95
05/07/25 07:10 05/07/25 07:10 05/07/25 07:10 05/07/25 07:10 05/07/25 07:10
05/06/25 05/07/25 05/08/25
06:59 06:59 06:59
Actual Weight 230 lb 4.8 oz 228 lb 1 oz
PT 16.4 Sec (11.4-14.6) H 05/01/25 09:14
INR 1.29 05/01/25 09:14
APTT 37.4 Sec (23.4-35.0) H 05/01/25 09:14
Magnesium 1.6 mg/dl (1.6-2.3) 04/30/25 01:23
Physical Exam
Constitutional: No acute distress and Comfortable
EENT: Anicteric
Cardiovascular: Pedal edema is absent and Rhythm/rate is irregular
Respiratory: Respiratory effort normal and Lungs clear to auscul.
GI: Soft
Neuro/Psych: Alert and Oriented
Data Reviewed
-
Date of Service: May 07, 2025
EKG: Tracing Personally Visualized and interpreted (af)
Echo: Report Reviewed by me
Labs: Labs Reviewed by me
[2025-05-07 08:00] LABS: Hematocrit 28.5 % (39.0-52.0); Hemoglobin 9.1 g/dL (13.0-18.0); Mean Corp Hgb Conc. 31.9 g/dL (33.0-37.0); Mean Corpuscular Hgb 28.1 pg (27.0-31.0); Mean Platelet Volume 9.8 fL (7.4-10.4); Platelet Count 210 10^3/uL (130-400); Red Blood Cell Count 3.24 10^6/uL (4.70-6.10); White Blood Cell Count 7.8 10^3/uL (4.8-10.8)
[2025-05-07] MEDS: ELIQUIS 5 MG PO ×2 (08:09→19:41)
[2025-05-07] MEDS: NOVOLOG FLEXPEN-MODERATE RESISTANCE SC (08:10)
[2025-05-07] MEDS: FEOSOL 325 MG PO (08:10)
[2025-05-07] MEDS: PROTONIX 40 MG PO (08:10)
[2025-05-07] MEDS: CRESTOR 40 MG PO (08:10)
[2025-05-07] MEDS: TOPROL XL 50 MG PO (08:10)
[2025-05-07] MEDS: FLOMAX 0.4 MG PO (08:10)
[2025-05-07] MEDS: NEURONTIN 100 MG PO ×3 (08:10→21:38)
[2025-05-07] MEDS: DESENEX/MITRAZOL/ZEASORB 1 APPLIC TOPICAL (08:11)
[2025-05-07 08:12] LABS: Glucose - Point of Care 126 mg/dl (70-99)
[2025-05-07] MEDS: ProAmatine PO ×3 (08:28→17:03)
[2025-05-07 08:36] LABS: Blood Urea Nitrogen 28 mg/dl (9-20); Calcium 8.7 mg/dl (8.4-10.2); Carbon Dioxide 26 mmol/L (22-30); Chloride 106 mmol/L (98-107); Estimated Creatinine Clearance 43 ml/min; Glucose 129 mg/dl (70-99); Sodium 137 mmol/L (135-145); eGFR 41.26
[2025-05-07] MEDS: FARXIGA 10 MG PO (10:31)
--- NOTE | 2025-05-07 11:21 | W.PN.HOSP.TC ---
Today's Communication/Plan
-
Continue antibiotics
Continue wound care
Continue Eliquis and monitor hemoglobin closely
Continue Lantus. Resume Jardiance. Basal bolus protocol following serial Accu-Cheks.
Discharge planning to senior living facility with IV antibiotics and wound care
Assessment / Plan
Assessment / Plan
Physical Exam
General: Well Developed and Well Nourished. Not in distress.
HEENT: Moist Mucous Membranes, Anicteric and PERRLA
Respiratory: Clear to Auscultation and Non-Labored Respirations; Negative Wheezes, Rales or Rhonchi
Cardiac: Regular Rhythm and S1/S2;
GI: Soft, Nontender, Nondistended and Normal Bowel Sounds
Musculoskeletal: No joint swelling. �Negative Edema, Left Lower Extrem
Skin: Warm, Dry and no rash
Neuro: Awake and AO x 3, non-focal exam.
Psych: Calm
#LLE diabetic wound with cellulitis and sepsis on admission (CORNELIUS, infection,leukocytosis)
#Peripheral arterial disease
Blood cultures remains negative so far
XR L foot noted
MRI of Left foot with no convincing evidence for osteomyelitis. Deformity of the proximal phalanx of left great toe which is morphological appearance suggesting deformity from old fracture. No evidence for soft tissue abscess.
Wound however severely looks infected
Podiatry evaluated patient recommending for amputation. High risk for limb loss.
Wound cultures noted
JUNG noted
ESR/CRP severely elevated
US LLE negative DVT
Wound culture multi bacterial pathogens including Proteus Enterococcus and Streptococcus species
Antibiotics: Initially on Zosyn narrowed to Unasyn. With concern for AIN transition to meropenem on 05/03. Plan is to continue antibiotics for another 10 to 14 days after left TMA on 04/30.
Status post partial first ray amputation and per podiatry may require left transmetatarsal amputation. Strict nonweightbearing to left lower extremity. Podiatry also requested vascular input.
Peripheral arterial disease s/p LLE arteriogram with atherosclerosis-no intervention performed. Cleared by vascular surgery for TMA.
Status post left TMA primarily closed, no further signs of infection. Excellent hemostasis achieved at the time of procedure.
Physical therapy evaluation. Continue nonweightbearing to left lower extremity.
Continue wound care as per podiatry.
Acute on chronic blood loss anemia
Stable HGB, resumed Eliquis
Underlying anemia of iron deficiency
CT scan confirms large left-sided retroperitoneal hematoma, no abdominal pain.
Status post multiple transfusions.
Monitor closely
#CORNELIUS on CKD stage 3.
Likely multifactorial in the settings of acute retention as well as prerenal stimuli with anemia, IV contrast exposure.
Urine eosinophils 1% with no peripheral eosinophilia. Initially reasonable concern for AIN secondary to antibiotics.
Initial urine sodium consistent with prerenal stimuli
Renal function improving with hemodynamic stabilization and treatment of anemia.
Voiding trial to be initiated on 05/04
Consider weaning off midodrine if not hypotensive
# Severe aortic stenosis status post aortic valve replacement on 03/05/[address] Elam
well healing wound
Inspiris Resilia bioprosthetic aortic valve.
#Afib Paroxysmal
Anticoagulated with Eliquis prior to presentation. AC currently on hold given severe anemia requiring multiple rounds of transfusions.
Rate uncontrolled
On Toprol dose increased to 50 mg. Added another Toprol at night time
Taken off amiodarone due to bradycardia in the past
d/w cardiology, Resume Eliquis.
# Proteus urinary tract infection
# Urinary retention
Treated with Unasyn
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
Hemoglobin A1c 6.3
Has been off glipizide, metformin and Jardiance since admission
Remains hyperglycemic.
Initiated and continue with Lantus 10 units at bedtime, increased to 15, still high BS, increase to 20 units
Continue basal bolus protocol with serial
Continue DM diet
#Essential HTN
#HLD
#GERD
# Stage II sacral pressure injury, POA
Wound care and offloading
DVT ppx mechanical.
Full code
Total time spent to see the patient, examine the patient, review data and lab result, discuss treatment plan with patient, nursing staff around 55 minutes
Anticipated Discharge: 24 - 48 hours
Subjective/Interval History
-
Date of Service: May 07, 2025
Objective Data
-
Labs:
Laboratory Results
05/07/25
06:38
WBC 7.8
Hgb 9.1 L
Hct 28.5 L
Plt Count 210
Sodium 137
Potassium 5.0
Chloride 106
Carbon Dioxide 26
BUN 28 H
Creatinine 1.7 H
Glucose 129 H
Calcium 8.7
Vital Signs:
Vital Signs
Temp Pulse Resp BP Pulse Ox
98.6 F 86 16 132/80 95
05/07/25 07:10 05/07/25 08:10 05/07/25 07:10 05/07/25 08:28 05/07/25 07:10
I&O
05/06/25 05/07/25 05/08/25
06:59 06:59 06:59
Intake Total 1616 / 1616 880 / 880 240 / 240
Output Total 1625 / 1625 900 / 900
Balance -9 / -9 -20 / -20 240 / 240
Physical Exam
-
General: Well Developed and No Apparent Distress
HEENT: Normocephalic, Atraumatic and Moist Mucous Membranes
Respiratory: Clear to Auscultation
Cardiac: Regular Rhythm and S1/S2; Negative Murmur, Rub or Gallop
GI: Soft, Nontender, Nondistended and Normal Bowel Sounds; Negative Organomegaly
Rectal: Deferred by Provider
Musculoskeletal: No Clubbing, No Cyanosis and No Edema
Skin: Negative Rash
Neuro: Nonfocal/Grossly Intact
--- NOTE | 2025-05-07 11:33 | W.PN.ID1 ---
Date of Service
Date of Service: May 07, 2025
Today's Communication
Sign off
Assessment / Plan
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
- s/p left hallux and partial first ray amp (04/24/2025)
- s/p (L) TMA (04/30/25)
Retroperitoneal hematoma
CORNELIUS
Leukocytosis
Elevated CRP / ESR
DM type II
HTN
HLD
A-fib (Eliquis)
Aortic stenosis
Recommendations:
Cultures with Enterococcus, Strep. species and Proteus susceptible to ampicillin.
Creatinine slightly up from baseline, but may be multifactorial. Patient found to have urinary eosinophils, though, which raises the specter of some component of AIN.
Unasyn previously transitioned to meropenem. Renal function improved.
Proximal margin negative for osteomyelitis
Given severity of infection, continue with antibiotics through 05/14/2025.
Local care to wound.
Will see again at your request.
����������������������������������������������������������
Chief Complaint
-: Other (Left foot gangrene.)
Subjective / Review of Systems
Review of Systems: No Fever and No Chills
Vital Signs / Physical Exam
Vital Signs
Vital Signs
Temp Pulse Resp BP Pulse Ox
98.6 F 86 16 132/80 95
05/07/25 07:10 05/07/25 08:10 05/07/25 07:10 05/07/25 08:28 05/07/25 07:10
Physical Exam
Constitutional: No Acute Distress, Comfortable and Non-toxic
Eyes: No Conjunctival Hemorrhage and Sclera Anicteric
Pulmonary: Clear and Non Labored
Gastrointestinal: Soft, Non Tender and Non Distended
Extremities: Edema (Left lower extremity) and Other (Left foot dressed. S/p TMA.); Negative Erythema
Neurological: Awake and Alert
Psychological: Calm
Objective Data
Lab Data
Lab Results
05/07/25 06:38
05/07/25 06:38
ESR 84 mm/hour (0-20) H 04/22/25 21:17
PT 16.4 Sec (11.4-14.6) H 05/01/25 09:14
INR 1.29 05/01/25 09:14
APTT 37.4 Sec (23.4-35.0) H 05/01/25 09:14
Estimated Creat Clear 43 ml/min 05/07/25 06:38
Lactic Acid 1.4 mmol/L (0.7-2.0) 04/22/25 17:30
Total Bilirubin 0.7 mg/dl (0.2-1.3) 04/23/25 05:49
AST 37 U/L (17-59) 04/23/25 05:49
ALT 18 U/L (0-50) 04/23/25 05:49
Alkaline Phosphatase 133 U/L (38-126) H 04/23/25 05:49
C-Reactive Protein 227.00 mg/L (0.0-10.00) H 04/22/25 15:28
Most recent labs reviewed.
Micro Results:
04/24/25 16:34 Wound Culture - Final
Foot - Left Proteus mirabilis
Enterococcus faecalis
Streptococcus species
Gram Stain - Final
04/24/25 16:34 Anaerobic Culture - Final
Foot - Left Peptostreptococcus prevotii
04/22/25 17:30 Blood Culture - Final
Blood/Venous No Growth - Final Report
04/22/25 17:30 Blood Culture - Final
Blood/Venous No Growth - Final Report
04/22/25 17:31 Wound Culture - Final
Foot - Left Proteus mirabilis
Enterococcus faecalis
Gram Stain - Final
04/22/25 23:15 Urine Culture - Final
Urine Proteus mirabilis
04/22/25 23:15 MRSA Screen - Final
Nose No Methicillin Resistant Staphylococcus aureus isolated.
Wound/abscess/other Cult Final 04/22/25
Moderate Proteus mirabilis
Many Enterococcus faecalis
Few Mixed skin susan
Organism 1 Proteus mirabilis
Organism 2 Enterococcus faecalis
P.MIRABILI ENTFCL
M.I.C. RX M.I.C. RX
--------- --- --------- ---
Amoxicillin/Potas. Clavulanate <=8/4 S
Ampicillin <=8 S <=2 S
Ampicillin/Sulbactam <=4/2 S
Aztreonam <=4 S
Cefazolin <=2 S
Ertapenem <=0.5 S
Ciprofloxacin <=0.25 S
Gentamicin <=2 S
Gentamicin Synergy Screen <=500 S
Meropenem <=1 S
Piperacillin/Tazobactam <=8 S
Tetracycline >8 R
Tobramycin <=2 S
Trimethoprim/Sulfamethoxazole <=2/38 S
Vancomycin 1 S
Imaging:
05/01/2025 CT abdomen pelvis: Unenhanced liver, spleen and pancreas are unremarkable. Left kidney is displaced anteriorly due to a large left retroperitoneal hematoma. No evidence of active bleeding. Please see full dictation for additional detail.
04/24/2025 Lower extremity arterial ultrasound with JUNG: 1. Right lower extremity: JUNG not obtainable secondary to noncompressibility of the vessels. TBI, which is more reliable in this setting, is within normal limits. Multiphasic waveforms from
common femoral through popliteal artery with no velocity elevation to suggest any significant stenosis. Continuous Doppler waveforms at the dorsalis pedis and posterior tibial arteries are also multiphasic.
2. Left lower extremity: JUNG not obtainable secondary to noncompressible vessels. TBI, which is more reliable in this setting, is severely reduced 0.22. Multiphasic waveforms in the common femoral and profunda with transition to monophasic waveforms
throughout the superficial femoral and popliteal arteries. However, no discrete stenosis is identified. Continuous Doppler waveforms at the dorsalis pedis and posterior tibial arteries are monophasic.
3. Right groin small seromatous appearing collection measuring 1.1 x 1.4 cm.
04/23/2025 MRI left lower extremity without contrast: No evidence of osteomyelitis. Small foci of decreased signal intensity within the soft tissues likely representing soft tissue air from plantar wound and superior extension. Please see full
dictation for additional detail.
04/22/2025 Left foot x-ray: There are 2 soft tissue lucencies about the base of the great toe. The larger is located laterally and is teardrop in shape. It measures 7 mm. This is 6 mm from the closest osseous structure of the great toe. The second is
smaller and located medially just below the dermis at the level of the first MTP joint. It measures 2 mm.
[2025-05-07 12:09] LABS: Glucose - Point of Care 160 mg/dl (70-99)
[2025-05-07] MEDS: NOVOLOG FLEXPEN-MODERATE RESISTANCE 1 UNITS SC (13:12)
--- NOTE | 2025-05-07 14:01 | CM ---
Addendum entered by Natalia Cole 05/07/25 16:21:
Call with spouse
Additional referral sent to [facility]
All referrals pending at this time
Original Note:
CM reviewed chart and pt with therapy
No appropriate for acute rehab and denied at [place]
Call with son/Misael [phone]
He provided SNF choices in the [facility]
PASRR completed and referrals sent via [facility]
Plan for abx through 05/14 per ID note and LLE NWB
Discharge Disposition- SNF pending auth
[2025-05-07 16:56] LABS: Glucose - Point of Care 206 mg/dl (70-99)
[2025-05-07] MEDS: NOVOLOG FLEXPEN-MODERATE RESISTANCE 3 UNITS SC (16:58)
[2025-05-07] MEDS: DESENEX/MITRAZOL/ZEASORB TOPICAL ×2 (19:41→21:41)
[2025-05-07 21:17] LABS: Glucose - Point of Care 179 mg/dl (70-99)
[2025-05-07] MEDS: TOPROL XL 25 MG PO (21:38)
[2025-05-07] MEDS: LANTUS 0.15 UNITS SC (21:39)
[2025-05-08] MEDS: STERILE WATER FOR INJECTION 10 ML IV ×3 (01:05→18:05)
[2025-05-08] MEDS: MERREM 500 MG IV ×3 (01:05→18:05)
[2025-05-08 03:00] VITALS: BP 137/89
[2025-05-08 06:00] VITALS: BMI 29.6
[2025-05-08 07:35] LABS: % Basophils 1.5 % (0-2); % Eosinophils 3.5 % (0-6); % Immature Granulocytes 1.5 % (0-0.5); % Lymphocytes 21.9 % (20.5-51.1); % Monocytes 14.2 % (1.7-9.3); % Neutrophils 57.4 % (42.2-75.2); Absolute Basophils 0.1 10^3/uL (0-0.2); Absolute Eosinophils 0.2 10^3/uL (0-0.7); Absolute Immature Granulocytes 0.1 10^3/uL (0-0.05); Absolute Lymphocytes 1.5 10^3/uL (1.2-3.4); Hematocrit 28.3 % (39.0-52.0); Hemoglobin 9.3 g/dL (13.0-18.0); Mean Corp Hgb Conc. 32.9 g/dL (33.0-37.0); Mean Corpuscular Hgb 28.1 pg (27.0-31.0); Mean Corpuscular Volume 85.5 fL (80.0-94.0); Mean Platelet Volume 10.3 fL (7.4-10.4); Nucleated Red Blood Cells % 0 % (-); Platelet Count 196 10^3/uL (130-400); Red Blood Cell Count 3.31 10^6/uL (4.70-6.10); Red Cell Dist. Width 14.6 % (11.5-14.5); White Blood Cell Count 6.9 10^3/uL (4.8-10.8)
[2025-05-08 07:50] VITALS: BP 112/68
[2025-05-08 07:58] LABS: Glucose - Point of Care 115 mg/dl (70-99)
[2025-05-08 08:00] LABS: Blood Urea Nitrogen 32 mg/dl (9-20); Calcium 8.5 mg/dl (8.4-10.2); Carbon Dioxide 22 mmol/L (22-30); Chloride 107 mmol/L (98-107); Estimated Creatinine Clearance 49 ml/min; Glucose 108 mg/dl (70-99); Potassium 3.9 mmol/L (3.5-5.1); Sodium 137 mmol/L (135-145); eGFR 47.95
[2025-05-08] MEDS: NOVOLOG FLEXPEN-MODERATE RESISTANCE SC ×2 (08:23→10:53)
[2025-05-08] MEDS: ProAmatine 5 MG PO ×3 (08:46→18:05)
[2025-05-08] MEDS: FLOMAX 0.4 MG PO (08:47)
[2025-05-08] MEDS: CRESTOR 40 MG PO (08:47)
[2025-05-08] MEDS: NEURONTIN 100 MG PO ×3 (08:47→21:01)
[2025-05-08] MEDS: TOPROL XL 50 MG PO (08:47)
[2025-05-08] MEDS: PROTONIX 40 MG PO (08:47)
[2025-05-08] MEDS: DESENEX/MITRAZOL/ZEASORB 1 APPLIC TOPICAL ×2 (08:48→19:30)
[2025-05-08] MEDS: FARXIGA 10 MG PO (08:48)
[2025-05-08] MEDS: FEOSOL 325 MG PO (08:48)
[2025-05-08] MEDS: ELIQUIS 5 MG PO ×2 (08:49→19:30)
[2025-05-08 10:49] LABS: Glucose - Point of Care 135 mg/dl (70-99)
[2025-05-08 12:18] VITALS: BP 108/61; PULSE 92; O2SAT 97
[2025-05-08 12:27] VITALS: BP 108/61; PULSE 92; O2SAT 97
--- NOTE | 2025-05-08 13:50 | W.PN.HOSP.TC ---
Today's Communication/Plan
-
Hemoglobin remains stable while eating stated anticoagulation with Eliquis
No further evidence for urinary retention while Webb catheter removed.
Creatinine trending down at 1.5
On IV antibiotics.
Optimized for rehab discharge pending metabolic
Assessment / Plan
Assessment / Plan
Physical Exam
General: Well Developed and Well Nourished. Not in distress.
HEENT: Moist Mucous Membranes, Anicteric and PERRLA
Respiratory: Clear to Auscultation and Non-Labored Respirations; Negative Wheezes, Rales or Rhonchi
Cardiac: Regular Rhythm and S1/S2;
GI: Soft, Nontender, Nondistended and Normal Bowel Sounds
Musculoskeletal: No joint swelling. �Negative Edema, Left Lower Extrem
Skin: Warm, Dry and no rash
Neuro: Awake and AO x 3, non-focal exam.
Psych: Calm
#LLE diabetic wound with cellulitis and sepsis on admission (CORNELIUS, infection,leukocytosis)
#Peripheral arterial disease
Blood cultures remains negative so far
XR L foot noted
MRI of Left foot with no convincing evidence for osteomyelitis. Deformity of the proximal phalanx of left great toe which is morphological appearance suggesting deformity from old fracture. No evidence for soft tissue abscess.
Wound however severely looks infected
Podiatry evaluated patient recommending for amputation. High risk for limb loss.
Wound cultures noted
JUNG noted
ESR/CRP severely elevated
US LLE negative DVT
Wound culture multi bacterial pathogens including Proteus Enterococcus and Streptococcus species
Antibiotics: Initially on Zosyn narrowed to Unasyn. With concern for AIN transition to meropenem on 05/03. Plan is to continue antibiotics for another 10 to 14 days after left TMA on 04/30.
Status post partial first ray amputation and per podiatry may require left transmetatarsal amputation. Strict nonweightbearing to left lower extremity. Podiatry also requested vascular input.
Peripheral arterial disease s/p LLE arteriogram with atherosclerosis-no intervention performed. Cleared by vascular surgery for TMA.
Status post left TMA primarily closed, no further signs of infection. Excellent hemostasis achieved at the time of procedure.
Physical therapy evaluation. Continue nonweightbearing to left lower extremity.
Continue wound care as per podiatry.
Acute on chronic blood loss anemia
Stable HGB, resumed Eliquis
Underlying anemia of iron deficiency
CT scan confirms large left-sided retroperitoneal hematoma, no abdominal pain.
Status post multiple transfusions.
Monitor closely
#CORNELIUS on CKD stage 3.
Likely multifactorial in the settings of acute retention as well as prerenal stimuli with anemia, IV contrast exposure.
Urine eosinophils 1% with no peripheral eosinophilia. Initially reasonable concern for AIN secondary to antibiotics.
Initial urine sodium consistent with prerenal stimuli
Renal function improving with hemodynamic stabilization and treatment of anemia.
Voiding trial to be initiated on 05/04
Consider weaning off midodrine if not hypotensive
# Severe aortic stenosis status post aortic valve replacement on 03/05/[address] Elam
well healing wound
Inspiris Resilia bioprosthetic aortic valve.
#Afib Paroxysmal
Anticoagulated with Eliquis prior to presentation. AC currently on hold given severe anemia requiring multiple rounds of transfusions.
Rate uncontrolled
On Toprol dose increased to 50 mg. Added another Toprol at night time
Taken off amiodarone due to bradycardia in the past
d/w cardiology, Resume Eliquis.
# Proteus urinary tract infection
# Urinary retention
Treated with Unasyn
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
Hemoglobin A1c 6.3
Has been off glipizide, metformin and Jardiance since admission
Remains hyperglycemic.
Initiated and continue with Lantus 10 units at bedtime, increased to 15, still high BS, increase to 20 units
Continue basal bolus protocol with serial
Continue DM diet
#Essential HTN
#HLD
#GERD
# Stage II sacral pressure injury, POA
Wound care and offloading
DVT ppx mechanical.
Full code
Total time spent to see the patient, examine the patient, review data and lab result, discuss treatment plan with patient, nursing staff around 55 minutes
Anticipated Discharge: Within 24 hours
Subjective/Interval History
-
Date of Service: May 08, 2025
Objective Data
-
Labs:
Laboratory Results
05/08/25
06:29
WBC 6.9
Hgb 9.3 L
Hct 28.3 L
Plt Count 196
Sodium 137
Potassium 3.9
Chloride 107
Carbon Dioxide 22
BUN 32 H
Creatinine 1.5 H
Glucose 108 H
Calcium 8.5
Vital Signs:
Vital Signs
Temp Pulse Resp BP Pulse Ox
98.5 F 92 16 108/61 98
05/08/25 07:50 05/08/25 12:24 05/08/25 07:50 05/08/25 12:24 05/08/25 07:50
I&O
05/07/25 05/08/25 05/09/25
06:59 06:59 06:59
Intake Total 880 / 880 720 / 720 320 / 320
Output Total 900 / 900 1250 / 1250
Balance -20 / -20 -530 / -530 320 / 320
Physical Exam
-
General: Well Developed and No Apparent Distress
HEENT: Normocephalic, Atraumatic and Moist Mucous Membranes
Respiratory: Clear to Auscultation
Cardiac: Regular Rhythm and S1/S2; Negative Murmur, Rub or Gallop
GI: Soft, Nontender, Nondistended and Normal Bowel Sounds; Negative Organomegaly
Rectal: Deferred by Provider
Musculoskeletal: No Clubbing, No Cyanosis and No Edema
Skin: Negative Rash
Neuro: Nonfocal/Grossly Intact
--- NOTE | 2025-05-08 15:30 | CM ---
CM following re: discharge planning.
Reviewed pt's chart, met with pt and spoke to pt's spouse over the phone to update on discharge plan progress.
According to MD pt is medically stable to be discharged today.
Both pt and his spouse are aware and requested [facility] SNF. Pt stated he was there last year and liked very much.
A referral to different SNF noted. CM spoke to [facility] director of casework [facility] [phone], requested pt's demographic faxed to them [phone]. In the beginning, [facility] stated she will accept the pt and after
carefully reviewing pt's clinical she denied a referral to to the cost of IV Meropenem.
Hospitalist and ID MD are aware.
D/C plan: preferred SNF.
CM will follow to assist pt with discharge to a preferred SNF.
[2025-05-08 15:55] VITALS: BP 117/84
[2025-05-08 16:47] LABS: Glucose - Point of Care 240 mg/dl (70-99)
[2025-05-08] MEDS: NOVOLOG FLEXPEN-MODERATE RESISTANCE 3 UNITS SC (18:06)
[2025-05-08] MEDS: TOPROL XL 25 MG PO (21:01)
[2025-05-08 21:34] LABS: Glucose - Point of Care 220 mg/dl (70-99)
[2025-05-08] MEDS: LANTUS 0.15 UNITS SC (21:50)
[2025-05-08 23:00] VITALS: BP 137/79
[2025-05-09] MEDS: STERILE WATER FOR INJECTION 10 ML IV ×2 (00:57)
[2025-05-09] MEDS: MERREM 500 MG IV ×2 (00:58→09:44)
--- NOTE | 2025-05-09 04:18 | DOWNTIME ---
Addendum entered by Jhonathan Watson RN 05/09/25 14:05:
Correction to downtime 05/09/2025 from 0100 to 05/09/25 at 0415.
Original Note:
There was a [employer] Front Desk Attendant Downtime on 05/08/2025 from 0100 to 05/09/2025 at 0415. Downtime documentation of patient's care, including medication administrations, has been reconciled in the electronic record per guidelines. Refer to the
patient's paper chart under the miscellaneous tab to see printed paper medication records and downtime forms.
[2025-05-09 06:00] VITALS: BMI 29.2
[2025-05-09 07:05] VITALS: BP 119/77
[2025-05-09 08:00] LABS: Glucose - Point of Care 121 mg/dl (70-99)
[2025-05-09] MEDS: NOVOLOG FLEXPEN-MODERATE RESISTANCE SC ×2 (08:05→12:33)
[2025-05-09] MEDS: ELIQUIS 5 MG PO ×2 (09:43→20:18)
[2025-05-09] MEDS: FEOSOL 325 MG PO (09:43)
[2025-05-09] MEDS: FLOMAX 0.4 MG PO (09:43)
[2025-05-09] MEDS: FARXIGA 10 MG PO (09:43)
[2025-05-09] MEDS: PROTONIX 40 MG PO (09:43)
[2025-05-09] MEDS: CRESTOR 40 MG PO (09:43)
[2025-05-09] MEDS: NEURONTIN 100 MG PO ×3 (09:43→20:18)
[2025-05-09] MEDS: ProAmatine 5 MG PO ×3 (09:44→17:15)
[2025-05-09] MEDS: TOPROL XL 50 MG PO (09:44)
[2025-05-09] MEDS: DESENEX/MITRAZOL/ZEASORB 1 APPLIC TOPICAL ×2 (09:45→21:41)
[2025-05-09 12:03] LABS: Glucose - Point of Care 126 mg/dl (70-99)
--- NOTE | 2025-05-09 13:04 | CM ---
CM following re: discharge planning.
Reviewed pt's chart, met with pt.
According to MD pt is medically stable to be discharged today.
Per SNF request, IV Meropenem switched to oral Cipro and linezolid.
LUIS spoke to [facility] director insurance [employer] and she confirmed that pt is accepted for admission tomorrow 05/10/25. Both pt and his spouse are aware, expressed their agreement with discharge. IMM reviewed, placed on chart,
pt has a copy.
[facility]
Admitting physician: Srini Hector
LUIS initiated an auth from [employer] for SNF level of care at [facility], spoke to LUIS Gee and based on pt's clinical pt is approved for 5 initial days starting tomorrow 05/10/25 till 05/14/25 with LCD and NRD 05/14/25. Auth: [id number]
Auth information forwarded to [facility] director insurance and she confirmed that pt is accepted for admission tomorrow and 10:00 -11:00 a.m. discharge time requested.
Both pt and his spouse are aware of the above and they expressed their great satisfactions with discharge plan outcome.
arranged ambulance transport BLS for tomorrow 05/10/25 at 10:00 a.m. [facility] completed and left with . Ambulance auth for Acute care ambulance: [id number]
[facility] nursing report: [phone]
Discharge instructions fax: [phone]
D/C plan: [facility] tomorrow 05/10/25.
--- NOTE | 2025-05-09 14:15 | PTCARENOTE ---
Bladder Scan for 558mL. Patient with spontaneous void of 325mL, with small amount of dribbling. Repeat bladder scan 356mL.
[2025-05-09 14:47] LABS: Blood Urea Nitrogen 34 mg/dl (9-20); Calcium 8.6 mg/dl (8.4-10.2); Carbon Dioxide 24 mmol/L (22-30); Chloride 106 mmol/L (98-107); Estimated Creatinine Clearance 49 ml/min; Glucose 181 mg/dl (70-99); Potassium 3.9 mmol/L (3.5-5.1); Sodium 137 mmol/L (135-145); eGFR 47.95
[2025-05-09 15:00] VITALS: BP 110/67
[2025-05-09] MEDS: STERILE WATER FOR INJECTION IV (17:20)
[2025-05-09 17:22] LABS: Glucose - Point of Care 229 mg/dl (70-99)
[2025-05-09] MEDS: NOVOLOG FLEXPEN-MODERATE RESISTANCE 3 UNITS SC (17:22)
--- NOTE | 2025-05-09 18:26 | W.PN.HOSP.TC ---
Today's Communication/Plan
-
Oral antibiotics
Wound care
Monitor for retention
Placement to rehab
Assessment / Plan
Assessment / Plan
Physical Exam
General: Well Developed and Well Nourished. Not in distress.
HEENT: Moist Mucous Membranes, Anicteric and PERRLA
Respiratory: Clear to Auscultation and Non-Labored Respirations; Negative Wheezes, Rales or Rhonchi
Cardiac: Regular Rhythm and S1/S2;
GI: Soft, Nontender, Nondistended and Normal Bowel Sounds
Musculoskeletal: No joint swelling. �Negative Edema, Left Lower Extrem
Skin: Warm, Dry and no rash
Neuro: Awake and AO x 3, non-focal exam.
Psych: Calm
#LLE diabetic wound with cellulitis and sepsis on admission (CORNELIUS, infection,leukocytosis)
#Peripheral arterial disease
Blood cultures remains negative so far
XR L foot noted
MRI of Left foot with no convincing evidence for osteomyelitis. Deformity of the proximal phalanx of left great toe which is morphological appearance suggesting deformity from old fracture. No evidence for soft tissue abscess.
Wound however severely looks infected
Podiatry evaluated patient recommending for amputation. High risk for limb loss.
Wound cultures noted
JUNG noted
ESR/CRP severely elevated
US LLE negative DVT
Wound culture multi bacterial pathogens including Proteus Enterococcus and Streptococcus species
Antibiotics: Initially on Zosyn narrowed to Unasyn. With concern for AIN transition to meropenem on 05/03. Plan is to continue antibiotics for another 10 to 14 days after left TMA on 04/30.
Status post partial first ray amputation and per podiatry may require left transmetatarsal amputation. Strict nonweightbearing to left lower extremity. Podiatry also requested vascular input.
Peripheral arterial disease s/p LLE arteriogram with atherosclerosis-no intervention performed. Cleared by vascular surgery for TMA.
Status post left TMA primarily closed, no further signs of infection. Excellent hemostasis achieved at the time of procedure.
Physical therapy evaluation. Continue nonweightbearing to left lower extremity.
Continue wound care as per podiatry.
Acute on chronic blood loss anemia
Stable HGB, resumed Eliquis
Underlying anemia of iron deficiency
CT scan confirms large left-sided retroperitoneal hematoma, no abdominal pain.
Status post multiple transfusions.
Monitor closely
#CORNELIUS on CKD stage 3.
Likely multifactorial in the settings of acute retention as well as prerenal stimuli with anemia, IV contrast exposure.
Urine eosinophils 1% with no peripheral eosinophilia. Initially reasonable concern for AIN secondary to antibiotics.
Initial urine sodium consistent with prerenal stimuli
Renal function improving with hemodynamic stabilization and treatment of anemia.
Voiding trial to be initiated on 05/04
Consider weaning off midodrine if not hypotensive
# Severe aortic stenosis status post aortic valve replacement on 03/05/[address] Elam
well healing wound
Inspiris Resilia bioprosthetic aortic valve.
#Afib Paroxysmal
Anticoagulated with Eliquis prior to presentation. AC currently on hold given severe anemia requiring multiple rounds of transfusions.
Rate uncontrolled
On Toprol dose increased to 50 mg. Added another Toprol at night time
Taken off amiodarone due to bradycardia in the past
d/w cardiology, Resume Eliquis.
# Proteus urinary tract infection
# Urinary retention
Treated with Unasyn
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
Hemoglobin A1c 6.3
Has been off glipizide, metformin and Jardiance since admission
Remains hyperglycemic.
Initiated and continue with Lantus 10 units at bedtime, increased to 15, still high BS, increase to 20 units
Continue basal bolus protocol with serial
Continue DM diet
#Essential HTN
#HLD
#GERD
# Stage II sacral pressure injury, POA
Wound care and offloading
DVT ppx mechanical.
Full code
Total time spent to see the patient, examine the patient, review data and lab result, discuss treatment plan with patient, nursing staff around 55 minutes
Anticipated Discharge: Within 24 hours
Subjective/Interval History
-
Date of Service: May 09, 2025
Objective Data
-
Labs:
Laboratory Results
05/09/25
14:18
Sodium 137
Potassium 3.9
Chloride 106
Carbon Dioxide 24
BUN 34 H
Creatinine 1.5 H
Glucose 181 H
Calcium 8.6
Vital Signs:
Vital Signs
Temp Pulse Resp BP Pulse Ox
98.3 F 85 16 110/67 97
05/09/25 15:00 05/09/25 15:00 05/09/25 15:00 05/09/25 15:00 05/09/25 15:00
I&O
05/08/25 05/09/25 05/10/25
06:59 06:59 06:59
Intake Total 720 / 720 810 / 810
Output Total 1250 / 1250 950 / 950 300 / 300
Balance -530 / -530 -140 / -140 -300 / -300
Physical Exam
-
General: Well Developed and No Apparent Distress
HEENT: Normocephalic, Atraumatic and Moist Mucous Membranes
Respiratory: Clear to Auscultation
Cardiac: Regular Rhythm and S1/S2; Negative Murmur, Rub or Gallop
GI: Soft, Nontender, Nondistended and Normal Bowel Sounds; Negative Organomegaly
Rectal: Deferred by Provider
Musculoskeletal: No Clubbing, No Cyanosis and No Edema
Skin: Negative Rash
Neuro: Nonfocal/Grossly Intact
[2025-05-09] MEDS: ZYVOX 600 MG PO (20:18)
[2025-05-09] MEDS: TYLENOL 650 MG PO (20:18)
[2025-05-09] MEDS: CIPRO 500 MG PO (20:18)
[2025-05-09] MEDS: TOPROL XL 25 MG PO (21:40)
[2025-05-09] MEDS: LANTUS 0.15 UNITS SC (21:41)
[2025-05-09 21:53] LABS: Glucose - Point of Care 243 mg/dl (70-99)
[2025-05-09 23:00] VITALS: BP 137/68
[2025-05-10] MEDS: STERILE WATER FOR INJECTION IV (00:35)
[2025-05-10] MEDS: TYLENOL 650 MG PO (02:18)
[2025-05-10 06:00] VITALS: BMI 29.1
[2025-05-10 07:05] VITALS: BP 135/87
[2025-05-10] MEDS: DESENEX/MITRAZOL/ZEASORB 1 APPLIC TOPICAL (07:57)
[2025-05-10] MEDS: FARXIGA 10 MG PO (07:57)
[2025-05-10] MEDS: CIPRO 500 MG PO (07:57)
[2025-05-10] MEDS: ELIQUIS 5 MG PO (07:57)
[2025-05-10] MEDS: ZYVOX 600 MG PO (07:57)
[2025-05-10] MEDS: FLOMAX 0.4 MG PO (07:58)
[2025-05-10] MEDS: CRESTOR 40 MG PO (07:58)
[2025-05-10] MEDS: FEOSOL 325 MG PO (07:58)
[2025-05-10] MEDS: PROTONIX 40 MG PO (07:58)
[2025-05-10] MEDS: NEURONTIN 100 MG PO (07:58)
[2025-05-10] MEDS: TOPROL XL 50 MG PO (07:58)
[2025-05-10] MEDS: ProAmatine 5 MG PO (07:59)
[2025-05-10 08:08] LABS: Glucose - Point of Care 110 mg/dl (70-99)
[2025-05-10] MEDS: NOVOLOG FLEXPEN-MODERATE RESISTANCE SC (08:08)
--- NOTE | 2025-05-10 09:28 | W.DS.TRANS ---
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
-
Discharge Instructions:
Sleep Apnea Risk Intermediate
Discharge Diagnosis/Procedures Left lower extremity diabetic wound with
cellulitis and osteomyelitis baseline PAD
Acute blood loss anemia
Anemia of chronic disease
Acute kidney injury baseline CKD stage IIIa.
Severe aortic stenosis status post aortic valve
replacement.
Paroxysmal atrial fibrillation baseline
anticoagulation with Eliquis.
Diabetes type 2.
Essential hypertension
Diet Diabetic, Carb Controlled
Instructions:
Stand-Alone Forms:
Changes to Home Medications: No
Discharge Medications:
DC Medications w/original date entered in [facility]
rosuvastatin 40 mg tablet 40 mg PO HS High Cholesterol 01/17/25
ferrous sulfate 325 mg (65 mg iron) tablet 325 mg PO DAILY Supplement 02/21/25
multivitamin 1 tab PO DAILY Supplement 02/21/25
apixaban 5 mg tablet (Eliquis) 5 mg PO BID Blood clot prevention/tx #0 tabs 03/09/25
acetaminophen 325 mg tablet 650 mg PO Q4HPRN PRN mild pain 04/22/25
empagliflozin 25 mg tablet (Jardiance) 12.5 mg PO DAILY Diabetes 04/22/25
gabapentin 100 mg capsule 100 mg PO TID@0800,1200,2000 neuropathic pain 04/22/25
pantoprazole 40 mg tablet,delayed release 40 mg PO DAILY gerd 04/22/25
tamsulosin 0.4 mg capsule 0.4 mg PO HS Urinary issue 04/22/25
Insulin Glargine Lantus [Lantus] 15 units As Directed mls/hr SC HS 05/10/25
acetaminophen 325 mg tablet 650 mg (2 x 325 mg) PO Q4HPRN PRN mild pain,headache,temp >101F #30 tabs 05/10/25
ciprofloxacin HCl 500 mg tablet 500 mg PO BID #8 tabs 05/10/25
linezolid 600 mg tablet 600 mg PO BID #8 tabs 05/10/25
metoprolol succinate 25 mg tablet,extended release 24 hr 25 mg PO HS #30 tabs 05/10/25
metoprolol succinate 50 mg tablet,extended release 24 hr 50 mg PO DAILY #30 tabs 05/10/25
midodrine 5 mg tablet 5 mg PO TID@0800,1300,1800 #90 tabs 05/10/25
polyethylene glycol 3350 17 gram oral powder packet 17 g PO DAILYPRN PRN constipation #30 ea 05/10/25
Home Medication Changes
Metoprolol increased.
Midodrine changed to standing.
Glipizide, metformin discontinued due to abnormal renal function
Lantus initiated.
Antibiotics written for additional 5 days through 05/14.
Pending Results: No
--- NOTE | 2025-05-10 09:31 | CM ---
CM following re: discharge planning.
Reviewed pt's chart, met with pt.
Discharge order noted. Both pt and his spouse are aware. IMM reviewed yesterday, placed on chart, pt has a copy.
Pt is approved by [facility] for 5 initial days starting tomorrow 05/10/25 till 05/14/25 with LCD and NRD 05/14/25. Auth: [id number]
Auth information forwarded to [facility] school director and she confirmed that pt is accepted for admission today.
Both pt and his spouse are aware of the above and they expressed their great satisfactions with discharge plan outcome.
arranged ambulance transport BLS, pick up truck driver time 10:00 a.m. 10:00 a.m. [facility] completed and left with . Ambulance auth for Acute care ambulance: [id number]
[facility] nursing report: [phone]
Discharge instructions fax: [phone]
D/C plan: [facility]
== END 2025-05-10 10:09 | DRG 853 ==
LOC: 2 SOUTH 19:30
PROVIDERS: Hospitalist; Internal Medicine; Nurse Practitioner Family; Nurse Practitioner Gerontology; Student in an Organized Health Care Education/Training Program; ADMITTING PHYSICIAN Internal Medicine; ATTENDING PHYSICIAN Internal Medicine; CONSULT PHYSICIAN Student in an Organized Health Care Education/Training Program; EMERGENCY PHYSICIAN Emergency Medicine; FAMILY PHYSICIAN Family Medicine; OTHER PHYSICIAN Internal Medicine Infectious Disease; OTHER PHYSICIAN Student in an Organized Health Care Education/Training Program; OTHER PHYSICIAN Surgery Vascular Surgery
PROC: 0Y6N0ZC Detachment at Left Foot, Partial 3rd Ray, Open Approach (ICD-10-PCS; 2025-04-24)
PROC: 0Y6N0ZF Detachment at Left Foot, Partial 5th Ray, Open Approach (ICD-10-PCS; 2025-04-24)
PROC: 0T9B70Z Drainage of Bladder with Drainage Device, Via Natural or Artificial Opening (ICD-10-PCS; 2025-04-24)
PROC: 0Y6N0ZB Detachment at Left Foot, Partial 2nd Ray, Open Approach (ICD-10-PCS; 2025-04-24)
PROC: 30233N1 Transfusion of Nonautologous Red Blood Cells into Peripheral Vein, Percutaneous Approach (ICD-10-PCS; 2025-04-24)
PROC: 0Y6N0Z9 Detachment at Left Foot, Partial 1st Ray, Open Approach (ICD-10-PCS; 2025-04-24)
PROC: 0Y6N0ZD Detachment at Left Foot, Partial 4th Ray, Open Approach (ICD-10-PCS; 2025-04-24)
PROC: B41G1ZZ Fluoroscopy of Left Lower Extremity Arteries using Low Osmolar Contrast (ICD-10-PCS; 2025-04-26)
PROC: B4101ZZ Fluoroscopy of Abdominal Aorta using Low Osmolar Contrast (ICD-10-PCS; 2025-04-26)
PROC: B41C1ZZ Fluoroscopy of Pelvic Arteries using Low Osmolar Contrast (ICD-10-PCS; 2025-04-26)
DX: A41.9 Sepsis, unspecified organism (principal); A48.0 Gas gangrene; K68.3 Retroperitoneal hematoma; E11.52 Type 2 diabetes mellitus with diabetic peripheral angiopathy with gangrene; I48.21 Permanent atrial fibrillation; L97.429 Non-pressure chronic ulcer of left heel and midfoot with unspecified severity; I70.262 Atherosclerosis of native arteries of extremities with gangrene, left leg; L03.116 Cellulitis of left lower limb; N17.9 Acute kidney failure, unspecified; N39.0 Urinary tract infection, site not specified; L02.612 Cutaneous abscess of left foot; D62 Acute posthemorrhagic anemia; K21.9 Gastro-esophageal reflux disease without esophagitis; E11.40 Type 2 diabetes mellitus with diabetic neuropathy, unspecified; D50.9 Iron deficiency anemia, unspecified; N18.30 Chronic kidney disease, stage 3 unspecified; I12.9 Hypertensive chronic kidney disease with stage 1 through stage 4 chronic kidney disease, or unspecified chronic kidney disease; E11.22 Type 2 diabetes mellitus with diabetic chronic kidney disease; I25.10 Atherosclerotic heart disease of native coronary artery without angina pectoris; R79.82 Elevated C-reactive protein (CRP); B96.4 Proteus (mirabilis) (morganii) as the cause of diseases classified elsewhere; R33.9 Retention of urine, unspecified; N40.1 Benign prostatic hyperplasia with lower urinary tract symptoms; B95.2 Enterococcus as the cause of diseases classified elsewhere; B95.5 Unspecified streptococcus as the cause of diseases classified elsewhere; L89.152 Pressure ulcer of sacral region, stage 2; E78.00 Pure hypercholesterolemia, unspecified; E78.49 Other hyperlipidemia; Z96.653 Presence of artificial knee joint, bilateral; Z79.01 Long term (current) use of anticoagulants; Z95.3 Presence of xenogenic heart valve; Z79.84 Long term (current) use of oral hypoglycemic drugs; Z79.82 Long term (current) use of aspirin; Z79.891 Long term (current) use of opiate analgesic; Z85.46 Personal history of malignant neoplasm of prostate; I95.89 Other hypotension
CPT/HCPCS: 88305; 88307; 88311; 36246; 73630; 73721; 74176; 75625; 75710; 80048; 80053; 80202; 81003; 81015; 81099; 82570; 82962; 83036; 83605; 83735; 83935; 84300; 85014; 85018; 85025; 85027; 85610; 85652; 85730; 86140; 86850; 86900; 86901; 86920; 87040; 87070; 87075; 87076; 87077; 87086; 87088; 87186; 87205; 93005; 93306; 93922; 93925; 93970; 96365; 97110; 97163; 97167; 97530; 97535; 99285; C1769; C1894; P9016; Q9967

== ENCOUNTER → 2025-08-07 13:12 | Outpatient (REF) | payer OTHER, SELFPAY | LOC: RAD 13:12 | PROVIDERS: ATTENDING PHYSICIAN Registered Nurse; FAMILY PHYSICIAN Family Medicine | DX: I73.9 Peripheral vascular disease, unspecified (principal) | CPT/HCPCS: 93922; 93925 ==

== ENCOUNTER → 2025-09-07 16:02 | Outpatient (REF) | payer OTHER, SELFPAY | LOC: REG 16:02 | PROVIDERS: ATTENDING PHYSICIAN Student in an Organized Health Care Education/Training Program; FAMILY PHYSICIAN Family Medicine | DX: M79.672 Pain in left foot (principal) | CPT/HCPCS: 87070; 87071; 87075; 87205 ==

== ENCOUNTER 2025-09-07 17:54 | Inpatient (IN) | payer OTHER, SELFPAY ==
[2025-09-07 15:59] VITALS: BP 96/63
[2025-09-07 16:41] LABS: Hematocrit 38.3 % (39.0-52.0); Hemoglobin 12.2 g/dL (13.0-18.0); Mean Corp Hgb Conc. 31.9 g/dL (33.0-37.0); Mean Corpuscular Volume 87.8 fL (80.0-94.0); Nucleated Red Blood Cells % 0 % (-); Platelet Count 125 10^3/uL (130-400); Red Cell Dist. Width 14.2 % (11.5-14.5)
[2025-09-07 16:52] LABS: ALT (SGPT) 24 U/L (0-50); AST (SGOT) 31 U/L (17-59); Albumin 3.9 g/dl (3.5-5.0); Alkaline Phosphatase 109 U/L (38-126); Blood Urea Nitrogen 44 mg/dl (9-20); Calcium 9.3 mg/dl (8.4-10.2); Carbon Dioxide 23 mmol/L (22-30); Chloride 108 mmol/L (98-107); Glucose 120 mg/dl (70-99); Potassium 4.3 mmol/L (3.5-5.1); Sodium 139 mmol/L (135-145); Total Protein 8.3 g/dl (6.3-8.2); eGFR 41.26
[2025-09-07 16:56] LABS: Troponin I 0.020 ng/ml
--- NOTE | 2025-09-07 17:05 | ED.GENMED ---
History of Present Illness
<Alexis Barbosa PA-C - Last Filed: 09/09/25 14:53>
General
Chief Complaint: Skin Problem
Source: patient, records and family
Time Seen by Provider: 09/07/25 16:51
History of Present Illness
History of Present Illness:
75-year-old male with past medical history of aortic stenosis, atrial fibrillation, hypertension, hyperlipidemia, previous prostate cancer, [id number] diabetes status post left transmetatarsal amputation in April of this year presenting to
the emergency department for evaluation at the request of his dragger out who is concern for possible recurring infection to the left foot after patient developed a new wound along the lateral aspect of the foot towards the proximal portion of the
fifth metatarsal at the appointment today. Patient goes to the wound care center at [facility] for other wounds, this wound had previously not infected but over the last 24 to 48 hours now erythematous and weeping. Patient notes a history
of peripheral neuropathy so is denying any significant pain.
Past History
<Alexis Barbosa PA-C - Last Filed: 09/09/25 14:53>
Past History
ED Past Medical History: Arrthythmia, Cancer, HTN, Hypercholesterolemia, NIDDM and Valvular disease
ED Past Surgical History: Appendectomy, Cardiac and Orthopedic
Social History
Tobacco: Non-smoker
Alcohol: None
Drug: None
Personal:
Living: with family
Review of Systems
<Alexis Barbosa PA-C - Last Filed: 09/09/25 14:53>
Review of Systems
All Other Systems: ROS reviewed and negative except as documented in HPI and ROS
Phy Exam
<Alexis Barbosa PA-C - Last Filed: 09/09/25 14:53>
Physical Exam
Physical Exam:
GENERAL: Alert , in no apparent distress
HEAD: Normocephalic atraumatic
EYE: conjunctiva clear
NECK: Supple
ENT: o/p clr, mmm.
CARDIAC: Regular rate and rhythm
LUNGS: Clear breath sounds bilaterally, no acute respiratory distress, no wheezes/rales/rhonchi
NEUROLOGICAL: Alert and oriented
SKIN: Warm and dry, skin intact. Left Foot: transmetatarsal amputation noted. Small wound measuring < 1cm at the proximal portion of 5th metatarsal/midfoot with surrounding erythema/edema and weeping.
MUSCULOSKELETAL: Palpable faint pedal pulse
PSYCH: Normal and appropriate interaction.
Scores
<Alexis Barbosa PA-C - Last Filed: 09/09/25 14:53>
Heart Failure Risk
Heart Failure Risk Score: Not Applicable
Heart Score for Chest Pain Patients
STEMI patient?: Not applicable
Withdrawal Assessment of Alcohol
Withdrawal Assessment Completed?: Not applicable
Sepsis
<Alexis Barbosa PA-C - Last Filed: 09/09/25 14:53>
Sepsis Screening
Sepsis Assessment: Sepsis Ruled Out
Sepsis Screen
Sepsis Screen: Sepsis Ruled Out
Date: 09/09/25
Time: 14:53
Course
<Alexis Barbosa PA-C - Last Filed: 09/09/25 14:53>
Orders/Labs/Results
Orders:
Orders
09/07/25 Breakfast
2000 calorie (17 carb) Diabetic
At Your Request: Full Participation
09/07/25 16:05
Electrocardiogram (*1) Urgent
Reason for Study: Tachycardia
09/07/25 16:06
EKG- Treatment ONCE
09/07/25 16:22
C-Reactive Protein Urgent
Comment: ADD ON
CMP [Comprehensive Metabolic Panel] Urgent
Complete Blood Count/With Diff Urgent
Erythrocyte Sed Rate Urgent
Comment: ADD ON
Lactic Acid Urgent
Troponin I Urgent
Blood Culture Urgent
SHANTE Source: Blood/Venous
Specimen Description:
09/07/25 16:53
Add On- LAB Urgent
Tests Added?: ESR/CRP
CR Foot - Left Min 3 Views Urgent
Comment:
Reason For Exam: concern for osteo
09/07/25 16:59
Piperacillin/Tazo 3.375 Gram [Zosyn] 3.375 gram in 50 ml IV NOW
09/07/25 17:14
Lower Ext Arterial & JUNG US [US Periph Art LOWER Ext w JUNG] Urgent
Comment:
Reason For Exam: diabetic foot wound
09/07/25 17:29
0.9% Sodium Chloride 1000 ml [Nss] 1,000 ml IV BOLUS
09/07/25 17:46
Admit/Transfer Patient As Directed
Co-Sign Provider:
Level of Care: Inpatient admission
Assign to:: Medical/Surgical
Physician / Group: uyen
Diagnosis: osteomyelitis
Reason for Hospitalization: osteomyelitis
Expected length of stay greater than two midnights?: Yes
ELOS- Estimated Length of Stay in days: 3
I certify the patient meets the requirements for IP care: Yes
PRN Pain Medication Management As Directed
May give lesser potent ordered pain med per pt: Yes
preference::
Protocol:: Medication orders for pain may be administered in a
manner that supports deferring to patient preference
when the pt is:
- Requesting an ordered lesser potent pain medication.
Least to most potent pain medications are defined
as: acetaminophen < NSAID < tramadol < opioids
(morphine, oxycodone, hydromorphone).
- Requesting a lesser dose of the same medication IF
ORDERED.
- Requesting a less intrusive route of administration
if both routes are prescribed by the provider (PO <
IV).
09/07/25 17:47
Code Status As Directed
Resuscitation Status: Full Code
09/07/25 17:50
Vancomycin [Vancocin] 1,500 mg 0.9% Sodium Chloride 500 ml [Nss] 500 ml IV NOW
09/07/25 20:54
Acetaminophen [Tylenol/Feverall] 650 mg RECTAL Q4HPRN PRN
Acetaminophen [Tylenol] 650 mg PO Q4HPRN PRN
Dextrose 50%-Water [Dextrose 50% Syringe] 12.5 grams IV [id number] PRN
Gabapentin [Neurontin] 100 mg PO TID@0800,1200,2000
Glucagon [GlucaGen] 1 mg IM PRN PRN
VANCOMYCIN Pharmacy to Dose [VANCOCIN Pharmacy to Dose] 1 each Pharmacy To Prepare [Call Pharmacy To Prepare] 0 ml IV PER PROTOCOL
09/07/25 20:54
PODIATRY CONSULT Routine
Consulting Provider: Timothy Leung
Was physician already notified: Yes
Activity As Directed
Activity Level: Out of Bed-Early Mobility
Bedside Glucose Monitoring As Directed
Frequency: AC&HS
Additional Instructions:: Change to q6h if pt on TPN, tube feeding or not eating
Intake/ Output As Directed
Frequency: Per unit guidelines
Pneumatic Compression Sleeves As Directed
Type: Thigh high
Vital Signs As Directed
Frequency: Per unit guidelines
Pt Eval And Treat Routine
Activity Level: As Tolerated
DX Deep Vein Thrombosis Video Routine
09/07/25 22:00
Insulin Glargine Lantus [Lantus] 10 units Subcutaneous Insulin Syringe [Syringe-Insulin] 0 unit SC HS
Metoprolol Xl [Toprol Xl] 25 mg PO HS
Rosuvastatin Calcium [Crestor] 40 mg PO HS
Tamsulosin [Flomax] 0.4 mg PO HS
09/08/25 00:00
Piperacillin/Tazo 3.375 Gram [Zosyn] 3.375 gram in 50 ml IV Q6H
09/08/25 06:58
Basic Metabolic Panel IN AM
Complete Blood Count/No Diff IN AM
Glycohemoglobin (HgbA1c) IN AM
09/08/25 07:30
Insulin Aspart Corrective Low [Novolog Flexpen-Low Resistance] See Protocol SC AC
09/08/25 08:00
Dapagliflozin [Farxiga] 10 mg PO DAILY
Ferrous Sulfate [Feosol] 325 mg PO DAILY
09/09/25 06:51
Basic Metabolic Panel IN AM
Complete Blood Count/No Diff IN AM
09/10/25 06:00
Basic Metabolic Panel IN AM
Complete Blood Count/No Diff IN AM
09/11/25 06:00
Basic Metabolic Panel IN AM
Complete Blood Count/No Diff IN AM
Abnormal Lab Results
09/07/25
16:22
RBC 4.36 L 10^6/uL
(4.70-6.10)
Hgb 12.2 L g/dL
(13.0-18.0)
Hct 38.3 L %
(39.0-52.0)
MCHC 31.9 L g/dL
(33.0-37.0)
Plt Count 125 L 10^3/uL
(130-400)
MPV 11.4 H fL
(7.4-10.4)
Absolute Monos (auto) 0.8 H 10^3/uL
(0.1-0.6)
Monocytes % 9.7 H %
(1.7-9.3)
ESR 58 H mm/hour
(0-20)
Chloride 108 H mmol/L
(98-107)
BUN 44 H mg/dl
(9-20)
Creatinine 1.7 H mg/dL
(0.7-1.3)
Glucose 120 H mg/dl
(70-99)
C-Reactive Protein 37.80 H mg/L
(0.0-10.00)
Total Protein 8.3 H g/dl
(6.3-8.2)
09/07/25 16:22
09/07/25 16:22
Vital Signs
Initial and Last Documented VS:
Initial Vital Signs
Temp Pulse Resp BP Pulse Ox
98.1 F 103 18 96/63 98
09/07/25 15:59 09/07/25 15:59 09/07/25 15:59 09/07/25 15:59 09/07/25 15:59
Last Documented Vital Signs
Temp Pulse Resp BP Pulse Ox
98.6 F 78 16 98/59 98
09/09/25 07:00 09/09/25 07:00 09/09/25 07:00 09/09/25 07:00 09/09/25 07:00
<Beto Cho MD - Last Filed: 09/07/25 17:33>
Orders/Labs/Results
Orders:
Orders
09/07/25 Breakfast
2000 calorie (17 carb) Diabetic
At Your Request: Full Participation
09/07/25 16:05
Electrocardiogram (*1) Urgent
Reason for Study: Tachycardia
09/07/25 16:06
EKG- Treatment ONCE
09/07/25 16:22
C-Reactive Protein Urgent
Comment: ADD ON
CMP [Comprehensive Metabolic Panel] Urgent
Complete Blood Count/With Diff Urgent
Erythrocyte Sed Rate Urgent
Comment: ADD ON
Lactic Acid Urgent
Troponin I Urgent
Blood Culture Urgent
SHANTE Source: Blood/Venous
Specimen Description:
09/07/25 16:53
Add On- LAB Urgent
Tests Added?: ESR/CRP
CR Foot - Left Min 3 Views Urgent
Comment:
Reason For Exam: concern for osteo
09/07/25 16:59
Piperacillin/Tazo 3.375 Gram [Zosyn] 3.375 gram in 50 ml IV NOW
09/07/25 17:14
Lower Ext Arterial & JUNG US [US Periph Art LOWER Ext w JUNG] Urgent
Comment:
Reason For Exam: diabetic foot wound
09/07/25 17:29
0.9% Sodium Chloride 1000 ml [Nss] 1,000 ml IV BOLUS
09/07/25 17:46
Admit/Transfer Patient As Directed
Co-Sign Provider:
Level of Care: Inpatient admission
Assign to:: Medical/Surgical
Physician / Group: uyen
Diagnosis: osteomyelitis
Reason for Hospitalization: osteomyelitis
Expected length of stay greater than two midnights?: Yes
ELOS- Estimated Length of Stay in days: 3
I certify the patient meets the requirements for IP care: Yes
PRN Pain Medication Management As Directed
May give lesser potent ordered pain med per pt: Yes
preference::
Protocol:: Medication orders for pain may be administered in a
manner that supports deferring to patient preference
when the pt is:
- Requesting an ordered lesser potent pain medication.
Least to most potent pain medications are defined
as: acetaminophen < NSAID < tramadol < opioids
(morphine, oxycodone, hydromorphone).
- Requesting a lesser dose of the same medication IF
ORDERED.
- Requesting a less intrusive route of administration
if both routes are prescribed by the provider (PO <
IV).
09/07/25 17:47
Code Status As Directed
Resuscitation Status: Full Code
09/07/25 17:50
Vancomycin [Vancocin] 1,500 mg 0.9% Sodium Chloride 500 ml [Nss] 500 ml IV NOW
09/07/25 20:54
Acetaminophen [Tylenol/Feverall] 650 mg RECTAL Q4HPRN PRN
Acetaminophen [Tylenol] 650 mg PO Q4HPRN PRN
Dextrose 50%-Water [Dextrose 50% Syringe] 12.5 grams IV [id number] PRN
Gabapentin [Neurontin] 100 mg PO TID@0800,1200,2000
Glucagon [GlucaGen] 1 mg IM PRN PRN
VANCOMYCIN Pharmacy to Dose [VANCOCIN Pharmacy to Dose] 1 each Pharmacy To Prepare [Call Pharmacy To Prepare] 0 ml IV PER PROTOCOL
09/07/25 20:54
PODIATRY CONSULT Routine
Consulting Provider: Timothy Leung
Was physician already notified: Yes
Activity As Directed
Activity Level: Out of Bed-Early Mobility
Bedside Glucose Monitoring As Directed
Frequency: AC&HS
Additional Instructions:: Change to q6h if pt on TPN, tube feeding or not eating
Intake/ Output As Directed
Frequency: Per unit guidelines
Pneumatic Compression Sleeves As Directed
Type: Thigh high
Vital Signs As Directed
Frequency: Per unit guidelines
Pt Eval And Treat Routine
Activity Level: As Tolerated
DX Deep Vein Thrombosis Video Routine
09/07/25 22:00
Insulin Glargine Lantus [Lantus] 10 units Subcutaneous Insulin Syringe [Syringe-Insulin] 0 unit SC HS
Metoprolol Xl [Toprol Xl] 25 mg PO HS
Rosuvastatin Calcium [Crestor] 40 mg PO HS
Tamsulosin [Flomax] 0.4 mg PO HS
09/08/25 00:00
Piperacillin/Tazo 3.375 Gram [Zosyn] 3.375 gram in 50 ml IV Q6H
09/08/25 06:58
Basic Metabolic Panel IN AM
Complete Blood Count/No Diff IN AM
Glycohemoglobin (HgbA1c) IN AM
09/08/25 07:30
Insulin Aspart Corrective Low [Novolog Flexpen-Low Resistance] See Protocol SC AC
09/08/25 08:00
Dapagliflozin [Farxiga] 10 mg PO DAILY
Ferrous Sulfate [Feosol] 325 mg PO DAILY
09/09/25 06:51
Basic Metabolic Panel IN AM
Complete Blood Count/No Diff IN AM
09/10/25 06:00
Basic Metabolic Panel IN AM
Complete Blood Count/No Diff IN AM
09/11/25 06:00
Basic Metabolic Panel IN AM
Complete Blood Count/No Diff IN AM
Abnormal Lab Results
09/07/25
16:22
RBC 4.36 L 10^6/uL
(4.70-6.10)
Hgb 12.2 L g/dL
(13.0-18.0)
Hct 38.3 L %
(39.0-52.0)
MCHC 31.9 L g/dL
(33.0-37.0)
Plt Count 125 L 10^3/uL
(130-400)
MPV 11.4 H fL
(7.4-10.4)
Absolute Monos (auto) 0.8 H 10^3/uL
(0.1-0.6)
Monocytes % 9.7 H %
(1.7-9.3)
ESR 58 H mm/hour
(0-20)
Chloride 108 H mmol/L
(98-107)
BUN 44 H mg/dl
(9-20)
Creatinine 1.7 H mg/dL
(0.7-1.3)
Glucose 120 H mg/dl
(70-99)
C-Reactive Protein 37.80 H mg/L
(0.0-10.00)
Total Protein 8.3 H g/dl
(6.3-8.2)
09/07/25 16:22
09/07/25 16:22
Vital Signs
Initial and Last Documented VS:
Initial Vital Signs
Temp Pulse Resp BP Pulse Ox
98.1 F 103 18 96/63 98
09/07/25 15:59 09/07/25 15:59 09/07/25 15:59 09/07/25 15:59 09/07/25 15:59
Last Documented Vital Signs
Temp Pulse Resp BP Pulse Ox
98.6 F 78 16 98/59 98
09/09/25 07:00 09/09/25 07:00 09/09/25 07:00 09/09/25 07:00 09/09/25 07:00
<Alexis Barbosa PA-C - Last Filed: 09/09/25 14:53>
MDM/Problems Addressed
Differential Diagnosis Includes:
Osteomyelitis
Cellulitis
Abscess
Diabetic foot wound
PVD/PAD
MDM/Problems Addressed:
75-year-old male presenting to the ER for evaluation of a wound to the lateral aspect of the left foot, dragger out saw patient today and sent patient directly to the ER for admission for IV antibiotics with planning for imaging including MRI and
noninvasive arterial studies labs were initiated in triage. I did add on inflammatory markers as well as vancomycin and Zosyn for antibiotic coverage. Cultures were done in the office and dropped off by family at outpatient lab. Will notify
hospitalist team as well as podiatry that patient arrived with plans for admission
<Alexis Barbosa PA-C - Last Filed: 09/09/25 14:53>
*Radiology
Radiology exam reviewed: radiology read reviewed
*Pulse Oximetry
SaO2: 98
Oxygen Mode of Delivery: Room air
Patient hypoxic: no
*Critical Care Note
Total Time (30-74mins, 75-104mins- exclusive of procedures): Not Applicable
<Alexis Barbosa PA-C - Last Filed: 09/09/25 14:53>
Patient Management
Discussion with other providers: Hospitalist and Marketing Director
Escalation/DeEscalation of care consider admission/obs:
Hospitalist team accepts for admission. I notified patient's podiatry provider, Dr. Leung, patient in the emergency department. Requests MRI of the foot as well as noninvasive arterial studies to be completed. I spoke with vascular surgery to
obtain these studies.
ED Attending Note
<Alexis Barbosa PA-C - Last Filed: 09/09/25 14:53>
-
Portions of this chart may have been created with voice recognition software.� Occasional wrong word or��sound alike� substitutions may have occurred due to the inherent limitations of voice recognition software.
<Beto Cho MD - Last Filed: 09/07/25 17:33>
ED Attending Note
Patient seen and examined by attending physician: Yes
ED Attending Note:
Patient with history of diabetes, presents to ED secondary to nonhealing left foot ulcer. Patient was evaluated by his dragger out who recommended patient come to ED for an evaluation, for IV antibiotics and MRI of the affected foot, as he has had
similar episodes in the past, resulting in multiple toe amputation. Denies fever or chills. Denies nausea or vomiting. Denies known trauma. Patient does report intermittent foot pain.
Physical Exam
General: no apparent distress, not acutely ill. afebrile
Head: nc/at. eomi
Neck: supple. normal range of motion
Neuro: alert and oriented. no focal neurological deficits
Skin: left foot: an approx 1cm open ulcer noted along the lateral aspect, with mild erythema, without active drainage.
Psychiatric: well kept. interactive and cooperative
Extremities: no edema. no calf tenderness.
History and exam concerning for diabetic foot ulcer, with clinical concern for potential osteomyelitis. Patient will be admitted for IV antibiotics. Cardiovascular Or Nurse to continue to follow patient in hospital. MRI foot to be arranged by admitting team.
Discharge Plan
Departure
Patient Disposition: Admit
Date of Disposition: 09/07/25
Time of Disposition: 17:16
Presentation/result/management discussed w/ accepting MD/DO: Hospitalist
Discharge Problem:
Diabetic foot ulcer, Cellulitis of foot, left
Interventions
Interventions:
*Risk Screen - Suicide Last Done: 09/07/25 15:59
*General Assessment Last Done: 09/07/25 17:30
*Neglect/Abuse Screening Last Done: 09/07/25 15:59
*ED COVID-19 Vaccine History Last Done: 09/07/25 17:30
*ED Influenza Vaccine History Last Done: 09/07/25 17:30
*Nursing Disposition Last Done: 09/07/25 20:49
ED-Skin Assessment Last Done: 09/07/25 18:00
Discharge Date and Time
Discharge Date/Time: 09/07/25 20:53
--- NOTE | 2025-09-07 17:10 | HPS.HSE ---
Addendum entered and electronically signed by Elvis Calloway MD 09/07/25 18:22:
This is an addendum to H&P written by Dana Natarajan on 09/07/2025. �Patient seen and examined independently with TRAVEL REGISTERED NURSE ONCOLOGY.
75-year-old male past medical history of paroxysmal atrial fibrillation on Eliquis, severe aortic stenosis status post aortic valve replacement, peripheral arterial disease, chronic anemia, CKD 3, type 2 diabetes, history of transmetatarsal
amputation of the left lower extremity, hypertension, peripheral neuropathy, hyperlipidemia, GERD, stage II pressure injury, prostate cancer, presenting upon recommendation of his cream gatherer Dr Leung for possible recurring infection of the left
foot after patient developed a new wound along the lateral aspect of the foot. �Weeping over the past 1 to 2 days.
Vital signs normal. �Labs show platelets of 125. �Creatinine stable at 1.7.
Recent arterial ultrasound shows unmeasurable JUNG of both lower extremities. �Toe brachial index of right lower extremity 0.74 which is normal.
Patient with diabetic foot infection of lateral left foot. �Concern for potential osteomyelitis. �Vancomycin/Zosyn. �Check MRI of the foot. �Patient recently had arterial imaging last month which was largely unremarkable. �Podiatry consulted.
Original Note:
Family Physician
-
Family Physician: Munir Mcdaniel
Chief Complaint
-
left foot wound
History of Present Illness
75 year old with PMH for Hypertension, diabetes, A-fib, moderate MR, CAD, CKD, neuropathy presented to us with left foot wound which was noticed Mid June. patient underwent transmetatarsal amputation in April which healed very well. patient was
getting wound care at home and following up with wound care at [facility] [address]. Today patient was evaluated by podiatry. podiatry obtained x ray concern for osteomyelitis. Wound cultures sent from the office. Some pain with movement of the
foot. Patient denied any fever, chills, chest pain, short of breath. Patient denies any headache, dizzy or syncope. Patient denies any abdominal pain, nausea, vomiting or diarrhea. Patient denied dysuria hematuria.
x ray of left foot ordered. Kaden mcghee and Meena in ER. admitting for further management.
Medical History
Past Medical History
Past Medical History: Reports Other
Additional Past Medical History:
Hypertension, NIDDM, high cholesterol, A-fib, moderate MR and TR, coronary artery disease, anemia, CKD, neuropathy, colon polyps, prostate cancer, left shoulder arthritis
Past Surgical History: Reports Other
Additional Past Surgical History:
Bilateral knee replacement, no back surgery, appendectomy, aortic valve replacement
Social History
Tobacco: Non-smoker
Alcohol: None
Drug: None
Personal:
Living: With Family
Family History
Family History: Not pertinent
Allergies / Home Medications
Allergies reflects when Allergies were last updated in [facility].
Home Medications with original date entered in [facility]
Allergy/Medication List:
Allergies
Allergy/AdvReac Type Severity Reaction Status Date / Time
No Known Allergies Allergy Verified 04/22/25 15:17
Home Medications
rosuvastatin 40 mg tablet 40 mg PO HS High Cholesterol 01/17/25
ferrous sulfate 325 mg (65 mg iron) tablet 325 mg PO DAILY Supplement 02/21/25
multivitamin 1 tab PO DAILY Supplement 02/21/25
apixaban 5 mg tablet (Eliquis) 5 mg PO BID Blood clot prevention/tx #0 tabs 03/09/25
acetaminophen 325 mg tablet 650 mg PO Q4HPRN PRN mild pain 04/22/25
empagliflozin 25 mg tablet (Jardiance) 12.5 mg PO DAILY Diabetes 04/22/25
gabapentin 100 mg capsule 100 mg PO TID@0800,1200,2000 neuropathic pain 04/22/25
pantoprazole 40 mg tablet,delayed release 40 mg PO DAILY gerd 04/22/25
tamsulosin 0.4 mg capsule 0.4 mg PO HS Urinary issue 04/22/25
Insulin Glargine Lantus [Lantus] 15 units As Directed mls/hr SC HS 05/10/25
acetaminophen 325 mg tablet 650 mg (2 x 325 mg) PO Q4HPRN PRN mild pain,headache,temp >101F #30 tabs 05/10/25
ciprofloxacin HCl 500 mg tablet 500 mg PO BID #8 tabs 05/10/25
linezolid 600 mg tablet 600 mg PO BID #8 tabs 05/10/25
metoprolol succinate 25 mg tablet,extended release 24 hr 25 mg PO HS #30 tabs 05/10/25
metoprolol succinate 50 mg tablet,extended release 24 hr 50 mg PO DAILY #30 tabs 05/10/25
midodrine 5 mg tablet 5 mg PO TID@0800,1300,1800 #90 tabs 05/10/25
polyethylene glycol 3350 17 gram oral powder packet 17 g PO DAILYPRN PRN constipation #30 ea 05/10/25
Review of Systems
-
Constitutional: Reports No Symptoms
EENT: Reports No Symptoms
Respiratory: Reports No Symptoms
Cardiac: Reports No Symptoms
Abdomen/GI: Reports No Symptoms
: Reports No Symptoms
Musculoskeletal: Reports No Symptoms
Skin: Reports Other (lateral wound)
Neurological: Reports No Symptoms
Endocrine: Reports No Symptoms
Hematologic/Lymphatic: Reports No Symptoms
Psych: Reports No Symptoms
Physical Exam
Vital Signs
Vital Signs
Temp Pulse Resp BP Pulse Ox
98.1 F 103 18 96/63 98
09/07/25 15:59 09/07/25 15:59 09/07/25 15:59 09/07/25 15:59 09/07/25 17:06
Physical Exam
General: Well Developed, Well Nourished and No Apparent Distress
HEENT: NormoCephalic, Moist mucous membranes and Atraumatic
Respiratory: Clear
Cardiac: S1/S2 and Regular Rhythm; No Murmur or Rub
GI: Soft, Non Tender, Non Distended and Normal Bowel Sounds; No Organomegaly
Rectal: Deferred by Provider
Musculoskeletal: No Clubbing, No Cyanosis and No Edema
Skin: Rash and Other (transmetatarsal amputation noted. Small wound measuring < 1cm at the proximal portion of 5th metatarsal/midfoot with surrounding erythema/edema and weeping.)
Neuro: AO x 3 and Nonfocal/grossly intact
Psych: Calm
Laboratory Results
-
09/07/25 16:22
09/07/25 16:22
Laboratory Results
Lactic Acid 0.8 mmol/L (0.7-2.0) 09/07/25 16:22
Total Bilirubin 0.7 mg/dl (0.2-1.3) 09/07/25 16:22
AST 31 U/L (17-59) 09/07/25 16:22
ALT 24 U/L (0-50) 09/07/25 16:22
Alkaline Phosphatase 109 U/L (38-126) 09/07/25 16:22
Troponin I 0.020 ng/ml 09/07/25 16:22
Data Reviewed
-
Lab Data: Labs Reviewed by me
Impression/Plan
-
#Concern for osteo/diabetic foot infection status post transmetatarsal amputation
- IV Vanco and Zosyn continued
- Obtain left foot MRI and JUNG
- Podiatric consulted
- Tylenol as needed for fever or pain
-X-ray Of the foot pending
-Blood culture sent from ER
#Anemia of chronic disease
- Hemoglobin stable at 0.2, no active bleeding
- Continue to monitor
#Chronic kidney stage IIIb
- Creatinine 1.7
- Continue to monitor
# Severe aortic stenosis status post aortic valve replacement on 03/05/[address] Elam
#Afib Paroxysmal
-EKg with atrial fib.
-metoprolol continued
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
-Hemoglobin A1c 6.3
-Initiated and continue with Lantus 10 units at bedtime
-sliding scale, jardiance
-gabapentin continued
#Essential HTN
#HLD
-statin continued
DVT ppx scd.
Full code
[2025-09-07 17:42] VITALS: BMI 26.4
[2025-09-07] MEDS: ZOSYN 50 IV ×2 (17:44→23:06)
[2025-09-07] MEDS: NSS 1000 IV (17:44)
[2025-09-07 18:00] VITALS: BP 105/69
[2025-09-07 18:14] LABS: C-Reactive Protein 37.80 mg/L (0.0-10.00)
[2025-09-07] MEDS: VANCOCIN 530 MG IV (18:26)
[2025-09-07 21:00] VITALS: BP 116/75
--- NOTE | 2025-09-07 21:41 | PHA.VAN.IN ---
Assessment
- Assessment
Renal Function: Appears similar to baseline
Concomitant Antimicrobials: piperacillin/tazobactam
Note: enterococcus faecalis & streptococcus detected on previous culture from 05/16
AUC Dosing Plan
- Empiric Dosing
Initial / Loading Dose: 1500 mg @ 1826
Maintenance Regimen: 1250 mg IV Q24H
Estimated AUC (mcg*h/mL): 492
Estimated Peak (mcg*h/mL): 31.0
Estimated Trough (mcg/ml): 12.6
Estimated Half Life (H): 17.3
- Monitoring
No levels ordered at this time: Level to be ordered upon follow-up
Pharmacokinetics Vancomycin I
- -
Patient Age: 75
Patient Sex: Male
Vancomycin Day #: 1
Indication: Skin And Soft Tissue
Requesting Provider: Delgado Cortez
Height / Weight:
Height 6 ft 2 in
Actual Weight 93.2 kg
- Vital Signs / Lab Results
Temp Pulse Resp BP Pulse Ox
98.5 F 84 18 116/75 99
09/07/25 21:00 09/07/25 21:00 09/07/25 21:00 09/07/25 21:00 09/07/25 21:00
Lab Results - Hematology
09/07/25
16:22
WBC 7.9
Lab Results - Chemistry
09/07/25
16:22
BUN 44 H
Creatinine 1.7 H
Albumin 3.9
09/07/25
16:22
Lactic Acid 0.8
[2025-09-07 22:03] LABS: Glucose - Point of Care 237 mg/dl (70-99)
[2025-09-07] MEDS: FLOMAX 0.4 MG PO (22:03)
[2025-09-07] MEDS: TOPROL XL 25 MG PO (22:03)
[2025-09-07] MEDS: NEURONTIN 100 MG PO (22:04)
[2025-09-07] MEDS: CRESTOR 40 MG PO (22:04)
[2025-09-07 23:00] VITALS: BP 108/67
[2025-09-07] MEDS: LANTUS 0.1 UNITS SC (23:06)
--- NOTE | 2025-09-08 01:52 | PTCARENOTE ---
Received patient from ED as an admission to [facility]. Pt AAOx3. Pt afebrile, VSS. Lungs clear, pt on room air. Left forearm C/D/I. No N/V reported. Pt voiding to urinal. Call pa within reach and bed in lowest position.
[2025-09-08] MEDS: ZOSYN 50 IV ×4 (05:36→23:38)
[2025-09-08 07:21] LABS: Hematocrit 35.2 % (39.0-52.0); Hemoglobin 11.4 g/dL (13.0-18.0); Mean Corp Hgb Conc. 32.4 g/dL (33.0-37.0); Mean Corpuscular Volume 88.9 fL (80.0-94.0); Red Cell Dist. Width 14.1 % (11.5-14.5)
[2025-09-08 07:37] LABS: Platelet Count 97 10^3/uL (130-400)
[2025-09-08 07:45] VITALS: BP 111/69
--- NOTE | 2025-09-08 07:45 | W.PN.HOSP.TC ---
Today's Communication/Plan
-
MRI
glycemic control
wound care
abx, follow cx's
Assessment / Plan
Assessment / Plan
Physical Exam
General: No acute distress, appears comfortable at this time
HEENT: NormoCephalic, Moist mucous membranes and Atraumatic
Respiratory: Clear
Cardiac: S1/S2 and Regular Rhythm; No Murmur or Rub
GI: Soft, Non Tender, Non Distended and Normal Bowel Sounds; No Organomegaly
Musculoskeletal: No Clubbing, No Cyanosis and No Edema, left foot s/p TMA dressing clean dry intact
Neuro: AO x 3 and Nonfocal/grossly intact
Psych: Calm
#Concern for osteo/diabetic foot infection status post transmetatarsal amputation
- IV Vanco and Zosyn continued
- Obtain left foot MRI and JUNG
- Podiatric consult appreciated WBAT plan for debridement pending MRI result
-ID consult appreciated
- Tylenol as needed for fever or pain
-X-ray Of the foot appreciated
-follow cultures
#Anemia of chronic disease
-H&H stable monitor
#Chronic kidney stage IIIb
- Monitor
# Severe aortic stenosis status post aortic valve replacement on 03/05/[address] Elam
#Afib Paroxysmal
-EKg with atrial fib.
-metoprolol continued
-patient reports he was taken of Eliquis a month ago as per his Ice Cream Dipper Dr Ruel Araujo recommendation though he does not remember the reason why.
-will reach out to Ice Cream Dipper Wednesday to confirm, but also hold on therapeutic anticoagulation d/t pending surgical intervention as above.
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
-Hemoglobin A1c 6.3
-Initiated and continue with Lantus 10 units at bedtime
-sliding scale, jardiance
-gabapentin continued
#Essential HTN
#HLD
-statin continued
DVT ppx scd.
Full code
I spent a total of 50 minutes with the patient or on the floor. More than 50% of this time involved counseling and coordination of care.
Anticipated Discharge: > 48 hours
Subjective/Interval History
-
Date of Service: September 08, 2025
No acute distress, sitting up comfortably in bed. Overall reports feeling well. Denies new acute issues at this time.
Objective Data
-
Labs:
Laboratory Results
09/08/25
06:58
WBC 6.5
Hgb 11.4 L
Hct 35.2 L
Plt Count 97 L D
Sodium Pending
Potassium Pending
Chloride Pending
Carbon Dioxide Pending
BUN Pending
Creatinine Pending
Glucose Pending
Calcium Pending
Vital Signs:
Vital Signs
Temp Pulse Resp BP Pulse Ox
97.9 F 94 18 108/67 99
09/07/25 23:00 09/07/25 23:00 09/07/25 23:00 09/07/25 23:00 09/07/25 23:00
I&O
09/07/25 09/08/25 09/09/25
06:59 06:59 06:59
Intake Total 200 / 200
Output Total 325 / 325
Balance -125 / -125
[2025-09-08 07:53] LABS: Blood Urea Nitrogen 39 mg/dl (9-20); Calcium 8.6 mg/dl (8.4-10.2); Carbon Dioxide 23 mmol/L (22-30); Chloride 111 mmol/L (98-107); Estimated Creatinine Clearance 46 ml/min; Glucose 116 mg/dl (70-99); Potassium 3.7 mmol/L (3.5-5.1); Sodium 140 mmol/L (135-145); eGFR 44.38
[2025-09-08 07:54] LABS: Glucose - Point of Care 106 mg/dl (70-99)
--- NOTE | 2025-09-08 08:07 | PHA.VAN.FU ---
Vancomycin Assessment / Plan
- Assessment
Renal Function: Stable
WBC's are: WNL
In the past 24 hrs, patient has been: Afebrile
Concomitant Antimicrobials: piperacillin/tazobactam
- Dosing Plan
Adjust Regimen to: dosing by level
- Monitoring Plan
Random Level: 09/09 06
- Follow Up
Pharmacy will continue to follow.
Vancomycin Follow UP
- -
Patient Age: 75
Patient Sex: Male
Vancomycin Day #: 2
Indication: Skin And Soft Tissue
Requesting Provider: Delgado Cortez
Pertinent Antimicrobial Allergies:
NKDA
Height / Weight:
Height 6 ft 2 in
Actual Weight 93.2 kg
Pertinent Past Medical History: DM 2, CKD
- Vital Signs / Lab Results
Temp Pulse Resp BP Pulse Ox
98.1 F 97 18 111/69 98
09/08/25 07:45 09/08/25 07:45 09/08/25 07:45 09/08/25 07:45 09/08/25 07:45
Lab Results - Hematology
09/07/25 09/08/25
16:22 06:58
WBC 7.9 6.5
Lab Results - Chemistry
09/07/25 09/08/25
16:22 06:58
BUN 44 H 39 H
Creatinine 1.7 H 1.6 H
Estimated Creat Clear 46
Albumin 3.9
09/07/25
16:22
Lactic Acid 0.8
[2025-09-08] MEDS: VANCOCIN 275 MG IV (08:13)
[2025-09-08] MEDS: NOVOLOG FLEXPEN-LOW RESISTANCE SC ×2 (08:13→12:06)
[2025-09-08] MEDS: NEURONTIN 100 MG PO ×3 (08:13→21:26)
[2025-09-08] MEDS: FARXIGA 10 MG PO (08:14)
[2025-09-08] MEDS: DESENEX/MITRAZOL/ZEASORB 1 APPLIC TOPICAL ×2 (08:14→21:26)
[2025-09-08] MEDS: FEOSOL 325 MG PO (08:14)
[2025-09-08 10:32] LABS: Glycohemoglobin (HgbA1c) 8.2 % (4.0-5.6)
--- NOTE | 2025-09-08 11:40 | W.PN.UPDATE ---
Addendum entered and electronically signed by Jj Wilder DPM 09/08/25 11:48:
75M presents with Left lateral foot wound, likely OM
- plan for bone debridement early next week pending MRI results
- WBAT
- continue IV abx
- continue elevation LLE on 2-3 pillows behind calf
- will monitor while inpatient
Original Note:
Update Note
Progress Note Update
75M presents with Left lateral foot wound, likely OM
- plan for bone debridement early next week pending MRI results
- WBAT
- continue IV abx
- continue elevation LLE on 2-3 pillows behind calf
- appreciate vasc recs
- will monitor while inpatient
[2025-09-08 11:43] LABS: Glucose - Point of Care 148 mg/dl (70-99)
--- NOTE | 2025-09-08 13:55 | CON.ID ---
Consultation
-
Date/Time Consultation Requested: 09/08/2025 0911
Date/Time Consultation Performed: 09/08/2025 1350
Requesting Provider: Dr. Cruz
Performing Provider: Dr. Menjivar
Reason for Consultation: Left foot infection
Chief Complaint / Past History
History of Present Illness
75-year-old man with a significant history of DM being evaluated for left foot wound. History is obtained from chart review along with patient interview.
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 At that time he underwent a left hallux and partial first ray amputation, which was subsequently converted to a left
TMA on 04/30/2025. Cultures at that time grew Enterococcus, strep species and Proteus. Because of the degree of infection, antibiotics were continued through 05/14/2025. The patient was ultimately discharged on 05/10.
The patient presents back to the ER at the request of Podiatry for further workup of a foot wound. The patient reports that approximately 1 month ago an area on the lateral aspect of his left foot opened up, possibly where the boot he was wearing
was rubbing against the skin. He has been followed by home nursing, but ultimately was evaluated at the wound care center at [facility]. When evaluated earlier this week, the provider noted that the area seemed to probe to bone and advised
to follow-up with his Shrink Pit Operator. Patient saw his electronic warfare technical midweek, and the patient was sent on to the emergency room for further evaluation.
At the present time, the patient denies significant pain. He denies erythema extending up the leg, but finds it difficult to visualize his foot. He denies any fevers or chills.
Past History
Additional Past Medical History:
HTN
HLD
A-fib (Eliquis)
Aortic stenosis
DM
CAD
CKD stage III
Hx prostate CA
Additional Past Surgical History:
AVR (03/05/2025)
Appendectomy
Bilateral knee replacement
Allergy History:
No Known Allergies Allergy (Verified 04/22/25 15:17)
Current Antibiotics:
Zosyn 3.25 g IV every 6 hours
Social History
Tobacco: Non-Smoker
Alcohol: None
Drug: None
Personal:
Living: With Family
Employment: Retired
Family History
Family History: Not Pertinent
Review of Systems
Vital Signs
Temp Pulse Resp BP Pulse Ox
98.1 F 97 18 111/69 98
09/08/25 07:45 09/08/25 07:45 09/08/25 07:45 09/08/25 07:45 09/08/25 07:45
Physical Exam
Physical Exam
Constitutional: No Acute Distress, Comfortable and Non-toxic
Eyes: Pupils Equal, Pupils Round, No Conjunctival Hemorrhage and Sclera Anicteric
Oral: No Thrush and No Ulcers
Cardiovascular: Regular Rate and S1/S2; Negative S3/S4
Pulmonary: Clear; Negative Wheezes, Rales or Rhonchi
Gastrointestinal: Soft, Non Tender, Non Distended, Normal Bowel Sounds, No Rebound and No Guarding
Genito-Urinary: Webb and Clear Urine; Negative Turbid Urine or Hematuria
Extremities: Edema (Left lower extremity), Cyanosis (Left several toes) and Erythema (Left foot)
Skin: Warm and Dry; Negative Rash or Jaundice
Wound: Other (1 cm ulceration left lateral foot. 1 cm probe to bone. Little drainage. Positive malodor.)
Neurological: Awake and Alert
Psychological: Calm
Lab / Diagnostic Study Results
09/08/25 06:58
09/08/25 06:58
Abs Immat Gran (auto) 0.0 10^3/uL (0-0.05) 09/07/25 16:22
Absolute Neuts (auto) 5.0 10^3/uL (1.4-6.5) 09/07/25 16:22
Absolute Lymphs (auto) 2.0 10^3/uL (1.2-3.4) 09/07/25 16:22
Absolute Monos (auto) 0.8 10^3/uL (0.1-0.6) H 09/07/25 16:22
Absolute Basos (auto) 0.1 10^3/uL (0-0.2) 09/07/25 16:22
Immature Gran % 0.3 % (0-0.5) 09/07/25 16:22
Neutrophils % 62.5 % (42.2-75.2) 09/07/25 16:22
Lymphocytes % 24.7 % (20.5-51.1) 09/07/25 16:22
Monocytes % 9.7 % (1.7-9.3) H 09/07/25 16:22
Eosinophils % 2.0 % (0-6) 09/07/25 16:22
Basophils % 0.8 % (0-2) 09/07/25 16:22
ESR 58 mm/hour (0-20) H 09/07/25 16:22
Lactic Acid 0.8 mmol/L (0.7-2.0) 09/07/25 16:22
C-Reactive Protein 37.80 mg/L (0.0-10.00) H 09/07/25 16:22
Microbiology Results
Micro:
09/07/25 21:58 MRSA Screen - Pending
Nose
09/07/25 16:22 Blood Culture - Pending
Blood/Venous
Imaging:
09/07/2025 X-ray left foot: no osseous destructive changes to confirm acute osteomyelitis. Patient is status post transmetatarsal amputation. There is chronic degenerative changes of the midfoot and hindfoot. Severe vascular calcifications noted.
Please see full dictation for additional detail.
04/24/2025 Lower extremity arterial ultrasound with JUNG: 1. Right lower extremity: JUNG not obtainable secondary to noncompressibility of the vessels. TBI, which is more reliable in this setting, is within normal limits. Multiphasic waveforms from
common femoral through popliteal artery with no velocity elevation to suggest any significant stenosis. Continuous Doppler waveforms at the dorsalis pedis and posterior tibial arteries are also multiphasic.
2. Left lower extremity: JUNG not obtainable secondary to noncompressible vessels. TBI, which is more reliable in this setting, is severely reduced 0.22. Multiphasic waveforms in the common femoral and profunda with transition to monophasic waveforms
throughout the superficial femoral and popliteal arteries. However, no discrete stenosis is identified. Continuous Doppler waveforms at the dorsalis pedis and posterior tibial arteries are monophasic.
3. Right groin small seromatous appearing collection measuring 1.1 x 1.4 cm.
04/23/2025 MRI left lower extremity without contrast: No evidence of osteomyelitis. Small foci of decreased signal intensity within the soft tissues likely representing soft tissue air from plantar wound and superior extension. Please see full
dictation for additional detail.
04/22/2025 Left foot x-ray: There are 2 soft tissue lucencies about the base of the great toe. The larger is located laterally and is teardrop in shape. It measures 7 mm. This is 6 mm from the closest osseous structure of the great toe. The second is
smaller and located medially just below the dermis at the level of the first MTP joint. It measures 2 mm.
Assessment / Plan
Left foot wound/ulceration
Left foot cellulitis
Suspected osteomyelitis (L) fifth met
Elevated ESR and CRP
HTN
HLD
A-fib (Eliquis)
Aortic stenosis
DM
CAD
CKD stage III
Hx prostate CA
Recommendations:
Cultures of left foot wound obtained prior to initiation of antibiotics are in process.
Continue with empiric vancomycin and Zosyn.
MRI of the left foot has been ordered; await results.
Continue with local care to the left foot wound.
Monitor for improvement in erythema.
Further recommendations as additional data is returned.
--- NOTE | 2025-09-08 15:20 | CM ---
Alert awake oriented patient who lives with his Gris in a 2 story home with 0 step to enter and stair glide to bed and bathroom. He is assisted in all activities of daily living.He was offered VN requested [facility] .
[facility] / [facility] history
Pharmacy [facility] on
PCP DR Mcdaniel
PLAN Home with [facility]
[2025-09-08 15:23] VITALS: BP 109/70
[2025-09-08 16:25] LABS: Glucose - Point of Care 163 mg/dl (70-99)
[2025-09-08] MEDS: NOVOLOG FLEXPEN-LOW RESISTANCE 1 UNITS SC (18:44)
[2025-09-08 21:17] LABS: Glucose - Point of Care 214 mg/dl (70-99)
[2025-09-08] MEDS: CRESTOR 40 MG PO (21:26)
[2025-09-08] MEDS: FLOMAX 0.4 MG PO (21:26)
[2025-09-08] MEDS: XALATAN OPHTHALMIC SOLUTION 1 DROP BOTH EYES (21:27)
[2025-09-08] MEDS: LANTUS 0.1 UNITS SC (21:28)
[2025-09-08] MEDS: TOPROL XL 25 MG PO (21:28)
[2025-09-08 23:00] VITALS: BP 102/66
[2025-09-08 23:47] VITALS: BP 102/66
[2025-09-09] MEDS: ZOSYN 50 IV ×4 (06:03→23:48)
[2025-09-09 07:00] VITALS: BP 98/59
--- NOTE | 2025-09-09 07:02 | W.PN.HOSP.TC ---
Today's Communication/Plan
-
cont glycemic control
wound care
WBAT
abx
follow cultures
Assessment / Plan
Assessment / Plan
Physical Exam
General: No acute distress, appears comfortable at this time
HEENT: NormoCephalic, Moist mucous membranes and Atraumatic
Respiratory: Clear
Cardiac: S1/S2 and Regular Rhythm; No Murmur or Rub
GI: Soft, Non Tender, Non Distended and Normal Bowel Sounds; No Organomegaly
Musculoskeletal: No Clubbing, No Cyanosis and No Edema, left foot s/p TMA dressing clean dry intact
Neuro: AO x 3 and Nonfocal/grossly intact
Psych: Calm
#Concern for osteo/diabetic foot infection status post transmetatarsal amputation
- IV Vanco and Zosyn continued
- Lt MRI appreciated Acute osteomyelitis residual 5th metatarsal, possible osteo involving 2nd thru 4th metatarsals
- Podiatry consult appreciated WBAT, plan for bone debridement Wed 09/12, elevation LLE
- ID consult appreciated
- Tylenol as needed for fever or pain
-X-ray Of the foot appreciated
-follow cultures
#Anemia of chronic disease
-H&H stable monitor
#Chronic kidney stage IIIb
- Monitor
# Severe aortic stenosis status post aortic valve replacement on 03/05/[address] Elam
#Afib Paroxysmal
-EKg with atrial fib.
-metoprolol continued
-patient reports he was taken of Eliquis a month ago as per his Hand Packager Dr Ruel Araujo recommendation though he does not remember the reason why.
-will reach out to Hand Packager Wednesday to confirm, but also hold on therapeutic anticoagulation d/t pending surgical intervention as above.
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
-Hemoglobin A1c 6.3
-Initiated and continue with Lantus 10 units at bedtime
-sliding scale, jardiance
-gabapentin continued
#Essential HTN
#HLD
-Metoprolol statin continued
DVT ppx scd.
Full code
I spent a total of 45 minutes with the patient or on the floor. More than 50% of this time involved counseling and coordination of care.
Anticipated Discharge: > 48 hours
Subjective/Interval History
-
Date of Service: September 09, 2025
No acute distress, overall reports feeling well. Denies new acute issues at this time.
Objective Data
-
Labs:
Laboratory Results
09/09/25
06:51
WBC Pending
Hgb Pending
Hct Pending
Plt Count Pending
Sodium Pending
Potassium Pending
Chloride Pending
Carbon Dioxide Pending
BUN Pending
Creatinine Pending
Glucose Pending
Calcium Pending
Vital Signs:
Vital Signs
Temp Pulse Resp BP Pulse Ox
97.8 F 83 18 102/66 97
09/08/25 23:00 09/08/25 23:00 09/08/25 23:00 09/08/25 23:00 09/08/25 23:00
I&O
09/08/25 09/09/25 09/10/25
06:59 06:59 06:59
Intake Total 200 / 200 1919
Output Total 325 / 325
Balance -125 / -125 1919
[2025-09-09 07:08] LABS: Glucose - Point of Care 157 mg/dl (70-99)
[2025-09-09 07:52] LABS: Blood Urea Nitrogen 36 mg/dl (9-20); Calcium 8.5 mg/dl (8.4-10.2); Carbon Dioxide 23 mmol/L (22-30); Chloride 109 mmol/L (98-107); Estimated Creatinine Clearance 43 ml/min; Glucose 119 mg/dl (70-99); Magnesium 1.7 mg/dl (1.6-2.3); Potassium 3.7 mmol/L (3.5-5.1); Sodium 141 mmol/L (135-145); eGFR 41.26
--- NOTE | 2025-09-09 07:58 | PHA.VAN.FU ---
Vancomycin Assessment / Plan
- Assessment
Renal Function: Stable
In the past 24 hrs, patient has been: Afebrile
Concomitant Antimicrobials: piperacillin/tazobactam
- Assessment - Therapeutic Drug Monitoring
Random Level: 13.1 - drawn ~22.5H after previous dose of 1250mg
- Dosing Plan
Dosing by Level: Re-dose today (Vanc 1250mg)
- Monitoring Plan
Random Level: 09/10 0600
- Follow Up
Pharmacy will continue to follow.
Vancomycin Follow UP
- -
Patient Age: 75
Patient Sex: Male
Vancomycin Day #: 3
Indication: Skin And Soft Tissue
Requesting Provider: Delgado Cortez / Dr. Menjivar
Pertinent Antimicrobial Allergies:
NKDA
Height / Weight:
Height 6 ft 2 in
Actual Weight 93.2 kg
Pertinent Past Medical History: DM 2, CKD
- Vital Signs / Lab Results
Temp Pulse Resp BP Pulse Ox
98.6 F 78 16 98/59 98
09/09/25 07:00 09/09/25 07:00 09/09/25 07:00 09/09/25 07:00 09/09/25 07:00
Lab Results - Hematology
09/07/25 09/08/25
16:22 06:58
WBC 7.9 6.5
Lab Results - Chemistry
09/07/25 09/08/25 09/09/25
16:22 06:58 06:51
BUN 44 H 39 H 36 H
Creatinine 1.7 H 1.6 H 1.7 H
Estimated Creat Clear 46 43
Albumin 3.9
09/07/25
16:22
Lactic Acid 0.8
Microbiology Results
09/07/25 16:22 Blood Culture - Preliminary
Blood/Venous No Growth in 24 hours- Final report to follow
Therapeutic Drug Monitoring
Random Vancomycin 13.1 ug/ml 09/09/25 06:51
[2025-09-09] MEDS: FEOSOL 325 MG PO (09:15)
[2025-09-09] MEDS: DETROL LA 4 MG PO (09:15)
[2025-09-09] MEDS: FARXIGA 10 MG PO (09:15)
[2025-09-09] MEDS: NOVOLOG FLEXPEN-LOW RESISTANCE 1 UNITS SC ×2 (09:15→12:58)
[2025-09-09] MEDS: DESENEX/MITRAZOL/ZEASORB 1 APPLIC TOPICAL ×2 (09:16→21:44)
[2025-09-09] MEDS: NEURONTIN 100 MG PO ×3 (09:16→21:40)
[2025-09-09 09:26] LABS: Hematocrit 36.0 % (39.0-52.0); Hemoglobin 11.3 g/dL (13.0-18.0); Mean Corp Hgb Conc. 31.4 g/dL (33.0-37.0); Mean Corpuscular Volume 92.3 fL (80.0-94.0); Platelet Count 95 10^3/uL (130-400); Red Cell Dist. Width 14.2 % (11.5-14.5)
[2025-09-09] MEDS: VANCOCIN 275 MG IV (10:21)
[2025-09-09 11:13] LABS: Glucose - Point of Care 184 mg/dl (70-99)
[2025-09-09 11:56] VITALS: BMI 26.4
[2025-09-09] MEDS: MAGNESIUM SULFATE 50 IV (12:55)
[2025-09-09 15:00] VITALS: BP 122/82
--- NOTE | 2025-09-09 15:23 | W.PN.UPDATE ---
Update Note
Progress Note Update
75M presents with Left lateral foot wound with 5th MT OM
- plan for bone debridement wednesday
-- consent for procedure signed and in chart
-- NPO Wednesday
-- MRI w/ acute OM 5th metatarsal, possible early OM vs ostitis 4th MT
- WBAT
- continue IV abx
- continue elevation LLE on 2-3 pillows behind calf
- appreciate vasc recs
- will monitor while inpatient
[2025-09-09 17:36] LABS: Glucose - Point of Care 249 mg/dl (70-99)
[2025-09-09] MEDS: NOVOLOG FLEXPEN-LOW RESISTANCE 2 UNITS SC (17:46)
--- NOTE | 2025-09-09 18:21 | PTCARENOTE ---
Addendum entered by Merrill Beebe 09/09/25 18:24:
JIMMY Holland notified.
Original Note:
Pt found to be saturated with urine in personal brief from home. This PCT offered to change and clean, but patient refused and said 'I will do it later tonight. I am good for now.'
[2025-09-09 21:38] LABS: Glucose - Point of Care 283 mg/dl (70-99)
[2025-09-09] MEDS: FLOMAX 0.4 MG PO (21:40)
[2025-09-09] MEDS: CRESTOR 40 MG PO (21:41)
[2025-09-09] MEDS: TOPROL XL 25 MG PO (21:41)
[2025-09-09] MEDS: LANTUS 0.05 UNITS SC (21:42)
[2025-09-09] MEDS: XALATAN OPHTHALMIC SOLUTION 1 DROP BOTH EYES (21:43)
[2025-09-09 23:15] VITALS: BP 110/74
[2025-09-10] VITALS (10 sets, daily range): BP systolic 105–134; BP diastolic 59–97
[2025-09-10] MEDS: ZOSYN 50 IV (05:40)
[2025-09-10 05:45] LABS: Glucose - Point of Care 133 mg/dl (70-99)
[2025-09-10 07:02] LABS: Hematocrit 35.7 % (39.0-52.0); Hemoglobin 10.9 g/dL (13.0-18.0); Mean Corp Hgb Conc. 30.5 g/dL (33.0-37.0); Mean Corpuscular Volume 91.3 fL (80.0-94.0); Platelet Count 99 10^3/uL (130-400); Red Cell Dist. Width 14.3 % (11.5-14.5)
[2025-09-10 07:23] LABS: Blood Urea Nitrogen 32 mg/dl (9-20); Calcium 8.5 mg/dl (8.4-10.2); Carbon Dioxide 24 mmol/L (22-30); Chloride 109 mmol/L (98-107); Estimated Creatinine Clearance 43 ml/min; Glucose 139 mg/dl (70-99); Magnesium 2.1 mg/dl (1.6-2.3); Potassium 3.7 mmol/L (3.5-5.1); Sodium 139 mmol/L (135-145); eGFR 41.26
[2025-09-10] MEDS: DETROL LA 4 MG PO (07:46)
[2025-09-10] MEDS: FARXIGA 10 MG PO (07:46)
[2025-09-10] MEDS: NEURONTIN 100 MG PO ×3 (07:46→20:40)
[2025-09-10] MEDS: FEOSOL 325 MG PO (07:46)
[2025-09-10] MEDS: LANTUS SC (07:47)
[2025-09-10] MEDS: DESENEX/MITRAZOL/ZEASORB 1 APPLIC TOPICAL ×2 (07:51→20:42)
--- NOTE | 2025-09-10 08:09 | PHA.VAN.FU ---
Vancomycin Assessment / Plan
- Assessment
Renal Function: Stable
WBC's are: Stable
In the past 24 hrs, patient has been: Afebrile
Concomitant Antimicrobials: Zosyn 3.375 gram IV q6h
- Assessment - Therapeutic Drug Monitoring
Random Level: 14.9 (09/10 at 06:37 AM) ~ 20 hour after previous dose
- Dosing Plan
Dosing by Level: Re-dose today (Vancomycin 1250 mg)
- Monitoring Plan
Random Level: 09/11 @ 06:00 AM
- Follow Up
Pharmacy will continue to follow.
Vancomycin Follow UP
- -
Patient Age: 75
Patient Sex: Male
Vancomycin Day #: 4
Indication: Skin And Soft Tissue
Requesting Provider: Delgado Cortez / Dr. Menjivar
Pertinent Antimicrobial Allergies:
NKDA
Height / Weight:
Height 6 ft 2 in
Actual Weight 93.2 kg
Pertinent Past Medical History: DM 2, CKD
- Vital Signs / Lab Results
Temp Pulse Resp BP Pulse Ox
98.0 F 87 17 121/73 96
09/10/25 08:01 09/10/25 08:01 09/10/25 08:01 09/10/25 08:01 09/10/25 08:01
Lab Results - Hematology
09/07/25 09/08/25 09/09/25
16:22 06:58 06:51
WBC 7.9 6.5 7.5
09/10/25
06:37
WBC 7.3
Lab Results - Chemistry
09/07/25 09/08/25 09/09/25
16:22 06:58 06:51
BUN 44 H 39 H 36 H
Creatinine 1.7 H 1.6 H 1.7 H
Estimated Creat Clear 46 43
Albumin 3.9
09/10/25
06:37
BUN 32 H
Creatinine 1.7 H
Estimated Creat Clear 43
Albumin
09/07/25
16:22
Lactic Acid 0.8
Microbiology Results
09/07/25 16:22 Blood Culture - Preliminary
Blood/Venous No Growth in 48 hours- Final report to follow
09/07/25 21:58 MRSA Screen - Final
Nose No Methicillin Resistant Staphylococcus aureus isolated.
Therapeutic Drug Monitoring
Random Vancomycin 14.9 ug/ml 09/10/25 06:37
--- NOTE | 2025-09-10 08:51 | W.PN.HOSP.TC ---
Today's Communication/Plan
-
NPO pending surgical procedure as per podiatry
cont abx as per ID
Assessment / Plan
Assessment / Plan
Physical Exam
General: No acute distress, appears comfortable at this time
HEENT: NormoCephalic, Moist mucous membranes and Atraumatic
Respiratory: Clear
Cardiac: S1/S2 and Regular Rhythm; No Murmur or Rub
GI: Soft, Non Tender, Non Distended and Normal Bowel Sounds; No Organomegaly
Musculoskeletal: No Clubbing, No Cyanosis and No Edema, left foot s/p TMA dressing clean dry intact
Neuro: AO x 3 and Nonfocal/grossly intact
Psych: Calm
#Concern for osteo/diabetic foot infection status post transmetatarsal amputation
- Lt MRI appreciated Acute osteomyelitis residual 5th metatarsal, possible osteo involving 2nd thru 4th metatarsals
- Podiatry consult appreciated WBAT, plan for bone debridement today 09/10, npo awaiting procedure
- ID consult appreciated empiric vanc and zosyn narrowed to unasyn
- Tylenol as needed for fever or pain
-X-ray Of the foot appreciated
-follow cultures
#Anemia of chronic disease
-H&H stable monitor
#Chronic kidney stage IIIb
- Monitor
# Severe aortic stenosis status post aortic valve replacement on 03/05/[address] Elam
#Afib Paroxysmal
-EKg with atrial fib.
-metoprolol continued
-patient reports he was taken of Eliquis a month ago as per his Dispensing Operator Dr Ruel Araujo recommendation though he does not remember the reason why.
-will reach out to Dispensing Operator to confirm, but also hold on therapeutic anticoagulation d/t pending surgical intervention as above.
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
-Hemoglobin A1c 6.3
-Initiated and continue with Lantus 10 units at bedtime
-sliding scale, jardiance
-gabapentin continued
#Essential HTN
#HLD
-Metoprolol statin continued
DVT ppx scd.
Full code
I spent a total of 45 minutes with the patient or on the floor. More than 50% of this time involved counseling and coordination of care.
Anticipated Discharge: 24 - 48 hours
Subjective/Interval History
-
Date of Service: September 10, 2025
no acute distress, appears well, NPO awaiting surgical intervention as per Podiatry.
Objective Data
-
Labs:
Laboratory Results
09/10/25
06:37
WBC 7.3
Hgb 10.9 L
Hct 35.7 L
Plt Count 99 L
Sodium 139
Potassium 3.7
Chloride 109 H
Carbon Dioxide 24
BUN 32 H
Creatinine 1.7 H
Glucose 139 H
Calcium 8.5
Vital Signs:
Vital Signs
Temp Pulse Resp BP Pulse Ox
98.0 F 87 17 121/73 96
09/10/25 08:01 09/10/25 08:01 09/10/25 08:01 09/10/25 08:01 09/10/25 08:01
I&O
09/09/25 09/10/25 09/11/25
06:59 06:59 06:59
Intake Total 1919
Balance 1919
[2025-09-10] MEDS: LANTUS 0.05 UNITS SC (09:43)
[2025-09-10] MEDS: VANCOCIN 275 MG IV (09:44)
--- NOTE | 2025-09-10 10:49 | W.PN.ID1 ---
Date of Service
Date of Service: September 10, 2025
Today's Communication
Continue antibiotics; narrow to Unasyn.
Assessment / Plan
Left foot wound/ulceration
Left foot cellulitis
Osteomyelitis (L) fifth met
Elevated ESR and CRP
HTN
HLD
A-fib (Eliquis)
Aortic stenosis
DM
CAD
CKD stage III
Hx prostate CA
Recommendations:
Cultures of left foot wound with Proteus, Enterococcus and group C strep.
Narrow to Unasyn.
Continue with local care to the left foot wound.
Patient for tentative bone debridement 09/12/2025
����������������������������������������������������������
Chief Complaint
-: Other (Left foot osteomyelitis)
Subjective / Review of Systems
Review of Systems: No Fever and No Chills
Vital Signs / Physical Exam
Vital Signs
Vital Signs
Temp Pulse Resp BP Pulse Ox
98.0 F 87 17 121/73 96
09/10/25 08:01 09/10/25 08:01 09/10/25 08:01 09/10/25 08:01 09/10/25 08:01
Physical Exam
Constitutional: No Acute Distress, Comfortable and Non-toxic
Eyes: Sclera Anicteric
Cardiovascular: S1/S2; Negative S3/S4
Pulmonary: Non Labored
Gastrointestinal: Soft, Non Tender and Non Distended
Wound: Other (left foot dressed.)
Neurological: Awake and Alert
Psychological: Calm
Objective Data
Lab Data
Lab Results
09/10/25 06:37
09/10/25 06:37
ESR 58 mm/hour (0-20) H 09/07/25 16:22
Estimated Creat Clear 43 ml/min 09/10/25 06:37
Lactic Acid 0.8 mmol/L (0.7-2.0) 09/07/25 16:22
Total Bilirubin 0.7 mg/dl (0.2-1.3) 09/07/25 16:22
AST 31 U/L (17-59) 09/07/25 16:22
ALT 24 U/L (0-50) 09/07/25 16:22
Alkaline Phosphatase 109 U/L (38-126) 09/07/25 16:22
C-Reactive Protein 37.80 mg/L (0.0-10.00) H 09/07/25 16:22
Most recent labs reviewed.
Micro Results:
09/07/25 16:22 Blood Culture - Preliminary
Blood/Venous No Growth in 48 hours- Final report to follow
09/07/25 21:58 MRSA Screen - Final
Nose No Methicillin Resistant Staphylococcus aureus isolated.
Imaging:
09/09/2025 Left lower extremity MRI: previous transmet amputation. There is bone marrow edema throughout the entire residual fifth metatarsal compatible with acute osteomyelitis. There is also bone marrow edema to a lesser degree in the 2nd
through 4th metatarsals without overt T1 hypointense marrow replacement. Impression is that of acute osteomyelitis of residual fifth metatarsal. Marrow edema in the 2nd through 4th metatarsals may be reactive versus early changes of acute
osteomyelitis.
09/07/2025 X-ray left foot: no osseous destructive changes to confirm acute osteomyelitis. Patient is status post transmetatarsal amputation. There is chronic degenerative changes of the midfoot and hindfoot. Severe vascular calcifications noted.
Please see full dictation for additional detail.
04/24/2025 Lower extremity arterial ultrasound with JUNG: 1. Right lower extremity: JUNG not obtainable secondary to noncompressibility of the vessels. TBI, which is more reliable in this setting, is within normal limits. Multiphasic waveforms from
common femoral through popliteal artery with no velocity elevation to suggest any significant stenosis. Continuous Doppler waveforms at the dorsalis pedis and posterior tibial arteries are also multiphasic.
2. Left lower extremity: JUNG not obtainable secondary to noncompressible vessels. TBI, which is more reliable in this setting, is severely reduced 0.22. Multiphasic waveforms in the common femoral and profunda with transition to monophasic waveforms
throughout the superficial femoral and popliteal arteries. However, no discrete stenosis is identified. Continuous Doppler waveforms at the dorsalis pedis and posterior tibial arteries are monophasic.
3. Right groin small seromatous appearing collection measuring 1.1 x 1.4 cm.
04/23/2025 MRI left lower extremity without contrast: No evidence of osteomyelitis. Small foci of decreased signal intensity within the soft tissues likely representing soft tissue air from plantar wound and superior extension. Please see full
dictation for additional detail.
04/22/2025 Left foot x-ray: There are 2 soft tissue lucencies about the base of the great toe. The larger is located laterally and is teardrop in shape. It measures 7 mm. This is 6 mm from the closest osseous structure of the great toe. The second is
smaller and located medially just below the dermis at the level of the first MTP joint. It measures 2 mm.
--- NOTE | 2025-09-10 10:57 | CM ---
Patient seen at bedside
plan for bone debridement Wed
current with [facility]
referral in [facility] accepted
spoke with Misa dobbins
PLAN: home with [facility] when stable
[facility] fax #: [phone]
--- NOTE | 2025-09-10 11:31 | WOUNDNOTE ---
GLUTEAL CLEFT PROXIMAL AND DISTAL
--- NOTE | 2025-09-10 11:31 | WOUNDNOTE ---
GLUTEAL CLEFT CLOSER VIEW
--- NOTE | 2025-09-10 11:35 | WOUNDNOTE ---
[facility] RN note: Patient admitted with Cellulitis and wound of L foot.
See H&P for complete history.
PMH: 75-year-old male with a past medical history of hypertension, hyperlipidemia, atrial fibrillation on Eliquis, aortic stenosis status post TAVR, NIDDM, L Trans met amputation and prostate cancer.
Wound Location and type/assessment: Patient admitted with: L diabetic foot ulcer and cellulitis, Podiatry managing and plan is for OR, dressing dry and intact. Asked to see patient for Gluteal cleft ulcer, appears to be stage 3PI, patient known to
service. Base of open PI is pink mixed with oliver, macerated edges. Patient states he uses Santyl at home. Distal to open ulcer is dry crusty scabbed area. Patient incontinent of large amt of urine, uses a depends. Periwound with blanchable redness
and MASD. R heel and foot is intact. R lateral thigh with intact scar.
Appetite: NPO for surgery.
Pressure redistribution devices in place: On Air Mattress, can turn with minimal assist. Pillow under calves.
Plan: Sacral silicone foam dressing changed, adaptic and 2x2 gauze also used. Will order Santyl to start tomorrow.
R thigh silicone foam to protect.
Will confirm orders with hospitalist, update care plan and nurse Don aware.
Note to case management of equipment requested for discharge: TBD.
[2025-09-10] MEDS: UNASYN IV ×3 (11:53→23:43)
[2025-09-10 12:23] LABS: Glucose - Point of Care 115 mg/dl (70-99)
--- NOTE | 2025-09-10 15:02 | PN.CDI ---
CDI
- -
CDI:
Physician Documentation Request
Admit Date: 09/07/25 17:54
Dear Doctor,
Please review the following and provide your response in the progress notes.
Clinical Indicators:
Pt admitted for osteo/diabetic foot infection status post transmetatarsal amputation.
09/08 manufacturer representative in wound panel noted stage 3 gluteal cleft pressure injury POA.
Physician documentation of the type and location of wounds is required for compliant documentation. Based on the above clinical findings and your assessment, please provide the following in your progress note:
1. Location of the ulcer/wound, including laterality.
2. Type (etiology) of ulcer/wound:
Gluteal cleft stage 3 pressure injury POA
Gluteal cleft non-pressure injury POA
Other
Use of terms such as suspected, likely, concern for, or probable (associated with a specific diagnosis that is being evaluated, monitored, or treated as if it exists) are acceptable and can be coded in the inpatient setting, when documented at the
time of discharge.
Thank you,
Julissa Baez RN, BSN
CDI Specialist
[employer]
Please use your independent medical judgment in providing your response.
*Source: National Pressure Ulcer Advisory Panel (NPUAP)
[2025-09-10 15:41] LABS: Glucose - Point of Care 97 mg/dl (70-99)
--- NOTE | 2025-09-10 16:59 | W.PN.SURGUPD ---
Surgical Update
Surgical Update
75 yo M s/p left partial 5th metatarsal resection, primarily closed
-No further surgical plans
-F/u 2x culture, 2x pathology
-Continue IV antibiotics while admitted, anticipate PO antibiotic plan pending culture/pathology findings
-NWB to LLE
-PT/OT
-Will assess on AM rounds
[2025-09-10 17:22] LABS: Glucose - Point of Care 98 mg/dl (70-99)
[2025-09-10 19:40] LABS: Glucose - Point of Care 166 mg/dl (70-99)
[2025-09-10 21:20] LABS: Glucose - Point of Care 279 mg/dl (70-99)
[2025-09-10] MEDS: FLOMAX 0.4 MG PO (21:22)
[2025-09-10] MEDS: TOPROL XL 25 MG PO (21:22)
[2025-09-10] MEDS: CRESTOR 40 MG PO (21:23)
[2025-09-10] MEDS: LANTUS 0.1 UNITS SC (21:24)
[2025-09-10] MEDS: XALATAN OPHTHALMIC SOLUTION 1 DROP BOTH EYES (21:25)
[2025-09-10] MEDS: TYLENOL 650 MG PO (22:15)
[2025-09-11] MEDS: TYLENOL 650 MG PO (03:02)
[2025-09-11 03:11] VITALS: BP 134/91
[2025-09-11] MEDS: UNASYN IV ×4 (05:32→23:57)
[2025-09-11 06:44] LABS: Hematocrit 36.6 % (39.0-52.0); Hemoglobin 11.5 g/dL (13.0-18.0); Mean Corp Hgb Conc. 31.4 g/dL (33.0-37.0); Mean Corpuscular Volume 88.6 fL (80.0-94.0); Platelet Count 114 10^3/uL (130-400); Red Cell Dist. Width 14.1 % (11.5-14.5)
[2025-09-11 07:14] LABS: Blood Urea Nitrogen 33 mg/dl (9-20); Calcium 8.5 mg/dl (8.4-10.2); Carbon Dioxide 24 mmol/L (22-30); Chloride 109 mmol/L (98-107); Estimated Creatinine Clearance 49 ml/min; Glucose 239 mg/dl (70-99); Magnesium 2.1 mg/dl (1.6-2.3); Potassium 4.3 mmol/L (3.5-5.1); Sodium 136 mmol/L (135-145); eGFR 47.95
[2025-09-11 07:17] LABS: Glucose - Point of Care 201 mg/dl (70-99)
[2025-09-11] MEDS: NOVOLOG FLEXPEN-LOW RESISTANCE 2 UNITS SC (07:20)
[2025-09-11 07:24] VITALS: BP 120/93
[2025-09-11] MEDS: DETROL LA 4 MG PO (07:34)
[2025-09-11] MEDS: NEURONTIN 100 MG PO ×3 (07:34→20:32)
[2025-09-11] MEDS: FARXIGA 10 MG PO (07:34)
[2025-09-11] MEDS: SANTYL OINTMENT 1 APPLIC TOPICAL (07:35)
[2025-09-11] MEDS: FEOSOL 325 MG PO (07:35)
[2025-09-11] MEDS: DESENEX/MITRAZOL/ZEASORB 1 APPLIC TOPICAL ×2 (07:58→20:33)
--- NOTE | 2025-09-11 08:11 | W.PN.HOSP.TC ---
Today's Communication/Plan
-
cont abx as per ID
post-op care as per podiatry
NWB LLE
follow cultures
Assessment / Plan
Assessment / Plan
Physical Exam
General: No acute distress, appears comfortable at this time
HEENT: NormoCephalic, Moist mucous membranes and Atraumatic
Respiratory: Clear
Cardiac: S1/S2 and Regular Rhythm; No Murmur or Rub
GI: Soft, Non Tender, Non Distended and Normal Bowel Sounds; No Organomegaly
Musculoskeletal: No Clubbing, No Cyanosis and No Edema, left foot s/p TMA dressing clean dry intact
Neuro: AO x 3 and Nonfocal/grossly intact
Psych: Calm
#Concern for osteo/diabetic foot infection status post transmetatarsal amputation
- ID consult appreciated empiric vanc and zosyn narrowed to unasyn
- Tylenol as needed for fever or pain
-X-ray Of the foot appreciated
- Lt MRI appreciated Acute osteomyelitis residual 5th metatarsal
- Podiatry consult appreciated WBAT, Resection of left 5th metatarsal base performed 09/10, NWB LLE
-follow cultures
#Anemia of chronic disease
-H&H stable monitor
#Chronic kidney stage IIIb
- Monitor
# Severe aortic stenosis status post aortic valve replacement on 03/05/[address] Elam
#Afib Paroxysmal
-EKg with atrial fib.
-metoprolol continued
-Discussed w/ pt's primary [employer] Traffic [employer] Dr Ruel Araujo via tiger text, pt off Eliquis b/c he is s/p Left Atrial Appendage Clipping
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
-Hemoglobin A1c 6.3
-Lantus 15U at bedtime
-sliding scale, jardiance
-gabapentin continued
#Essential HTN
#HLD
-Metoprolol statin continued
#stage 3 gluteal cleft pressure injury POA
wound care
PT/OT appreciated SNF rehab vs HH
DVT ppx scd.
Full code
I spent a total of 45 minutes with the patient or on the floor. More than 50% of this time involved counseling and coordination of care.
Anticipated Discharge: 24 - 48 hours
Subjective/Interval History
-
Date of Service: September 11, 2025
Objective Data
-
Labs:
Laboratory Results
09/11/25
06:21
WBC 8.4
Hgb 11.5 L
Hct 36.6 L
Plt Count 114 L
Sodium 136
Potassium 4.3
Chloride 109 H
Carbon Dioxide 24
BUN 33 H
Creatinine 1.5 H
Glucose 239 H
Calcium 8.5
Vital Signs:
Vital Signs
Temp Pulse Resp BP Pulse Ox
97.6 F 87 12 120/93 99
09/11/25 07:24 09/11/25 07:24 09/11/25 07:24 09/11/25 07:24 09/11/25 07:24
I&O
09/10/25 09/11/25 09/12/25
06:59 06:59 06:59
Intake Total 2245 / 2245 175 / 175
Balance 2245 / 2245 175 / 175
[2025-09-11 11:02] VITALS: BP 117/84
[2025-09-11 11:52] LABS: Glucose - Point of Care 260 mg/dl (70-99)
[2025-09-11] MEDS: NOVOLOG FLEXPEN-LOW RESISTANCE 3 UNITS SC (12:04)
--- NOTE | 2025-09-11 12:20 | W.PN.UPDATE ---
Update Note
Progress Note Update
75 yo M s/p left partial 5th metatarsal resection, primarily closed. DOing well this AM, no pain, calf soft supple nontender
-No further surgical plans
-F/u 2x culture, 2x pathology
-Continue IV antibiotics while admitted, anticipate PO antibiotic plan pending culture/pathology findings
-NWB to LLE
-PT/OT
-Will monitor while inpatient
[2025-09-11 12:54] VITALS: BP 120/87; PULSE 91; O2SAT 98
--- NOTE | 2025-09-11 12:55 | CM ---
patient seen at bedside
s/p left partial 5th metatarsal resection, primarily closed
PT rec SNF - patient adamantly refuses SNF - current with [facility]
Referral in [facility] updated
LM with Misa Valle liaison
PLAN: Home with [facility] when stable
[facility] fax #: [phone]
--- NOTE | 2025-09-11 15:18 | W.PN.ID1 ---
Date of Service
Date of Service: September 11, 2025
Today's Communication
Continue abx.
Assessment / Plan
Left foot wound/ulceration
Left foot cellulitis
Osteomyelitis (L) fifth met
Elevated ESR and CRP
HTN
HLD
A-fib (Eliquis)
Aortic stenosis
DM
CAD
CKD stage III
Hx prostate CA
Recommendations:
Cultures of left foot wound with Proteus, Enterococcus and group C strep.
Continue with Unasyn.
Continue with local care to the left foot wound.
����������������������������������������������������������
Chief Complaint
-: Other (Left foot osteomyelitis)
Subjective / Review of Systems
Review of Systems: No Fever and No Chills
Vital Signs / Physical Exam
Vital Signs
Vital Signs
Temp Pulse Resp BP Pulse Ox
97.1 F 86 16 117/84 99
09/11/25 11:02 09/11/25 11:02 09/11/25 11:02 09/11/25 11:02 09/11/25 11:02
Physical Exam
Constitutional: No Acute Distress, Comfortable and Non-toxic
Eyes: Sclera Anicteric
Cardiovascular: S1/S2; Negative S3/S4
Pulmonary: Non Labored
Gastrointestinal: Soft, Non Tender and Non Distended
Wound: Other (left foot dressed.)
Neurological: Awake and Alert
Psychological: Calm
Objective Data
Lab Data
Lab Results
09/11/25 06:21
09/11/25 06:21
ESR 58 mm/hour (0-20) H 09/07/25 16:22
Estimated Creat Clear 49 ml/min 09/11/25 06:21
Lactic Acid 0.8 mmol/L (0.7-2.0) 09/07/25 16:22
Total Bilirubin 0.7 mg/dl (0.2-1.3) 09/07/25 16:22
AST 31 U/L (17-59) 09/07/25 16:22
ALT 24 U/L (0-50) 09/07/25 16:22
Alkaline Phosphatase 109 U/L (38-126) 09/07/25 16:22
C-Reactive Protein 37.80 mg/L (0.0-10.00) H 09/07/25 16:22
Most recent labs reviewed.
Micro Results:
09/10/25 16:45 Anaerobic Culture - Preliminary
Foot - Left Culture pending. Anaerobic cultures are examined after 3
days incubation. Additional information to follow.
09/10/25 16:45 Wound Culture - Preliminary
Foot - Left Gram Stain - Preliminary
09/10/25 16:45 Tissue Culture - Preliminary
Foot - Left No Growth After 18-24 Hours
Gram Stain - Preliminary
09/07/25 16:22 Blood Culture - Preliminary
Blood/Venous No Growth in 72 hours- Final report to follow
09/07/25 21:58 MRSA Screen - Final
Nose No Methicillin Resistant Staphylococcus aureus isolated.
Imaging:
09/09/2025 Left lower extremity MRI: previous transmet amputation. There is bone marrow edema throughout the entire residual fifth metatarsal compatible with acute osteomyelitis. There is also bone marrow edema to a lesser degree in the 2nd
through 4th metatarsals without overt T1 hypointense marrow replacement. Impression is that of acute osteomyelitis of residual fifth metatarsal. Marrow edema in the 2nd through 4th metatarsals may be reactive versus early changes of acute
osteomyelitis.
09/07/2025 X-ray left foot: no osseous destructive changes to confirm acute osteomyelitis. Patient is status post transmetatarsal amputation. There is chronic degenerative changes of the midfoot and hindfoot. Severe vascular calcifications noted.
Please see full dictation for additional detail.
04/24/2025 Lower extremity arterial ultrasound with JUNG: 1. Right lower extremity: JUNG not obtainable secondary to noncompressibility of the vessels. TBI, which is more reliable in this setting, is within normal limits. Multiphasic waveforms from
common femoral through popliteal artery with no velocity elevation to suggest any significant stenosis. Continuous Doppler waveforms at the dorsalis pedis and posterior tibial arteries are also multiphasic.
2. Left lower extremity: JUNG not obtainable secondary to noncompressible vessels. TBI, which is more reliable in this setting, is severely reduced 0.22. Multiphasic waveforms in the common femoral and profunda with transition to monophasic waveforms
throughout the superficial femoral and popliteal arteries. However, no discrete stenosis is identified. Continuous Doppler waveforms at the dorsalis pedis and posterior tibial arteries are monophasic.
3. Right groin small seromatous appearing collection measuring 1.1 x 1.4 cm.
04/23/2025 MRI left lower extremity without contrast: No evidence of osteomyelitis. Small foci of decreased signal intensity within the soft tissues likely representing soft tissue air from plantar wound and superior extension. Please see full
dictation for additional detail.
04/22/2025 Left foot x-ray: There are 2 soft tissue lucencies about the base of the great toe. The larger is located laterally and is teardrop in shape. It measures 7 mm. This is 6 mm from the closest osseous structure of the great toe. The second is
smaller and located medially just below the dermis at the level of the first MTP joint. It measures 2 mm.
[2025-09-11 16:04] VITALS: BP 129/74
[2025-09-11 16:49] LABS: Glucose - Point of Care 379 mg/dl (70-99)
[2025-09-11] MEDS: NOVOLOG FLEXPEN-LOW RESISTANCE 5 UNITS SC (17:08)
[2025-09-11 21:21] LABS: Glucose - Point of Care 389 mg/dl (70-99)
[2025-09-11] MEDS: CRESTOR 40 MG PO (21:33)
[2025-09-11] MEDS: XALATAN OPHTHALMIC SOLUTION 1 DROP BOTH EYES (21:33)
[2025-09-11] MEDS: FLOMAX 0.4 MG PO (21:33)
[2025-09-11] MEDS: TOPROL XL 25 MG PO (21:34)
[2025-09-11] MEDS: LANTUS 0.15 UNITS SC (21:35)
[2025-09-11] MEDS: NOVOLOG FLEXPEN 4 UNITS SC (21:48)
--- NOTE | 2025-09-11 22:27 | OR.RPT ---
Operative Report
Operative Report
Operative Report
Patient Name:�Rene Matthews
Medical Record Number:�[id number]
Date of Surgery:�09/10/2025
Surgeon:�Timothy Leung DPM
Assistants:�Timothy Wilder DPM
Preoperative Diagnosis:
Left foot wound overlying 5th metatarsal base
MRI evidence of osteomyelitis of the left 5th metatarsal base
History of prior left transmetatarsal amputation
Postoperative Diagnosis:
Same as preoperative
Procedure Performed:
Resection of left 5th metatarsal base CPT 01681
Anesthesia:
MAC with 10ccs of 0.5% bupivacaine plain
Estimated Blood Loss:
Minimal (<10 mL)
Specimens:
Wound culture
Bone culture (5th metatarsal base)
Resected 5th metatarsal base � sent for pathology
Clearing fragment of residual 5th metatarsal base � sent for pathology
Complications:
None
Indications for Surgery:
The patient is status post a well-healed prior left transmetatarsal amputation who presented with a new ulceration and MRI-confirmed osteomyelitis involving the left 5th metatarsal base. Conservative therapy was unsuccessful, and surgical
debridement and partial resection were indicated to eradicate infection while preserving lateral column function and the peroneus brevis tendon insertion. Informed consent was obtained after discussion of the risks, benefits, and alternatives.
Description of Procedure:
The patient was brought to the operating room and placed supine on the operating table. After induction of anesthesia, the left foot was prepped and draped in the usual sterile manner.
Attention was directed to the lateral aspect of the left foot. A linear incision was made over the previous wound, incorporating the ulcer margin. The incision was deepened through skin and subcutaneous tissues, and all nonviable soft tissue was
sharply excised. The sinus tract was followed to the 5th metatarsal base, which was exposed using blunt and sharp dissection.
A curette was used to obtain a deep wound culture specimen, which was sent for microbiological analysis. The base of the 5th metatarsal was identified and found to be softened and irregular. Using a sagittal saw, the infected portion of the 5th
metatarsal base was resected en bloc and passed off the field for pathology. A bone culture was obtained from the freshly cut surface of the metatarsal.
The remaining metatarsal stump was inspected. To ensure complete removal of nonviable bone, a power angelica was used to gently resect and contour the remaining 5th metatarsal to healthy, bleeding bone. A small fragment of bone was then taken from this
residual healthy margin and submitted as a clearing fragment to confirm complete eradication of infection histologically.
Throughout the procedure, care was taken to preserve the insertion of the peroneus brevis tendon on the residual 5th metatarsal stump to maintain foot balance and function. The wound was irrigated copiously with sterile saline. Hemostasis was
achieved with electrocautery. Following complete debridement of all nonviable soft tissue and bone, the surgical field appeared free from infection and closure was deemed appropriate.
The deep tissues were approximated with 2-0 PDS, and the skin was reapproximated with 2-0 prolene in a simple interrupted fashion to allow for drainage if necessary.
A sterile dressing consisting of betadine, sterile gauze, and a light compressive wrap was applied. The patient tolerated the procedure and anesthesia well.
Disposition:
The patient was transported to the post-anesthesia care unit (PACU) in stable condition with intact vascular status of the left foot.
Postoperative Plan:
Maintain dressing clean, dry, and intact.
Nonweightbearing strictly.
Continue IV antibiotics per infectious disease recommendations pending culture and pathology results.
Follow up in 2 weeks for wound inspection and dressing change.
[2025-09-11 22:56] VITALS: BP 119/78
[2025-09-11 23:57] LABS: Glucose - Point of Care 297 mg/dl (70-99)
--- NOTE | 2025-09-12 02:18 | DOWNTIME ---
There was a [employer] Client Music Director Downtime on 09/12/2025 from 0100 to 09/12/2025 at 0215. Downtime documentation of patient's care, including medication administrations, has been reconciled in the electronic record per guidelines. Refer to the
patient's paper chart under the miscellaneous tab to see printed paper medication records and downtime forms.
[2025-09-12 03:00] VITALS: BP 121/84
[2025-09-12] MEDS: UNASYN IV ×3 (05:43→17:39)
[2025-09-12 06:06] VITALS: BMI 27.5
[2025-09-12 07:44] VITALS: BMI 27.5
[2025-09-12 07:58] LABS: Glucose - Point of Care 219 mg/dl (70-99)
[2025-09-12 08:00] VITALS: BP 135/86
[2025-09-12] MEDS: DESENEX/MITRAZOL/ZEASORB 1 APPLIC TOPICAL ×2 (08:02→22:19)
[2025-09-12] MEDS: NEURONTIN 100 MG PO ×3 (08:04→22:28)
[2025-09-12] MEDS: FARXIGA 10 MG PO (08:04)
[2025-09-12] MEDS: FEOSOL 325 MG PO (08:04)
[2025-09-12] MEDS: DETROL LA 4 MG PO (08:04)
[2025-09-12] MEDS: NOVOLOG FLEXPEN-LOW RESISTANCE 2 UNITS SC ×2 (08:05→17:40)
[2025-09-12] MEDS: SANTYL OINTMENT 1 APPLIC TOPICAL (09:01)
--- NOTE | 2025-09-12 10:23 | W.PN.ID1 ---
Date of Service
Date of Service: September 12, 2025
Today's Communication
Continue antibiotics.
Assessment / Plan
Left foot wound/ulceration
Left foot cellulitis
Osteomyelitis (L) fifth met
- s/p debridement / culture
Elevated ESR and CRP
HTN
HLD
A-fib (Eliquis)
Aortic stenosis
DM
CAD
CKD stage III
Hx prostate CA
Recommendations:
Wound cultures of left foot wound with Proteus, Enterococcus and group C strep.
Tissue culture pending
Continue with Unasyn. Will need 6-week course of antibiotic therapy.
- At discharge, may need to transition to Zosyn given the possibility of q.8 hours dosing if patient is discharged to home.
Continue with local care to the left foot wound.
����������������������������������������������������������
Chief Complaint
-: Other (Left foot osteomyelitis)
Subjective / Review of Systems
Review of Systems: No Fever and No Chills
Vital Signs / Physical Exam
Vital Signs
Vital Signs
Temp Pulse Resp BP Pulse Ox
97.7 F 78 16 135/86 98
09/12/25 08:00 09/12/25 08:00 09/12/25 08:00 09/12/25 08:00 09/12/25 08:00
Physical Exam
Constitutional: No Acute Distress, Comfortable and Non-toxic
Eyes: Sclera Anicteric
Cardiovascular: S1/S2; Negative S3/S4
Pulmonary: Non Labored
Gastrointestinal: Soft, Non Tender and Non Distended
Wound: Other (left foot dressed.)
Neurological: Awake and Alert
Psychological: Calm
Objective Data
Lab Data
Lab Results
09/11/25 06:21
09/11/25 06:21
ESR 58 mm/hour (0-20) H 09/07/25 16:22
Estimated Creat Clear 49 ml/min 09/11/25 06:21
Lactic Acid 0.8 mmol/L (0.7-2.0) 09/07/25 16:22
Total Bilirubin 0.7 mg/dl (0.2-1.3) 09/07/25 16:22
AST 31 U/L (17-59) 09/07/25 16:22
ALT 24 U/L (0-50) 09/07/25 16:22
Alkaline Phosphatase 109 U/L (38-126) 09/07/25 16:22
C-Reactive Protein 37.80 mg/L (0.0-10.00) H 09/07/25 16:22
Most recent labs reviewed.
Micro Results:
09/07/25 16:22 Blood Culture - Preliminary
Blood/Venous No Growth in 4 days- Final report to follow
09/10/25 16:45 Anaerobic Culture - Preliminary
Foot - Left Culture pending. Anaerobic cultures are examined after 3
days incubation. Additional information to follow.
09/10/25 16:45 Wound Culture - Preliminary
Foot - Left Gram Stain - Preliminary
09/10/25 16:45 Tissue Culture - Preliminary
Foot - Left No Growth After 18-24 Hours
Gram Stain - Preliminary
09/07/25 21:58 MRSA Screen - Final
Nose No Methicillin Resistant Staphylococcus aureus isolated.
Imaging:
09/09/2025 Left lower extremity MRI: previous transmet amputation. There is bone marrow edema throughout the entire residual fifth metatarsal compatible with acute osteomyelitis. There is also bone marrow edema to a lesser degree in the 2nd
through 4th metatarsals without overt T1 hypointense marrow replacement. Impression is that of acute osteomyelitis of residual fifth metatarsal. Marrow edema in the 2nd through 4th metatarsals may be reactive versus early changes of acute
osteomyelitis.
09/07/2025 X-ray left foot: no osseous destructive changes to confirm acute osteomyelitis. Patient is status post transmetatarsal amputation. There is chronic degenerative changes of the midfoot and hindfoot. Severe vascular calcifications noted.
Please see full dictation for additional detail.
04/24/2025 Lower extremity arterial ultrasound with JUNG: 1. Right lower extremity: JUNG not obtainable secondary to noncompressibility of the vessels. TBI, which is more reliable in this setting, is within normal limits. Multiphasic waveforms from
common femoral through popliteal artery with no velocity elevation to suggest any significant stenosis. Continuous Doppler waveforms at the dorsalis pedis and posterior tibial arteries are also multiphasic.
2. Left lower extremity: JUNG not obtainable secondary to noncompressible vessels. TBI, which is more reliable in this setting, is severely reduced 0.22. Multiphasic waveforms in the common femoral and profunda with transition to monophasic waveforms
throughout the superficial femoral and popliteal arteries. However, no discrete stenosis is identified. Continuous Doppler waveforms at the dorsalis pedis and posterior tibial arteries are monophasic.
3. Right groin small seromatous appearing collection measuring 1.1 x 1.4 cm.
04/23/2025 MRI left lower extremity without contrast: No evidence of osteomyelitis. Small foci of decreased signal intensity within the soft tissues likely representing soft tissue air from plantar wound and superior extension. Please see full
dictation for additional detail.
04/22/2025 Left foot x-ray: There are 2 soft tissue lucencies about the base of the great toe. The larger is located laterally and is teardrop in shape. It measures 7 mm. This is 6 mm from the closest osseous structure of the great toe. The second is
smaller and located medially just below the dermis at the level of the first MTP joint. It measures 2 mm.
[2025-09-12 11:33] LABS: Glucose - Point of Care 254 mg/dl (70-99)
[2025-09-12] MEDS: NOVOLOG FLEXPEN-LOW RESISTANCE 3 UNITS SC (12:11)
--- NOTE | 2025-09-12 12:12 | CM ---
patient seen at bedside
per ID note patient will req home IV abx
will need script
Patient current with [facility]
Spoke with Misa Duff & updated [facility]
LM with Shi from [facility]
PLAN: Home, [facility] when stable, with iv abx per note
[facility] fax #: [phone]
--- NOTE | 2025-09-12 13:02 | W.PN.UPDATE ---
Update Note
Progress Note Update
75 yo M s/p left partial 5th metatarsal resection, primarily closed. DOing well this AM, no pain, calf soft supple nontender
-No further surgical plans
-F/u 2x culture, 2x pathology
-Continue IV antibiotics while admitted, would appreciate ID recs for discharge abx
-NWB to LLE
-PT/OT
-Patient may follow up in office
--- NOTE | 2025-09-12 13:08 | W.PN.HOSP.TC ---
Today's Communication/Plan
-
Await culture data
Probably will require PICC line and IV antibiotics
Increase Lantus
Assessment / Plan
Assessment / Plan
Physical Exam
General: No acute distress, appears comfortable at this time
HEENT: NormoCephalic, Moist mucous membranes and Atraumatic
Respiratory: Clear
Cardiac: S1/S2 and Regular Rhythm; No Murmur or Rub
GI: Soft, Non Tender, Non Distended and Normal Bowel Sounds; No Organomegaly
Musculoskeletal: No Clubbing, No Cyanosis and No Edema, left foot s/p TMA dressing clean dry intact
Neuro: AO x 3 and Nonfocal/grossly intact
Psych: Calm
#Concern for osteo/diabetic foot infection status post transmetatarsal amputation
- ID consult appreciated empiric vanc and zosyn narrowed to unasyn
- Tylenol as needed for fever or pain
-X-ray Of the foot appreciated
- Lt MRI appreciated Acute osteomyelitis residual 5th metatarsal
- Podiatry consult appreciated WBAT, Resection of left 5th metatarsal base performed Mon 09/10, [facility] LLE
- Cultures polymicrobial. Per infectious disease probably will require 6 weeks of antibiotic therapy.
#Anemia of chronic disease
-H&H stable monitor
#Chronic kidney stage IIIb
- Monitor
# Severe aortic stenosis status post aortic valve replacement on 03/05/[address] Elam
#Afib Paroxysmal
-EKg with atrial fib.
-metoprolol continued
-Discussed w/ pt's primary Top Dyeing Machine Loader Dr Ruel Araujo via tiger text, pt off Eliquis b/c he is s/p Left Atrial Appendage Clipping
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
-Hemoglobin A1c 8.2
-Lantus 15U at bedtime home dose. POC elevated -increased dose to 18u
-sliding scale, jardiance
-gabapentin continued
#Essential HTN
#HLD
-Metoprolol statin continued
#stage 3 gluteal cleft pressure injury POA
wound care
PT/OT appreciated SNF rehab vs HH
DVT ppx scd.
Full code
Anticipated Discharge: 24 - 48 hours
Subjective/Interval History
-
Date of Service: September 12, 2025
states had leg pain last night -not much this morning
Objective Data
-
Vital Signs:
Vital Signs
Temp Pulse Resp BP Pulse Ox
97.7 F 78 16 135/86 98
09/12/25 08:00 09/12/25 08:00 09/12/25 08:00 09/12/25 08:00 09/12/25 08:00
I&O
09/11/25 09/12/25 09/13/25
06:59 06:59 06:59
Intake Total 175 / 175 660 / 660
Balance 175 / 175 660 / 660
[2025-09-12 15:25] VITALS: BP 131/93
[2025-09-12 16:37] LABS: Glucose - Point of Care 236 mg/dl (70-99)
[2025-09-12 21:59] LABS: Glucose - Point of Care 177 mg/dl (70-99)
[2025-09-12] MEDS: CRESTOR 40 MG PO (22:25)
[2025-09-12] MEDS: TOPROL XL 25 MG PO (22:25)
[2025-09-12] MEDS: FLOMAX 0.4 MG PO (22:28)
[2025-09-12] MEDS: LANTUS 0.18 UNITS SC (22:28)
[2025-09-12] MEDS: XALATAN OPHTHALMIC SOLUTION 1 DROP BOTH EYES (22:29)
[2025-09-12 23:25] VITALS: BP 124/79
[2025-09-13] MEDS: UNASYN IV ×4 (00:09→17:25)
[2025-09-13 06:51] LABS: Hematocrit 35.2 % (39.0-52.0); Hemoglobin 11.0 g/dL (13.0-18.0); Mean Corp Hgb Conc. 31.3 g/dL (33.0-37.0); Mean Corpuscular Volume 91.4 fL (80.0-94.0); Nucleated Red Blood Cells % 0 % (-); Platelet Count 122 10^3/uL (130-400); Red Cell Dist. Width 14.0 % (11.5-14.5)
[2025-09-13 07:12] LABS: Blood Urea Nitrogen 33 mg/dl (9-20); Calcium 8.4 mg/dl (8.4-10.2); Carbon Dioxide 28 mmol/L (22-30); Chloride 109 mmol/L (98-107); Estimated Creatinine Clearance 49 ml/min; Glucose 131 mg/dl (70-99); Potassium 4.2 mmol/L (3.5-5.1); Sodium 141 mmol/L (135-145); eGFR 47.95
[2025-09-13 07:30] VITALS: BP 140/102
[2025-09-13 07:47] LABS: Glucose - Point of Care 113 mg/dl (70-99)
[2025-09-13] MEDS: NOVOLOG FLEXPEN-LOW RESISTANCE SC (08:03)
[2025-09-13] MEDS: DETROL LA 4 MG PO (08:04)
[2025-09-13] MEDS: FEOSOL 325 MG PO (08:04)
[2025-09-13] MEDS: FARXIGA 10 MG PO (08:05)
[2025-09-13] MEDS: NEURONTIN 100 MG PO ×3 (08:05→21:37)
[2025-09-13] MEDS: DESENEX/MITRAZOL/ZEASORB 1 APPLIC TOPICAL ×2 (08:06→21:36)
[2025-09-13] MEDS: SANTYL OINTMENT TOPICAL (08:26)
--- NOTE | 2025-09-13 11:08 | W.PN.HOSP.TC ---
Today's Communication/Plan
-
await culture finalization
IV abx
lovenox
monitor poc
Assessment / Plan
Assessment / Plan
Physical Exam
General: No acute distress, appears comfortable at this time
HEENT: NormoCephalic, Moist mucous membranes and Atraumatic
Respiratory: Clear
Cardiac: S1/S2 and Regular Rhythm; No Murmur or Rub
GI: Soft, Non Tender, Non Distended and Normal Bowel Sounds; No Organomegaly
Musculoskeletal: No Clubbing, No Cyanosis and No Edema, left foot s/p TMA dressing clean dry intact
Neuro: AO x 3 and Nonfocal/grossly intact
Psych: Calm
#Concern for osteo/diabetic foot infection status post transmetatarsal amputation
- ID consult appreciated empiric vanc and zosyn narrowed to unasyn
- Tylenol as needed for fever or pain
- X-ray Of the foot appreciated
- Lt MRI appreciated Acute osteomyelitis residual 5th metatarsal
- Podiatry consult appreciated WBAT, Resection of left 5th metatarsal base performed Mon 09/10, [facility] LLE
- Cultures polymicrobial-await finalization of cultures. Per infectious disease probably will require 6 weeks of antibiotic therapy.
#Anemia of chronic disease
-H&H stable monitor
#Chronic kidney stage IIIb
- Monitor
# Severe aortic stenosis status post aortic valve replacement on 03/05/[address] Elam
#Afib Paroxysmal
-metoprolol continued
-Dr. Cruz discussed w/ pt's primary Secondary English Teacher Dr Ruel Araujo via tiger text, pt off Eliquis b/c he is s/p Left Atrial Appendage Clipping
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
-Hemoglobin A1c 8.2
-Lantus 15U at bedtime home dose. POC elevated -increased dose to 18u. POC improved.
-sliding scale, jardiance
-gabapentin continued
#Essential HTN
#HLD
-Metoprolol statin continued
#stage 3 gluteal cleft pressure injury POA
wound care
PT/OT appreciated SNF rehab vs HH
DVT ppx scd/start lovenox
Full code
Anticipated Discharge: Within 24 hours
Subjective/Interval History
-
Date of Service: September 13, 2025
denies foot pain this morning
Objective Data
-
Labs:
Laboratory Results
09/13/25
06:35
WBC 6.8
Hgb 11.0 L
Hct 35.2 L
Plt Count 122 L
Sodium 141
Potassium 4.2
Chloride 109 H
Carbon Dioxide 28
BUN 33 H
Creatinine 1.5 H
Glucose 131 H
Calcium 8.4
Vital Signs:
Vital Signs
Temp Pulse Resp BP Pulse Ox
98.4 F 80 14 140/102 98
09/13/25 07:30 09/13/25 07:30 09/13/25 07:30 09/13/25 07:30 09/13/25 07:30
I&O
09/12/25 09/13/25 09/14/25
06:59 06:59 06:59
Intake Total 660 / 660 1260 / 1260
Balance 660 / 660 1260 / 1260
Data Reviewed
-
Total Time Spent with Patient (in minutes): 55
[2025-09-13 11:50] VITALS: BP 129/81; PULSE 83
[2025-09-13 11:59] LABS: Glucose - Point of Care 226 mg/dl (70-99)
[2025-09-13] MEDS: NOVOLOG FLEXPEN-LOW RESISTANCE 2 UNITS SC (12:30)
--- NOTE | 2025-09-13 12:58 | CM ---
Patient seen at bedside
spoke with on phone
await final culture
cont on IV abx
Will need script for home abx if needed
benefit check run with [facility]
Patient current with [facility]
PLAN: Home, poss IV abx, [facility] with [facility] fax #: [phone]
[2025-09-13 14:37] VITALS: BP 114/79
[2025-09-13 14:39] VITALS: BP 114/79
[2025-09-13 17:16] LABS: Glucose - Point of Care 191 mg/dl (70-99)
[2025-09-13] MEDS: LOVENOX 40 MG SC (17:24)
[2025-09-13] MEDS: NOVOLOG FLEXPEN-LOW RESISTANCE 1 UNITS SC (17:30)
[2025-09-13 21:05] LABS: Glucose - Point of Care 264 mg/dl (70-99)
[2025-09-13] MEDS: FLOMAX 0.4 MG PO (21:37)
[2025-09-13] MEDS: TOPROL XL 25 MG PO (21:37)
[2025-09-13] MEDS: CRESTOR 40 MG PO (21:43)
[2025-09-13] MEDS: XALATAN OPHTHALMIC SOLUTION 1 DROP BOTH EYES (21:43)
[2025-09-13] MEDS: LANTUS 0.18 UNITS SC (21:43)
[2025-09-13 23:00] VITALS: BP 133/99
[2025-09-14] MEDS: UNASYN IV ×3 (00:45→13:03)
[2025-09-14 06:23] LABS: Hematocrit 35.0 % (39.0-52.0); Hemoglobin 11.2 g/dL (13.0-18.0); Mean Corp Hgb Conc. 32.0 g/dL (33.0-37.0); Mean Corpuscular Volume 88.8 fL (80.0-94.0); Nucleated Red Blood Cells % 0 % (-); Platelet Count 124 10^3/uL (130-400); Red Cell Dist. Width 13.8 % (11.5-14.5)
[2025-09-14 07:04] LABS: Blood Urea Nitrogen 29 mg/dl (9-20); Calcium 8.7 mg/dl (8.4-10.2); Carbon Dioxide 27 mmol/L (22-30); Chloride 108 mmol/L (98-107); Estimated Creatinine Clearance 56 ml/min; Glucose 113 mg/dl (70-99); Potassium 3.8 mmol/L (3.5-5.1); Sodium 137 mmol/L (135-145); eGFR 56.93
[2025-09-14 07:33] VITALS: BP 119/81
[2025-09-14 07:44] LABS: Glucose - Point of Care 99 mg/dl (70-99)
[2025-09-14] MEDS: NOVOLOG FLEXPEN-LOW RESISTANCE SC ×2 (09:37→12:40)
[2025-09-14] MEDS: FEOSOL 325 MG PO (09:39)
[2025-09-14] MEDS: FARXIGA 10 MG PO (09:39)
[2025-09-14] MEDS: NEURONTIN 100 MG PO ×3 (09:40→21:18)
[2025-09-14] MEDS: DETROL LA 4 MG PO (09:40)
[2025-09-14] MEDS: DESENEX/MITRAZOL/ZEASORB 1 APPLIC TOPICAL ×2 (09:42→21:18)
--- NOTE | 2025-09-14 11:18 | W.PN.HOSP.TC ---
Today's Communication/Plan
-
PICC line today
IV antibiotic
Case management
Assessment / Plan
Assessment / Plan
Physical Exam
General: No acute distress, appears comfortable at this time
HEENT: NormoCephalic, Moist mucous membranes and Atraumatic
Respiratory: Clear
Cardiac: S1/S2 and Regular Rhythm; No Murmur or Rub
GI: Soft, Non Tender, Non Distended and Normal Bowel Sounds; No Organomegaly
Musculoskeletal: No Clubbing, No Cyanosis and No Edema, left foot s/p TMA dressing clean dry intact
Neuro: AO x 3 and Nonfocal/grossly intact
Psych: Calm
#Concern for osteo/diabetic foot infection status post transmetatarsal amputation
- ID consult appreciated empiric vanc and zosyn narrowed to unasyn
- Tylenol as needed for fever or pain
- X-ray Of the foot appreciated
- Lt MRI appreciated Acute osteomyelitis residual 5th metatarsal
- Podiatry consult appreciated WBAT, Resection of left 5th metatarsal base performed Mon 09/10, [facility] LLE
- Cultures polymicrobial-discussed with infectious disease. Okay to place PICC line today. Plan to transition to IV Zosyn for 6 weeks. Possible discharge today if IV antibiotics set up completed.
#Anemia of chronic disease
-H&H stable monitor
#Chronic kidney stage IIIb
- Monitor
# Severe aortic stenosis status post aortic valve replacement on 03/05/[address] Elam
#Afib Paroxysmal
-metoprolol continued
-Dr. Cruz discussed w/ pt's primary Steam Hoist Operator Dr Ruel Araujo via tiger text, pt off Eliquis b/c he is s/p Left Atrial Appendage Clipping
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
-Hemoglobin A1c 8.2
-Lantus 15U at bedtime home dose. POC elevated -increased dose to 18u. POC improved.
-sliding scale, jardiance
-gabapentin continued
#Essential HTN
#HLD
-Metoprolol statin continued
#stage 3 gluteal cleft pressure injury POA
wound care
PT/OT appreciated SNF rehab vs HH
DVT ppx scd/start lovenox
Full code
Discussed with ID
Anticipated Discharge: Today
Subjective/Interval History
-
Date of Service: September 14, 2025
states he is eager to go home
States he is okay with IV antibiotics and PICC line which he can manage at home
Denies any pain to the right foot
Objective Data
-
Labs:
Laboratory Results
09/14/25
06:07
WBC 7.0
Hgb 11.2 L
Hct 35.0 L
Plt Count 124 L
Sodium 137
Potassium 3.8
Chloride 108 H
Carbon Dioxide 27
BUN 29 H
Creatinine 1.3
Glucose 113 H
Calcium 8.7
Vital Signs:
Vital Signs
Temp Pulse Resp BP Pulse Ox
98.5 F 80 16 119/81 98
09/14/25 07:33 09/14/25 07:33 09/14/25 07:33 09/14/25 07:33 09/14/25 07:33
I&O
09/13/25 09/14/25 09/15/25
06:59 06:59 06:59
Intake Total 1260 / 1260 720 / 720
Output Total 460 / 460
Balance 1260 / 1260 260 / 260
--- NOTE | 2025-09-14 11:29 | CM ---
Addendum entered by Nisreen Caldera 09/14/25 15:09:
IMM explained & signed. In chart
Addendum entered by Nisreen Caldera 09/14/25 14:50:
Shi from [facility] did teaching with patient and on facetime
script from ID given to LUIS Osullivan placed copy in chart (Zosyn 4.5gm IV Q8h)
Patient can be discharge home tomorrow after morning dose of Zosyn by 12 noon and [facility] will deliver medication/supplies to the home for afternoon dose
PLAN: Home, tomorrow with [facility], IV antibiotic
[facility] fax #: [phone]
[facility] Fax #: [phone]
daughter to transport
Original Note:
Patient to get PICC line for home abx
will need 1st dose Zosyn here at hospital per Shi
Shi from [facility] can visit onsite today for teach
PICC info will be given to Shi & script
PLAN: Home with [facility], IV antibiotic, ONCE SET UP
[facility] fax #: [phone]
[facility] Fax #: [phone]
[2025-09-14 11:33] LABS: Glucose - Point of Care 138 mg/dl (70-99)
[2025-09-14] MEDS: SANTYL OINTMENT 1 APPLIC TOPICAL (13:03)
--- NOTE | 2025-09-14 13:47 | W.PN.ID1 ---
Date of Service
Date of Service: September 14, 2025
Today's Communication
Continue antibiotics.
Assessment / Plan
Left foot wound/ulceration
Left foot cellulitis
Osteomyelitis (L) fifth met
- s/p debridement / culture
Elevated ESR and CRP
HTN
HLD
A-fib (Eliquis)
Aortic stenosis
DM
CAD
CKD stage III
Hx prostate CA
Recommendations:
Wound and tissue cultures of left foot wound with Proteus, Enterococcus and group C strep.
At discharge transition to Zosyn 4.5gm IV q.8 hours to complete a 6-week course.
Will follow weekly labs in the outpatient setting.
Continue with local care to the left foot wound.
IV sheet given to Home Infusion liaison
����������������������������������������������������������
Chief Complaint
-: Other (Left foot osteomyelitis)
Subjective / Review of Systems
Review of Systems: No Fever and No Chills
Vital Signs / Physical Exam
Vital Signs
Vital Signs
Temp Pulse Resp BP Pulse Ox
98.5 F 80 16 119/81 98
09/14/25 07:33 09/14/25 07:33 09/14/25 07:33 09/14/25 07:33 09/14/25 07:33
Physical Exam
Constitutional: No Acute Distress, Comfortable and Non-toxic
Eyes: Sclera Anicteric
Cardiovascular: S1/S2; Negative S3/S4
Pulmonary: Non Labored
Gastrointestinal: Soft, Non Tender and Non Distended
Wound: Other (left foot dressed. No erythema extending up the leg. Dressing without strikethrough.)
Neurological: Awake and Alert
Psychological: Calm
Objective Data
Lab Data
Lab Results
09/14/25 06:07
09/14/25 06:07
ESR 58 mm/hour (0-20) H 09/07/25 16:22
Estimated Creat Clear 56 ml/min 09/14/25 06:07
Lactic Acid 0.8 mmol/L (0.7-2.0) 09/07/25 16:22
Total Bilirubin 0.7 mg/dl (0.2-1.3) 09/07/25 16:22
AST 31 U/L (17-59) 09/07/25 16:22
ALT 24 U/L (0-50) 09/07/25 16:22
Alkaline Phosphatase 109 U/L (38-126) 09/07/25 16:22
C-Reactive Protein 37.80 mg/L (0.0-10.00) H 09/07/25 16:22
Most recent labs reviewed.
Micro Results:
09/10/25 16:45 Anaerobic Culture - Preliminary
Foot - Left NO ANAEROBES ISOLATED
09/10/25 16:45 Tissue Culture - Final
Foot - Left No Growth After 72 Hours
Gram Stain - Final
09/07/25 16:22 Blood Culture - Final
Blood/Venous No Growth - Final Report
09/10/25 16:45 Wound Culture - Preliminary
Foot - Left Proteus mirabilis
Enterococcus faecalis
Group C Streptococcus
Gram Stain - Preliminary
09/07/25 21:58 MRSA Screen - Final
Nose No Methicillin Resistant Staphylococcus aureus isolated.
Imaging:
09/09/2025 Left lower extremity MRI: previous transmet amputation. There is bone marrow edema throughout the entire residual fifth metatarsal compatible with acute osteomyelitis. There is also bone marrow edema to a lesser degree in the 2nd
through 4th metatarsals without overt T1 hypointense marrow replacement. Impression is that of acute osteomyelitis of residual fifth metatarsal. Marrow edema in the 2nd through 4th metatarsals may be reactive versus early changes of acute
osteomyelitis.
09/07/2025 X-ray left foot: no osseous destructive changes to confirm acute osteomyelitis. Patient is status post transmetatarsal amputation. There is chronic degenerative changes of the midfoot and hindfoot. Severe vascular calcifications noted.
Please see full dictation for additional detail.
04/24/2025 Lower extremity arterial ultrasound with JUNG: 1. Right lower extremity: JUNG not obtainable secondary to noncompressibility of the vessels. TBI, which is more reliable in this setting, is within normal limits. Multiphasic waveforms from
common femoral through popliteal artery with no velocity elevation to suggest any significant stenosis. Continuous Doppler waveforms at the dorsalis pedis and posterior tibial arteries are also multiphasic.
2. Left lower extremity: JUNG not obtainable secondary to noncompressible vessels. TBI, which is more reliable in this setting, is severely reduced 0.22. Multiphasic waveforms in the common femoral and profunda with transition to monophasic waveforms
throughout the superficial femoral and popliteal arteries. However, no discrete stenosis is identified. Continuous Doppler waveforms at the dorsalis pedis and posterior tibial arteries are monophasic.
3. Right groin small seromatous appearing collection measuring 1.1 x 1.4 cm.
04/23/2025 MRI left lower extremity without contrast: No evidence of osteomyelitis. Small foci of decreased signal intensity within the soft tissues likely representing soft tissue air from plantar wound and superior extension. Please see full
dictation for additional detail.
04/22/2025 Left foot x-ray: There are 2 soft tissue lucencies about the base of the great toe. The larger is located laterally and is teardrop in shape. It measures 7 mm. This is 6 mm from the closest osseous structure of the great toe. The second is
smaller and located medially just below the dermis at the level of the first MTP joint. It measures 2 mm.
[2025-09-14 15:23] VITALS: BP 151/100
[2025-09-14 17:07] LABS: Glucose - Point of Care 155 mg/dl (70-99)
[2025-09-14] MEDS: LOVENOX 40 MG SC (17:16)
[2025-09-14] MEDS: ZOSYN 50 IV (17:16)
[2025-09-14] MEDS: NOVOLOG FLEXPEN-LOW RESISTANCE 1 UNITS SC (17:17)
[2025-09-14 21:15] VITALS: BP 137/99
[2025-09-14] MEDS: FLOMAX 0.4 MG PO (21:18)
[2025-09-14] MEDS: TOPROL XL 25 MG PO (21:18)
[2025-09-14] MEDS: LANTUS 0.18 UNITS SC (21:18)
[2025-09-14] MEDS: CRESTOR 40 MG PO (21:18)
[2025-09-14 21:25] LABS: Glucose - Point of Care 201 mg/dl (70-99)
[2025-09-14] MEDS: XALATAN OPHTHALMIC SOLUTION 1 DROP BOTH EYES (21:25)
[2025-09-15] MEDS: ZOSYN 50 IV ×3 (01:13→11:40)
[2025-09-15] MEDS: TYLENOL 650 MG PO (01:18)
[2025-09-15 07:00] VITALS: BP 121/77
[2025-09-15 07:33] LABS: Glucose - Point of Care 132 mg/dl (70-99)
[2025-09-15 08:27] LABS: Hematocrit 34.2 % (39.0-52.0); Hemoglobin 10.9 g/dL (13.0-18.0); Mean Corp Hgb Conc. 31.9 g/dL (33.0-37.0); Mean Corpuscular Volume 87.5 fL (80.0-94.0); Nucleated Red Blood Cells % 0 % (-); Platelet Count 133 10^3/uL (130-400); Red Cell Dist. Width 14.0 % (11.5-14.5)
[2025-09-15 09:03] LABS: Blood Urea Nitrogen 27 mg/dl (9-20); Calcium 8.5 mg/dl (8.4-10.2); Carbon Dioxide 27 mmol/L (22-30); Chloride 106 mmol/L (98-107); Estimated Creatinine Clearance 56 ml/min; Glucose 125 mg/dl (70-99); Potassium 3.7 mmol/L (3.5-5.1); Sodium 139 mmol/L (135-145); eGFR 56.93
[2025-09-15] MEDS: NOVOLOG FLEXPEN-LOW RESISTANCE SC (09:16)
[2025-09-15] MEDS: NEURONTIN 100 MG PO ×2 (09:21→11:40)
[2025-09-15] MEDS: FARXIGA 10 MG PO (09:22)
[2025-09-15] MEDS: DETROL LA 4 MG PO (09:22)
[2025-09-15] MEDS: FEOSOL 325 MG PO (09:22)
[2025-09-15] MEDS: DESENEX/MITRAZOL/ZEASORB 1 APPLIC TOPICAL (09:22)
[2025-09-15 09:23] VITALS: BP 121/77
[2025-09-15] MEDS: SANTYL OINTMENT 1 APPLIC TOPICAL (09:26)
--- NOTE | 2025-09-15 10:10 | W.PN.HOSP.TC ---
Today's Communication/Plan
-
iv abx
op surgery f/u
Assessment / Plan
Assessment / Plan
Physical Exam
General: No acute distress, appears comfortable at this time
HEENT: NormoCephalic, Moist mucous membranes and Atraumatic
Respiratory: Clear
Cardiac: S1/S2 and Regular Rhythm; No Murmur or Rub
GI: Soft, Non Tender, Non Distended and Normal Bowel Sounds; No Organomegaly
Musculoskeletal: No Clubbing, No Cyanosis and No Edema, left foot s/p TMA dressing clean dry intact
Neuro: AO x 3 and Nonfocal/grossly intact
Psych: Calm
#Concern for osteo/diabetic foot infection status post transmetatarsal amputation
- ID consult appreciated empiric vanc and zosyn narrowed to unasyn
- Tylenol as needed for fever or pain
- X-ray Of the foot appreciated
- Lt MRI appreciated Acute osteomyelitis residual 5th metatarsal
- Podiatry consult appreciated WBAT, Resection of left 5th metatarsal base performed Mon 09/10, [facility] LLE
- Cultures polymicrobial-discussed with infectious disease. s/p picc line. Plan to transition to IV Zosyn for 6 weeks. Home IV abx set up completed today. dc home
#Anemia of chronic disease
-H&H stable monitor
#Chronic kidney stage IIIb
- Monitor
# Severe aortic stenosis status post aortic valve replacement on 03/05/[address] Elam
#Afib Paroxysmal
-metoprolol continued
-Dr. Cruz discussed w/ pt's primary Director Staffing Dr Ruel Araujo via tiger text, pt off Eliquis b/c he is s/p Left Atrial Appendage Clipping
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
-Hemoglobin A1c 8.2
-Lantus 15U at bedtime home dose. POC elevated -increased dose to 18u. POC improved.
-sliding scale, jardiance
-gabapentin continued
#Essential HTN
#HLD
-Metoprolol statin continued
#stage 3 gluteal cleft pressure injury POA
wound care
PT/OT appreciated SNF rehab vs HH
DVT ppx scd/start lovenox
Full code
More than 30 minutes spent in discharge including
Final examination of the patient
Summarizing hospital stay
Instructions for continuing care to all relevant caregivers
Preparation of discharge records, prescriptions, and referral forms
Total time spent (in minutes): 53
Anticipated Discharge: Today
Subjective/Interval History
-
Date of Service: September 15, 2025
denies foot pain
eager to go home
Objective Data
-
Labs:
Laboratory Results
09/15/25
07:44
WBC 7.3
Hgb 10.9 L
Hct 34.2 L
Plt Count 133
Sodium 139
Potassium 3.7
Chloride 106
Carbon Dioxide 27
BUN 27 H
Creatinine 1.3
Glucose 125 H
Calcium 8.5
Vital Signs:
Vital Signs
Temp Pulse Resp BP Pulse Ox
97.8 F 83 16 121/77 100
09/15/25 07:00 09/15/25 07:00 09/15/25 07:00 09/15/25 07:00 09/15/25 07:00
I&O
09/14/25 09/15/25 09/16/25
06:59 06:59 06:59
Intake Total 720 / 720 1360 / 1360
Output Total 460 / 460 250 / 250
Balance 260 / 260 1110 / 1110
[2025-09-15 11:40] LABS: Glucose - Point of Care 226 mg/dl (70-99)
[2025-09-15] MEDS: NOVOLOG FLEXPEN-LOW RESISTANCE 2 UNITS SC (11:42)
[2025-09-15 12:30] VITALS: BP 126/76
--- NOTE | 2025-09-15 13:17 | W.DCSUMMARY ---
Discharge Summary
Discharge Data
Date of Admission: 09/07/25
Date of Discharge: 09/15/25
-
Pending Results: No
Hospital Course
75-year-old male past medical history of anemia of chronic disease, CKD, severe aortic stenosis status post aortic valve replacement, atrial fibrillation, diabetes mellitus, hypertension, hyperlipidemia is presented with concern for infected foot.
Patient was referred by podiatric and ID. S/p resection for left fifth metatarsal base. Recommend nonweightbearing left lower extremity. MRI of the left foot with acute osteomyelitis. Pain was controlled. Cultures with polymicrobial. Patient
was on IV Unasyn. Patient received PICC line. Patient be transition to Zosyn for 6 weeks. Patient with increased POC and Lantus was increased to 18 units nightly. Patient is comfortable managing antibiotics at home. Patient was discharged home
with recommendation to follow-up outpatient with a primary doctor and podiatry.
Discharge Plan
-
Patient Disposition: Home with Home Care
Discharge Diagnosis/Procedures: Left foot wound/ulceration/cellulitis
Osteomyelitis left fifth metatarsal status post debridement
Condition: Fair
Diet: Diabetic, Carb Controlled
Activity: Do not bear weight L leg and Other activity
Additional Activity: NWB to LLE
Driving Restrictions: Not until seen by your Dr
Activity Restrictions/Additional Instructions:
Wound Care Instructions
Gluteal cleft: clean with soap and water, skin prep periwound, Santyl to base of wound, 2x2 gauze, cover with dry dressing change daily and prn drainage.
R thigh: silicone foam to protect change q 3 days.
Follow up at wound care center call for an appointment.
Referrals:
Jj Wilder DPM [Active, Orthopedics] - in one week
Referral Note: call to make appt
Munir Mcdaniel DO [Family Provider, Family Practice] - in less than 1 week
Additional Discharge Medication Instructions: Lantus dose has been increased to 18 units nightly
Prescriptions:
New
Insulin Glargine Lantus [Lantus] 18 UNITS
Subcutaneous Insulin Syringe [Syringe-Insulin] 0 UNIT
As Directed mls/hr SC HS
Ordered By: Matthew Strange MD
Last Taken: 09/14/25 21:18 0.18 mls
Zosyn in dextrose (iso-osm) 4.5 gram/100 mL Piggyback
4.5 g IV Q8H Qty: 1200 0RF
Continued
rosuvastatin 40 mg Tablet
40 mg PO HS
ferrous sulfate 325 mg (65 mg iron) Tablet
325 mg PO DAILY
multivitamin Tablet
1 tab PO DAILY
acetaminophen 325 mg tablet
650 mg PO Q4HPRN PRN (Reason: mild pain)
tamsulosin 0.4 mg capsule
0.4 mg PO HS
gabapentin 100 mg capsule
100 mg PO TID@0800,1200,2000
Jardiance 25 mg Tablet
12.5 mg PO DAILY
Patient Comments:
called [facility] to verify med and dose
acetaminophen 325 mg Tablet
650 mg PO Q4HPRN PRN (Reason: mild pain,headache,temp >101F ) Qty: 30 0RF
polyethylene glycol 3350 17 gram Powder In Packet
17 g PO DAILYPRN PRN (Reason: constipation) Qty: 30 0RF
metoprolol succinate 25 mg Tablet Extended Release 24 Hr
25 mg PO HS Qty: 30 0RF
midodrine 5 mg tablet
5 mg PO TID@0800,1300,1800 PRN (Reason: hypotension)
latanoprost
1 drp BOTH EYES HS
tolterodine 4 mg Capsule,Extended Release 24hr
4 mg PO DAILY
Discontinued
Insulin Glargine Lantus [Lantus] 15 UNITS
Subcutaneous Insulin Syringe [Syringe-Insulin] 0 UNIT
As Directed mls/hr SC HS
Ordered By: Antonio Mcgraw MD
Last Taken: Unknown
Discharge Orders:
Discharge Patient (As Directed); Ordered 09/15/25
Ordered By: Matthew Strange
Discharge Date and Time
Discharge Date/Time: 09/15/25 13:00
Print Language: CROATIAN
--- NOTE | 2025-09-15 15:54 | CM ---
Patient has been medically cleared for discharge to home with resumption of [facility]. [facility] will provide IV/antibiotic therapy. Patient has arranged for transport home.
== END 2025-09-15 13:00 | disposition home health service (06) | DRG 628 ==
LOC: 3 WEST ACU 17:54
PROVIDERS: Emergency Medicine; Registered Nurse; Student in an Organized Health Care Education/Training Program; ADMITTING PHYSICIAN Hospitalist; ATTENDING PHYSICIAN Hospitalist; CONSULT PHYSICIAN Internal Medicine Infectious Disease; EMERGENCY PHYSICIAN Emergency Medicine; FAMILY PHYSICIAN Family Medicine; OTHER PHYSICIAN Student in an Organized Health Care Education/Training Program
PROC: 0QBP0ZZ Excision of Left Metatarsal, Open Approach (ICD-10-PCS; 2025-09-10)
PROC: 02HV33Z Insertion of Infusion Device into Superior Vena Cava, Percutaneous Approach (ICD-10-PCS; 2025-09-14)
DX: E11.621 Type 2 diabetes mellitus with foot ulcer (principal); L89.153 Pressure ulcer of sacral region, stage 3; L03.116 Cellulitis of left lower limb; M86.172 Other acute osteomyelitis, left ankle and foot; L97.529 Non-pressure chronic ulcer of other part of left foot with unspecified severity; I48.0 Paroxysmal atrial fibrillation; E78.5 Hyperlipidemia, unspecified; I12.9 Hypertensive chronic kidney disease with stage 1 through stage 4 chronic kidney disease, or unspecified chronic kidney disease; E11.22 Type 2 diabetes mellitus with diabetic chronic kidney disease; E11.42 Type 2 diabetes mellitus with diabetic polyneuropathy; E11.649 Type 2 diabetes mellitus with hypoglycemia without coma; E11.51 Type 2 diabetes mellitus with diabetic peripheral angiopathy without gangrene; E11.628 Type 2 diabetes mellitus with other skin complications; N18.30 Chronic kidney disease, stage 3 unspecified; D63.1 Anemia in chronic kidney disease; R70.0 Elevated erythrocyte sedimentation rate; I35.0 Nonrheumatic aortic (valve) stenosis; B96.4 Proteus (mirabilis) (morganii) as the cause of diseases classified elsewhere; B95.2 Enterococcus as the cause of diseases classified elsewhere; B95.4 Other streptococcus as the cause of diseases classified elsewhere; I25.10 Atherosclerotic heart disease of native coronary artery without angina pectoris; Z96.653 Presence of artificial knee joint, bilateral; Z79.4 Long term (current) use of insulin; Z79.01 Long term (current) use of anticoagulants; Z79.899 Other long term (current) drug therapy; Z85.46 Personal history of malignant neoplasm of prostate; Z95.2 Presence of prosthetic heart valve
CPT/HCPCS: 71045; 73630; 73721; 80048; 80053; 80202; 82962; 83036; 83605; 83735; 84100; 84484; 85025; 85027; 85652; 86140; 87040; 87070; 87071; 87075; 87077; 87147; 87176; 87205; 88304; 88311; 93005; 96365; 96375; 97162; 97164; 97167; 97530; 99285